=== PATIENT | female | born 1970 | race Caucasian/White ===

== ENCOUNTER 2024-08-25 04:34 | Emergency (ER) | payer MEDICAID, SELFPAY ==
[2024-08-25] VITALS (10 sets, daily range): BP systolic 105–138; BP diastolic 57–88; PULSE 69–112; RESP 18–30; TEMP 36.7–37.3; O2SAT 90–99; BMI 42.4
--- NOTE | 2024-08-25 04:54 | EDNOTE_ITS ---
ED SOB =RME/HPI General Chief Complaint: Shortness of Breath/Dyspnea Stated Complaint: SOB Time Seen by Provider: 08/25/24 04:48 Arrival date/time: 08/25/24 04:34 RME / HPI RME / HPI Narrative: Dr. Bland?s Main ED Evaluation: 53yo female with pmhx CHF, HTN, COPD, DM BIBA presents to the ED for a chief complaint of shortness of breath. Patient states she's had progressively worsening shortness of breath over the last couple days, reporting she had to use her inhaler (8 puffs) today. She reports associated worsening productive cough, sore throat, and runny nose. She denies any chest pain, fever, chills or any other associated symptoms. Denies currently being on steroids. Related Data Home Medications ?Medication ?Instructions ?Recorded ?Confirmed digoxin 125 mcg (0.125 mg) tablet 125 mcg PO DAILY 12/16/23 04/03/24 insulin glargine 100 unit/mL (3 10 unit subcut HS 02/24/24 04/03/24 mL) subcutaneous pen (Lantus Solostar U-100 Insulin) Previous Rx's ?Medication ?Instructions ?Recorded apixaban 5 mg tablet (Eliquis) 5 mg PO BID 1 month #60 tabs 02/12/24 empagliflozin 10 mg tablet 10 mg PO QAM #30 tabs 02/12/24 (Jardiance) ipratropium 0.5 mg-albuterol 3 mg 3 ml inhalation Q4H PRN shortness 02/12/24 (2.5 mg base)/3 mL nebulization of breath or wheezing #90 mL soln metoprolol succinate 25 mg 25 mg PO QDAY #30 tabs 02/12/24 tablet,extended release 24 hr albuterol sulfate 2.5 mg/0.5 mL 2.5 mg (0.5 mL) inhalation Q6H PRN 03/07/24 solution for nebulization shortness of breath or wheezing #30 ea albuterol sulfate 90 mcg/actuation 2 inh inhalation Q4H PRN shortness 03/27/24 aerosol inhaler of breath or wheezing #8.5 grams beclomethasone dipropionate 80 2 inh inhalation BID Asthma #10.6 03/27/24 mcg/actuation HFA breath activated grams aerosol (Qvar RediHaler) furosemide 40 mg tablet 40 mg PO BID 1 month #30 tabs 04/04/24 fluticasone furoate 100 1 inh inhalation Q24H #60 ea 07/02/24 mcg-vilanterol 25 mcg/dose inhalation powder (Breo Ellipta) Allergies Allergy/AdvReac Type Severity Reaction Status Date / Time codeine Allergy Severe HIVES, Verified 04/02/24 20:49 SWELLING, DIFF BREATHING meloxicam Allergy Severe Difficulty Verified 04/02/24 20:49 Breathing Review of Systems Review of Systems Systems Reviewed: All systems reviewed, normal except as documented Narrative Review of Systems: Gen: No fever, no chills, no weight loss EYES: No discharge, no visual changes, no pain HEENT: No ear pain, + congestion, + sore throat PULM: + shortness of breath, + cough, no congestion CV: No chest pain, no dyspnea on exertion, no palpitations GI: No nausea, no vomiting, no diarrhea, no pain, no constipation : No frequency, no urgency, no dysuria Musc/skel: No joint pain, no back pain Skin: No rash. Warm and dry. Psyc: No hallucinations, no depression Heme/Lymph: No easy bleeding or bruising tendencies Neuro: No weakness, no headache Past Medical History Past Medical History NEUROLOGIC: Positive Neurological Disorders and Migraine; Negative Cerebrovascular Accident, Transient Ischemic Attacks (TIA), Dementia, Alzheimer's Disease, Parkinson's Disease, Brain Tumor, Meningitis, Seizures, Epilepsy, Multiple Sclerosis, Cerebral Palsy, Amyotrophic Lateral Sclerosis (ALS/[place] Gehrig's), Guillain-[place] Syndrome, Spina Bifida, Paralysis, Peripheral Neuropathy, Aguayo's Palsy, Subdural Hematoma, Head Trauma, Spinal Cord Injury or Traumatic Brain Injury CARDIAC: Positive Cardiac Disorders, Myocardial Infarction, Cardiac Arrhythmia, Congestive Heart Failure and Hypotension; Negative Atrial Fibrillation, Angina, Heart Murmur, Coronary Artery Disease, Atherosclerotic Heart Disease, Peripheral Vascular Disease, Hypercholesterolemia, Aneurysm, Congenital Heart Disease, Valvular Heart Disease, Rheumatic Fever, Cardiomyopathy, Edema, Pericarditis, Cellulitis, Deep Vein Thrombosis, Hypertension or Varicose Veins RESPIRATORY: Positive Chronic Obstructive Pulmonary Disease (COPD), Asthma and Pneumonia; Negative Bronchitis, Emphysema, Pulmonary Fibrosis, Cystic Fibrosis, Tuberculosis, Pulmonary Embolism, Pulmonary Edema or Sleep Apnea GASTROINTESTINAL: Positive Gastrointestinal Disorders, Gall Bladder Disease and Obesity; Negative Hepatitis, Cirrhosis, Pancreatitis, Celiac Disease, Gastrointestinal Bleed, Esophageal Varices, Silverio's Esophagus, Colitis, Ulcerative Colitis, Diverticulitis, Diverticulosis, Ulcer, Colorectal Cancer, Irritable Bowel, Crohn's Disease, Obstructive Bowel, Hiatal Hernia, Hemorrhoids or Gastroesophageal Reflux Disease GENITOURINARY: Negative Genitourinary Disorders, Renal Disease, Kidney Stones, Polycystic Kidney Disease, Neurogenic Bladder, Inguinal Hernia, Dialysis, Prostate Cancer or Benign Prostatic Hyperplasia REPRODUCTIVE: Positive Previous Pregnancies; Negative Breast Cancer, Endometriosis, Genital Herpes, Gonorrhea, Pelvic Inflammatory Disease, Syphilis, Testicular Cancer or Uterine Prolapse MUSCULOSKELETAL: Positive Arthritis and Fractures; Negative Musculoskeletal Disorders, Muscular Dystrophy, Myasthenia Gravis, Marfan's Syndrome, Bone Cancer, Rheumatoid Arthritis, Osteoporosis, Degenerative Disk Disease, Gout, Scoliosis, Carpal Tunnel Syndrome, Fibromyalgia, Degenerative Joint Disease, Osteomyelitis or Poliovirus ENT: Negative Cataracts, Glaucoma, Blind, Retinal Detachment, Macular Degeneration, Ear Infection, Deafness, Head Trauma or Eye Prosthesis ENDOCRINE: Positive Endocrine Disorders and Diabetes Mellitus Type 2; Negative Diabetes Mellitus Type 1, Hypoglycemia, Yani's Syndrome, Gilles's Disease, Hyperthyroidism, Hypothyroidism, Parathyroid Disease, Pituitary Disease, Systemic Lupus Erythematosus, Syndrome of Inappropriate Antidiuretic Hormone (SIADH), Adrenal Disease or Graves' Disease HEMATOLOGIC: Negative Blood Disorders, Anemia, Leukemia, Hemophilia, Thalassemia, Sickle Cell Disease or Clotting Problems PSYCHO/SOCIAL: Positive Recreational Drug Use, Depression and Anxiety; Negative Psychiatric Problems, Schizophrenia, Bipolar Disorder, Behavior Problems, Self-Mutilation, Attention Deficit Disorder, Attention Deficit Hyperactivity Disorder, Depression, Post Traumatic Stress Disorder or Eating Disorder OTHER HISTORY: Positive Autoimmune Disease, Shingles, Falls and Chicken Pox; Negative Down Syndrome, Autism, Developmental Delay, Blood Transfusions, Blood Transfusion Reaction, Anesthesia Reactions, Organ Transplant, Chemotherapy, Radiation Therapy, Hyperbaric Therapy, MRSA, VRSA, Vancomycin-Resistant Enterococci, Human Immunodeficiency Virus (HIV), Measles, Mumps, Rubella (Swiss Measles), Pertussis, Clostridium Difficile, Cancer, Breast Cancer, Cervical Cancer, Colorectal Cancer, Lung Cancer, Ovarian Cancer, Prostate Cancer or Testicular Cancer Family History FAMILY HISTORY: Positive Family Cancer and Family Surgery; Negative Family Psychiatric Problems, Family Respiratory Disorders, Family Cardiac Disorders, Family Gastrointestinal Problems or Family Anesthesia Reaction Surgical History SURGICAL: Positive Abdominal Surgery; Negative Cardiac Surgery, Open Heart Surgery, Coronary Artery Bypass Graft, Valve Replacement, Vascular Surgery, Coronary Stent, Cardiac Catheterization, Pacemaker, Angiogram, Auto Implanted Cardiovert Defib, Carotid Endarterectomy, Endocrine Surgery, Thyroidectomy, Ear Surgery, Tympanostomy Tube, Eye Surgery, Nose Surgery, Oral Surgery, Tonsillectomy, Adenoidectomy, Cochlear Implant, Corneal Transplant, Throat Surgery, Tracheostomy, Gastrostomy, Bowel Surgery, Nephrectomy, Transurethral Resection, Joint Replacement, Amputation, Open Reduction Internal Fixation, Arthroscopy, Neurologic Surgery, Brain Shunt, Mastectomy, Lumpectomy, Hysterectomy, Tubal Ligation, Section or Organ Transplant Social History SMOKING STATUS: Former smoker SECOND HAND EXPOSURE: Yes SUBSTANCE USE: former substance user and amphetamines ED Exam Narrative Physical exam: GENERAL APPEARANCE: AxOx4, generally well-appearing, no acute distress. HEENT: NC, AT. MMM. EOMI, clear conjunctiva, oropharynx clear. NECK: Supple without lymphadenopathy. No stiffness or restricted ROM. HEART: Normal rate and regular rhythm, normal S1/S1, no m/r/g LUNGS: Diminished breath sounds in all lung vides. + expiratory wheezes. No crackles are heard. ABDOMEN: Soft, nontender, nondistended with good bowel sounds heard. BACK: No midline C/T/L spine pain or deformity, No CVAT, no obvious deformity. EXTREMITIES: Without cyanosis, clubbing or edema. MUSCULOSKELETAL: FROM of all major joints, no chest tenderness NEUROLOGICAL: Grossly nonfocal. Alert and oriented, moving all 4 extremities. CN not formally tested but appear grossly intact. Observed to ambulate with normal gait. Skin: Warm and dry without any rash. Course Quality Measures none Orders Category Date Time Status EKG (ED ONLY) *Do not use* NOW Care 08/25/24 04:35 Completed EKG (ED Only) Stat Exams 08/25/24 04:35 Ordered ALBUTEROL RT 0.5ml [Proventil Rt 0.5ml] Med 08/25/24 04:55 Discontinued 10 mg INH X1 ONE Ipratropium [place] Rt Mariel [Atrovent Rt Mariel] Med 08/25/24 04:55 Discontinued 1 mg INH X1 ONE Sodium Chloride Rt Mariel 0.9% [NS Rt Mariel 0.9%] Med 08/25/24 04:55 Active 3 ml INH PRN PRN predniSONE Med 08/25/24 04:54 Discontinued 60 mg PO X1 ONE Vital Signs Vital signs: Vital Signs Temperature 98.0 F 08/25/24 04:36 Pulse Rate 78 08/25/24 04:36 Respiratory Rate 28 H 08/25/24 04:36 Blood Pressure 120/57 L 08/25/24 04:36 Pulse Oximetry (%) 90 L 08/25/24 04:36 Oxygen Delivery Method Room Air 08/25/24 04:36 Pulse ox is 90% on room air, which is slightly hypoxic according to my interpretation. Shortness of Breath / Dyspnea MDM Narrative MDM Narrative:: Ms. Reynaga's well-known to the emergency department for frequent visits for COPD exacerbation which she presents with similar issues. She has been able to maintain her home oxygen and living status but appears to be suffering for an upper respiratory infection with a sore throat and cough. This is likely triggering a COPD exacerbation. There could be a small component of acute bronchitis as well. Patient was started on aggressive bronchodilators and oral steroids. She is currently in treatment process and is signed out to the oncoming provider for reevaluation, possible further testing, and final disposition. Scribe Attestation: 08/24/24 - Neyda, Nina Carnes, scribing for and in the presence of Dr. Bland. Patient data External records reviewed:: [facility] previous records (Per chart review, patient was seen here on 08/16/24 for an anxiety attack.) Clinical information provided by:: patient Social determinants that could affect healthcare access:: none Patient has the following chronic illnesses:: HFrEF 35-40% 03/2024, AFib, COPD, diabetes, anxiety How is presenting disease/condition affected by chronic disease/condition?: exacerbated by Evaluation data The following diagnostics were reviewed and interpreted by me:: EKG tracing(s) Lab and/or radiology exams considered but not ordered:: none Interpretation Summary: EKG done at 0444, sinus rhythm, rate of 79, normal axis, normal intervals, nonspecific ST-T wave changes, no STEMI, according to my interpretation. Medications / Prescriptions Medications or Prescriptions considered but not ordered:: none Medication administrations:: Medication Administration History Sodium Chloride (Sodium Chloride Rt Mariel 0.9% 3 Ml Nebu) 3 ml INH PRN PRN PRN Reason: SOLN Stop: 09/24/24 04:54 Last Admin: 08/25/24 05:05 Dose: 3 ml Documented By: JERRY Discontinued Medications Albuterol (Albuterol Rt 2.5 Mg/0.5 Ml Nebu) 10 mg INH X1 ONE Stop: 08/25/24 04:56 Last Admin: 08/25/24 05:04 Dose: 10 mg Documented By: JERRY Ipratropium [place] (Ipratropium Rt 0.5 Mg/ 2.5 Ml Nebu) 1 mg INH X1 ONE Stop: 08/25/24 04:56 Last Admin: 08/25/24 05:04 Dose: 1 mg Documented By: JERRY Prednisone (Prednisone 20 Mg Tablet) 60 mg PO X1 ONE Stop: 08/25/24 04:55 Last Admin: 08/25/24 05:02 Dose: 60 mg Documented By: DB see above Consultations Consultation(s) initiated? (list below): No Diagnosis Shortness of Breath Differential Diagnosis: community acquired pneumonia, asthma with exacerbation, pulmonary embolism and other (COPD exacerbation, CHF exacerbation) Most likely diagnosis given after review of the tests above:: see below Admission Indicated Admission indicated?: not indicated Admission Request Was there a request for admission?: No Disposition Plan Disposition Plan: other (specify) (Signed out to the next oncoming provider at 0600 pending re-evaluation and final disposition.) Critical Care Time Critical Care Time Critical Care Time: Yes Total Critical Care Time (min.): 35 Attestation: Excluding billable procedures for the rapid response, analysis, management, treatment, and documentation to prevent the very possible risk of cardiopulmonary decompensation and/or Discharge Plan Prescriptions/Referrals Prescriptions/Med Rec: No Action digoxin 125 mcg (0.125 mg) tablet 125 mcg PO DAILY metoprolol succinate 25 mg tablet extended release 24 hr 25 mg PO QDAY Qty: 30 3RF ipratropium-albuterol 0.5 mg-3 mg(2.5 mg base)/3 mL solution for nebulization 3 ml inhalation Q4H PRN (Reason: shortness of breath or wheezing) Qty: 90 0RF Jardiance 10 mg tablet 10 mg PO QAM Qty: 30 3RF Eliquis 5 mg tablet 5 mg PO BID 30 Days Qty: 60 3RF albuterol sulfate 90 mcg/actuation HFA aerosol inhaler 2 inh inhalation Q4H PRN (Reason: shortness of breath or wheezing) Qty: 8.5 0RF Qvar RediHaler 80 mcg/actuation HFA aerosol breath activated 2 inh inhalation BID Qty: 10.6 0RF Rx Instructions: administer with spacer fluticasone furoate-vilanterol [Breo Ellipta] 100-25 mcg/dose blister with device 1 inh inhalation Q24H Qty: 60 0RF insulin glargine [Lantus Solostar U-100 Insulin] 100 unit/mL (3 mL) insulin pe n 10 unit SUBCUT HS albuterol sulfate 2.5 mg/0.5 mL solution for nebulization 2.5 mg inhalation Q6H PRN (Reason: shortness of breath or wheezing) Qty: 30 0RF furosemide 40 mg tablet 40 mg PO BID 30 Days Qty: 30 3RF Problem List Clinical Impression: Acute exacerbation of chronic obstructive airways disease, Acute bronchitis Patient/Caregiver Discharge Instructions Print Language: Kinyarwanda
--- NOTE | 2024-08-25 04:54 | PC.NURSE ---
Pt BIB EMS with chief c/o of SOB X2 hr. Per EMT-P Umang reports that the Pt was found in her room with a Sp02 of 81% on room air, so EMT-P Susana gave her a Breathing Tx which render a positive outcome and elevated her Sp02 to 96% and kept her on a non rebreather. On assessment Pt is SOB typinci with wheezing sound throughout to all 4 quadrants, 28 RR, and Sp02 90% on room air. Pt was given updated on plan of care. Dr. Bland at bedside assessing Pt.
[2024-08-25] MEDS: predniSONE 20 MG TABLET 60 MG PO (05:02)
[2024-08-25] MEDS: ALBUTEROL RT 2.5 MG/0.5 ML NEBU 10 MG INH (05:04)
[2024-08-25] MEDS: IPRATROPIUM RT 0.5 MG/ 2.5 ML NEBU 1 MG INH (05:04)
[2024-08-25] MEDS: SODIUM CHLORIDE RT SOL 0.9% 3 ML NEBU INH (05:05)
--- NOTE | 2024-08-25 06:09 | XR_ITS ---
Examination: AP chest single view Technique: AP portable upright chest single view Exam date and time: January 24, 2024 0612 hrs. Comparison August 06, 2024 Indications: Onset shortness of breath today Findings: Normal heart size Mild vascular congestion No lobar pneumonia No hector pulmonary edema Prominent osteopenia Impression: Mild vascular congestion
--- NOTE | 2024-08-25 06:48 | EDNOTE_ITS ---
Emergency Room Addendum <Virginia Hou - Last Filed: 08/25/24 06:53> Addendum Narrative: 0600: Care assumed from Dr. Bland, the previous shift emergency physician. Past medical, surgical, social and family history reviewed. Vitals and home medications reviewed. I will assume the care of the patient at this time, pending reassessment and final disposition. Please refer to the emergency department record for history and examination from initial visit.? EMS notes reviewed by me. Nursing notes reviewed by me. Vital signs reviewed by me. [place] medical records reviewed by me. <Chai Patterson MD - Last Filed: 08/25/24 09:55> Addendum Narrative: 0600: Care assumed from Dr. Bland, the previous shift emergency physician. Past medical, surgical, social and family history reviewed. Vitals and home medications reviewed. I will assume the care of the patient at this time, pending reassessment and final disposition. Please see his note. Please refer to the emergency department record for history and examination from initial visit. Dr. Flores has given her albuterol treatment and prednisone by mouth. EMS notes reviewed by me. Nursing notes reviewed by me. Vital signs reviewed by me. [place] medical records reviewed by me. When I examined the patient she still have a little bit of wheezing so I gave her another 5 mg of albuterol continuous nebulizer treatment. And I put on oxygen at 2 L/min nasal cannula. She is on oxygen at home continuously. 1 view chest x-ray interpreted by me: Clear lungs. Heart normal. Mediastinum normal. Cannot rule out a small infiltrate in the left base. For which I gave the patient Rocephin. But the patient does not have any fever. Her WBC count is normal. So it could might well be a atelectasis 9:50 AM, the patient is alert awake oriented x 4 GCS of 15. Comfortably on 2 L nasal cannula. And his O2 saturation is 98%. She wants to go home. And she is calling for a ride home. Diagnosis: COPD exacerbation Condition: Stable and improved DC instruction: Continue oxygen at home for COPD. Continue inhaler for COPD. Continue Qvar. Follow-up with your medical doctor in 3 days. Return the nearest emergency department if condition worsens or if new symptoms develop.
[2024-08-25 07:36] LABS: Basophils % (Auto) 0 % (0-2.5); Eosinophils % (Auto) 1 % (0-10); Hematocrit 37.2 % (36.0-46.0); Hemoglobin 11.9 g/dL (12.0-16.0); Immature Granulocytes % (Auto) 1 % (0-0); Immature Granulocytes Auto 0.03 Thou/mm3 (0.00-0.00); Lymphocytes % (Auto) 17 % (10-50); Mean Corpuscular Volume 88 fL (80-100); Monocytes # (Auto) 0.3 Thou/mm3 (0.0-0.8); Monocytes % (Auto) 5 % (0-12); Neutrophils # (Auto) 4.3 Thou/mm3 (1.8-7.7); Neutrophils % (Auto) 77 % (37-80); Nucleated Red Blood Cell % 0 /100 WBC (0); Platelet Count 135 Thou/mm3 (140-440); RDW Standard Deviation 44.8 fL (36.4-46.3); Red Blood Count 4.25 Miln/mm3 (4.00-5.20); White Blood Count 5.6 Thou/mm3 (3.6-11.0)
[2024-08-25 07:46] LABS: Anion Gap 4 (7-16); BUN/Creatinine Ratio 14 Ratio (12-20); Blood Urea Nitrogen 10 mg/dL (9-23); Calcium 9.3 mg/dL (8.3-10.6); Carbon Dioxide 30.9 mMol/L (20.0-31.0); Chloride 101 mMol/L (98-107); Creatinine (Component) 0.7 mg/dL (0.6-1.3); Estimated Creatinine Clearance 93.9 mL/min (>60); Glucose 298 mg/dL (74-106); Osmolality,Calculated 281 (275-295); Potassium 3.5 mMol/L (3.4-5.1); Sodium 136 mMol/L (136-145); Troponin I < 0.020 ng/mL (0.0-0.045); eGFR > 60 See Note
[2024-08-25 07:59] LABS: B-Type Natriuretic Peptide < 20 pg/mL (0-100)
[2024-08-25] MEDS: ALBUTEROL RT 2.5 MG/0.5 ML NEBU 5 MG HHN (08:02)
[2024-08-25] MEDS: cefTRIAXone/D5w 1gm IV premix 50 ML IV (08:22)
== END 2024-08-25 11:25 | disposition home or self-care (01) ==
PROVIDERS: Emergency Provider Emergency Medicine; PCP Family Medicine
DX: J44.1 Chronic obstructive pulmonary disease with (acute) exacerbation (principal); J44.0 Chronic obstructive pulmonary disease with (acute) lower respiratory infection; J20.9 Acute bronchitis, unspecified
CPT/HCPCS: 36415; 71045; 74330; 80048; 83880; 84484; 85025; 93005; 94644; 94645; 99291; J0696; J7512

== ENCOUNTER 2024-08-29 08:41 | Emergency (ER) | payer MEDICAID, SELFPAY ==
[2024-08-29 08:42] VITALS: BP 117/73; PULSE 92; RESP 22; TEMP 37; O2SAT 92
[2024-08-29 08:48] VITALS: BMI 42.4
--- NOTE | 2024-08-29 08:53 | EKG_ITS ---
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: : 1970 Requested By: Chai Dejesus (VANE) Order Number: [id number] Reading MD: Chai Dejesus ([employer]) Measurements Intervals [place] Rate: 100 P: 75 IL: 158 QRS: 41 QRSD: 99 T: 82 QT: 317 QTc: 409 Interpretive Statements SINUS TACHYCARDIA WITH OCCASIONAL VENTRICULAR PREMATURE COMPLEXES LOW QRS VOLTAGE IN PRECORDIAL LEADS [QRS DEFLECTION < 1.0 mV IN CHEST LEADS] NONSPECIFIC ST & T-WAVE ABNORMALITY ABNORMAL RHYTHM ECG Compared to ECG 08/06/2024 05:17:33 Ventricular premature complex(es) now present T-wave abnormality now present Sinus rhythm no longer present Myocardial infarct finding no longer present /store/S0/[id number]/[id number].pdf
--- NOTE | 2024-08-29 08:54 | PD.EDRME ---
Rapid Medical Screening Exam RME Arrival date/time: 08/29/24 08:41 53-year-old female presents emergency department complaints of shortness of breath Chief Complaint: Shortness of Breath/Dyspnea Time Seen by Provider: 08/29/24 08:48 Vital signs: Vital Signs Temperature 98.6 F 08/29/24 08:42 Pulse Rate 92 08/29/24 08:42 Respiratory Rate 22 H 08/29/24 08:42 Blood Pressure 117/73 08/29/24 08:42 Pulse Oximetry (%) 92 L 08/29/24 08:42 Oxygen Delivery Method Nasal Cannula 08/29/24 08:42 Oxygen Flow Rate 2 08/29/24 08:42
--- NOTE | 2024-08-29 08:59 | XR_ITS ---
Examination: AP chest single view Technique one AP portable upright chest single view Exam date and time: August 29, 2024 0918 hours INDICATIONS: Chest pain shortness of breath beginning today. FINDINGS: Accentuation perihilar basilar bronchovascular markings Normal heart size No lobar pneumonia Prominent osteopenia IMPRESSION: Bronchitis pattern
[2024-08-29 09:02] VITALS: PULSE 89
[2024-08-29] MEDS: ALBUTEROL RT 2.5 MG/0.5 ML NEBU 10 MG INH (09:02)
[2024-08-29] MEDS: IPRATROPIUM RT 0.5 MG/ 2.5 ML NEBU 1 MG INH (09:03)
[2024-08-29 09:06] VITALS: PULSE 81; RESP 22; O2SAT 100
--- NOTE | 2024-08-29 11:34 | PD.EDSOB ---
ED SOB =RME/HPI General Chief Complaint: Shortness of Breath/Dyspnea Stated Complaint: trouble breathing, body pain Time Seen by Provider: 08/29/24 08:48 Arrival date/time: 08/29/24 08:41 RME / HPI RME / HPI Narrative: 08/29/24 08:41 RME: 53-year-old female presents emergency department complaints of shortness of breath CECIL HPI: 53 y/o female with history of COPD on 2L NC currently on prednisone with increase bilateral low back pain worsened with breathing and coughing since last night. This she feels has triggered her shortness of breath. Cough is non-productive. She denies fevers, chills, sweats. She denies chest pain. Related Data Home Medications ?Medication ?Instructions ?Recorded ?Confirmed digoxin 125 mcg (0.125 mg) tablet 125 mcg PO DAILY 12/16/23 04/03/24 insulin glargine 100 unit/mL (3 10 unit subcut HS 02/24/24 04/03/24 mL) subcutaneous pen (Lantus Solostar U-100 Insulin) Previous Rx's ?Medication ?Instructions ?Recorded apixaban 5 mg tablet (Eliquis) 5 mg PO BID 1 month #60 tabs 02/12/24 empagliflozin 10 mg tablet 10 mg PO QAM #30 tabs 02/12/24 (Jardiance) ipratropium 0.5 mg-albuterol 3 mg 3 ml inhalation Q4H PRN shortness 02/12/24 (2.5 mg base)/3 mL nebulization of breath or wheezing #90 mL soln metoprolol succinate 25 mg 25 mg PO QDAY #30 tabs 02/12/24 tablet,extended release 24 hr albuterol sulfate 2.5 mg/0.5 mL 2.5 mg (0.5 mL) inhalation Q6H PRN 03/07/24 solution for nebulization shortness of breath or wheezing #30 ea albuterol sulfate 90 mcg/actuation 2 inh inhalation Q4H PRN shortness 03/27/24 aerosol inhaler of breath or wheezing #8.5 grams beclomethasone dipropionate 80 2 inh inhalation BID Asthma #10.6 03/27/24 mcg/actuation HFA breath activated grams aerosol (Qvar RediHaler) furosemide 40 mg tablet 40 mg PO BID 1 month #30 tabs 04/04/24 fluticasone furoate 100 1 inh inhalation Q24H #60 ea 07/02/24 mcg-vilanterol 25 mcg/dose inhalation powder (Breo Ellipta) albuterol sulfate 90 mcg/actuation 2 inh inhalation Q4H PRN shortness 08/25/24 aerosol inhaler of breath or wheezing #8.5 grams beclomethasone dipropionate 40 2 inh inhalation BID COPD #10.6 08/25/24 mcg/actuation HFA breath activated grams aerosol doxycycline monohydrate 100 mg 100 mg PO BID #10 caps 08/29/24 capsule Allergies Allergy/AdvReac Type Severity Reaction Status Date / Time codeine Allergy Severe HIVES, Verified 08/29/24 08:42 SWELLING, DIFF BREATHING meloxicam Allergy Severe Difficulty Verified 08/29/24 08:42 Breathing Review of Systems Review of Systems Systems Reviewed: All systems reviewed, normal except as documented ED Exam Narrative Physical exam: GENERAL APPEARANCE: AxOx4, generally well-appearing, no acute distress. HEENT: NC, AT. MMM. EOMI, clear conjunctiva, oropharynx clear. NECK: Supple without lymphadenopathy. No stiffness or restricted ROM. HEART: Normal rate and regular rhythm, normal S1/S1, no m/r/g LUNGS: Good air exchange in all 4 lung vides, coarse rhonchorous wheezes in all lung vides, no crackles or rails are heard. ABDOMEN: Soft, nontender, nondistended with good bowel sounds heard. BACK: No midline C/T/L spine pain or deformity, No CVAT, no obvious deformity. EXTREMITIES: Without cyanosis, clubbing or edema. MUSCULOSKELETAL: FROM of all major joints, no chest tenderness NEUROLOGICAL: Grossly nonfocal. Alert and oriented, moving all 4 extremities. CN not formally tested but appear grossly intact. Observed to ambulate with normal gait. Skin: Warm and dry without any rash. Course Quality Measures none Orders Category Date Time Status EKG (ED ONLY) *Do not use* NOW Care 08/29/24 08:53 Active EKG (ED Only) Stat Exams 08/29/24 08:53 Draft XR chest 1V portable Stat Exams 08/29/24 08:59 Completed ALBUTEROL RT 0.5ml [Proventil Rt 0.5ml] Med 11/18/24 08:59 Discontinued 10 mg INH X1 ONE Acetaminophen Tab [Tylenol Tab] Med 08/29/24 09:31 Discontinued 650 mg PO X1 ONE Ipratropium [place] Rt Mariel [Atrovent Rt Mariel] Med 08/29/24 08:59 Discontinued 1 mg INH X1 ONE Sodium Chloride Rt Mariel 0.9% [NS Rt Mariel 0.9%] Med 08/29/24 08:59 Active 3 ml INH PRN PRN Reevaluation(s) Reevaluation #1: After completing hour-long nebulized treatment, she feels much improved, breathing comfortably and sleeping well here in the emergency department. Time: 11:30 Vital Signs Vital signs: Vital Signs Temperature 98.6 F 08/29/24 08:42 Pulse Rate 92 08/29/24 08:42 Respiratory Rate 22 H 08/29/24 08:42 Blood Pressure 117/73 08/29/24 08:42 Pulse Oximetry (%) 92 L 08/29/24 08:42 Oxygen Delivery Method Nasal Cannula 08/29/24 08:42 Oxygen Flow Rate 2 08/29/24 08:42 SpO2 92% on 2 L nasal cannula is not hypoxic given her chronic COPD status Procedures -ED EKG Interpretation #1: Date of EK08/29/24 Time of EK:36 Rate: 100 Interpretation: Interpreted by me EKG Impression: Normal sinus rhythm, No acute ST-T changes, Normal intervals and Normal axis Shortness of Breath / Dyspnea MDM Narrative MDM Narrative:: Ms. Reynaga presents to the emergency department with acute exacerbation of COPD in the setting of bilateral pleuritic chest pain with increasing cough. She otherwise does not have signs of systemic infection and cough is more consistent with an acute bronchitis. Chest x-ray was done given her pleuritic back pain and chronic COPD status to rule out pneumothorax/bullous disease. Chest x-ray my interpretation shows no acute cardiopulmonary findings, no cardiomegaly, no bony abnormalities. She is currently on steroids from her last visit with me several days ago. At this point I feel she would benefit with some oral antibiotics for an acute bronchitis and we will have her schedule her home inhaler treatments for the next 3 days. She received an hour-long aggressive nebulized bronchodilator treatment with significant proved here in the emergency department. Her vital signs remained stable without signs of hypoxia and is appropriate for outpatient management. Patient data External records reviewed:: [facility] previous records Clinical information provided by:: patient Social determinants that could affect healthcare access:: none Patient has the following chronic illnesses:: COPD How is presenting disease/condition affected by chronic disease/condition?: exacerbated by Evaluation data The following diagnostics were reviewed and interpreted by me:: radiology exam(s) and EKG tracing(s) Lab and/or radiology exams considered but not ordered:: Basic labs not indicated today. Interpretation Summary: As per narrative Medications / Prescriptions Medications or Prescriptions considered but not ordered:: None Medication administrations:: Medication Administration History Sodium Chloride (Sodium Chloride Rt Mariel 0.9% 3 Ml Nebu) 3 ml INH PRN PRN PRN Reason: SOLN Stop: 09/28/24 08:58 Discontinued Medications Acetaminophen (Acetaminophen 325 Mg Tablet) 650 mg PO X1 ONE Stop: 08/29/24 09:32 Last Admin: 08/29/24 11:06 Dose: Not Given Documented By: KAYLEN Non-Admin Reason: Nausea Albuterol (Albuterol Rt 2.5 Mg/0.5 Ml Nebu) 10 mg INH X1 ONE Stop: 08/29/24 09:00 Last Admin: 08/29/24 09:02 Dose: 10 mg Documented By: NASIM Ipratropium [place] (Ipratropium Rt 0.5 Mg/ 2.5 Ml Nebu) 1 mg INH X1 ONE Stop: 08/29/24 09:00 Last Admin: 08/29/24 09:03 Dose: 1 mg Documented By: NASIM Above Consultations Consultation(s) initiated? (list below): No Diagnosis Shortness of Breath Differential Diagnosis: acute exacerbation of chronic obstructive airways disease, congestive heart failure and community acquired pneumonia Most likely diagnosis given after review of the tests above:: See below Admission Indicated Admission indicated?: not indicated Admission Request Was there a request for admission?: No Disposition Plan Disposition Plan: Discharge Discharge Attestation Discharge Attestation: The patient and all family members were given an opportunity to ask questions and understood the discharge instructions. Discharge instructions specifically effects, indications for sooner follow up or return to the emergency department, and the expected course of current diagnosis. Patient condition: Stable Critical Care Time Critical Care Time Critical Care Time: Yes Total Critical Care Time (min.): 35 Attestation: Excluding billable procedures for the rapid response, analysis, management, treatment, and documentation to vent the very possible risk of cardiopulmonary decompensation and/or . Discharge Plan Plan Patient Disposition: HOME (Self Care) Prescriptions/Referrals Prescriptions/Med Rec: New doxycycline monohydrate 100 mg capsule 100 mg PO BID Qty: 10 0RF No Action digoxin 125 mcg (0.125 mg) tablet 125 mcg PO DAILY metoprolol succinate 25 mg tablet extended release 24 hr 25 mg PO QDAY Qty: 30 3RF ipratropium-albuterol 0.5 mg-3 mg(2.5 mg base)/3 mL solution for nebulization 3 ml inhalation Q4H PRN (Reason: shortness of breath or wheezing) Qty: 90 0RF Jardiance 10 mg tablet 10 mg PO QAM Qty: 30 3RF Eliquis 5 mg tablet 5 mg PO BID 30 Days Qty: 60 3RF albuterol sulfate 90 mcg/actuation HFA aerosol inhaler 2 inh inhalation Q4H PRN (Reason: shortness of breath or wheezing) Qty: 8.5 0RF Qvar RediHaler 80 mcg/actuation HFA aerosol breath activated 2 inh inhalation BID Qty: 10.6 0RF Rx Instructions: administer with spacer fluticasone furoate-vilanterol [Breo Ellipta] 100-25 mcg/dose blister with device 1 inh inhalation Q24H Qty: 60 0RF albuterol sulfate 90 mcg/actuation HFA aerosol inhaler 2 inh inhalation Q4H PRN (Reason: shortness of breath or wheezing) Qty: 8.5 2RF beclomethasone dipropionate 40 mcg/actuation HFA aerosol breath activated 2 inh inhalation BID Qty: 10.6 0RF insulin glargine [Lantus Solostar U-100 Insulin] 100 unit/mL (3 mL) insulin pen 10 unit SUBCUT HS albuterol sulfate 2.5 mg/0.5 mL solution for nebulization 2.5 mg inhalation Q6H PRN (Reason: shortness of breath or wheezing) Qty: 30 0RF furosemide 40 mg tablet 40 mg PO BID 30 Days Qty: 30 3RF Referrals: Tavares Carnes MD [Primary Care Provider] - In 1 week Problem List Clinical Impression: COPD (chronic obstructive pulmonary disease), Acute bronchitis Patient/Caregiver Discharge Instructions Education Materials: ED Bronchitis with Wheezing (Adult), ED COPD Flare Additional Instructions: Follow-up with your primary care doctor in 2 to 3 days for recheck. You can return to the emergency department sooner symptoms worsen or if he notes any new, concerning issues. Print Language: [place] Stand Alone Forms: Cecelia Award Info., Patient Portal Info Letter
== END 2024-08-29 13:07 | disposition home or self-care (01) ==
PROVIDERS: Emergency Provider Emergency Medicine; PCP Family Medicine
DX: J44.0 Chronic obstructive pulmonary disease with (acute) lower respiratory infection (principal); J20.9 Acute bronchitis, unspecified; I49.3 Ventricular premature depolarization; Z79.51 Long term (current) use of inhaled steroids
CPT/HCPCS: 71045; 80053; 80162; 83615; 83735; 83880; 84484; 85025; 85610; 85730; 93005; 94644; 99283

== ENCOUNTER 2024-08-30 05:31 | Emergency (ER) | payer MEDICAID, SELFPAY ==
[2024-08-30] VITALS (7 sets, daily range): BP systolic 116–125; BP diastolic 65–87; PULSE 94–118; RESP 15–95; TEMP 36.7–37.2; O2SAT 92–100; BMI 44.4
--- NOTE | 2024-08-30 05:48 | PC.NURSE ---
received order from Dr Yip for breathing tx x1 for patient
[2024-08-30] MEDS: ALBUTEROL RT 2.5 MG/0.5 ML NEBU 10 MG INH (06:00)
[2024-08-30] MEDS: IPRATROPIUM RT 0.5 MG/ 2.5 ML NEBU 1 MG INH (06:00)
--- NOTE | 2024-08-30 06:09 | XR_ITS ---
Examination: CTA chest with intravenous contrast 2-D reconstructions 3-D reconstructions, vascular Date and time of exam: August 30, 2024 0922 hours INDICATIONS: Onset shortness of breath chest pain today, clinical diagnosis pulmonary embolus CTDI: vol (mGy) 23.2 DLP: (mGycm) 406 Technique: Multiple axial sections of the thorax have been obtained. 3 mm slice thickness, from below the hemidiaphragms to above the apices of the lungs. Mediastinal and lung density settings have been obtained. 2-D sagittal and coronal reconstructions. 3-D angiographic renderings, 3-D volume renderings, 3D post processing, vascular maximum intensity projections obtained. Contrast administered is 100 cc Isovue-370 intravenous. Low dose protocols were performed. One or more of the following dose reduction techniques were used; automated exposure control, adjustment of the mA and/or KV according to patient size, use of iterative reconstruction technique. Findings: No thoracic aortic aneurysm dilatation or dissection Pulmonary artery opacification is not optimal, no pulmonary artery emboli are noted No paratracheal tracheobronchial or bronchopulmonary adenopathy No pneumonia or pulmonary edema or pleural disease No visualized liver or splenic lesion Mild thoracic spondylosis IMPRESSION: No pulmonary artery emboli noted
[2024-08-30] MEDS: predniSONE 20 MG TABLET 60 MG PO (06:22)
--- NOTE | 2024-08-30 06:27 | PD.EDSOB ---
ED SOB =RME/HPI General Chief Complaint: Shortness of Breath/Dyspnea Stated Complaint: SOB Time Seen by Provider: 08/30/24 06:07 Arrival date/time: 08/30/24 05:31 RME / HPI RME / HPI Narrative: 53 year old female with history of HFrEF 35-40% 03/2024, AFib, COPD on 2L NC, diabetes presents to the ED BIBA for complaint of shortness of breath and worsening pleuritic back pain today. Accompanied by a nonproductive cough. Per medics report, patient had administered a breathing treatment prior to their arrival and en route given a second Albuterol treatment. Patient reports she was evaluated here yesterday for similar pleuritic pain and shortness of breath. Diagnosed with bronchitis and prescribed Doxycycline with no change. Denies fevers, chills, chest pain, abdominal pain, n/v/d, or urinary symptoms. Related Data Home Medications ?Medication ?Instructions ?Recorded ?Confirmed digoxin 125 mcg (0.125 mg) tablet 125 mcg PO DAILY 12/16/23 04/03/24 insulin glargine 100 unit/mL (3 10 unit subcut HS 02/24/24 04/03/24 mL) subcutaneous pen (Lantus Solostar U-100 Insulin) Previous Rx's ?Medication ?Instructions ?Recorded apixaban 5 mg tablet (Eliquis) 5 mg PO BID 1 month #60 tabs 02/12/24 empagliflozin 10 mg tablet 10 mg PO QAM #30 tabs 02/12/24 (Jardiance) ipratropium 0.5 mg-albuterol 3 mg 3 ml inhalation Q4H PRN shortness 02/12/24 (2.5 mg base)/3 mL nebulization of breath or wheezing #90 mL soln metoprolol succinate 25 mg 25 mg PO QDAY #30 tabs 02/12/24 tablet,extended release 24 hr albuterol sulfate 2.5 mg/0.5 mL 2.5 mg (0.5 mL) inhalation Q6H PRN 03/07/24 solution for nebulization shortness of breath or wheezing #30 ea albuterol sulfate 90 mcg/actuation 2 inh inhalation Q4H PRN shortness 03/27/24 aerosol inhaler of breath or wheezing #8.5 grams beclomethasone dipropionate 80 2 inh inhalation BID Asthma #10.6 03/27/24 mcg/actuation HFA breath activated grams aerosol (Qvar RediHaler) furosemide 40 mg tablet 40 mg PO BID 1 month #30 tabs 04/04/24 fluticasone furoate 100 1 inh inhalation Q24H #60 ea 07/02/24 mcg-vilanterol 25 mcg/dose inhalation powder (Breo Ellipta) albuterol sulfate 90 mcg/actuation 2 inh inhalation Q4H PRN shortness 08/25/24 aerosol inhaler of breath or wheezing #8.5 grams beclomethasone dipropionate 40 2 inh inhalation BID COPD #10.6 08/25/24 mcg/actuation HFA breath activated grams aerosol doxycycline monohydrate 100 mg 100 mg PO BID #10 caps 08/29/24 capsule acetaminophen 500 mg tablet 500 mg PO Q4H PRN fever or pain 08/30/24 (Tylenol Extra Strength) #20 tabs benzonatate 100 mg capsule 100 mg PO TID PRN cough #14 caps 08/30/24 Allergies Allergy/AdvReac Type Severity Reaction Status Date / Time codeine Allergy Severe HIVES, Verified 08/29/24 08:42 SWELLING, DIFF BREATHING meloxicam Allergy Severe Difficulty Verified 08/29/24 08:42 Breathing Review of Systems Review of Systems Narrative Review of Systems: Gen: No fever, no chills, no weight loss EYES: No discharge, no visual changes, no pain HEENT: No ear pain, no congestion, no sore throat PULM: + shortness of breath, +cough, no congestion CV: No chest pain, no palpitations, no chest tightness GI: No nausea, no vomiting, no diarrhea, no pain, no constipation : No frequency, no urgency,? no dysuria Musc/skel: No joint pain, +pleuritic back pain Skin: No rash, no ecchymosis, no lesions Psyc: No hallucinations, no depression Heme/Lymph: No easy bleeding or bruising tendencies Neuro: No weakness, no headache Past Medical History Past Medical History NEUROLOGIC: Positive Neurological Disorders and Migraine CARDIAC: Positive Myocardial Infarction, Cardiac Arrhythmia, Congestive Heart Failure and Hypotension RESPIRATORY: Positive Chronic Obstructive Pulmonary Disease (COPD), Asthma and Pneumonia GASTROINTESTINAL: Positive Gastrointestinal Disorders, Gall Bladder Disease and Obesity REPRODUCTIVE: Positive Previous Pregnancies MUSCULOSKELETAL: Positive Arthritis and Fractures ENDOCRINE: Positive Endocrine Disorders and Diabetes Mellitus Type 2 PSYCHO/SOCIAL: Positive Recreational Drug Use, Depression and Anxiety OTHER HISTORY: Positive Autoimmune Disease, Shingles, Falls and Chicken Pox Family History FAMILY HISTORY: Positive Family Cancer and Family Surgery Surgical History SURGICAL: Positive Abdominal Surgery Social History SMOKING STATUS: Former smoker SECOND HAND EXPOSURE: Yes SUBSTANCE USE: former substance user and amphetamines ED Exam Narrative Physical exam: GENERAL APPEARANCE: AxOx4, generally well-appearing, no acute distress. HEENT: NC, AT. MMM. EOMI, clear conjunctiva, oropharynx clear. NECK: Supple without lymphadenopathy. No stiffness or restricted ROM. HEART: Normal rate and regular rhythm, normal S1/S1, no m/r/g LUNGS: Good air exchange in all 4 lung vides, coarse rhonchorous wheezes in all lung vides, no crackles or rails are heard. ABDOMEN: Soft, nontender, nondistended with good bowel sounds heard. BACK: No midline C/T/L spine pain or deformity, No CVAT, no obvious deformity. EXTREMITIES: Without cyanosis, clubbing or edema. MUSCULOSKELETAL: FROM of all major joints, no chest tenderness NEUROLOGICAL: Grossly nonfocal. Alert and oriented, moving all 4 extremities. CN not formally tested but appear grossly intact. Observed to ambulate with normal gait. Skin: Warm and dry without any rash. Course Course Course Narrative: chest xray ordered to help determine etiology of pleuritic chest pain and shortness of breath. Quality Measures none Orders Category Date Time Status CT Screening NOW Care 08/30/24 06:09 Active EKG (ED ONLY) *Do not use* NOW Care 08/30/24 05:[address] angio chest Stat Exams 08/30/24 06:09 Completed EKG (ED Only) Stat Exams 08/30/24 05:37 Ordered CBC Stat Lab 08/30/24 06:55 Completed CMP [Comprehensive Metabolic Panel] Stat Lab 08/30/24 06:55 Completed Troponin I Stat Lab 08/30/24 06:55 Completed ALBUTEROL RT 0.5ml [Proventil Rt 0.5ml] Med 08/30/24 05:54 Discontinued 10 mg INH X1 ONE ALBUTEROL RT 5 ml [Proventil Rt 5 ml] Med 08/30/24 05:37 Discontinued 5 mg INH X1 ONE Ipratropium [place] Rt Mariel [Atrovent Rt Mariel] Med 08/30/24 05:54 Discontinued 1 mg INH X1 ONE Sodium Chloride Rt Mariel 0.9% [NS Rt Mariel 0.9%] Med 08/30/24 05:54 Active 3 ml INH PRN PRN predniSONE Med 08/30/24 06:08 Discontinued 60 mg PO X1 ONE Reevaluation(s) Reevaluation #1: Patient resting comfortably, in no respiratory distress. We reviewed all the results, analysis, and treatment plans. Patient is amenable to discharge. Strict return precautions were outlined. Patient was discharged in stable condition. Time: 10:40 Vital Signs Vital signs: Vital Signs Temperature 99.0 F 08/30/24 05:37 Pulse Rate 96 08/30/24 05:37 Respiratory Rate 15 08/30/24 05:37 Blood Pressure 125/81 08/30/24 05:37 Pulse Oximetry (%) 96 08/30/24 05:37 Oxygen Delivery Method Nasal Cannula 08/30/24 05:37 Oxygen Flow Rate 6 08/30/24 05:37 Pulse ox is 96% on 6L which is adequate. Shortness of Breath / Dyspnea MDM Narrative MDM Narrative:: Virginia Faye am scribing for and in the presence of Dr. Bland. Patient data External records reviewed:: [facility] previous records (I reviewed ED visits from 08/29, 08/25, 08/16 of this year ) and EMS form Clinical information provided by:: patient and EMS (Provided prehospital course) Social determinants that could affect healthcare access:: housing (Currently living in a [place] [facility] ) Patient has the following chronic illnesses:: HFrEF 35-40% 03/2024, AFib, COPD on 2L NC, diabetes How is presenting disease/condition affected by chronic disease/condition?: exacerbated by Evaluation data The following diagnostics were reviewed and interpreted by me:: lab results and radiology exam(s) (I reviewed the CXR from yesterdays visit. There is bilateral bronchitis patter, no infiltrates. ) Lab and/or radiology exams considered but not ordered:: None Interpretation Summary: Ordering Physician: Kong Bland MD Date of Service: 08/30/24 Procedure(s): CT angio chest Accession Number(s): [id number] cc: Tavares Carnes MD; Kong Bland MD; Pete Araiza MD~ Examination: CTA chest with intravenous contrast 2-D reconstructions 3-D reconstructions, vascular Date and time of exam: August 30, 2024 0922 hours INDICATIONS: Onset shortness of breath chest pain today, clinical diagnosis pulmonary embolus CTDI: vol (mGy) 23.2 DLP: (mGycm) 406 Technique: Multiple axial sections of the thorax have been obtained. 3 mm slice thickness, from below the hemidiaphragms to above the apices of the lungs. Mediastinal and lung density settings have been obtained. 2-D sagittal and coronal reconstructions. 3-D angiographic renderings, 3-D volume renderings, 3D post processing, vascular maximum intensity projections obtained. Contrast administered is 100 cc Isovue-370 intravenous. Low dose protocols were performed. One or more of the following dose reduction techniques were used; automated exposure control, adjustment of the mA and/or KV according to patient size, use of iterative reconstruction technique. Findings: No thoracic aortic aneurysm dilatation or dissection Pulmonary artery opacification is not optimal, no pulmonary artery emboli are noted No paratracheal tracheobronchial or bronchopulmonary adenopathy No pneumonia or pulmonary edema or pleural disease No visualized liver or splenic lesion Mild thoracic spondylosis IMPRESSION: No pulmonary artery emboli noted Dictated By: Pete Araiza MD Signed By: <Electronically signed by Pete Araiza MD in OV> 08/30/24 0959 Medications / Prescriptions Medications or Prescriptions considered but not ordered:: None Medication administrations:: Medication Administration History Sodium Chloride (Sodium Chloride Rt Mariel 0.9% 3 Ml Nebu) 3 ml INH PRN PRN PRN Reason: SOLN Stop: 09/29/24 05:53 Discontinued Medications Albuterol (Albuterol Rt 25 Mg/5 Ml Nebu) 5 mg INH X1 ONE Stop: 08/30/24 05:38 Last Admin: 08/30/24 09:04 Dose: Not Given Documented By: DO Non-Admin Reason: Cancelled by Provider Albuterol (Albuterol Rt 2.5 Mg/0.5 Ml Nebu) 10 mg INH X1 ONE Stop: 08/30/24 05:55 Last Admin: 08/30/24 06:00 Dose: 10 mg Documented By: BJ Ipratropium [place] (Ipratropium Rt 0.5 Mg/ 2.5 Ml Nebu) 1 mg INH X1 ONE Stop: 08/30/24 05:55 Last Admin: 08/30/24 06:00 Dose: 1 mg Documented By: NASIM Prednisone (Prednisone 20 Mg Tablet) 60 mg PO X1 ONE Stop: 08/30/24 06:09 Last Admin: 08/30/24 06:22 Dose: 60 mg Documented By: ADELE See above Consultations Consultation(s) initiated? (list below): No Diagnosis Shortness of Breath Differential Diagnosis: acute exacerbation of chronic obstructive airways disease, congestive heart failure and community acquired pneumonia Most likely diagnosis given after review of the tests above:: Musculoskeletal pain COPD exacerbation Bronchitis Admission Indicated Admission indicated?: not indicated Admission Request Was there a request for admission?: No Disposition Plan Disposition Plan: Discharge Discharge Attestation Discharge Attestation: The patient and all family members were given an opportunity to ask questions and understood the discharge instructions. Discharge instructions specifically effects, indications for sooner follow up or return to the emergency department, and the expected course of current diagnosis. Patient condition: Stable Discharge Plan Plan Patient Disposition: HOME (Self Care) Prescriptions/Referrals Prescriptions/Med Rec: New benzonatate 100 mg capsule 100 mg PO TID PRN (Reason: cough) Qty: 14 0RF acetaminophen [Tylenol Extra Strength] 500 mg tablet 500 mg PO Q4H PRN (Reason: fever or pain) Qty: 20 0RF No Action digoxin 125 mcg (0.125 mg) tablet 125 mcg PO DAILY metoprolol succinate 25 mg tablet extended release 24 hr 25 mg PO QDAY Qty: 30 3RF ipratropium-albuterol 0.5 mg-3 mg(2.5 mg base)/3 mL solution for nebulization 3 ml inhalation Q4H PRN (Reason: shortness of breath or wheezing) Qty: 90 0RF Jardiance 10 mg tablet 10 mg PO QAM Qty: 30 3RF Eliquis 5 mg tablet 5 mg PO BID 30 Days Qty: 60 3RF albuterol sulfate 90 mcg/actuation HFA aerosol inhaler 2 inh inhalation Q4H PRN (Reason: shortness of breath or wheezing) Qty: 8.5 0RF Qvar RediHaler 80 mcg/actuation HFA aerosol breath activated 2 inh inhalation BID Qty: 10.6 0RF Rx Instructions: administer with spacer fluticasone furoate-vilanterol [Breo Ellipta] 100-25 mcg/dose blister with device 1 inh inhalation Q24H Qty: 60 0RF albuterol sulfate 90 mcg/actuation HFA aerosol inhaler 2 inh inhalation Q4H PRN (Reason: shortness of breath or wheezing) Qty: 8.5 2RF beclomethasone dipropionate 40 mcg/actuation HFA aerosol breath activated 2 inh inhalation BID Qty: 10.6 0RF doxycycline monohydrate 100 mg capsule 100 mg PO BID Qty: 10 0RF insulin glargine [Lantus Solostar U-100 Insulin] 100 unit/mL (3 mL) insulin pen 10 unit SUBCUT HS albuterol sulfate 2.5 mg/0.5 mL solution for nebulization 2.5 mg inhalation Q6H PRN (Reason: shortness of breath or wheezing) Qty: 30 0RF furosemide 40 mg tablet 40 mg PO BID 30 Days Qty: 30 3RF Referrals: Tavares Carnse MD [Primary Care Provider] - In 1 week Problem List Clinical Impression: Musculoskeletal pain, COPD exacerbation, Bronchitis Patient/Caregiver Discharge Instructions Education Materials: ED COPD Flare, ED Myalgias Additional Instructions: Follow-up with your primary care doctor in 2 to 3 days for recheck. You can return to the emergency department sooner if symptoms worsen or if he notes any new, concerning issues. Print Language: Malian Stand Alone Forms: Cecelia Award Info., Patient Portal Info Letter
[2024-08-30 07:21] LABS: Basophils % (Auto) 0 % (0-2.5); Eosinophils # (Auto) 0.1 Thou/mm3 (0.0-0.5); Eosinophils % (Auto) 1 % (0-10); Hematocrit 37.7 % (36.0-46.0); Hemoglobin 12.1 g/dL (12.0-16.0); Immature Granulocytes % (Auto) 1 % (0-0); Immature Granulocytes Auto 0.03 Thou/mm3 (0.00-0.00); Lymphocytes # (Auto) 1.8 Thou/mm3 (1.0-4.8); Lymphocytes % (Auto) 33 % (10-50); Mean Corpuscular HGB Conc 32.1 g/dl (31.0-37.0); Mean Corpuscular Hemoglobin 28.4 pg (25.0-35.0); Mean Corpuscular Volume 89 fL (80-100); Monocytes # (Auto) 0.5 Thou/mm3 (0.0-0.8); Monocytes % (Auto) 9 % (0-12); Neutrophils # (Auto) 3.2 Thou/mm3 (1.8-7.7); Neutrophils % (Auto) 57 % (37-80); Nucleated Red Blood Cell # 0.02 Thou/mm3 (0.00-0.00); Nucleated Red Blood Cell % 0 /100 WBC (0); Platelet Count 153 Thou/mm3 (140-440); RDW Standard Deviation 45.5 fL (36.4-46.3); Red Blood Count 4.26 Miln/mm3 (4.00-5.20); White Blood Count 5.6 Thou/mm3 (3.6-11.0)
[2024-08-30 07:40] LABS: Alanine Aminotransferase 14 U/L (10-49); Albumin, Serum 4.2 gm/dL (3.5-5.0); Alkaline Phosphatase 93 U/L (46-116); Anion Gap 3 (7-16); Aspartate Amino Transferase 14 U/L (0-34); BUN/Creatinine Ratio 10 Ratio (12-20); Bilirubin,Total 1.2 mg/dL (0.3-1.2); Blood Urea Nitrogen 7 mg/dL (9-23); Calcium 9.5 mg/dL (8.3-10.6); Calcium (Corrected) 9.5 mg/dL (8.5-10.1); Carbon Dioxide 33.1 mMol/L (20.0-31.0); Chloride 102 mMol/L (98-107); Creatinine (Component) 0.7 mg/dL (0.6-1.3); Estimated Creatinine Clearance 96.6 mL/min (>60); Globulin 2.1 gm/dL (2.3-3.5); Glucose 179 mg/dL (74-106); Osmolality,Calculated 277 (275-295); Potassium 3.2 mMol/L (3.4-5.1); Sodium 138 mMol/L (136-145); Total Protein 6.3 gm/dL (5.7-8.2); Troponin I < 0.020 ng/mL (0.0-0.045); eGFR > 60 See Note
== END 2024-08-30 11:10 | disposition home or self-care (01) ==
PROVIDERS: Emergency Provider Emergency Medicine; PCP Family Medicine
DX: J44.1 Chronic obstructive pulmonary disease with (acute) exacerbation (principal); J40 Bronchitis, not specified as acute or chronic; M79.18 Myalgia, other site; I48.91 Unspecified atrial fibrillation; I50.20 Unspecified systolic (congestive) heart failure; Z87.891 Personal history of nicotine dependence; I25.2 Old myocardial infarction; Z79.51 Long term (current) use of inhaled steroids; Z79.01 Long term (current) use of anticoagulants
CPT/HCPCS: 36415; 71275; 80053; 84484; 85025; 93005; 94644; 99285; A4649; J7512; Q9967

== ENCOUNTER 2024-09-02 07:16 | Emergency (ER) | payer MEDICAID, SELFPAY ==
[2024-09-02] VITALS (8 sets, daily range): BP systolic 100–130; BP diastolic 58–83; PULSE 68–97; RESP 18–81; TEMP 36.6–36.9; O2SAT 92–99; BMI 42.2
--- NOTE | 2024-09-02 07:50 | EKG_ITS ---
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
--- NOTE | 2024-09-02 07:50 | PC.NURSE ---
Report received from [employer] software programmer at this time; per report, pt c/o SOB since 0300 this morning; pt currently on 6L of NC and given a total of two breathing treatments with DuoNeb, so 5mg in total. Pt has hx of COPD, DM, and CHF. Pt was discharged from the hospital yesterday with the flu. Pt connected to cardiac monitoring at this time with Oxygen delivery.
--- NOTE | 2024-09-02 07:50 | XR_ITS ---
Examination: AP chest single view TECHNIQUE: AP portable semiupright chest single view Exam date and time: September 02, 2024 0759 hours Comparison August 31, 2024 INDICATIONS: Shortness of breath chest pain today. FINDINGS: Mild vascular congestion. Normal heart size No pneumonia or pulmonary edema Prominent osteopenia IMPRESSION: Mild vascular congestion
--- NOTE | 2024-09-02 07:51 | XR_ITS ---
Examination: CT chest with intravenous contrast 2-D sagittal and coronal reconstructions Exam date and time: September 02, 2024 0924 hours INDICATIONS: Dyspnea shortness of breath this morning CTDI:vol (mGy) 18.2 DLP: (mGycm) 652 Technique: Multiple axial sections of the thorax have been obtained. Sections have been obtained, 3 mm slice thickness. Mediastinal and lung density settings have been obtained. Intravenous contrast administered, 60 cc Isovue-370 intravenous. 2-D sagittal, coronal images obtained. Low dose protocols were performed. One or more of the following dose reduction techniques were used; automated exposure control, adjustment of the mA and/or KV according to patient size, use of iterative reconstruction technique. Findings: No thoracic aortic aneurysm dilatation or dissection Relatively poor opacification pulmonary arteries with no pulmonary artery emboli Moderate calcification left main coronary artery No paratracheal tracheobronchial or bronchopulmonary adenopathy Mild vascular congestion No pneumonia or pulmonary edema or pleural disease Diffuse fatty infiltration throughout the liver, liver is enlarged incompletely visualized Absent gallbladder No splenic pancreatic or adrenal mass No hydronephrosis Moderate osteopenia IMPRESSION: No mediastinal lymphadenopathy Mild vascular congestion No pneumonia, pulmonary edema or pleural disease Incompletely visualized hepatomegaly
--- NOTE | 2024-09-02 08:00 | PC.NURSE ---
Dr. Varner at bedside assessing pt at this time; per Dr. Varner, ok if pt is satting at 88% due to pt's hx with COPD. Pt's NC oxygen flow lowered from 6L to 3L at this time.
--- NOTE | 2024-09-02 08:29 | PD.EDSOB ---
ED SOB =RME/HPI General Chief Complaint: Shortness of Breath/Dyspnea Stated Complaint: SOB Time Seen by Provider: 09/02/24 07:47 Arrival date/time: 09/02/24 07:16 Limitations: no limitations RME / HPI RME / HPI Narrative: 53 year old female with history of HFrEF 35-40% 03/2024, AFib, COPD on 3L NC, diabetes presents to the ED BIBA for complaint of acute onset shortness of breath beginning at 03:00 this morning. Accompanied by a nonproductive cough. Per medics report, patient en route was given 5mg Duo Neb and placed on 6L oxygen. Patient evidently was admitted here 08/31-09/01 for shortness of breath and flub B+. Denies fevers, chills, chest pain, abdominal pain, n/v/d, or urinary symptoms. On arrival to ED patients oxygen was decreased to 3L and is saturating 95-96%, speaking 4-5 word sentences. Related Data Home Medications ?Medication ?Instructions ?Recorded ?Confirmed digoxin 125 mcg (0.125 mg) tablet 125 mcg PO DAILY 12/16/23 09/02/24 insulin glargine 100 unit/mL (3 10 unit subcut HS 02/24/24 09/02/24 mL) subcutaneous pen (Lantus Solostar U-100 Insulin) Previous Rx's ?Medication ?Instructions ?Recorded apixaban 5 mg tablet (Eliquis) 5 mg PO BID 1 month #60 tabs 02/12/24 empagliflozin 10 mg tablet 10 mg PO QAM #30 tabs 02/12/24 (Jardiance) ipratropium 0.5 mg-albuterol 3 mg 3 ml inhalation Q4H PRN shortness 02/12/24 (2.5 mg base)/3 mL nebulization of breath or wheezing #90 mL soln metoprolol succinate 25 mg 25 mg PO QDAY #30 tabs 02/12/24 tablet,extended release 24 hr albuterol sulfate 90 mcg/actuation 2 inh inhalation Q4H PRN shortness 03/27/24 aerosol inhaler of breath or wheezing #8.5 grams beclomethasone dipropionate 80 2 inh inhalation BID Asthma #10.6 03/27/24 mcg/actuation HFA breath activated grams aerosol (Qvar RediHaler) furosemide 40 mg tablet 40 mg PO BID 1 month #30 tabs 04/04/24 fluticasone furoate 100 1 inh inhalation Q24H #60 ea 07/02/24 mcg-vilanterol 25 mcg/dose inhalation powder (Breo Ellipta) acetaminophen 500 mg tablet 500 mg PO Q4H PRN fever or pain 08/30/24 (Tylenol Extra Strength) #20 tabs benzonatate 100 mg capsule 100 mg PO TID PRN cough #14 caps 08/30/24 oseltamivir 75 mg capsule (Tamiflu) 75 mg PO BID 5 days #10 caps 09/01/24 Allergies Allergy/AdvReac Type Severity Reaction Status Date / Time codeine Allergy Severe HIVES, Verified 08/29/24 08:42 SWELLING, DIFF BREATHING meloxicam Allergy Severe Difficulty Verified 08/29/24 08:42 Breathing Review of Systems Review of Systems Systems Reviewed: All systems reviewed, normal except as documented Past Medical History Past Medical History NEUROLOGIC: Positive Neurological Disorders and Migraine CARDIAC: Positive Cardiac Disorders (CHF), Myocardial Infarction, Cardiac Arrhythmia, Congestive Heart Failure and Hypotension RESPIRATORY: Positive Chronic Obstructive Pulmonary Disease (COPD), Asthma (COPD & Asthma) and Pneumonia GASTROINTESTINAL: Positive Gastrointestinal Disorders, Gall Bladder Disease and Obesity REPRODUCTIVE: Positive Previous Pregnancies MUSCULOSKELETAL: Positive Arthritis and Fractures ENDOCRINE: Positive Endocrine Disorders and Diabetes Mellitus Type 2 PSYCHO/SOCIAL: Positive Recreational Drug Use, Depression and Anxiety OTHER HISTORY: Positive Autoimmune Disease, Shingles, Falls and Chicken Pox Family History FAMILY HISTORY: Positive Family Cardiac Disorders (pt's mom had CHF), Family Endocrine Disorders (Diabetes with parents), Family Cancer and Family Surgery Surgical History SURGICAL: Positive Abdominal Surgery Social History SMOKING STATUS: Heavy (> 1 pack/day) SECOND HAND EXPOSURE: Yes SUBSTANCE USE: former substance user and amphetamines ED Exam General Limitations: Present no limitations General appearance: Present alert and other (Mild respiratory distress, patient speaking 4-5 word sentences, saturating 95-96% on 3L NC ) Head Head exam: Present atraumatic, normocephalic and normal inspection Eye Eye exam: Present normal appearance, PERRL and EOMI ENT ENT exam: Present normal exam, normal oropharynx and mucous membranes moist Neck Neck exam: Present normal inspection, full ROM and trachea midline Chest Chest inspection: Present normal inspection and symmetric chest wall rise Respiratory Respiratory exam: Present normal lung sounds bilaterally, respiratory distress (mild, speaking 4-5 word sentences, saturating 95-96% on 3L NC ) and other Cardiovascular Cardiovascular exam: Present regular rate, normal rhythm and normal heart sounds Abdominal Exam Abdominal exam: Present soft and normal bowel sounds Extremities Exam Extremities exam: Present normal inspection and full ROM Back Exam Back exam: Present normal inspection and full ROM Neurological Exam Neurological exam: Present alert, oriented X3 and CN II-XII intact Psychiatric Psychiatric exam: Present normal affect and normal mood Skin Skin exam: Present warm, dry, intact and normal color Course Quality Measures none Orders Category Date Time Status CT Screening NOW Care 09/02/24 07:51 Active Lithograph Press Feeder STAT Care 09/02/24 07:50 Active Continuous Pulse Oximetry ONCE Care 09/02/24 07:50 Completed EKG (ED ONLY) *Do not use* NOW Care 09/02/24 07:50 Completed Insert IV STAT Care 09/02/24 07:[address] chest w con Stat Exams 09/02/24 07:51 Completed EKG (ED Only) Stat Exams 09/02/24 07:50 Draft XR chest 1V portable Stat Exams 09/02/24 07:50 Completed B-Type Natriuretic Peptide Stat Lab 09/02/24 08:16 Completed CBC Stat Lab 09/02/24 08:16 Completed Comprehensive Metabolic Panel Stat Lab 09/02/24 08:16 Results Magnesium Stat Lab 09/02/24 08:16 Results Partial Thromboplastin Time Stat Lab 09/02/24 08:16 Completed Prothrombin Time with INR Stat Lab 09/02/24 08:16 Completed Troponin I Stat Lab 09/02/24 08:16 Results Acetaminophen Tab [Tylenol ES Tab] Med 09/02/24 08:34 Discontinued 1,000 mg PO X1 ONE Oxygen Delivery NOW RT 09/02/24 07:50 Active Reevaluation(s) Reevaluation #1: Patient has returned to her baseline and resting comfortably. Saturating 94% on 3L NC. We reviewed all the results, analysis, and treatment plans. There is no indication for admission. Patient is amenable to discharge. Strict return precautions were outlined. Time: 10:57 Vital Signs Vital signs: Vital Signs Temperature 98.3 F 09/02/24 07:22 Pulse Rate 91 09/02/24 07:22 Respiratory Rate 23 H 09/02/24 07:22 Blood Pressure 130/70 09/02/24 07:22 Pulse Oximetry (%) 99 09/02/24 07:22 Oxygen Delivery Method Nasal Cannula 09/02/24 07:22 Oxygen Flow Rate 6 09/02/24 07:22 Pulse ox is 99% on 6L NC which is adequate. Pulse ox is 96% on 3L NC which is adequate. Shortness of Breath / Dyspnea MDM Narrative MDM Narrative:: Virginia Faye am scribing for and in the presence of Dr. Varner. Patient data External records reviewed:: [facility] previous records (I reviewed admission from 08/31-09/01/2024 for shortness of breath and FLU B+) and EMS form Clinical information provided by:: patient and EMS Social determinants that could affect healthcare access:: housing (Homeless, currently living in a homeless care home ) Patient has the following chronic illnesses:: HFrEF 35-40% 03/2024, AFib, COPD on 3L NC, diabetes How is presenting disease/condition affected by chronic disease/condition?: exacerbated by Evaluation data The following diagnostics were reviewed and interpreted by me:: lab results, radiology exam(s) and EKG tracing(s) (sinus rhythm, rate 73, nonspecific ST and T-wave changes) Lab and/or radiology exams considered but not ordered:: None Interpretation Summary: Ordering Physician: Kleber Varner MD Date of Service: 09/02/24 Procedure(s): XR chest 1V portable Accession Number(s): [id number] cc: Tavares Carnes MD; Kleber Varner MD; Pete Aariza MD~ Examination: AP chest single view TECHNIQUE: AP portable semiupright chest single view Exam date and time: September 02, 2024 0759 hours Comparison August 31, 2024 INDICATIONS: Shortness of breath chest pain today. FINDINGS: Mild vascular congestion. Normal heart size No pneumonia or pulmonary edema Prominent osteopenia IMPRESSION: Mild vascular congestion Dictated By: Pete Araiza MD Signed By: <Electronically signed by Pete Araiza MD in [place]> 09/02/24 1023 Ordering Physician: Kleber Varner MD Date of Service: 09/02/24 Procedure(s): CT chest w con Accession Number(s): [id number] cc: Tavares Carnes MD; Kleber Varner MD; Pete Araiza MD~ Examination: CT chest with intravenous contrast 2-D sagittal and coronal reconstructions Exam date and time: September 02, 2024 0924 hours INDICATIONS: Dyspnea shortness of breath this morning CTDI:vol (mGy) 18.2 DLP: (mGycm) 652 Technique: Multiple axial sections of the thorax have been obtained. Sections have been obtained, 3 mm slice thickness. Mediastinal and lung density settings have been obtained. Intravenous contrast administered, 60 cc Isovue-370 intravenous. 2-D sagittal, coronal images obtained. Low dose protocols were performed. One or more of the following dose reduction techniques were used; automated exposure control, adjustment of the mA and/or KV according to patient size, use of iterative reconstruction technique. Findings: No thoracic aortic aneurysm dilatation or dissection Relatively poor opacification pulmonary arteries with no pulmonary artery emboli Moderate calcification left main coronary artery No paratracheal tracheobronchial or bronchopulmonary adenopathy Mild vascular congestion No pneumonia or pulmonary edema or pleural disease Diffuse fatty infiltration throughout the liver, liver is enlarged incompletely visualized Absent gallbladder No splenic pancreatic or adrenal mass No hydronephrosis Moderate osteopenia IMPRESSION: No mediastinal lymphadenopathy Mild vascular congestion No pneumonia, pulmonary edema or pleural disease Incompletely visualized hepatomegaly Dictated By: Pete Araiza MD Signed By: <Electronically signed by Pete Araiza MD in [place]> 09/02/24 1035 Medications / Prescriptions Medications or Prescriptions considered but not ordered:: None Medication administrations:: Medication Administration History Discontinued Medications Acetaminophen (Acetaminophen 500 Mg Tablet) 1,000 mg PO X1 ONE Stop: 09/02/24 08:35 Last Admin: 09/02/24 09:02 Dose: 1,000 mg Documented By: GM See above Consultations Consultation(s) initiated? (list below): No Diagnosis Shortness of Breath Differential Diagnosis: acute exacerbation of chronic obstructive airways disease, congestive heart failure, community acquired pneumonia and asthma with exacerbation Most likely diagnosis given after review of the tests above:: Chronic dyspnea Admission Indicated Admission indicated?: not indicated Admission Request Was there a request for admission?: No Disposition Plan Disposition Plan: Discharge Discharge Attestation Discharge Attestation: The patient and all family members were given an opportunity to ask questions and understood the discharge instructions. Discharge instructions specifically effects, indications for sooner follow up or return to the emergency department, and the expected course of current diagnosis. Patient condition: Stable Discharge Plan Plan Patient Disposition: HOME (Self Care) Patient condition on transfer: Stable Prescriptions/Referrals Prescriptions/Med Rec: No Action digoxin 125 mcg (0.125 mg) tablet 125 mcg PO DAILY metoprolol succinate 25 mg tablet extended release 24 hr 25 mg PO QDAY Qty: 30 3RF ipratropium-albuterol 0.5 mg-3 mg(2.5 mg base)/3 mL solution for nebulization 3 ml inhalation Q4H PRN (Reason: shortness of breath or wheezing) Qty: 90 0RF Jardiance 10 mg tablet 10 mg PO QAM Qty: 30 3RF Eliquis 5 mg tablet 5 mg PO BID 30 Days Qty: 60 3RF albuterol sulfate 90 mcg/actuation HFA aerosol inhaler 2 inh inhalation Q4H PRN (Reason: shortness of breath or wheezing) Qty: 8.5 0RF Qvar RediHaler 80 mcg/actuation HFA aerosol breath activated 2 inh inhalation BID Qty: 10.6 0RF Rx Instructions: administer with spacer fluticasone furoate-vilanterol [Breo Ellipta] 100-25 mcg/dose blister with device 1 inh inhalation Q24H Qty: 60 0RF benzonatate 100 mg capsule 100 mg PO TID PRN (Reason: cough) Qty: 14 0RF acetaminophen [Tylenol Extra Strength] 500 mg tablet 500 mg PO Q4H PRN (Reason: fever or pain) Qty: 20 0RF oseltamivir [Tamiflu] 75 mg capsule 75 mg PO BID 5 Days Qty: 10 0RF insulin glargine [Lantus Solostar U-100 Insulin] 100 unit/mL (3 mL) insulin pen 10 unit SUBCUT HS furosemide 40 mg tablet 40 mg PO BID 30 Days Qty: 30 3RF Referrals: Tavares Carnes MD [Primary Care Provider] - In 1 week Problem List Clinical Impression: Chronic dyspnea Patient/Caregiver Discharge Instructions Print Language: Swedish Stand Alone Forms: Cecelia Award Info., Patient Portal Info Letter
[2024-09-02] MEDS: ACETAMINOPHEN 500 MG TABLET 1000 MG PO (09:02)
[2024-09-02 09:06] LABS: Basophils % (Auto) 0 % (0-2.5); Eosinophils # (Auto) 0.1 Thou/mm3 (0.0-0.5); Eosinophils % (Auto) 1 % (0-10); Hematocrit 42.4 % (36.0-46.0); Hemoglobin 13.4 g/dL (12.0-16.0); Immature Granulocytes % (Auto) 1 % (0-0); Immature Granulocytes Auto 0.03 Thou/mm3 (0.00-0.00); Lymphocytes # (Auto) 2.1 Thou/mm3 (1.0-4.8); Lymphocytes % (Auto) 33 % (10-50); Mean Corpuscular HGB Conc 31.6 g/dl (31.0-37.0); Mean Corpuscular Hemoglobin 28.3 pg (25.0-35.0); Mean Corpuscular Volume 90 fL (80-100); Monocytes # (Auto) 0.5 Thou/mm3 (0.0-0.8); Monocytes % (Auto) 8 % (0-12); Neutrophils # (Auto) 3.8 Thou/mm3 (1.8-7.7); Neutrophils % (Auto) 58 % (37-80); Nucleated Red Blood Cell % 0 /100 WBC (0); Platelet Count 159 Thou/mm3 (140-440); RDW Standard Deviation 46.7 fL (36.4-46.3); Red Blood Count 4.74 Miln/mm3 (4.00-5.20); White Blood Count 6.5 Thou/mm3 (3.6-11.0)
[2024-09-02 09:22] LABS: Partial Thromboplastin Time 26.2 Seconds (22.0-36.0)
[2024-09-02 09:32] LABS: B-Type Natriuretic Peptide 31 pg/mL (0-100)
[2024-09-02 10:09] LABS: Alanine Aminotransferase 18 U/L (10-49); Albumin, Serum 4.7 gm/dL (3.5-5.0); Albumin/Globulin Ratio 2.1 (1.2-2.2); Alkaline Phosphatase 95 U/L (46-116); Anion Gap 6 (7-16); Aspartate Amino Transferase 20 U/L (0-34); BUN/Creatinine Ratio 28 Ratio (12-20); Blood Urea Nitrogen 22 mg/dL (9-23); Calcium 9.7 mg/dL (8.3-10.6); Calcium (Corrected) 9.7 mg/dL (8.5-10.1); Carbon Dioxide 35.9 mMol/L (20.0-31.0); Chloride 99 mMol/L (98-107); Creatinine (Component) 0.8 mg/dL (0.6-1.3); Globulin 2.2 gm/dL (2.3-3.5); Glucose 190 mg/dL (74-106); Magnesium 1.9 mg/dL (1.6-2.6); Osmolality,Calculated 289 (275-295); Potassium 3.9 mMol/L (3.4-5.1); Sodium 141 mMol/L (136-145); Total Protein 6.9 gm/dL (5.7-8.2); Troponin I < 0.020 ng/mL (0.0-0.045); eGFR > 60 See Note
--- NOTE | 2024-09-02 11:13 | PC.NURSE ---
Called the [facility] at this time to arrange ride for pt back to their facility; per staff, our staff, Vanessa, will be picking her up in about 20 minutes.
--- NOTE | 2024-09-02 11:26 | PC.NURSE ---
Pt ambulated to restroom at this time with strong & steady gait independently.
== END 2024-09-02 11:32 | disposition home or self-care (01) ==
PROVIDERS: Emergency Provider Emergency Medicine; PCP Family Medicine
DX: R09.89 Other specified symptoms and signs involving the circulatory and respiratory systems (principal); J44.89 Other specified chronic obstructive pulmonary disease; R16.0 Hepatomegaly, not elsewhere classified; F17.210 Nicotine dependence, cigarettes, uncomplicated; I25.2 Old myocardial infarction; I50.20 Unspecified systolic (congestive) heart failure; I48.91 Unspecified atrial fibrillation; Z99.81 Dependence on supplemental oxygen; Z79.01 Long term (current) use of anticoagulants; Z59.01 Sheltered homelessness
CPT/HCPCS: 36415; 71045; 71260; 80053; 83735; 83880; 84484; 85025; 85610; 85730; 93005; 99285; A4649; Q9967; A9270

== ENCOUNTER 2024-09-21 14:30 | Emergency (ER) | payer MEDICAID, SELFPAY ==
[2024-09-21 14:32] VITALS: BP 131/84; PULSE 122; RESP 20; TEMP 37.5; O2SAT 95; BMI 39.4
[2024-09-21 14:39] VITALS: PULSE 118; RESP 20; O2SAT 98
--- NOTE | 2024-09-21 14:50 | XR_ITS ---
Examination: AP chest single view Technique one AP portable upright chest single view Exam date and time: September 21, 2024 1456 hours Comparison September 02, 2024 INDICATIONS: Onset SOB today FINDINGS: Normal heart size. Lungs are clear. The osseous structures are intact IMPRESSION: No active disease
--- NOTE | 2024-09-21 15:11 | PD.EDSOB ---
ED SOB =RME/HPI General Chief Complaint: Shortness of Breath/Dyspnea Stated Complaint: SOB Time Seen by Provider: 09/21/24 14:39 Arrival date/time: 09/21/24 14:30 RME / HPI RME / HPI Narrative: This section includes all my notes and documentations, including HPI, PE, and ED course. Talha Bishop MD HPI: 53-year-old female here with about a week history of worsening cough, productive cough, purulent sputum, and dyspnea. Has COPD. No chest pain. No fever. No other complaints. ROS: All negative except as documented in HPI. Physical Exam: General: Alert and oriented. In moderate respiratory distress. Eyes: Conjunctivae and lids clear. ENT: No nasal congestion. Pharynx normal. Tympanic membrane normal bilaterally. Neck: Supple. No JVD. Heart: RRR. Lungs: Moderate respiratory distress. Severely decreased air movement with diffuse wheezing. Abdomen: Soft and nontender. Legs: No clubbing, cyanosis, edema. Skin: Warm and dry. Neuro: Alert and oriented X 3. I reviewed all diagnostic test results. My interpretation of the EKG is sinus rhythm with nonspecific ST-T changes. My interpretation of the chest x-ray is no acute findings. Blood tests remarkable for negative troponin/D-dimer/BNP. COVID/influenza/RSV negative. At this point, diagnoses include COPD exacerbation. Treatment here included Solu-Medrol and magnesium sulfate and neb treatments and Zithromax. Significant improvement noted subjectively and objectively. Recommended a trial of outpatient treatment. Based on my best medical judgment, made decision no further evaluation or treatment indicated at this time. Patient understands and agrees to the discharge instructions customized and printed, see below. Discharge instructions from Dr. Bishop: --No physical exertion for 3 days to help rest the lungs. ?No smoking or exposure to smoking or pets or dust or cold or humidity. --Zithromax to kill the germs causing the bronchitis. --Prednisone to help decrease the swelling in the airways. --Neb treatment every 4-6 hours for 3 days to help keep the airways open.? Then as instructed by your private doctors and in between as needed for cough or shortness of breath. --See a private doctor on 09/24/2024 if not completely better. --Seek immediate medical care with worsening or with any concerns. Talha Bishop MD Related Data Home Medications ?Medication ?Instructions ?Recorded ?Confirmed digoxin 125 mcg (0.125 mg) tablet 125 mcg PO DAILY 12/16/23 09/02/24 insulin glargine 100 unit/mL (3 10 unit subcut HS 02/24/24 09/02/24 mL) subcutaneous pen (Lantus Solostar U-100 Insulin) Previous Rx's ?Medication ?Instructions ?Recorded apixaban 5 mg tablet (Eliquis) 5 mg PO BID 1 month #60 tabs 02/12/24 empagliflozin 10 mg tablet 10 mg PO QAM #30 tabs 02/12/24 (Jardiance) ipratropium 0.5 mg-albuterol 3 mg 3 ml inhalation Q4H PRN shortness 02/12/24 (2.5 mg base)/3 mL nebulization of breath or wheezing #90 mL soln metoprolol succinate 25 mg 25 mg PO QDAY #30 tabs 02/12/24 tablet,extended release 24 hr albuterol sulfate 90 mcg/actuation 2 inh inhalation Q4H PRN shortness 03/27/24 aerosol inhaler of breath or wheezing #8.5 grams beclomethasone dipropionate 80 2 inh inhalation BID Asthma #10.6 03/27/24 mcg/actuation HFA breath activated grams aerosol (Qvar RediHaler) furosemide 40 mg tablet 40 mg PO BID 1 month #30 tabs 04/04/24 fluticasone furoate 100 1 inh inhalation Q24H #60 ea 07/02/24 mcg-vilanterol 25 mcg/dose inhalation powder (Breo Ellipta) acetaminophen 500 mg tablet 500 mg PO Q4H PRN fever or pain 08/30/24 (Tylenol Extra Strength) #20 tabs benzonatate 100 mg capsule 100 mg PO TID PRN cough #14 caps 08/30/24 azithromycin 500 mg tablet 500 mg PO QDAY 3 days #3 tabs 09/21/24 (Zithromax TRI-MIA) cefdinir 300 mg capsule 300 mg PO BID #6 caps 09/21/24 prednisone 20 mg tablet 40 mg PO BID 3 days #12 tabs 09/21/24 Allergies Allergy/AdvReac Type Severity Reaction Status Date / Time codeine Allergy Severe HIVES, Verified 08/29/24 08:42 SWELLING, DIFF BREATHING meloxicam Allergy Severe Difficulty Verified 08/29/24 08:42 Breathing Course Quality Measures none Orders Category Date Time Status Bedside COVID-19 Antigen Test NOW Care 09/21/24 14:49 Completed Bedside Influenza A&B Antigen Test NOW Care 09/21/24 14:[address] Screening NOW Care 09/21/24 14:49 Completed EKG (ED ONLY) *Do not use* NOW Care 09/21/24 14:50 Completed Saline [Insert IV] NOW Care 09/21/24 14:49 Completed EKG (ED Only) Stat Exams 09/21/24 14:50 Ordered XR chest 1V portable Stat Exams 09/21/24 14:50 Completed ABG [Arterial Blood Gas] Stat Lab 09/21/24 15:39 Completed BNP [B-Type Natriuretic Peptide] Stat Lab 09/21/24 14:45 Completed CBC Stat Lab 09/21/24 14:45 Completed CMP [Comprehensive Metabolic Panel] Stat Lab 09/21/24 14:45 Completed D-Dimer Stat Lab 09/21/24 14:45 Completed Magnesium Stat Lab 09/21/24 14:45 Completed RSV [Respiratory Syncytial Virus Ag] Stat Lab 09/21/24 15:29 Completed Troponin I Stat Lab 09/21/24 14:45 Completed Albuterol/Ipratr Rt Mariel [Duoneb Rt Mariel] Med 09/21/24 14:47 Discontinued 9 ml INH X1 ONE Azithromycin Po [Zithromax PO] Med 09/21/24 16:31 Discontinued 500 mg PO X1 ONE LORazepam [Ativan Inj] Med 09/21/24 14:47 Discontinued 0.5 mg IVP X1 ONE Magnesium Sulfate 2 GM Ivpb [Magnesium Sulfate Ivpb] Med 09/21/24 14:47 Discontinued 2 gm in 50 ml IV X1 MethylPREDNISolone.* [SoluMEDROL Inj] Med 09/21/24 14:47 Discontinued 125 mg IVP X1 ONE Vital Signs Vital signs: Vital Signs Temperature 99.5 F 09/21/24 14:32 Pulse Rate 122 H 09/21/24 14:32 Respiratory Rate 20 09/21/24 14:32 Blood Pressure 131/84 H 09/21/24 14:32 Pulse Oximetry (%) 95 09/21/24 14:32 Oxygen Delivery Method Nasal Cannula 09/21/24 14:32 Oxygen Flow Rate 6 09/21/24 14:32 Shortness of Breath / Dyspnea Patient data External records reviewed:: [facility] previous records Clinical information provided by:: patient Social determinants that could affect healthcare access:: none Patient has the following chronic illnesses:: COPD and CHF How is presenting disease/condition affected by chronic disease/condition?: exacerbated by Evaluation data The following diagnostics were reviewed and interpreted by me:: lab results, radiology exam(s) and EKG tracing(s) (My interpretation of the EKG is: Sinus rhythm (116 bpm) with nonspecific ST-T changes. Talha Bishop MD) Lab and/or radiology exams considered but not ordered:: None Interpretation Summary: COPD exacerbation Medications / Prescriptions Medications or Prescriptions considered but not ordered:: None Medication administrations:: Medication Administration History Discontinued Medications Albuterol/Ipratropium (Albuterol/Ipratropium (Duoneb) Rt Mariel 3 Ml Nebu) 9 ml INH X1 ONE Stop: 09/21/24 14:48 Last Admin: 09/21/24 15:29 Dose: 9 ml Documented By: IVAN Azithromycin (Azithromycin 250 Mg Tablet) 500 mg PO X1 ONE Stop: 09/21/24 16:32 Last Admin: 09/21/24 17:00 Dose: 500 mg Documented By: JOSUE Magnesium Sulfate (Magnesium Sulfate Ivpb) 2 gm in 50 mls @ 25 mls/hr IV X1 ONE Stop: 09/21/24 16:46 Last Infusion: 09/21/24 17:08 Dose: Infused Documented By: Admin: 09/21/24 15:17 Dose: 25 mls/hr Documented By: JOSUE Lorazepam (Lorazepam 2 Mg/Ml Vial) 0.5 mg IVP X1 ONE Stop: 09/21/24 14:48 Last Admin: 09/21/24 15:16 Dose: 0.5 mg Documented By: JOSUE Methylprednisolone Sodium Succinate (Methylprednisolone Sod Succ 62.5 Mg/Ml 2ml Vial) 125 mg IVP X1 ONE Stop: 09/21/24 14:48 Last Admin: 09/21/24 15:17 Dose: 125 mg Documented By: JOSUE See chart Consultations Consultation(s) initiated? (list below): No Diagnosis Shortness of Breath Differential Diagnosis: acute exacerbation of chronic obstructive airways disease, congestive heart failure, community acquired pneumonia, asthma with exacerbation and pulmonary embolism Most likely diagnosis given after review of the tests above:: COPD exacerbation Admission Indicated Admission indicated?: not indicated Explain why admission is indicated or not indicated:: Significant improvement Admission Request Was there a request for admission?: No Disposition Plan Disposition Plan: Discharge Discharge Attestation Discharge Attestation: The patient and all family members were given an opportunity to ask questions and understood the discharge instructions. Discharge instructions specifically effects, indications for sooner follow up or return to the emergency department, and the expected course of current diagnosis. Patient condition: Stable Discharge Plan Plan Patient Disposition: HOME (Self Care) Prescriptions/Referrals Prescriptions/Med Rec: New prednisone 20 mg tablet 40 mg PO BID 3 Days Qty: 12 0RF Taper: Prednisone Taper 20 mg DAILY for 2 Days and 0 Hour 10 mg DAILY for 2 Days and 0 Hour 5 mg DAILY for 7 Days and 0 Hour cefdinir 300 mg capsule 300 mg PO BID Qty: 6 0RF azithromycin [Zithromax TRI-MIA] 500 mg tablet 500 mg PO QDAY 3 Days Qty: 3 0RF No Action digoxin 125 mcg (0.125 mg) tablet 125 mcg PO DAILY metoprolol succinate 25 mg tablet extended release 24 hr 25 mg PO QDAY Qty: 30 3RF ipratropium-albuterol 0.5 mg-3 mg(2.5 mg base)/3 mL solution for nebulization 3 ml inhalation Q4H PRN (Reason: shortness of breath or wheezing) Qty: 90 0RF Jardiance 10 mg tablet 10 mg PO QAM Qty: 30 3RF Eliquis 5 mg tablet 5 mg PO BID 30 Days Qty: 60 3RF albuterol sulfate 90 mcg/actuation HFA aerosol inhaler 2 inh inhalation Q4H PRN (Reason: shortness of breath or wheezing) Qty: 8.5 0RF Qvar RediHaler 80 mcg/actuation HFA aerosol breath activated 2 inh inhalation BID Qty: 10.6 0RF Rx Instructions: administer with spacer fluticasone furoate-vilanterol [Breo Ellipta] 100-25 mcg/dose blister with device 1 inh inhalation Q24H Qty: 60 0RF benzonatate 100 mg capsule 100 mg PO TID PRN (Reason: cough) Qty: 14 0RF acetaminophen [Tylenol Extra Strength] 500 mg tablet 500 mg PO Q4H PRN (Reason: fever or pain) Qty: 20 0RF insulin glargine [Lantus Solostar U-100 Insulin] 100 unit/mL (3 mL) insulin pen 10 unit SUBCUT HS furosemide 40 mg tablet 40 mg PO BID 30 Days Qty: 30 3RF Referrals: Vero Fernández MD [Primary Care Provider] - In 1 week Problem List Clinical Impression: COPD exacerbation, Bronchitis Patient/Caregiver Discharge Instructions Discharge Activity: activity as tolerated Education Materials: ED Bronchitis with Wheezing (Adult), ED COPD Flare Additional Instructions: Discharge instructions from Dr. Bishop: --No physical exertion for 3 days to help rest the lungs. ?No smoking or exposure to smoking or pets or dust or cold or humidity. --Zithromax to kill the germs causing the bronchitis. --Prednisone to help decrease the swelling in the airways. --Neb treatment every 4-6 hours for 3 days to help keep the airways open.? Then as instructed by your private doctors and in between as needed for cough or shortness of breath. --See a private doctor on 09/24/2024 if not completely better. --Seek immediate medical care with worsening or with any concerns. Print Language: Argentine Stand Alone Forms: Cecelia Award Info., Patient Portal Info Letter
[2024-09-21] MEDS: LORazepam 2 MG/ML VIAL 0.5 MG IVP (15:16)
[2024-09-21] MEDS: MethylPREDNISolone SOD SUCC 62.5 MG/ML 2ML VIAL 125 MG IVP (15:17)
[2024-09-21] MEDS: Magnesium Sulfate 2 GM Ivpb 2 GM/50 ML BAG IV (15:17)
[2024-09-21 15:24] LABS: Basophils % (Auto) 0 % (0-2.5); Eosinophils # (Auto) 0.1 Thou/mm3 (0.0-0.5); Eosinophils % (Auto) 1 % (0-10); Hematocrit 44.8 % (36.0-46.0); Hemoglobin 14.4 g/dL (12.0-16.0); Immature Granulocytes % (Auto) 0 % (0-0); Immature Granulocytes Auto 0.04 Thou/mm3 (0.00-0.00); Lymphocytes # (Auto) 1.7 Thou/mm3 (1.0-4.8); Lymphocytes % (Auto) 17 % (10-50); Mean Corpuscular HGB Conc 32.1 g/dl (31.0-37.0); Mean Corpuscular Hemoglobin 28.1 pg (25.0-35.0); Mean Corpuscular Volume 87 fL (80-100); Monocytes # (Auto) 0.6 Thou/mm3 (0.0-0.8); Monocytes % (Auto) 6 % (0-12); Neutrophils # (Auto) 7.2 Thou/mm3 (1.8-7.7); Neutrophils % (Auto) 75 % (37-80); Nucleated Red Blood Cell % 0 /100 WBC (0); Platelet Count 180 Thou/mm3 (140-440); RDW Standard Deviation 45.1 fL (36.4-46.3); Red Blood Count 5.13 Miln/mm3 (4.00-5.20); White Blood Count 9.6 Thou/mm3 (3.6-11.0)
[2024-09-21] MEDS: ALBUTEROL/IPRATROPIUM (Duoneb) RT SOL 3 ML NEBU 9 ML INH (15:29)
[2024-09-21 15:31] VITALS: PULSE 96; RESP 22; O2SAT 100
[2024-09-21 15:43] LABS: Base Excess 5 (-3-3); HCO3 32 mEq/L (20-26); Inspired O2, VO2 Liters 2 L/min; O2 Saturation 97 % (91-98); PCO2 55 mmHg (32.0-48.0); PO2 84 mmHg (83-108); pH, Arterial 7.38 (7.35-7.45)
[2024-09-21 15:44] LABS: Allen Test Not Performed; Puncture Site Right Radial
[2024-09-21 15:47] LABS: B-Type Natriuretic Peptide < 20 pg/mL (0-100); D-Dimer < 250 ng/mL (<600)
[2024-09-21 15:55] LABS: Alanine Aminotransferase 18 U/L (10-49); Albumin, Serum 5.1 gm/dL (3.5-5.0); Albumin/Globulin Ratio 2.4 (1.2-2.2); Alkaline Phosphatase 112 U/L (46-116); Anion Gap 10 (7-16); Aspartate Amino Transferase 14 U/L (0-34); BUN/Creatinine Ratio 15 Ratio (12-20); Bilirubin,Total 1.5 mg/dL (0.3-1.2); Blood Urea Nitrogen 15 mg/dL (9-23); Calcium 9.9 mg/dL (8.3-10.6); Calcium (Corrected) 9.9 mg/dL (8.5-10.1); Chloride 97 mMol/L (98-107); Globulin 2.1 gm/dL (2.3-3.5); Glucose 288 mg/dL (74-106); Magnesium 1.6 mg/dL (1.6-2.6); Osmolality,Calculated 283 (275-295); Potassium 3.4 mMol/L (3.4-5.1); Sodium 136 mMol/L (136-145); Total Protein 7.2 gm/dL (5.7-8.2); Troponin I < 0.020 ng/mL (0.0-0.045); eGFR > 60 See Note
[2024-09-21 16:00] VITALS: BP 110/93; PULSE 104; RESP 31; O2SAT 95
[2024-09-21 16:29] LABS: Respiratory Syncytial Virus Ag Negative (Negative)
--- NOTE | 2024-09-21 16:49 | PC.CC ---
ASWNamita was consulted regarding a [facility]. ASW made face to face contact with the patient who reports she is still living [facility] and they are able to pick her up if ASW makes contact with them. ASW made contact with the [facility] staff who report they will greens picker the patient and transport her back to the [facility].
[2024-09-21] MEDS: AZITHROMYCIN 250 MG TABLET 500 MG PO (17:00)
[2024-09-21 17:15] VITALS: BP 143/78; PULSE 106; RESP 16; O2SAT 95
== END 2024-09-21 17:15 | disposition home or self-care (01) ==
PROVIDERS: Emergency Provider Emergency Medicine; PCP Family Medicine
DX: J44.1 Chronic obstructive pulmonary disease with (acute) exacerbation (principal)
CPT/HCPCS: 36415; 36600; 71045; 80053; 82803; 83735; 83880; 84484; 85025; 85379; 87400; 87634; 87811; 93005; 94640; 96365; 96366; 99284; A9270; J2060; J2919; J3475

== ENCOUNTER 2024-09-25 15:15 | Inpatient (IN) | payer MEDICAID, SELFPAY ==
[2024-09-25] VITALS (22 sets, daily range): BP systolic 100–149; BP diastolic 60–82; PULSE 93–120; RESP 10–33; TEMP 36.2–37.2; O2SAT 91–100; BMI 38.3; BMI 41.2; BMI 41.3
--- NOTE | 2024-09-25 15:22 | XR_ITS ---
Examination: AP chest single view Technique: AP portable semiupright chest single view Exam date and time: September 25, 2024 1640 hrs. Comparison September 21, 2024 Indications: Shortness of breath chest pain beginning 2 days ago. Findings: Suspicious for early right base pneumonia Normal heart size Mildly prominent central pulmonary arteries Prominent osteopenia Impression: Suspicious for early right base pneumonia
--- NOTE | 2024-09-25 15:23 | EDNOTE_ITS ---
<Statement entered by Britany Casey MD - 09/25/24 23:19> As co-signing physician, I was present and available for consult prn. I concur with the plan and care as documented by the midlevel provider. ED General RME/HPI General Chief complaint: Shortness of Breath/Dyspnea Stated complaint: SOB Time Seen by Provider: 09/25/24 15:21 Arrival date/time: 09/25/24 15:15 CC: Shortness of breath HPI patient presents the ER via EMS who report low oxygen saturations but otherwise stable vital signs. Patient states this episode started this morning. The patient has had chronic COPD stopped smoking 2-1/2 packs a day 2 months ago, patient denies chest pain fever chills. Related Data Home Medications ?Medication ?Instructions ?Recorded ?Confirmed digoxin 125 mcg (0.125 mg) tablet 125 mcg PO DAILY 12/16/23 09/25/24 insulin glargine 100 unit/mL (3 15 unit subcut HS 02/24/24 09/25/24 mL) subcutaneous pen (Lantus Solostar U-100 Insulin) Previous Rx's ?Medication ?Instructions ?Recorded apixaban 5 mg tablet (Eliquis) 5 mg PO BID 1 month #60 tabs 02/12/24 empagliflozin 10 mg tablet 10 mg PO QAM #30 tabs 02/12/24 (Jardiance) ipratropium 0.5 mg-albuterol 3 mg 3 ml inhalation Q4H PRN shortness 02/12/24 (2.5 mg base)/3 mL nebulization of breath or wheezing #90 mL soln metoprolol succinate 25 mg 25 mg PO QDAY #30 tabs 02/12/24 tablet,extended release 24 hr albuterol sulfate 90 mcg/actuation 2 inh inhalation Q4H PRN shortness 03/27/24 aerosol inhaler of breath or wheezing #8.5 grams beclomethasone dipropionate 80 2 inh inhalation BID Asthma #10.6 03/27/24 mcg/actuation HFA breath activated grams aerosol (Qvar RediHaler) furosemide 40 mg tablet 40 mg PO BID 1 month #30 tabs 04/04/ fluticasone furoate 100 1 inh inhalation Q24H #60 ea 07/02/24 mcg-vilanterol 25 mcg/dose inhalation powder (Breo Ellipta) acetaminophen 500 mg tablet 500 mg PO Q4H PRN fever or pain 08/30/24 (Tylenol Extra Strength) #20 tabs benzonatate 100 mg capsule 100 mg PO TID PRN cough #14 caps 08/30/24 Allergies Allergy/AdvReac Type Severity Reaction Status Date / Time codeine Allergy Severe HIVES, Verified 08/29/24 08:42 SWELLING, DIFF BREATHING meloxicam Allergy Severe Difficulty Verified 08/29/24 08:42 Breathing Review of Systems Review of Systems Narrative Review of Systems: GEN: No fever, no chills, no weight loss EYES: No discharge, no visual changes, no pain HEENT: No ear pain, no congestion, no sore throat PULM: + shortness of breath, no cough, no congestion CV: No chest pain, no dyspnea on exertion, no palpitations GI: No nausea, no vomiting, no diarrhea, no pain, no constipation : No frequency, no urgency, no dysuria MUSC/SKEL: No joint pain, no back pain SKIN: No rash PSYCH: No hallucinations, no depression HEME/LYMPH: No easy bleeding or bruising tendencies NEURO: No weakness, no headache Past Medical History Past Medical History NEUROLOGIC: Positive Neurological Disorders and Migraine; Negative Cerebrovascular Accident, Transient Ischemic Attacks (TIA), Dementia, Alzheimer's Disease, Parkinson's Disease, Brain Tumor, Meningitis, Seizures, Epilepsy, Multiple Sclerosis, Cerebral Palsy, Amyotrophic Lateral Sclerosis (ALS/Savannah Gehrig's), Guillain-Brunson Syndrome, Spina Bifida, Paralysis, Peripheral Neuropathy, Aguayo's Palsy, Subdural Hematoma, Head Trauma, Spinal Cord Injury or Traumatic Brain Injury CARDIAC: Positive Cardiac Disorders, Myocardial Infarction, Cardiac Arrhythmia, Congestive Heart Failure and Hypotension; Negative Atrial Fibrillation, Angina, Heart Murmur, Coronary Artery Disease, Atherosclerotic Heart Disease, Peripheral Vascular Disease, Hypercholesterolemia, Aneurysm, Congenital Heart Disease, Valvular Heart Disease, Rheumatic Fever, Cardiomyopathy, Edema, Pericarditis, Cellulitis, Deep Vein Thrombosis, Hypertension or Varicose Veins RESPIRATORY: Positive Chronic Obstructive Pulmonary Disease (COPD), Asthma and Pneumonia; Negative Bronchitis, Emphysema, Pulmonary Fibrosis, Cystic Fibrosis, Tuberculosis, Pulmonary Embolism, Pulmonary Edema or Sleep Apnea GASTROINTESTINAL: Positive Gastrointestinal Disorders, Gall Bladder Disease and Obesity; Negative Hepatitis, Cirrhosis, Pancreatitis, Celiac Disease, Gastrointestinal Bleed, Esophageal Varices, Silverio's Esophagus, Colitis, Ulcerative Colitis, Diverticulitis, Diverticulosis, Ulcer, Colorectal Cancer, Irritable Bowel, Crohn's Disease, Obstructive Bowel, Hiatal Hernia, Hemorrhoids or Gastroesophageal Reflux Disease GENITOURINARY: Negative Genitourinary Disorders, Renal Disease, Kidney Stones, Polycystic Kidney Disease, Neurogenic Bladder, Inguinal Hernia, Dialysis, Prostate Cancer or Benign Prostatic Hyperplasia REPRODUCTIVE: Positive Previous Pregnancies; Negative Breast Cancer, Endometriosis, Genital Herpes, Gonorrhea, Pelvic Inflammatory Disease, Syphilis, Testicular Cancer or Uterine Prolapse MUSCULOSKELETAL: Positive Arthritis and Fractures; Negative Musculoskeletal Disorders, Muscular Dystrophy, Myasthenia Gravis, Marfan's Syndrome, Bone Cancer, Rheumatoid Arthritis, Osteoporosis, Degenerative Disk Disease, Gout, Scoliosis, Carpal Tunnel Syndrome, Fibromyalgia, Degenerative Joint Disease, Osteomyelitis or Poliovirus ENT: Negative Cataracts, Glaucoma, Blind, Retinal Detachment, Macular Degeneration, Ear Infection, Deafness, Head Trauma or Eye Prosthesis ENDOCRINE: Positive Endocrine Disorders and Diabetes Mellitus Type 2; Negative Diabetes Mellitus Type 1, Hypoglycemia, Yani's Syndrome, Troy's Disease, Hyperthyroidism, Hypothyroidism, Parathyroid Disease, Pituitary Disease, Systemic Lupus Erythematosus, Syndrome of Inappropriate Antidiuretic Hormone (SIADH), Adrenal Disease or Graves' Disease HEMATOLOGIC: Negative Blood Disorders, Anemia, Leukemia, Hemophilia, Thalassemia, Sickle Cell Disease or Clotting Problems PSYCHO/SOCIAL: Positive Recreational Drug Use, Depression and Anxiety; Negative Psychiatric Problems, Schizophrenia, Bipolar Disorder, Behavior Problems, Self-Mutilation, Attention Deficit Disorder, Attention Deficit Hyperactivity Disorder, Depression, Post Traumatic Stress Disorder or Eating Disorder OTHER HISTORY: Positive Autoimmune Disease, Shingles, Falls and Chicken Pox; Negative Down Syndrome, Autism, Developmental Delay, Blood Transfusions, Blood Transfusion Reaction, Anesthesia Reactions, Organ Transplant, Chemotherapy, Radiation Therapy, Hyperbaric Therapy, MRSA, VRSA, Vancomycin-Resistant Enterococci, Human Immunodeficiency Virus (HIV), Measles, Mumps, Rubella (Sinhala Measles), Pertussis, Clostridium Difficile, Cancer, Breast Cancer, Cervical Cancer, Colorectal Cancer, Lung Cancer, Ovarian Cancer, Prostate Cancer or Testicular Cancer Family History FAMILY HISTORY: Positive Family Cardiac Disorders, Family Cancer and Family Surgery; Negative Family Psychiatric Problems, Family Respiratory Disorders, Family Gastrointestinal Problems or Family Anesthesia Reaction Surgical History SURGICAL: Positive Abdominal Surgery; Negative Cardiac Surgery, Open Heart Surgery, Coronary Artery Bypass Graft, Valve Replacement, Vascular Surgery, Coronary Stent, Cardiac Catheterization, Pacemaker, Angiogram, Auto Implanted Cardiovert Defib, Carotid Endarterectomy, Endocrine Surgery, Thyroidectomy, Ear Surgery, Tympanostomy Tube, Eye Surgery, Nose Surgery, Oral Surgery, Tonsillectomy, Adenoidectomy, Cochlear Implant, Corneal Transplant, Throat Surgery, Tracheostomy, Gastrostomy, Bowel Surgery, Nephrectomy, Transurethral Resection, Joint Replacement, Amputation, Open Reduction Internal Fixation, Arthroscopy, Neurologic Surgery, Brain Shunt, Mastectomy, Lumpectomy, Hysterectomy, Tubal Ligation, Section or Organ Transplant Social History SMOKING STATUS: Former smoker SECOND HAND EXPOSURE: Yes SUBSTANCE USE: former substance user and amphetamines ED Exam Narrative Physical exam: [General: Obese, anxious, in moderate discomfort but not in any acute distress. Head normocephalic HEENT: Eyes pupils are PERRLA EOMs are intact mouth pursed lip breathing, pink dry membranes uvula midline swallow symmetrical. All other subsystems of HEENT are within acceptable limits Neck is supple nontender Chest equal chest rise nontender to palpation Respiratory: Clear throughout, tachypneic pursed lip breathing. CV: Rate rhythm is regular no murmurs rubs or clicks Abdomen is distended secondary to body habitus soft nontender no masses positive bowel sounds all 4 quadrants Back: No CVA tenderness no spinous process tenderness from cervical spine thoracic and lumbar spine Skin: Intact no petechiae rash induration ulceration or crepitus Extremities: Moving all extremity against resistance cap refill less than 2 seconds neurosensory intact. No lower extremity edema. Neuro: Awake alert oriented x3 Glascow coma 15 no focal deficits] Course Course Course Narrative: Reassessment of the patient at 1740, the patient continues to be tachypneic tachycardic with pursed lip breathing satting 95% on 3 L nasal cannula. The patient states she has had no change in her respiratory status since an hour- long SVN and steroids. This time we will draw an ABG to see if there is significant CO2 retention taking place. Patient's case discussed with resident for Dr. Jairo farr who agrees to except the patient for admission Quality Measures none Orders Category Date Time Status Bedside COVID-19 Antigen Test NOW Care 09/25/24 17:56 Active Bedside Influenza A&B Antigen Test NOW Care 09/25/24 17:56 Completed EKG (ED ONLY) *Do not use* NOW Care 09/25/24 15:23 Completed Glucose [Bedside Blood Glucose] Q1HR Care 09/25/24 16:31 Active EKG (ED Only) Stat Exams 09/25/24 15:23 Draft XR chest 1V Stat Exams 09/25/24 15:22 Completed ABG [Arterial Blood Gas] Stat Lab 09/25/24 17:56 Completed B-Type Natriuretic Peptide Stat Lab 09/25/24 15:34 Completed CBC Stat Lab 09/25/24 15:34 Completed Comprehensive Metabolic Panel Stat Lab 09/25/24 15:34 Completed Drug Screen,Urine Stat Lab 09/25/24 19:18 Completed LDH (Lactate Dehydrogenase) Stat Lab 09/25/24 15:34 Completed Magnesium Stat Lab 09/25/24 15:34 Completed Partial Thromboplastin Time Stat Lab 09/25/24 15:34 Completed Prothrombin Time with INR Stat Lab 09/25/24 15:34 Completed Troponin I Stat Lab 09/25/24 15:34 Completed Urinalysis Stat Lab 09/25/24 19:18 Completed ALBUTEROL RT 0.5ml [Proventil Rt 0.5ml] Med 09/25/24 15:22 Discontinued 10 mg INH X1 ONE Insulin Regular Med 09/25/24 16:31 Discontinued 10 unit SC X1 ONE MethylPREDNISolone.* [SoluMEDROL Inj] Med 09/25/24 15:22 Discontinued 125 mg IVP X1 ONE Sodium Chloride Rt Mariel 0.9% [NS Rt Mariel 0.9%] Med 09/25/24 15:22 Active 3 ml INH PRN PRN cefTRIAXone/D5w 1gm IV premix [Rocephin/D5w 1gm IV Med 09/25/24 17:38 Discontinued premix] 50 ml IV X1 Vital Signs Vital signs: Vital Signs Temperature 98.4 F 09/25/24 15:19 Pulse Rate 98 09/25/24 15:19 Respiratory Rate 18 09/25/24 15:19 Blood Pressure 149/82 H 09/25/24 15:19 Pulse Oximetry (%) 99 09/25/24 15:19 Oxygen Delivery Method Nasal Cannula 09/25/24 15:19 Oxygen Flow Rate 3 09/25/24 15:[address] [facility] Patient data External records reviewed:: [facility] previous records and EMS form Clinical information provided by:: patient and EMS Social determinants that could affect healthcare access:: none Patient has the following chronic illnesses:: COPD on blood thinners diabetic hypertension How is presenting disease/condition affected by chronic disease/condition?: e xacerbated by Evaluation data The following diagnostics were reviewed and interpreted by me:: lab results, radiology exam(s) and EKG tracing(s) Lab and/or radiology exams considered but not ordered:: EKG performed at 1716 shows a ventricular rate of 109 ME interval 153 QRS of 8 4 QTc of 376 is sinus tachycardia baseline wander nonspecific ST segment changes. CBC shows a mild elevated WBCs 11.4 no anemia thrombocytopenia Coags within acceptable limits CMP shows sodium 134 potassium 3.4 chloride of 95 CO2 of 32.3 BUN of 18 creatinine 1.0 glucose of 445 Troponin is less than 0.020 Chest x-ray as interpreted by radiology shows a right sided pneumonia Interpretation Summary: COPD exacerbation hyperglycemia secondary to diabetes, shortness of breath Medications Medications considered but not ordered:: None Medication administrations:: Medication Administration History Acetaminophen (Acetaminophen 325 Mg Tablet) 650 mg PO Q6H PRN PRN Reason: Pain 1-3 and/or Fever >100.1 Stop: 10/25/24 20:09 Apixaban (Apixaban 2.5 Mg Tablet) 5 mg PO BID [facility] Stop: 10/25/24 20:59 Last Admin: 09/25/24 20:59 Dose: 5 mg Documented By: TC Dextrose (Dextrose 50%-Water Inj 50 Ml Syringe) 25 ml IV Q15MIN PRN PRN Reason: BG 50-70 responsive npo pt Stop: 10/25/24 20:14 Dextrose (Dextrose 50%-Water Inj 50 Ml Syringe) 50 ml IV Q15MIN PRN PRN Reason: BG <50 OR BG <70 & pt unresponsive Stop: 10/25/24 20:14 Digoxin (Digoxin 0.125 Mg Tablet) 0.125 mg PO QDAY [facility] Stop: 10/26/24 08:59 Glucagon (Glucagon Inj 1 Mg Vial) 1 mg IM Q15MIN PRN PRN Reason: BG <70, and no IV access Insulin Human Lispro (Insulin Lispro (Admelog) 1 Unit/0.01 Ml Unit) 0 unit SC AC [facility]; Protocol Stop: 10/26/24 07:29 Levalbuterol HCl (Levalbuterol Rt 0.63 Mg/3 Ml Nebu) 0.63 mg INH Q6HR [facility] Stop: 10/26/24 00:00 Levalbuterol HCl (Levalbuterol Rt 0.63 Mg/3 Ml Nebu) 0.63 mg INH Q4H PRN PRN Reason: WHEEZING Stop: 10/25/24 20:42 Methylprednisolone Sodium Succinate (Methylprednisolone Sod Succ 40 Mg Vial) 40 mg IVP X1 ONE Stop: 09/26/24 09:01 Metoprolol Succinate (Metoprolol Succinate Xl 25 Mg Tabcr) 25 mg PO QDAY [facility] Stop: 10/26/24 08:59 Ondansetron HCl (Ondansetron Inj 2 Mg/Ml Inj 2 Ml) 4 mg IV Q6H PRN; Protocol PRN Reason: NAUSEA OR VOMITING Stop: 10/25/24 20:09 Fluticasone/Salmeterol (Fluticasone/Salmeterol 100/50 14 Dose Inh) 1 puff INH BIDRT [facility] Stop: 10/26/24 08:59 Sennosides (Senna Tablet) 1 tab PO QDAY [facility]; Protocol Stop: 10/26/24 08:59 Sodium Chloride (Sodium Chloride Rt Mariel 0.9% 3 Ml Nebu) 3 ml INH PRN PRN PRN Reason: SOLN Stop: 10/25/24 15:21 Last Admin: 09/25/24 16:03 Dose: 3 ml Documented By: RG Discontinued Medications Albuterol (Albuterol Rt 2.5 Mg/0.5 Ml Nebu) 10 mg INH X1 ONE Stop: 09/25/24 15:23 Last Admin: 09/25/24 16:03 Dose: 10 mg Documented By: RG Furosemide (Furosemide Inj 10 Mg/Ml 4ml Vial) 40 mg IVP X1 ONE Stop: 09/25/24 20:25 Last Admin: 09/25/24 20:59 Dose: 40 mg Documented By: TC Ceftriaxone Sodium/Dextrose (Rocephin/D5w 1gm Iv Premix) 50 mls @ 100 mls/hr IV X1 ONE Stop: 09/25/24 18:07 Last Infusion: 09/25/24 19:32 Dose: Infused Documented By: Admin: 09/25/24 19:01 Dose: 100 mls/hr Documented By: RD Insulin Human Regular (Insulin Hum Regular 1 Unit/0.01 Ml (Per Unit)) 10 unit SC X1 ONE Stop: 09/25/24 16:32 Last Admin: 09/25/24 18:23 Dose: 10 unit Documented By: EMERITA Co-signed By: AMI Levalbuterol HCl (Levalbuterol Rt 0.63 Mg/3 Ml Nebu) 0.63 mg INH Q6HR [facility] Stop: 10/25/24 20:29 Last Admin: 09/25/24 21:00 Dose: Not Given Documented By: TC Non-Admin Reason: Discontinued Levalbuterol HCl (Levalbuterol Rt 0.63 Mg/3 Ml Nebu) 0.63 mg INH Q4HR PRN PRN Reason: wheezing Stop: 10/25/24 20:18 Methylprednisolone Sodium Succinate (Methylprednisolone Sod Succ 62.5 Mg/Ml 2ml Vial) 125 mg IVP X1 ONE Stop: 09/25/24 15:23 Last Admin: 09/25/24 18:13 Dose: 125 mg Documented By: EMERITA Fluticasone/Salmeterol (Fluticasone/Salmeterol 100/50 14 Dose Inh) 1 puff INH BIDRT [facility] Stop: 10/25/24 20:14 Last Admin: 09/25/24 20:23 Dose: Not Given Documented By: ROYA Non-Admin Reason: Medication Not Available None Consultations Consultation(s) initiated? (list below): No Diagnosis Differential Diagnosis ED Complaint MDM: Pneumonia COPD exacerbation acute asthma Most likely diagnosis given after review of the tests above:: COPD exacerbation hyperglycemia Admission Indicated Admission indicated?: indicated Explain why admission is indicated or not indicated:: Further medical management Admission Request Was there a request for admission?: No Disposition Plan Disposition Plan: Admit Medical Decision Making Differential Diagnosis Differential Diagnosis: Pneumonia COPD exacerbation acute asthma Lab Data 09/25/24 15:34 09/25/24 15:34 Labs: Lab Results 09/25/24 09/25/24 09/25/24 Range/Units 15:34 17:56 19:18 WBC 11.4 H (3.6-11.0) Thou/mm3 RBC 4.74 (4.00-5.20) Miln/mm3 Hgb 13.4 (12.0-16.0) g/dL Hct 41.0 (36.0-46.0) % MCV 87 (80-100) fL MCH 28.3 (25.0-35.0) pg MCHC 32.7 (31.0-37.0) g/dl RDW Std Deviation 42.2 (36.4-46.3) fL Plt Count 202 (140-440) Thou/mm3 Neut % (Auto) 62 (37-80) % Lymph % (Auto) 30 (10-50) % [place] % (Auto) 7 (0-12) % Eos % (Auto) 0 (0-10) % Baso % (Auto) 0 (0-2.5) % Neut # (Auto) 7.1 (1.8-7.7) Thou/mm3 Lymph # (Auto) 3.4 (1.0-4.8) Thou/mm3 [place] # (Auto) 0.8 (0.0-0.8) Thou/mm3 Eos # (Auto) 0.0 (0.0-0.5) Thou/mm3 Baso # (Auto) 0.0 (0.0-0.2) Thou/mm3 Immature Gran # (Auto) 0.05 H (0.00-0.00) Thou/mm3 Absolute Nucleated RBC 0.00 (0.00-0.00) Thou/mm3 Immature Gran % 0 (0-0) % Nucleated RBC % 0 (0) /100 WBC PT 10.5 (9.0-12.2) Seconds INR 1.0 (0.9-1.3) APTT 23.1 (22.0-36.0) Seconds Puncture Site Right Radial ABG pH 7.39 (7.35-7.45) ABG pCO2 54 H (32.0-48.0) mmHg ABG pO2 62 L (83-108) mmHg ABG HCO3 32 H (20-26) mEq/L ABG O2 Saturation 92 (91-98) % ABG Base Excess 6 H (-3-3) Oxygen Liter Flow 3 L/min Sodium 134 L (136-145) mMol/L Potassium 3.4 (3.4-5.1) mMol/L Chloride 95 L (98-107) mMol/L Carbon Dioxide 32.3 H (20.0-31.0) mMol/L Anion Gap 7 (7-16) BUN 18 (9-23) mg/dL Creatinine 1.0 (0.6-1.3) mg/dL Estim Creat Clear Calc Not Performed. eGFR > 60 (60 - ) See Note BUN/Creatinine Ratio 18 (12-20) Ratio Glucose 445 H* (74-106) mg/dL Calculated Osmolality 289 (275-295) Calcium 10.0 (8.3-10.6) mg/dL Corrected Calcium 10.0 (8.5-10.1) mg/dL Magnesium 2.0 (1.6-2.6) mg/dL Total Bilirubin 0.9 (0.3-1.2) mg/dL AST < 8 (0-34) U/L ALT 16 (10-49) U/L Alkaline Phosphatase 100 (46-116) U/L Lactate Dehydrogenase 160 (120-246) U/L Troponin I < 0.020 (0.0-0.045) ng/mL B-Natriuretic Peptide 44 (0-100) pg/mL Total Protein 6.8 (5.7-8.2) gm/dL Albumin 4.7 (3.5-5.0) gm/dL Globulin 2.1 L (2.3-3.5) gm/dL Albumin/Globulin Ratio 2.2 (1.2-2.2) Ur Collection Type Clean Catch Urine Color Lt-Yellow (Lt Yel-Yel) Urine Clarity Clear (Clear/Hazy) Urine pH 5.5 (5.0-7.0) Ur Specific [place] 1.043 H (1.001-1.035) Urine Protein Negative (Neg - Trace) Urine Glucose (UA) 4+ A (Negative) Urine Ketones Negative (Negative) Urine Blood Negative (Negative) Urine Nitrite Negative (Negative) Urine Bilirubin Negative (Negative) Urine Urobilinogen (Auto) Negative (0.0-1.0) mg/dL Ur Leukocyte Esterase Negative (Negative) Urine RBC 0 (0-3) /hpf Urine WBC 0 (0-5) /hpf Ur Squamous Epith Cells 2 (0-5) /hpf Urine Bacteria None (None) Urine Opiates Screen Negative (Negative) Urine Fentanyl Screen Negative (Negative) Ur Barbiturates Screen Negative (Negative) U Amphetamin/Meth Scrn Negative (Negative) U Benzodiazepines Scrn Negative (Negative) U Cocaine Metab Screen Negative (Negative) U Marijuana (THC) Screen Negative (Negative) Discharge Plan Plan Patient Disposition: Other Care w/in Hosp ([facility]) Patient condition on transfer: Stable Problem List Clinical Impression: COPD exacerbation, Shortness of breath, Hyperglycemia due to diabetes mellitus PA/DIGITAL FIELD SERVICE TECHNICIAN Supervising Physician PA/DIGITAL FIELD SERVICE TECHNICIAN Supervising Physician: Tristian Eckert ENP
--- NOTE | 2024-09-25 15:23 | EKG_ITS ---
[facility] Test Date: 2024-09-25 Pat Name: LYDIA WOOD Department: Room: - Gender: Female Radio Broadcaster: : 1970 Requested By: Tristian Balderas Order Number: [id number] Reading MD: Tristian Balderas Measurements Intervals [place] Rate: 109 P: 75 MI: 153 QRS: 22 QRSD: 84 T: 0 QT: 312 QTc: 421 Interpretive Statements SINUS TACHYCARDIA NONSPECIFIC ST & T-WAVE ABNORMALITY ABNORMAL RHYTHM ECG Compared to ECG 09/02/2024 08:47:51 Sinus rhythm no longer present Sinus arrhythmia no longer present T-wave abnormality still present /store/S0/[id number]
[2024-09-25 15:55] LABS: Basophils % (Auto) 0 % (0-2.5); Eosinophils % (Auto) 0 % (0-10); Hemoglobin 13.4 g/dL (12.0-16.0); Immature Granulocytes % (Auto) 0 % (0-0); Immature Granulocytes Auto 0.05 Thou/mm3 (0.00-0.00); Lymphocytes # (Auto) 3.4 Thou/mm3 (1.0-4.8); Lymphocytes % (Auto) 30 % (10-50); Mean Corpuscular HGB Conc 32.7 g/dl (31.0-37.0); Mean Corpuscular Hemoglobin 28.3 pg (25.0-35.0); Mean Corpuscular Volume 87 fL (80-100); Monocytes # (Auto) 0.8 Thou/mm3 (0.0-0.8); Monocytes % (Auto) 7 % (0-12); Neutrophils # (Auto) 7.1 Thou/mm3 (1.8-7.7); Neutrophils % (Auto) 62 % (37-80); Nucleated Red Blood Cell % 0 /100 WBC (0); Platelet Count 202 Thou/mm3 (140-440); RDW Standard Deviation 42.2 fL (36.4-46.3); Red Blood Count 4.74 Miln/mm3 (4.00-5.20); White Blood Count 11.4 Thou/mm3 (3.6-11.0)
[2024-09-25] MEDS: ALBUTEROL RT 2.5 MG/0.5 ML NEBU 10 MG INH (16:03)
[2024-09-25] MEDS: SODIUM CHLORIDE RT SOL 0.9% 3 ML NEBU INH (16:03)
[2024-09-25 16:09] LABS: B-Type Natriuretic Peptide 44 pg/mL (0-100)
[2024-09-25 16:10] LABS: Alanine Aminotransferase 16 U/L (10-49); Albumin, Serum 4.7 gm/dL (3.5-5.0); Albumin/Globulin Ratio 2.2 (1.2-2.2); Alkaline Phosphatase 100 U/L (46-116); Anion Gap 7 (7-16); Aspartate Amino Transferase < 8 U/L (0-34); BUN/Creatinine Ratio 18 Ratio (12-20); Bilirubin,Total 0.9 mg/dL (0.3-1.2); Blood Urea Nitrogen 18 mg/dL (9-23); Carbon Dioxide 32.3 mMol/L (20.0-31.0); Chloride 95 mMol/L (98-107); Globulin 2.1 gm/dL (2.3-3.5); LDH (Lactate Dehydrogenase) 160 U/L (120-246); Osmolality,Calculated 289 (275-295); Potassium 3.4 mMol/L (3.4-5.1); Sodium 134 mMol/L (136-145); Total Protein 6.8 gm/dL (5.7-8.2); Troponin I < 0.020 ng/mL (0.0-0.045); eGFR > 60 See Note
[2024-09-25 16:11] LABS: Glucose 445 mg/dL (74-106)
[2024-09-25 16:16] LABS: Partial Thromboplastin Time 23.1 Seconds (22.0-36.0); Prothrombin Time 10.5 Seconds (9.0-12.2)
[2024-09-25 18:03] LABS: Allen Test Performed/OK; Base Excess 6 (-3-3); HCO3 32 mEq/L (20-26); Inspired O2, VO2 Liters 3 L/min; O2 Saturation 92 % (91-98); PCO2 54 mmHg (32.0-48.0); PO2 62 mmHg (83-108); Puncture Site Right Radial; pH, Arterial 7.39 (7.35-7.45)
[2024-09-25] MEDS: MethylPREDNISolone SOD SUCC 62.5 MG/ML 2ML VIAL 125 MG IVP (18:13)
[2024-09-25] MEDS: INSULIN HUM REGULAR 1 UNIT/0.01 ML (PER UNIT) 10 UNIT SC (18:23)
[2024-09-25] MEDS: cefTRIAXone/D5w 1gm IV premix 50 ML IV (19:01)
[2024-09-25 19:27] LABS: Collection Type, Urine Clean Catch; RBC,Urine 0 /hpf (0-3); WBC,Urine 0 /hpf (0-5)
[2024-09-25 19:44] LABS: Bilirubin,Urine Negative (Negative); Blood,Urine Negative (Negative); Clarity,Urine Clear (Clear/Hazy); Color,Urine Lt-Yellow (Lt Yel-Yel); Glucose, Urine 4+ (Negative); Ketones,Urine Negative (Negative); Leukocyte Esterase,Urine Negative (Negative); Nitrite,Urine Negative (Negative); PH,Urine 5.5 (5.0-7.0); Protein,Urine Negative (Neg - Trace); Specific Gravity,Urine 1.043 (1.001-1.035); Squamous Epithelial Cell,Urine 2 /hpf (0-5); Urobilinogen,Urine Negative mg/dL (0.0-1.0)
[2024-09-25 20:00] LABS: Amphetamine/Methamp Scrn,U Negative (Negative); Barbiturate Screen,Urine Negative (Negative); Benzodiazepines Screen,Urine Negative (Negative); Benzoylecgonine Screen, Ur Negative (Negative); Fentanyl Screen,Urine Negative (Negative); Opiate Screen,Urine Negative (Negative); THC Screen,Urine Negative (Negative)
--- NOTE | 2024-09-25 20:23 | PD.RESHP ---
Documentation for date of: 09/25/24 HPI History of Present Illness Chief complaint: Shortness of breath History of present illness: 53-year-old female with past medical history of COPD on 3 L nasal cannula, HFrEF (EF 30-35%), insulin-dependent type 2 diabetes, history of extensive tobacco smoking and polysubstance use disorder presenting to the ED on 09/25 with increased shortness of breath and failing outpatient therapy for COPD exacerbation recently. Patient states that symptoms worsened this morning (09/25) and states that she could not breathe. Patient also has some associated chest discomfort which she states is exacerbated when she takes deep breaths and or when she coughs. Patient is currently staying at [facility] (homeless senior living) and denies having any sick contacts recently; moreover, she apparently uses 3 L outpatient. Of note, patient presented to the ED on 09/21 for similar presenting symptoms and was discharged with oral steroids, Zithromax and cefdinir and was told to follow-up with PCP which she says she did. PCP apparently gave her additional oral steroid medications and she states that she took them as prescribed; however, her symptoms persisted and even worsened. Patient denies smoking or being near people will have been smoking; moreover, she has quit for the past 2-1/2 months but she does have extensive history of smoking 2-1/2 packs for about 50 years (110 pack-year history). Medical history: As stated above Surgical history: none Allergies: Codeine and meloxicam, shortness of breath Medications: Albuterol inhaler digoxin 125 mcg, Eliquis 5 mg p.o. twice daily, Breo Ellipta inhaler, Lasix 40 mg p.o. twice daily 10 units Lantus at bedtime, Jardiance 10 mg, metoprolol succinate 25 mg Family history: Noncontributory Social history: Patient currently staying at [facility], homeless senior living in [place]; denies smoking tobacco at the present time, no alcohol or illicit drug use recently ROS: All 12 systems assessed and the patient denies unless otherwise stated in HPI In the ED, patient presented hypertensive (149/82, heart rate 98, respiratory rate 18, afebrile satting 99 on 3 L nasal cannula. Pertinent lab findings included fingerstick blood glucose of 145, WBC 11.4, ABG showing pH 7.39, pCO2 54, pO2 62, bicarb 32, potassium 3.4, BUN 18, creatinine 1.0. UA shows glucosuria but otherwise negative, U-Tox negative. Chest x-ray shows suspicious for right early base pneumonia and EKG shows sinus tachycardia with some ST changes in lateral leads. Patient will be admitted for likely COPD exacerbation with possible underlying right base pneumonia; be treated with IV antibiotics, breathing treatments and IV steroids. Exam Vital Signs Temp Pulse Resp BP Pulse Ox O2 Del Method O2 Flow Rate 98.9 F 93 20 110/72 94 L Room Air 3 09/25/24 19:40 09/25/24 20:15 09/25/24 20:15 09/25/24 20:15 09/25/24 20:15 09/25/24 18:17 09/25/24 17:45 Narrative Exam Physical Exam: GENERAL: Awake, in mild respiratory distress with 3L NC, answering questions appropriately, appears stated age HEENT: NC/AT. Moist mucosa. PERRLA/EOMI. Pursed lip breathing CARDIO: Heart RRR, no obvious murmurs, no JVD. PULM: Dry coughing sporadically. Wheezing noted bilaterally throughout lung vides, no crackles/rales/rhonci GI: Abdomen soft, NT/ND, +BS. SKIN/MSK/EXT: No wounds/discoloration/rashes/edema/amputations. +Pedal pulses present B/L. NEURO: Oriented x3, Moves extremities x4, no focal neurological deficits Results: Labs 09/25/24 15:34 09/25/24 22:38 Labs: Short CBC 09/25/24 Range/Units 15:34 WBC 11.4 H (3.6-11.0) Thou/mm3 Hgb 13.4 (12.0-16.0) g/dL Hct 41.0 (36.0-46.0) % Plt Count 202 (140-440) Thou/mm3 BMP 09/25/24 15:34 Sodium 134 L Potassium 3.4 Chloride 95 L Carbon Dioxide 32.3 H BUN 18 Creatinine 1.0 Glucose 445 H* Calcium 10.0 Cardiac Enzymes 09/25/24 Range/Units 15:34 Troponin I < 0.020 (0.0-0.045) ng/mL Liver Function 09/25/24 Range/Units 15:34 Total Bilirubin 0.9 (0.3-1.2) mg/dL AST < 8 (0-34) U/L ALT 16 (10-49) U/L Alkaline Phosphatase 100 (46-116) U/L Albumin 4.7 (3.5-5.0) gm/dL Urine 09/25/24 Range/Units 19:18 Urine Color Lt-Yellow (Lt Yel-Yel) Urine Clarity Clear (Clear/Hazy) Urine pH 5.5 (5.0-7.0) Ur Specific [place] 1.043 H (1.001-1.035) Urine Protein Negative (Neg - Trace) Urine Glucose (UA) 4+ A (Negative) ABG Interpretation ABG results: 09/25/24 17:56 ABG pH 7.39 ABG pCO2 54 H ABG pO2 62 L ABG HCO3 32 H ABG O2 Saturation 92 ABG Base Excess 6 H Quality Measures Quality Measures VTE prophylaxis Medications Home Medications and Allergies Home Medications ?Medication ?Instructions ?Recorded ?Confirmed ?Type digoxin 125 mcg (0.125 mg) tablet 125 mcg PO DAILY 12/16/23 09/25/24 History insulin glargine 100 unit/mL (3 15 unit subcut HS 02/24/24 09/25/24 History mL) subcutaneous pen (Lantus Solostar U-100 Insulin) Allergies Allergy/AdvReac Type Severity Reaction Status Date / Time codeine Allergy Severe HIVES, Verified 08/29/24 08:42 SWELLING, DIFF BREATHING meloxicam Allergy Severe Difficulty Verified 08/29/24 08:42 Breathing Visit Medications Acetaminophen (Acetaminophen 325 Mg Tablet) 650 mg PO Q6H PRN PRN Reason: Pain 1-3 and/or Fever >100.1 Stop: 10/25/24 20:09 Apixaban (Apixaban 2.5 Mg Tablet) 5 mg PO BID CONSTANZA Stop: 10/25/24 20:59 Dextrose (Dextrose 50%-Water Inj 50 Ml Syringe) 25 ml IV Q15MIN PRN PRN Reason: BG 50-70 responsive npo pt Stop: 10/25/24 20:14 Dextrose (Dextrose 50%-Water Inj 50 Ml Syringe) 50 ml IV Q15MIN PRN PRN Reason: BG <50 OR BG <70 & pt unresponsive Stop: 10/25/24 20:14 Glucagon (Glucagon Inj 1 Mg Vial) 1 mg IM Q15MIN PRN PRN Reason: BG <70, and no IV access Insulin Human Lispro (Insulin Lispro (Admelog) 1 Unit/0.01 Ml Unit) 0 unit SC AC [facility]; Protocol Stop: 10/26/24 07:29 Levalbuterol HCl (Levalbuterol Rt 0.63 Mg/3 Ml Nebu) 0.63 mg INH Q6HR CONSTANZA Stop: 10/25/24 20:29 Levalbuterol HCl (Levalbuterol Rt 0.63 Mg/3 Ml Nebu) 0.63 mg INH Q4HR PRN PRN Reason: wheezing Stop: 10/25/24 20:18 Metoprolol Succinate (Metoprolol Succinate Xl 25 Mg Tabcr) 25 mg PO QDAY [facility] Stop: 10/26/24 08:59 Ondansetron HCl (Ondansetron Inj 2 Mg/Ml Inj 2 Ml) 4 mg IV Q6H PRN; Protocol PRN Reason: NAUSEA OR VOMITING Stop: 10/25/24 20:09 Fluticasone/Salmeterol (Fluticasone/Salmeterol 100/50 14 Dose Inh) 1 puff INH BIDRT [facility] Stop: 10/25/24 20:14 Last Admin: 09/25/24 20:23 Dose: Not Given Sennosides (Senna Tablet) 1 tab PO QDAY [facility]; Protocol Stop: 10/26/24 08:59 Sodium Chloride (Sodium Chloride Rt Mariel 0.9% 3 Ml Nebu) 3 ml INH PRN PRN PRN Reason: SOLN Stop: 10/25/24 15:21 Last Admin: 09/25/24 16:03 Dose: 3 ml Discontinued Medications Albuterol (Albuterol Rt 2.5 Mg/0.5 Ml Nebu) 10 mg INH X1 ONE Stop: 09/25/24 15:23 Last Admin: 09/25/24 16:03 Dose: 10 mg Ceftriaxone Sodium/Dextrose (Rocephin/D5w 1gm Iv Premix) 50 mls @ 100 mls/hr IV X1 ONE Stop: 09/25/24 18:07 Last Infusion: 09/25/24 19:32 Dose: Infused Insulin Human Regular (Insulin Hum Regular 1 Unit/0.01 Ml (Per Unit)) 10 unit SC X1 ONE Stop: 09/25/24 16:32 Last Admin: 09/25/24 18:23 Dose: 10 unit Methylprednisolone Sodium Succinate (Methylprednisolone Sod Succ 62.5 Mg/Ml 2ml Vial) 125 mg IVP X1 ONE Stop: 09/25/24 15:23 Last Admin: 09/25/24 18:13 Dose: 125 mg Assessment & Plan Plan 53-year-old female with past medical history of COPD on 3 L nasal cannula, HFrEF (EF 30-35%), insulin-dependent type 2 diabetes, history of extensive tobacco smoking and polysubstance use disorder presenting with increased shortness of breath and failing outpatient therapy for COPD exacerbation recently will be admitted for likely COPD exacerbation with possible underlying right base pneumonia; be treated with IV antibiotics, breathing treatments and IV steroids. #Acute on Chronic Hypercapnic Respiratory Failure 11/13 #COPD exacerbation #R-base PNA #Mild Leukocytosis Patient has extensive past medical history of COPD along with exacerbations in the past requiring hospitalization She has nearly [id number] smoking history; has quit for the past 1/2 months Presenting to the ED with increased shortness of breath after failing outpatient management for COPD exacerbation Patient was discharged on 09/21 from the ED with oral steroids, cefdinir and Z-Joe regimen Patient is on 3 L nasal cannula at home In the ED patient has been coughing and still feels short of breath after receiving IV methylprednisolone (125 mg) and breathing treatments Patient also has mild leukocytosis of 11.4, but afebrile Plan: Will not start antibiotics as the patient has already received antibiotics and WBC likely elevated secondary to steroid use Ordered both scheduled and as needed breathing treatments Ordered Advair for COPD CPAP at bedtime Monitor oxygen requirements, keep SpO2 above 88 IV Solu-Medrol 40 mg Chest physiotherapy Incentive spirometry #HFrEF (EF of 30-35%) #History of A-fib/flutter?rate controlled #Sinus Tachycardia Patient has history of the following chronic medical conditions; takes medications as listed above Echo from 04/03/2024: shows LV appears to be mildly dilated. Global LV systolic function is moderately decreased. Estimated EF 35-40% Diastolic dysfunction present but cannot grade it. RV is normal in size and systolic function. Moderate MR and Mild TR. Patient currently not on any acute exacerbation of heart failure Sinus tachycardia as noted in EKG with some ST depressions in the lateral leads; patient does have chest pain but attributes it to coughing and when taking deep breaths low likelihood for ACS at this time Troponin within normal limits BNP of 44 Plan: Med telemetry admit Restarted home medications, pending final med rec #Insulin-dependent Type 2 Diabetes Mellitus A1c of 8.7 on 08/31 Patient on 10 units of Lantus at night, along with Jardiance In the ED fingerstick blood glucose was 445 Plan: Sliding scale insulin #Electrolyte Abnormalities Plan: Replete as needed Morning labs #Tobacco use disorder #Polysubstance use disorder #Homeless Patient has [id number] history; quit about 1/2 months ago Patient also has past admissions with U-Tox positive for amphetamines Patient currently staying at [facility] in [facility] Plan: Social service consult Hospital Management: Lines - PIV Diet - Cardiac w/ Carb consistent low Bowel - Senna GI prophylaxis - none DVT prophylaxis- coverage with Eliquis 5mg po bid Dispo - Treating with COPD exacerbation and possible underlying PNA Code - Full Patient seen and examined with attending Dr. Herring and senior resident Dr. Marizol Ward, PGY-1 Attending Provider Attestation/Addendum 53-year-old female chronic smoker, substance use and COPD, insulin-dependent diabetes mellitus was admitted for increasing shortness of breath cough. The patient failed antibiotic treatment at home. She was also on oral steroid disease azithromycin and cefdinir. Chest x-ray showed hyperexpanded lungs. No gross infiltrates. There is increased bronchovascular markings. Patient is being admitted for COPD exacerbation. She is currently on BiPAP. Her blood glucose is over 400. She will be admitted for treatment and monitoring.
[2024-09-25] MEDS: FUROSEMIDE INJ 10 MG/ML 4ML VIAL 40 MG IVP (20:59)
[2024-09-25] MEDS: APIXABAN 2.5 MG TABLET 5 MG PO (20:59)
[2024-09-25] MEDS: INSULIN LISPRO (AdmeLOG) 1 UNIT/0.01 ML UNIT SC (22:01)
[2024-09-25] MEDS: ACETAMINOPHEN 325 MG TABLET 650 MG PO (22:45)
[2024-09-25] MEDS: INSULIN HUM REGULAR 1 UNIT/0.01 ML (PER UNIT) 10 UNIT IV (23:01)
--- NOTE | 2024-09-25 23:02 | PC.NURSE ---
Insulin given before pharmacy verification due to pharmacy systems down
[2024-09-25] MEDS: POTASSIUM CHLORIDE 20 mEq TABCR 40 MEQ PO (23:14)
[2024-09-25] MEDS: INSULIN GLARGINE (Lantus) 5 UNIT/0.05 ML (PER 5 UNITS) 10 UNIT SC (23:22)
--- NOTE | 2024-09-25 23:27 | EKG_ITS ---
[facility] Test Date: 2024-09-25 Pat Name: LYDIA WOOD Department: Room: S379A Gender: Female Bar Captain: NICOLE : 1970 Requested By: Raj Malave Order Number: [id number] Reading MD: Raj Malave Measurements Intervals [place] Rate: 106 P: 72 AK: 147 QRS: -7 QRSD: 84 T: 117 QT: 321 QTc: 427 Interpretive Statements SINUS TACHYCARDIA LOW QRS VOLTAGE IN PRECORDIAL LEADS [QRS DEFLECTION < 1.0 mV IN CHEST LEADS] SEPTAL MYOCARDIAL INFARCTION , OF INDETERMINATE AGE [40+ ms Q WAVE IN V1/V2] Compared to ECG 09/25/2024 17:16:40 Low QRS voltage now present Myocardial infarct finding now present T-wave abnormality no longer present /store/S0/[id number]/[id number].pdf
--- NOTE | 2024-09-25 23:31 | PD.RESEVENT ---
Documentation for date of: 09/25/24 Event Note Event Note: Rapid response was called at 11:20 PM for chest pain. Patient was examined and she complains of pain in the left side of her chest just under the left breast, nonradiating but sharp about a 6/10 in severity. Patient reports that she typically has this kind of pain and attributes it to a muscle strain, possibly worsened by persistent coughing and tachypnea. She also endorses nausea but no vomiting. Vitals at the time :HR- 100,RR- 16,BP-159/93, she was saturating 97% on 3 L via nasal cannula. EKG was ordered which showed sinus tachycardia with a heart rate of 106 bpm, no ST or T wave abnormalities. Troponin was also ordered and came back normal. Patient was given IV Toradol 30 mg x 1 and IV Zofran. Case was discussed with attending physician, Dr Nevaeh Malave MD PGY-1
[2024-09-25] MEDS: KETOROLAC INJ 30 MG/ML VIAL IVP (23:33)
[2024-09-25] MEDS: ONDANSETRON INJ 2 MG/ML INJ 2 ML 4 MG IV (23:36)
--- NOTE | 2024-09-25 23:39 | PC.RT ---
bipap taken off pt in rapid,due to pt feeling like she needed to throw up. pt only wore for approx 20 min.
[2024-09-25 23:55] LABS: Glucose 626 mg/dL (74-106)
[2024-09-26] VITALS (12 sets, daily range): BP systolic 99–116; BP diastolic 55–77; PULSE 22–88; RESP 16–57; TEMP 36–37; O2SAT 92–100
[2024-09-26 00:03] LABS: Troponin I < 0.020 ng/mL (0.0-0.045)
[2024-09-26] MEDS: BENZONATATE 100 MG CAPSULE PO ×4 (00:05→21:00)
[2024-09-26] MEDS: LEVALBUTEROL RT 0.63 MG/3 ML NEBU INH ×4 (01:01→20:18)
[2024-09-26] MEDS: ACETAMINOPHEN 325 MG TABLET 650 MG PO ×2 (05:19→11:44)
[2024-09-26 06:24] LABS: Basophils % (Auto) 0 % (0-2.5); Eosinophils % (Auto) 0 % (0-10); Hematocrit 40.3 % (36.0-46.0); Hemoglobin 13.1 g/dL (12.0-16.0); Immature Granulocytes % (Auto) 1 % (0-0); Immature Granulocytes Auto 0.06 Thou/mm3 (0.00-0.00); Lymphocytes # (Auto) 0.9 Thou/mm3 (1.0-4.8); Lymphocytes % (Auto) 9 % (10-50); Mean Corpuscular HGB Conc 32.5 g/dl (31.0-37.0); Mean Corpuscular Hemoglobin 28.5 pg (25.0-35.0); Mean Corpuscular Volume 88 fL (80-100); Monocytes # (Auto) 0.3 Thou/mm3 (0.0-0.8); Monocytes % (Auto) 3 % (0-12); Neutrophils # (Auto) 8.8 Thou/mm3 (1.8-7.7); Neutrophils % (Auto) 88 % (37-80); Nucleated Red Blood Cell % 0 /100 WBC (0); Platelet Count 157 Thou/mm3 (140-440); RDW Standard Deviation 44.2 fL (36.4-46.3); Red Blood Count 4.59 Miln/mm3 (4.00-5.20)
[2024-09-26] MEDS: INSULIN LISPRO (AdmeLOG) 1 UNIT/0.01 ML UNIT 20 UNIT SC (06:37)
[2024-09-26] MEDS: INSULIN GLARGINE (Lantus) 5 UNIT/0.05 ML (PER 5 UNITS) 10 UNIT SC (06:38)
[2024-09-26 07:02] LABS: Alanine Aminotransferase < 7 U/L (10-49); Albumin, Serum 4.5 gm/dL (3.5-5.0); Albumin/Globulin Ratio 2.1 (1.2-2.2); Alkaline Phosphatase 94 U/L (46-116); Anion Gap 4 (7-16); Aspartate Amino Transferase < 10 U/L (0-34); BUN/Creatinine Ratio 18 Ratio (12-20); Bilirubin,Total 0.7 mg/dL (0.3-1.2); Blood Urea Nitrogen 18 mg/dL (9-23); Calcium 9.8 mg/dL (8.3-10.6); Calcium (Corrected) 9.8 mg/dL (8.5-10.1); Carbon Dioxide 35.4 mMol/L (20.0-31.0); Chloride 93 mMol/L (98-107); Digoxin 0.6 ng/mL (0.8-2.0); Estimated Creatinine Clearance 64.8 mL/min (>60); Globulin 2.1 gm/dL (2.3-3.5); Magnesium 2.1 mg/dL (1.6-2.6); Osmolality,Calculated 283 (275-295); Phosphorous 4.7 mg/dL (2.4-5.1); Potassium 5.1 mMol/L (3.4-5.1); Sodium 132 mMol/L (136-145); Total Protein 6.6 gm/dL (5.7-8.2); eGFR > 60 See Note
[2024-09-26 07:05] LABS: Glucose 405 mg/dL (74-106)
[2024-09-26] MEDS: INSULIN LISPRO (AdmeLOG) 1 UNIT/0.01 ML UNIT SC ×3 (07:51→17:16)
[2024-09-26] MEDS: APIXABAN 2.5 MG TABLET 5 MG PO ×2 (08:22→20:53)
[2024-09-26] MEDS: METOPROLOL SUCCINATE XL 25 MG TABCR PO (08:22)
[2024-09-26] MEDS: DIGOXIN 0.125 MG TABLET PO (08:23)
[2024-09-26] MEDS: SENNA TABLET 1 TAB PO (08:23)
[2024-09-26] MEDS: DOXYCYCLINE 100 MG TABLET PO ×2 (08:24→20:53)
[2024-09-26] MEDS: LEVOFLOXACIN 250 MG TABLET 500 MG PO (08:24)
--- NOTE | 2024-09-26 10:06 | CHAP ---
Patient expressed gratitude for visit and prayer.
[2024-09-26] MEDS: INSULIN LISPRO (AdmeLOG) 1 UNIT/0.01 ML UNIT 4 UNIT SC ×2 (11:41→17:16)
--- NOTE | 2024-09-26 12:09 | ESPR_ITS ---
<Statement entered by Montse Bojorquez MD - 10/11/24 09:36> I reviewed above note and agree with findings and plans. I have also personally examined the patient with medicine team and went over assessment and plan with medical team including marketing intern and resident physician. Documentation for date of: 09/26/24 Subjective Subjective Interval history: Patient seen today at the bedside found awake, alert, orientedx3. Overnight patient had rapid response due to some chest pain, troponins, ekg were ordered and were found to be negative, likely due to muscle strain from coughing spells. Vitals signs at this time are stable. B/L wheezing was noted on physical exam but no shortness of breath at the time of my examination. Will continue with current management for pneumonia, namely ceftriaxone and doxycycline as well as steroid medication and nebulization. Exam Vital Signs Temp Pulse Resp BP Pulse Ox O2 Del Method O2 Flow Rate 97.8 F 67 18 112/77 95 Nasal Cannula 2 09/26/24 08:00 09/26/24 08:23 09/26/24 08:00 09/26/24 08:23 09/26/24 08:00 09/26/24 08:00 09/26/24 08:00 FiO2 35 09/25/24 23:15 Narrative Exam Physical Exam GENERAL: NAD, AAOx3, obese HEENT: Moist mucosa. Eyes open, symmetrical, & clear CARDIO: No chest pain on palpation. Heart RRR, no obvious murmurs PULM: No noted coughing/dyspnea. Lungs B/L wheezing GI: Abdomen soft, nondistended, no pain on palpation. BSx4 URO/CV/CVN CV TSC SYSTEM OPERATOR:: No further abnormalities noted. Champagne catheter SKIN/MSK/EXT: No wounds/rashes/edema/amputations, no pain on palpation. Pedal pulses present B/L Objective Labs 09/26/24 06:02 09/26/24 17:31 Labs: Laboratory Results - last 24 hr 09/25/24 09/25/24 09/25/24 15:34 17:56 19:18 WBC 11.4 H RBC 4.74 Hgb 13.4 Hct 41.0 MCV 87 MCH 28.3 MCHC 32.7 RDW Std Deviation 42.2 Plt Count 202 Neut % (Auto) 62 Lymph % (Auto) 30 [place] % (Auto) 7 Eos % (Auto) 0 Baso % (Auto) 0 Neut # (Auto) 7.1 Lymph # (Auto) 3.4 [place] # (Auto) 0.8 Eos # (Auto) 0.0 Baso # (Auto) 0.0 Immature Gran # (Auto) 0.05 H Absolute Nucleated RBC 0.00 Immature Gran % 0 Nucleated RBC % 0 PT 10.5 INR 1.0 APTT 23.1 Puncture Site Right Radial ABG pH 7.39 ABG pCO2 54 H ABG pO2 62 L ABG HCO3 32 H ABG O2 Saturation 92 ABG Base Excess 6 H Oxygen Liter Flow 3 Sodium 134 L Potassium 3.4 Chloride 95 L Carbon Dioxide 32.3 H Anion Gap 7 BUN 18 Creatinine 1.0 Estim Creat Clear Calc Not Performed. eGFR > 60 BUN/Creatinine Ratio 18 Glucose 445 H* Calculated Osmolality 289 Calcium 10.0 Corrected Calcium 10.0 Phosphorus Magnesium 2.0 Total Bilirubin 0.9 AST < 8 ALT 16 Alkaline Phosphatase 100 Lactate Dehydrogenase 160 Troponin I < 0.020 B-Natriuretic Peptide 44 Total Protein 6.8 Albumin 4.7 Globulin 2.1 L Albumin/Globulin Ratio 2.2 Ur Collection Type Clean Catch Urine Color Lt-Yellow Urine Clarity Clear Urine pH 5.5 Ur Specific [place] 1.043 H Urine Protein Negative Urine Glucose (UA) 4+ A Urine Ketones Negative Urine Blood Negative Urine Nitrite Negative Urine Bilirubin Negative Urine Urobilinogen (Auto) Negative Ur Leukocyte Esterase Negative Urine RBC 0 Urine WBC 0 Ur Squamous Epith Cells 2 Urine Bacteria None Digoxin Urine Opiates Screen Negative Urine Fentanyl Screen Negative Ur Barbiturates Screen Negative U Amphetamin/Meth Scrn Negative U Benzodiazepines Scrn Negative U Cocaine Metab Screen Negative U Marijuana (THC) Screen Negative 09/25/24 09/25/24 09/26/24 22:38 23:38 06:02 WBC 10.0 RBC 4.59 Hgb 13.1 Hct 40.3 MCV 88 MCH 28.5 MCHC 32.5 RDW Std Deviation 44.2 Plt Count 157 D Neut % (Auto) 88 H Lymph % (Auto) 9 L [place] % (Auto) 3 Eos % (Auto) 0 Baso % (Auto) 0 Neut # (Auto) 8.8 H Lymph # (Auto) 0.9 L [place] # (Auto) 0.3 Eos # (Auto) 0.0 Baso # (Auto) 0.0 Immature Gran # (Auto) 0.06 H Absolute Nucleated RBC 0.00 Immature Gran % 1 H Nucleated RBC % 0 PT INR APTT Puncture Site ABG pH ABG pCO2 ABG pO2 ABG HCO3 ABG O2 Saturation ABG Base Excess Oxygen Liter Flow Sodium 132 L Potassium 5.1 D Chloride 93 L Carbon Dioxide 35.4 H Anion Gap 4 L BUN 18 Creatinine 1.0 Estim Creat Clear Calc 64.8 eGFR > 60 BUN/Creatinine Ratio 18 Glucose 626 H* D 405 H* D Calculated Osmolality 283 Calcium 9.8 Corrected Calcium 9.8 Phosphorus 4.7 Magnesium 2.1 Total Bilirubin 0.7 AST < 10 ALT < 7 L Alkaline Phosphatase 94 Lactate Dehydrogenase Troponin I < 0.020 B-Natriuretic Peptide Total Protein 6.6 Albumin 4.5 Globulin 2.1 L Albumin/Globulin Ratio 2.1 Ur Collection Type Urine Color Urine Clarity Urine pH Ur Specific [place] Urine Protein Urine Glucose (UA) Urine Ketones Urine Blood Urine Nitrite Urine Bilirubin Urine Urobilinogen (Auto) Ur Leukocyte Esterase Urine RBC Urine WBC Ur Squamous Epith Cells Urine Bacteria Digoxin 0.6 L Urine Opiates Screen Urine Fentanyl Screen Ur Barbiturates Screen U Amphetamin/Meth Scrn U Benzodiazepines Scrn U Cocaine Metab Screen U Marijuana (THC) Screen ABG Interpretation ABG results: 09/25/24 17:56 ABG pH 7.39 ABG pCO2 54 H ABG pO2 62 L ABG HCO3 32 H ABG O2 Saturation 92 ABG Base Excess 6 H Quality Measures Quality Measures none Assessment & Plan Assessment Current Active Medications: Generic Name Dose Route Start Last Admin Trade Name Freq PRN Reason Stop Dose Admin Acetaminophen 650 mg 09/25/24 20:10 09/26/24 11:44 Acetaminophen 325 Mg Tablet PO 10/25/24 20:09 650 mg Q6H PRN Administration Pain 1-3 and/or Fever >100.1 Apixaban 5 mg 09/25/24 21:00 09/26/24 08:22 Apixaban 2.5 Mg Tablet PO 10/25/24 20:59 5 mg BID CONSTANZA Administration Benzonatate 100 mg 09/25/24 23:15 09/26/24 05:18 Benzonatate 100 Mg Capsule PO 10/25/24 23:14 100 mg Q8HR CONSTANZA Administration Protocol Dextrose 25 ml 09/25/24 20:15 Dextrose 50%-Water Inj 50 Ml Syringe IV 01/14/25 20:14 Q15MIN PRN BG 50-70 responsive npo pt Dextrose 50 ml 09/25/24 20:15 Dextrose 50%-Water Inj 50 Ml Syringe IV 10/25/24 20:14 Q15MIN PRN BG <50 OR BG <70 & pt unresponsive Digoxin 0.125 mg 09/26/24 09:00 09/26/24 08:23 Digoxin 0.125 Mg Tablet PO 10/26/24 08:59 0.125 mg QDAY CONSTANZA Administration Doxycycline Hyclate 100 mg 09/26/24 09:00 09/26/24 08:24 Doxycycline 100 Mg Tablet PO 10/03/24 08:59 100 mg BID CONSTANZA Administration Glucagon 1 mg 09/25/24 20:15 Glucagon Inj 1 Mg Vial IM Q15MIN PRN BG <70, and no IV access Ceftriaxone Sodium/Dextrose 50 mls @ 100 mls/hr 09/26/24 07:57 09/26/24 08:24 Rocephin/D5w 1gm Iv Premix IV 10/03/24 07:56 100 mls/hr QDAY CONSTANZA Administration Insulin Glargine 10 unit 09/25/24 22:45 09/25/24 23:22 Insulin Glargine (Lantus) 5 Unit/0.05 Ml (Per 5 Units) SC 10/25/24 22:44 10 unit HS CONSTANZA Administration Insulin Human Lispro 0 unit 09/25/24 22:45 09/26/24 11:41 Insulin Lispro (Admelog) 1 Unit/0.01 Ml Unit SC 10/25/24 21:44 10 unit AC CONSTANZA Administration Protocol Insulin Human Lispro 4 unit 09/26/24 11:30 09/26/24 11:41 Insulin Lispro (Admelog) 1 Unit/0.01 Ml Unit SC 10/26/24 11:29 4 unit AC CONSTANZA Administration Levalbuterol HCl 0.63 mg 09/26/24 00:00 09/26/24 06:31 Levalbuterol Rt 0.63 Mg/3 Ml Nebu INH 10/26/24 00:00 0.63 mg Q6HR CONSTANZA Administration Levalbuterol HCl 0.63 mg 09/25/24 20:43 Levalbuterol Rt 0.63 Mg/3 Ml Nebu INH 10/25/24 20:42 Q4H PRN WHEEZING Metoprolol Succinate 25 mg 09/26/24 09:00 09/26/24 08:22 Metoprolol Succinate Xl 25 Mg Tabcr PO 10/26/24 08:59 25 mg QDAY CONSTANZA Administration Ondansetron HCl 4 mg 09/25/24 20:10 09/25/24 23:36 Ondansetron Inj 2 Mg/Ml Inj 2 Ml IV 10/25/24 20:09 4 mg Q6H PRN Administration NAUSEA OR VOMITING Protocol Fluticasone/Salmeterol 1 puff 09/26/24 09:00 Fluticasone/Salmeterol 100/50 14 Dose Inh INH 10/26/24 08:59 BIDRT CONSTANZA Sennosides 1 tab 09/26/24 09:00 09/26/24 08:23 Senna Tablet PO 10/26/24 08:59 1 tab QDAY CONSTANZA Administration Protocol Sodium Chloride 3 ml 09/25/24 15:22 09/25/24 16:03 Sodium Chloride Rt Mariel 0.9% 3 Ml Nebu INH 10/25/24 15:21 3 ml PRN PRN Administration SOLN Plan 53 y/o F with PMHx of COPD on 3L of home O2, HFrEF 30-35%, Diabetes, polysubstance use disorder, extensive tobacco use presented to the ED due to worsening shortness of breath after failing outpatient therapy for COPD exacerbation. Admitted for COPD exacerbation with possible underlying right base pneumonia. #Acute on Chronic Hypercapnic Respiratory Failure secondary to #COPD exacerbation #Right base PNA #Leukocytosis-resolved Patient with hx of frequent hospitalizations for COPD exacerbations. Has extensive 110pk/year tobbaco use history, recently quit 1/2 months, and uses 3L home O2 patient presented with worsening shortness of breath after receiving outpatient treatment for COPD exacerbation was given steroids, cefdinir, and z-pack On admission patient was having cough and shortness of breath and was given breathing treatments - on Ceftriaxone - on Doxycycline - CPAP at bedtime - breathing treatments scheduled and prn - chest physiotherapy #HFrEF (EF of 30-35%) #History of A-fib/flutter?rate controlled #Sinus Tachycardia-resolved Patient has history of the following chronic medical conditions; takes medications as listed above Echo from 04/03/2024: shows LV appears to be mildly dilated. Global LV systolic function is moderately decreased. Estimated EF 35-40% Diastolic dysfunction present but cannot grade it. RV is normal in size and systolic function. Moderate MR and Mild TR. Patient currently not on any acute exacerbation of heart failure Sinus tachycardia as noted in EKG with some ST depressions in the lateral leads, not signs of typical cardiac chest pain, likely secondary to cough spells Troponin within normal limits BNP of 44 - on metoprolol 25mg qday - on digoxin 0.125mg qday - Eliquis 5mg bid - monitor telemetry #Insulin-dependent Type 2 Diabetes Mellitus A1c of 8.7 on 08/31 Patient on 15 units of Lantus at night, along with Jardiance In the ED fingerstick blood glucose was 445 - Sliding scale insulin - hypoglycemia protocol in place #Tobacco use disorder #Polysubstance use disorder #Homeless Patient has [id number] history; quit about 1/2 months ago Patient also has past admissions with U-Tox positive for amphetamines Patient currently staying at [facility] in [facility] - Social service consult Case discussed with my senior Dr. Fine PGY-[address] Maryellen Carnes MD PGY-1 Disposition:Medtele Fluids: None Feeding: Cab consistent Thrombo prophylaxis: Eliquis Gastric Ulcer prophylaxis: none CODE STATUS: Full code Senior resident attestation: Patient evaluated and examined at the bedside, plan of care discussed with rest of the team including my attending physician, except as noted. Patient is a 53-year-old female, known to this hospital due to frequent admitted for COPD exacerbation, prior homeless status but now has a place to stay, on 3 L home O2, HFrEF, diabetes, chronic steroid use, polysubstance use disorder, extensive tobacco use, who came to the ER due to acute exacerbation of COPD, failing outpatient antibiotics for pneumonia. #Acute on chronic hypercapnic respiratory failure #COPD exacerbation #Pneumonia ?On ceftriaxone and doxycycline, CPAP at night, breathing treatments ordered. #History of A-fib #History of CHF ? A-fib rate controlled, on metoprolol 25 daily and digoxin 0.125 daily also Eliquis 5 mg twice daily for anticoagulation. #Diabetes mellitus ? Poor glycemic control likely secondary to concomitant steroid use, previous A1c was 8.71-month ago. Home insulin dose is 15 units of Lantus along with Jardiance. ? Since admission patient has high blood sugars, frequently running in the 400s requiring excessive amounts of insulin. ? Insulin Lantus 20 units nightly ? Insulin lispro 10 units AC at bedtime ? Insulin sliding scale?resistant scale on top #Smoker ? Nicotine patch The case was discussed with my attending Dr. Maryellen Fine pgy2
[2024-09-26] MEDS: cefTRIAXone/D5w 1gm IV premix 50 ML IV (14:39)
[2024-09-26 18:11] LABS: Glucose 471 mg/dL (74-106)
[2024-09-26] MEDS: INSULIN HUM REGULAR 1 UNIT/0.01 ML (PER UNIT) 10 UNIT SC (18:40)
[2024-09-26] MEDS: predniSONE 20 MG TABLET 40 MG PO (18:40)
[2024-09-26] MEDS: INSULIN GLARGINE (Lantus) 5 UNIT/0.05 ML (PER 5 UNITS) 20 UNIT SC (20:56)
[2024-09-27] VITALS (15 sets, daily range): BP systolic 103–130; BP diastolic 56–81; PULSE 55–79; RESP 16–25; TEMP 36–36.6; O2SAT 91–100
[2024-09-27] MEDS: LEVALBUTEROL RT 0.63 MG/3 ML NEBU INH ×2 (01:05→07:36)
[2024-09-27] MEDS: BENZONATATE 100 MG CAPSULE PO (05:23)
[2024-09-27 05:26] LABS: Basophils % (Auto) 0 % (0-2.5); Eosinophils % (Auto) 0 % (0-10); Hematocrit 39.3 % (36.0-46.0); Hemoglobin 12.7 g/dL (12.0-16.0); Immature Granulocytes % (Auto) 1 % (0-0); Immature Granulocytes Auto 0.09 Thou/mm3 (0.00-0.00); Lymphocytes # (Auto) 2.1 Thou/mm3 (1.0-4.8); Lymphocytes % (Auto) 13 % (10-50); Mean Corpuscular HGB Conc 32.3 g/dl (31.0-37.0); Mean Corpuscular Hemoglobin 28.3 pg (25.0-35.0); Mean Corpuscular Volume 88 fL (80-100); Monocytes # (Auto) 0.7 Thou/mm3 (0.0-0.8); Monocytes % (Auto) 4 % (0-12); Neutrophils # (Auto) 13.2 Thou/mm3 (1.8-7.7); Neutrophils % (Auto) 82 % (37-80); Nucleated Red Blood Cell % 0 /100 WBC (0); Platelet Count 180 Thou/mm3 (140-440); RDW Standard Deviation 43.7 fL (36.4-46.3); Red Blood Count 4.49 Miln/mm3 (4.00-5.20)
[2024-09-27 06:23] LABS: Alanine Aminotransferase 14 U/L (10-49); Albumin, Serum 4.1 gm/dL (3.5-5.0); Alkaline Phosphatase 81 U/L (46-116); Anion Gap 7 (7-16); BUN/Creatinine Ratio 16 Ratio (12-20); Bilirubin,Total 0.6 mg/dL (0.3-1.2); Blood Urea Nitrogen 14 mg/dL (9-23); Calcium 9.4 mg/dL (8.3-10.6); Calcium (Corrected) 9.4 mg/dL (8.5-10.1); Carbon Dioxide 29.7 mMol/L (20.0-31.0); Chloride 97 mMol/L (98-107); Creatinine (Component) 0.9 mg/dL (0.6-1.3); Estimated Creatinine Clearance 71.9 mL/min (>60); Globulin 2.1 gm/dL (2.3-3.5); Glucose 273 mg/dL (74-106); Osmolality,Calculated 278 (275-295); Potassium 4.8 mMol/L (3.4-5.1); Sodium 134 mMol/L (136-145); Total Protein 6.2 gm/dL (5.7-8.2); eGFR > 60 See Note
[2024-09-27 06:29] LABS: Aspartate Amino Transferase 14 U/L (0-34)
[2024-09-27] MEDS: FLUTICASONE/SALMETEROL 100/50 14 DOSE INH 1 PUFF INH ×2 (07:31→19:16)
[2024-09-27] MEDS: INSULIN LISPRO (AdmeLOG) 1 UNIT/0.01 ML UNIT 10 UNIT SC (07:41)
[2024-09-27] MEDS: INSULIN LISPRO (AdmeLOG) 1 UNIT/0.01 ML UNIT SC ×4 (07:42→20:36)
[2024-09-27] MEDS: predniSONE 20 MG TABLET 40 MG PO (08:34)
[2024-09-27] MEDS: APIXABAN 2.5 MG TABLET 5 MG PO ×2 (08:34→20:35)
[2024-09-27] MEDS: METOPROLOL SUCCINATE XL 25 MG TABCR PO (08:35)
[2024-09-27] MEDS: cefTRIAXone/D5w 1gm IV premix 50 ML IV (08:35)
[2024-09-27] MEDS: SENNA TABLET 1 TAB PO (08:35)
[2024-09-27] MEDS: DIGOXIN 0.125 MG TABLET PO (08:35)
[2024-09-27] MEDS: DOXYCYCLINE 100 MG TABLET PO ×2 (08:35→20:35)
--- NOTE | 2024-09-27 09:08 | ESPR_ITS ---
<Statement entered by oMntse Bojorquez MD - 10/11/24 09:35> I reviewed above note and agree with findings and plans. I have also personally examined the patient with medicine team and went over assessment and plan with medical team including internet specialist and resident physician. <Statement entered by Josué Lee MD - 09/27/24 16:16> Today patient was seen and examined at bedside. She was noticed to have diffuse wheezing and excessive cough. We also noticed that the patient WBC increased to 16,000 for that reason for that reason we will increase her albuterol dose to 1.25 admitted every 4 hours we also increased her steroid and also added for benzonatate 200 mg 3 times daily. After that patient condition has improved significantly we anticipate the patient to be discharged tomorrow. He noted that her blood sugar is 273 for that reason we increase her insulin Lantus to 35 and we increased the Premeal insulin to 13 international units AC. Will continue to monitor and adjust accordingly. Talked with the social work therapist Lori and she reported that the patient lives in a [facility] and she has oxygen at home and she used 3 L at the f[facility]. - Patient's plan and care discussed with my attending, Dr. Maryellen Lee MD Internal Medicine PGY-2 Documentation for date of: 09/27/24 Subjective Subjective Interval history: Patient seen today at the bedside found awake, alert, orientedx3. No overnight events reported. States continuing shortness of breath and coughing spells, levalbuterol dose adjusted and benzonatate dose adjusted as well. On physical exam bilateral wheezing noted. Insulin regimen for patients diabetes was optimized. Will continue to monitor at this time. Exam Vital Signs Temp Pulse Resp BP Pulse Ox O2 Del Method O2 Flow Rate 96.8 F 78 16 112/75 96 Nasal Cannula 3 09/27/24 08:00 09/27/24 08:35 09/27/24 08:00 09/27/24 08:35 09/27/24 08:00 09/27/24 08:00 09/27/24 08:00 FiO2 35 09/27/24 04:00 Narrative Exam Physical Exam GENERAL: NAD, AAOx3, obese HEENT: Moist mucosa. Eyes open, symmetrical, & clear CARDIO: No chest pain on palpation. Heart RRR, no obvious murmurs PULM: No noted coughing/dyspnea. Lungs B/L wheezing GI: Abdomen soft, nondistended, no pain on palpation. BSx4 URO/REALTIME COURT REPORTER:: No further abnormalities noted. SKIN/MSK/EXT: No wounds/rashes/edema/amputations, no pain on palpation. Pedal pulses present B/L Objective Labs 09/27/24 04:40 09/27/24 04:40 Labs: Laboratory Results - last 24 hr 09/26/24 09/27/24 17:31 04:40 WBC 16.0 H D RBC 4.49 Hgb 12.7 Hct 39.3 MCV 88 MCH 28.3 MCHC 32.3 RDW Std Deviation 43.7 Plt Count 180 Neut % (Auto) 82 H Lymph % (Auto) 13 [place] % (Auto) 4 Eos % (Auto) 0 Baso % (Auto) 0 Neut # (Auto) 13.2 H Lymph # (Auto) 2.1 [place] # (Auto) 0.7 Eos # (Auto) 0.0 Baso # (Auto) 0.0 Immature Gran # (Auto) 0.09 H Absolute Nucleated RBC 0.00 Immature Gran % 1 H Nucleated RBC % 0 Sodium 134 L Potassium 4.8 Chloride 97 L Carbon Dioxide 29.7 Anion Gap 7 BUN 14 Creatinine 0.9 Estim Creat Clear Calc 71.9 eGFR > 60 BUN/Creatinine Ratio 16 Glucose 471 H* D 273 H D Calculated Osmolality 278 Calcium 9.4 Corrected Calcium 9.4 Total Bilirubin 0.6 AST 14 ALT 14 Alkaline Phosphatase 81 Total Protein 6.2 Albumin 4.1 Globulin 2.1 L Albumin/Globulin Ratio 2.0 ABG Interpretation ABG results: 09/25/24 17:56 ABG pH 7.39 ABG pCO2 54 H ABG pO2 62 L ABG HCO3 32 H ABG O2 Saturation 92 ABG Base Excess 6 H Quality Measures Quality Measures none Assessment & Plan Assessment Current Active Medications: Generic Name Dose Route Start Last Admin Trade Name Freq PRN Reason Stop Dose Admin Acetaminophen 650 mg 09/25/24 20:10 09/26/24 11:44 Acetaminophen 325 Mg Tablet PO 10/25/24 20:09 650 mg Q6H PRN Administration Pain 1-3 and/or Fever >100.1 Apixaban 5 mg 09/25/24 21:00 09/27/24 08:34 Apixaban 2.5 Mg Tablet PO 10/25/24 20:59 5 mg BID CONSTANZA Administration Benzonatate 200 mg 09/27/24 14:00 Benzonatate 100 Mg Capsule PO 10/27/24 13:59 Q8HR [facility] Protocol Dextrose 25 ml 09/25/24 20:15 Dextrose 50%-Water Inj 50 Ml Syringe IV 10/25/24 20:14 Q15MIN PRN BG 50-70 responsive npo pt Dextrose 50 ml 09/25/24 20:15 Dextrose 50%-Water Inj 50 Ml Syringe IV 10/25/24 20:14 Q15MIN PRN BG <50 OR BG <70 & pt unresponsive Digoxin 0.125 mg 09/26/24 09:00 09/27/24 08:35 Digoxin 0.125 Mg Tablet PO 10/26/24 08:59 0.125 mg QDAY CONSTANZA Administration Doxycycline Hyclate 100 mg 09/26/24 09:00 09/27/24 08:35 Doxycycline 100 Mg Tablet PO 10/03/24 08:59 100 mg BID CONSTANZA Administration Glucagon 1 mg 09/25/24 20:15 Glucagon Inj 1 Mg Vial IM Q15MIN PRN BG <70, and no IV access Ceftriaxone Sodium/Dextrose 50 mls @ 100 mls/hr 09/26/24 07:57 09/27/24 08:35 Rocephin/D5w 1gm Iv Premix IV 10/03/24 07:56 100 mls/hr QDAY CONSTANZA Administration Insulin Glargine 35 unit 09/27/24 21:00 Insulin Glargine (Lantus) 5 Unit/0.05 Ml (Per 5 Units) [place] 10/27/24 20:59 [facility] Insulin Human Lispro 0 unit 09/25/24 22:45 09/27/24 07:42 Insulin Lispro (Admelog) 1 Unit/0.01 Ml Unit SC 10/25/24 21:44 10 unit AC [facility] Administration Protocol Insulin Human Lispro 13 unit 09/27/24 11:30 Insulin Lispro (Admelog) 1 Unit/0.01 Ml Unit SC 10/27/24 11:29 AC [facility] Levalbuterol HCl 1.25 mg 09/27/24 09:00 Levalbuterol Rt 0.63 Mg/3 Ml Nebu INH 10/27/24 08:59 Q4H [facility] Levalbuterol HCl 0.63 mg 09/27/24 08:50 Levalbuterol Rt 0.63 Mg/3 Ml Nebu INH 10/27/24 07:32 Q6HRRT PRN wheezing Metoprolol Succinate 25 mg 09/26/24 09:00 09/27/24 08:35 Metoprolol Succinate Xl 25 Mg Tabcr PO 10/26/24 08:59 25 mg QDAY CONSTANZA Administration Ondansetron HCl 4 mg 09/25/24 20:10 09/25/24 23:36 Ondansetron Inj 2 Mg/Ml Inj 2 Ml IV 10/25/24 20:09 4 mg Q6H PRN Administration NAUSEA OR VOMITING Protocol Prednisone 40 mg 09/26/24 17:45 09/27/24 08:34 Prednisone 20 Mg Tablet PO 10/26/24 17:44 40 mg QDAY CONSTANZA Administration Fluticasone/Salmeterol 1 puff 09/26/24 09:00 09/27/24 07:35 Fluticasone/Salmeterol 100/50 14 Dose Inh INH 10/26/24 08:59 Not Given BIDRT CONSTANZA Sennosides 1 tab 09/26/24 09:00 09/27/24 08:35 Senna Tablet PO 10/26/24 08:59 1 tab QDAY CONSTANZA Administration Protocol Sodium Chloride 3 ml 09/25/24 15:22 09/25/24 16:03 Sodium Chloride Rt Mariel 0.9% 3 Ml Nebu INH 10/25/24 15:21 3 ml PRN PRN Administration SOLN Plan 53 y/o F with PMHx of COPD on 3L of home O2, HFrEF 30-35%, Diabetes, polysubstance use disorder, extensive tobacco use presented to the ED due to worsening shortness of breath after failing outpatient therapy for COPD exacerbation. Admitted for COPD exacerbation with possible underlying right base pneumonia. #Acute on Chronic Hypercapnic Respiratory Failure secondary to #COPD exacerbation #Right base PNA #Leukocytosis-resolved Patient with hx of frequent hospitalizations for COPD exacerbations. Has extensive 110pk/year tobbaco use history, recently quit 1/2 months, and uses 3L home O2 patient presented with worsening shortness of breath after receiving outpatient treatment for COPD exacerbation was given steroids, cefdinir, and z-pack On admission patient was having cough and shortness of breath and was given breathing treatments - on Ceftriaxone - on Doxycycline - CPAP at bedtime - Levalbuterol dose adjusted to 1.25mg q4 - benzonatate dose adjusted to 200mg TID - chest physiotherapy #HFrEF (EF of 30-35%) #History of A-fib/flutter?rate controlled #Sinus Tachycardia-resolved Patient has history of the following chronic medical conditions; takes medications as listed above Echo from 04/03/2024: shows LV appears to be mildly dilated. Global LV systolic function is moderately decreased. Estimated EF 35-40% Diastolic dysfunction present but cannot grade it. RV is normal in size and systolic function. Moderate MR and Mild TR. Patient currently not on any acute exacerbation of heart failure Sinus tachycardia as noted in EKG with some ST depressions in the lateral leads, not signs of typical cardiac chest pain, likely secondary to cough spells Troponin within normal limits BNP of 44 Digoxin lvls 0.6 adequate for HFrEF 0.5 to <0.9 - on metoprolol 25mg qday - on digoxin 0.125mg qday - Eliquis 5mg bid - monitor telemetry #Insulin-dependent Type 2 Diabetes Mellitus A1c of 8.7 on 08/31 Patient on 15 units of Lantus at night, along with Jardiance In the ED fingerstick blood glucose was 445 - Sliding scale insulin - glargine adjusted to 35units - lispro adjusted to 13 units - hypoglycemia protocol in place #Tobacco use disorder #Polysubstance use disorder #Homeless Patient has [id number] history; quit about 1/2 months ago Patient also has past admissions with U-Tox positive for amphetamines Patient currently staying at [facility] - Social service consult Case discussed with my senior Dr. Moses PGY-[address] Maryellen Carnes MD PGY-1 Disposition:Medtele Fluids: None Feeding: Cab consistent Thrombo prophylaxis: Eliquis Gastric Ulcer prophylaxis: none CODE STATUS: Full code
[2024-09-27] MEDS: LEVALBUTEROL RT 0.63 MG/3 ML NEBU 1.25 MG INH ×4 (10:30→22:47)
[2024-09-27] MEDS: INSULIN LISPRO (AdmeLOG) 1 UNIT/0.01 ML UNIT 13 UNIT SC ×3 (11:49→20:36)
--- NOTE | 2024-09-27 13:09 | CHAP ---
09:30 AM Visited by spiritual care volunteer Provided prayer for Patient.
[2024-09-27] MEDS: BENZONATATE 100 MG CAPSULE 200 MG PO ×2 (13:13→21:58)
--- NOTE | 2024-09-27 16:01 | PC.SS ---
SS met with patient regarding his d/c plan. Pt is alert/oriented. Pt was admitted for COPD Exacerbation. Pt confirmed demographic and contact information is correct on facesheet. Pt resides at [facility] on [address] Pt ambulates independently without assistance or DME. Pt is ok with all ADLs. Pt state she is allowed to have O2 there. Pt has O2 concentrator and 2 small O2 tanks from [facility] in [place]. Patient?s pharmacy of choice is [facility]. Pt named her son, Juma Reynaga medical decision maker if she is unable. Patient?s choice is to return home to [facility] upon d/c. Pt states she will have friend provide transport and bring small O2 tank. Pt states she followed up with PCP 1 week ago. Pt states she has clothes (pants, shirt, socks, and shoes). D/C plan: [facility] Next of Kin: Juma Reynaga, son, phone# [phone] PCP: [facility] Address: Correct on facesheet
[2024-09-27] MEDS: INSULIN GLARGINE (Lantus) 5 UNIT/0.05 ML (PER 5 UNITS) 35 UNIT SC (20:35)
[2024-09-28] VITALS (11 sets, daily range): BP systolic 102–118; BP diastolic 50–68; PULSE 5–87; RESP 18–24; TEMP 36.1–36.4; O2SAT 95–100
[2024-09-28] MEDS: LEVALBUTEROL RT 0.63 MG/3 ML NEBU 1.25 MG INH ×3 (02:30→10:46)
[2024-09-28] MEDS: ACETAMINOPHEN 325 MG TABLET 650 MG PO (03:56)
[2024-09-28 05:58] LABS: Basophils % (Auto) 0 % (0-2.5); Eosinophils # (Auto) 0.1 Thou/mm3 (0.0-0.5); Eosinophils % (Auto) 0 % (0-10); Hematocrit 39.2 % (36.0-46.0); Hemoglobin 12.7 g/dL (12.0-16.0); Immature Granulocytes % (Auto) 1 % (0-0); Immature Granulocytes Auto 0.11 Thou/mm3 (0.00-0.00); Lymphocytes % (Auto) 31 % (10-50); Mean Corpuscular HGB Conc 32.4 g/dl (31.0-37.0); Mean Corpuscular Hemoglobin 28.5 pg (25.0-35.0); Mean Corpuscular Volume 88 fL (80-100); Monocytes # (Auto) 0.8 Thou/mm3 (0.0-0.8); Monocytes % (Auto) 6 % (0-12); Neutrophils # (Auto) 7.8 Thou/mm3 (1.8-7.7); Neutrophils % (Auto) 61 % (37-80); Nucleated Red Blood Cell % 0 /100 WBC (0); Platelet Count 194 Thou/mm3 (140-440); RDW Standard Deviation 45.1 fL (36.4-46.3); Red Blood Count 4.46 Miln/mm3 (4.00-5.20); White Blood Count 12.7 Thou/mm3 (3.6-11.0)
[2024-09-28] MEDS: BENZONATATE 100 MG CAPSULE 200 MG PO (06:06)
[2024-09-28 06:28] LABS: Alanine Aminotransferase 17 U/L (10-49); Albumin/Globulin Ratio 2.2 (1.2-2.2); Alkaline Phosphatase 74 U/L (46-116); Anion Gap 7 (7-16); Aspartate Amino Transferase 11 U/L (0-34); BUN/Creatinine Ratio 27 Ratio (12-20); Bilirubin,Total 0.6 mg/dL (0.3-1.2); Blood Urea Nitrogen 19 mg/dL (9-23); Calcium 9.2 mg/dL (8.3-10.6); Calcium (Corrected) 9.2 mg/dL (8.5-10.1); Carbon Dioxide 33.3 mMol/L (20.0-31.0); Chloride 99 mMol/L (98-107); Creatinine (Component) 0.7 mg/dL (0.6-1.3); Estimated Creatinine Clearance 92.6 mL/min (>60); Globulin 1.8 gm/dL (2.3-3.5); Glucose 76 mg/dL (74-106); Magnesium 2.1 mg/dL (1.6-2.6); Osmolality,Calculated 278 (275-295); Potassium 3.5 mMol/L (3.4-5.1); Sodium 139 mMol/L (136-145); Total Protein 5.8 gm/dL (5.7-8.2); eGFR > 60 See Note
[2024-09-28] MEDS: FLUTICASONE/SALMETEROL 100/50 14 DOSE INH 1 PUFF INH (07:21)
--- NOTE | 2024-09-28 08:16 | PC.NURSE ---
called 09/28/[address] fox regarding blood sugar of 110 stated to hold insulin of 13 units premeal Alexsander durand
[2024-09-28] MEDS: APIXABAN 2.5 MG TABLET 5 MG PO (08:52)
[2024-09-28] MEDS: POTASSIUM CHLORIDE 20 mEq TABCR 40 MEQ PO (08:52)
[2024-09-28] MEDS: cefTRIAXone/D5w 1gm IV premix 50 ML IV (08:53)
[2024-09-28] MEDS: DOXYCYCLINE 100 MG TABLET PO (08:54)
[2024-09-28] MEDS: predniSONE 20 MG TABLET 40 MG PO (08:54)
[2024-09-28] MEDS: SENNA TABLET 1 TAB PO (08:54)
[2024-09-28] MEDS: METOPROLOL SUCCINATE XL 25 MG TABCR PO (08:56)
[2024-09-28] MEDS: DIGOXIN 0.125 MG TABLET PO (08:59)
--- NOTE | 2024-09-28 10:58 | PC.SS ---
Follow up note: Pt is possible if she clinically improves. Pt is aware to contact friend to bring her small O2 tank to hospital. Pt will return to [facility].
[2024-09-28] MEDS: INSULIN LISPRO (AdmeLOG) 1 UNIT/0.01 ML UNIT 13 UNIT SC (12:10)
[2024-09-28] MEDS: INSULIN LISPRO (AdmeLOG) 1 UNIT/0.01 ML UNIT SC (12:10)
--- NOTE | 2024-09-28 17:07 | ESDS_ITS ---
Planned Discharge Date 09/28/24 DS: Providers Provider Date of admission: 09/27/24 14:21 Primary care physician: Tavares Carnes MD Admitting Provider: Naseem Herring MD Attending Provider on Admission: Montse Bojorquez MD Attending Provider on DC: Montana Carnes MD Discharging Provider: Montana Carnes MD DS: Diagnosis Problem List Completed Was Problem List Reviewed/Reconciled?: Yes Hospital Course Hospital Course Hospital course: 53-year-old female with past medical history of COPD on 3 L nasal cannula, HFrEF (EF 30-35%), insulin-dependent type 2 diabetes, history of extensive tobacco smoking and polysubstance use disorder presenting to the ED on 09/25 with increased shortness of breath and failing outpatient therapy for COPD exacerbation recently. Admitted for Acute on chronic hypercapneic respiratory failure secondary to COPD exacerbation and right sided pneumonia. During hospital stay patients COPD was managed with breathing treatments, steroid medications, antibiotics such as ceftriaxone and doxycycline, CPAP, tesalon pearls and chest physiotherapy. Patient has history of heart failure with reduced ejection fraction, atrial flutter/fibrillation and home medications were resumed including metoprolol, digoxin and eliquis as well as continous telemetry monitoring. Patient diabetes was managed with insulin sliding scale. Patient has some history of polysubstance use, extensive tobacco use, and homelessnesss and socially responsible investment adviser was consulted. Patient at this time is medically stable for discharge. Patient is recommended complete abstinence from smoking. Patient instructed to follow up with transfer pumper within 1 week of discharge. Patient instructed to continue antibiotic therapy, steroid medication, as prescribed. Patient instructed to continue inhaler as instructed. Follow up with primary care physician with labs within 5 days of discharge. If symptoms recur or worsen, please return to the ED. Problem List: #Acute on Chronic Hypercapnic Respiratory Failure secondary to #COPD exacerbation #Right base PNA #Leukocytosis-resolved #HFrEF (EF of 30-35%) #History of A-fib/flutter?rate controlled #Sinus Tachycardia-resolved #Insulin-dependent Type 2 Diabetes Mellitus #Tobacco use disorder #Polysubstance use disorder #Homeless Case discussed with my senior Dr. Fine PGY-[address] Mariajose Carnes MD PGY-1 Senior resident attestation: Patient evaluated and examined at the bedside, plan of care discussed with rest of the team including my attending physician, except as noted. 52-year-old known to the hospital. Due to frequent admissions for COPD exacerbation, past medical history of A-fib on Eliquis, HFrEF, DM and extensive tobacco smoking presented after failing outpatient antibiotic therapy for pneumonia, with COPD exacerbation. Patient was managed with breathing treatments and steroids, started on IV antibiotics ceftriaxone and p.o. doxycycline. Patient is back to her home O2 levels 3 L, saturating well, patient is insisting on being discharged early as she had to travel to [place], we offered the patient to keep her 1 more day to continue with IV steroids and antibiotics, but she insisted that she has to leave at all cost today for [place]. Of note patient had a prior homeless status, but currently has a place to stay. As patient is saturating well at home oxygen, has access to [facility] with inhaled corticosteroids and Fabi at home, patient was discharged on medications for pneumonia, recommended continuing complete abstinence from cigarette smoking and substance abuse, advised going to the emergency room if he feels worsening shortness of breath. Quresh PGY2 b Status at Discharge Functional status at discharge: independent ambulation Overall status at discharge: patient is back to baseline Time Spent with Patient Time attestation: Total time spent providing and/or coordinating discharge services: Time spent: Greater than 30 minutes Exam Vital Signs Temp Pulse Resp BP Pulse Ox O2 Del Method O2 Flow Rate 97.2 F 65 20 108/50 L 99 Nasal Cannula 3 09/28/24 12:09/28/24 12:00 09/28/24 12:09/28/24 12:09/28/24 12:00 09/28/24 12:09/28/24 12:00 FiO2 35 09/28/24 04:00 Narrative Exam Physical Exam GENERAL: NAD, NC/AT, responsive/cooperative. A&Ox3, obese HEENT: Moist mucosa. Eyes open, symmetrical, & clear CARDIO: No chest pain on palpation. Heart RRR, no obvious murmurs PULM: No noted coughing/dyspnea. Lungs CTA B/L, no R/W/R GI: Abdomen soft, nondistended, no pain on palpation. BSx4 URO/DESIGN MAKER:: No further abnormalities noted. SKIN/MSK/EXT: No wounds/rashes/edema/amputations, no pain on palpation. Pedal pulses present B/L NEURO: AAOx3, no focal neuro deficits Discharge Plan Plan Patient Disposition: HOME (Self Care) Patient condition on transfer: Stable Care Plan Goals: Recommend complete abstinence from smoking, recommend followup with transfer pumper within in 1 week of discharge. Continue antibiotics as prescribed. Continue steroid per dose pack instructions. Continue with inhaler Follow up with Primary care physician with labs within 3-5 days of discharge. If symptoms persist or worsen, return to the Emergency Department. Prescriptions/Referrals Prescriptions/Med Rec: New doxycycline hyclate 100 mg Tablet 100 mg PO BID 7 Days Qty: 14 0RF methylprednisolone [Medrol (Joe)] 4 mg tablets,dose pack 4 mg PO QDAY Qty: 21 0RF amoxicillin 500 mg tablet 500 mg PO BID 7 Days Qty: 14 0RF Continued digoxin 125 mcg (0.125 mg) tablet 125 mcg PO DAILY metoprolol succinate 25 mg tablet extended release 24 hr 25 mg PO QDAY Qty: 30 3RF ipratropium-albuterol 0.5 mg-3 mg(2.5 mg base)/3 mL solution for nebulization 3 ml inhalation Q4H PRN (Reason: shortness of breath or wheezing) Qty: 90 0RF Jardiance 10 mg tablet 10 mg PO QAM Qty: 30 3RF Eliquis 5 mg tablet 5 mg PO BID 30 Days Qty: 60 3RF albuterol sulfate 90 mcg/actuation HFA aerosol inhaler 2 inh inhalation Q4H PRN (Reason: shortness of breath or wheezing) Qty: 8.5 0RF Qvar RediHaler 80 mcg/actuation HFA aerosol breath activated 2 inh inhalation BID Qty: 10.6 0RF Rx Instructions: administer with spacer fluticasone furoate-vilanterol [Breo Ellipta] 100-25 mcg/dose blister with device 1 inh inhalation Q24H Qty: 60 0RF benzonatate 100 mg capsule 100 mg PO TID PRN (Reason: cough) Qty: 14 0RF acetaminophen [Tylenol Extra Strength] 500 mg tablet 500 mg PO Q4H PRN (Reason: fever or pain) Qty: 20 0RF insulin glargine [Lantus Solostar U-100 Insulin] 100 unit/mL (3 mL) insulin pen 15 unit SUBCUT HS furosemide 40 mg tablet 40 mg PO BID 30 Days Qty: 30 3RF Referrals: Tavares Carnes MD [Primary Care Provider] - Patient/Caregiver Discharge Instructions Education Materials: What Is COPD? Print Language: Chadian Stand Alone Forms: Cecelia Award Info., Patient Portal Info Letter Discharge Order Discharge Orders: Discharge (Routine); Ordered 09/28/24 Ordered By: Montana Carnes Quality Discharge Quality Measures VTE prophylaxis MD Attestestation MD Attestation I have examined the patient, reviewed labs and imaging findings, discussed the case with the resident(s), and reviewed entered orders. I agree with the plan of care as outlined in this note. Dr. Billy
== END 2024-09-28 13:15 | disposition home or self-care (01) | DRG 140 ==
LOC: SERX 18:14 → SERHOLD 21:06 → S3SX 21:26
PROVIDERS: Registered Nurse General Practice; Admitting Provider Internal Medicine; Emergency Provider Emergency Medicine; PCP Family Medicine; Visit Provider Internal Medicine
DX: J44.1 Chronic obstructive pulmonary disease with (acute) exacerbation (principal); J44.0 Chronic obstructive pulmonary disease with (acute) lower respiratory infection; I11.0 Hypertensive heart disease with heart failure; I50.22 Chronic systolic (congestive) heart failure; Z79.4 Long term (current) use of insulin; E11.65 Type 2 diabetes mellitus with hyperglycemia; F19.10 Other psychoactive substance abuse, uncomplicated; Z59.01 Sheltered homelessness; Z87.891 Personal history of nicotine dependence; J96.22 Acute and chronic respiratory failure with hypercapnia; J18.9 Pneumonia, unspecified organism; T38.0X5A Adverse effect of glucocorticoids and synthetic analogues, initial encounter; I48.91 Unspecified atrial fibrillation; I48.92 Unspecified atrial flutter; R00.0 Tachycardia, unspecified
CPT/HCPCS: 36415; 36600; 71045; 80053; 80162; 80307; 81001; 82803; 82947; 83615; 83735; 83880; 84100; 84484; 85025; 85610; 85730; 87081; 87400; 87811; 93005; 93225; 94640; 94644; 94660; 94664; 94667; 96365; 96372; 96375; 99285; G0378; J0696; J1815; J1885; J1940; J2405; J2919; J7512; A9270

== ENCOUNTER 2024-10-16 14:44 | Emergency (ER) | payer MEDICAID, SELFPAY ==
[2024-10-16 14:52] VITALS: BP 116/76; PULSE 99; RESP 22; TEMP 36.9; O2SAT 95; BMI 42.4
--- NOTE | 2024-10-16 15:08 | XR_ITS ---
Examination: PA lateral chest 2 views Technique: Upright PA lateral chest 2 views Exam date and time: October 16, 2024 1542 hrs. Comparison June 26, 2024 Indications: Shortness of breath today Findings: No significant cardiac enlargement Mild increased AP dimension chest No lobar pneumonia or pulmonary edema Moderate osteopenia Impression: No pneumonia or pulmonary edema
--- NOTE | 2024-10-16 15:08 | EKG_ITS ---
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
--- NOTE | 2024-10-16 15:10 | PD.EDRME ---
Rapid Medical Screening Exam RME Arrival date/time: 10/16/24 14:44 This is a 54-year-old female with a history of COPD on 3 L nasal cannula, HFrEF (EF 30-35%), insulin-dependent type 2 diabetes, history of extensive tobacco smoking (pack a day) and polysubstance abuse in the past, CHF and atrial fibrillation. Patient states that she was visiting [place] for [place] and had an episode of chest pain and shortness of breath. Patient was admitted to a hospital in [place] and per patient had an angiogram that did not find anything. Patient was prescribed a new medication amiodarone and per patient they did not fill the medication. Patient reports that she feels like her heart is doing funny rhythms. Patient currently complaining of chest pain and shortness of breath. Patient denies fever nausea vomiting diarrhea. I have greeted and performed a focused initial assessment of this patient. Initial appropriate labs ordered at this time. A comprehensive ED assessment and evaluation of the patient and analysis of all test and completion of medical decision making process will be conducted by additional ED provider. Chief Complaint: Shortness of Breath/Dyspnea Time Seen by Provider: 10/16/24 15:07 Vital signs: Vital Signs Temperature 98.5 F 10/16/24 14:52 Pulse Rate 99 10/16/24 14:52 Respiratory Rate 22 H 10/16/24 14:52 Blood Pressure 116/76 10/16/24 14:52 Pulse Oximetry (%) 95 10/16/24 14:52 Oxygen Delivery Method Nasal Cannula 10/16/24 14:52 Oxygen Flow Rate 6 10/16/24 14:52
[2024-10-16 15:57] LABS: Basophils % (Auto) 0 % (0-2.5); Eosinophils % (Auto) 0 % (0-10); Hematocrit 43.4 % (36.0-46.0); Hemoglobin 14.5 g/dL (12.0-16.0); Immature Granulocytes % (Auto) 0 % (0-0); Immature Granulocytes Auto 0.05 Thou/mm3 (0.00-0.00); Lymphocytes % (Auto) 26 % (10-50); Mean Corpuscular HGB Conc 33.4 g/dl (31.0-37.0); Mean Corpuscular Hemoglobin 28.6 pg (25.0-35.0); Mean Corpuscular Volume 86 fL (80-100); Monocytes # (Auto) 0.8 Thou/mm3 (0.0-0.8); Monocytes % (Auto) 7 % (0-12); Neutrophils # (Auto) 7.7 Thou/mm3 (1.8-7.7); Neutrophils % (Auto) 67 % (37-80); Nucleated Red Blood Cell % 0 /100 WBC (0); Platelet Count 208 Thou/mm3 (140-440); RDW Standard Deviation 41.7 fL (36.4-46.3); Red Blood Count 5.07 Miln/mm3 (4.00-5.20); White Blood Count 11.5 Thou/mm3 (3.6-11.0)
[2024-10-16 16:06] LABS: Alanine Aminotransferase 13 U/L (10-49); Albumin, Serum 4.7 gm/dL (3.5-5.0); Albumin/Globulin Ratio 2.1 (1.2-2.2); Alkaline Phosphatase 104 U/L (46-116); Anion Gap 6 (7-16); Aspartate Amino Transferase < 10 U/L (0-34); BUN/Creatinine Ratio 16 Ratio (12-20); Blood Urea Nitrogen 19 mg/dL (9-23); Calcium 10.1 mg/dL (8.3-10.6); Calcium (Corrected) 10.1 mg/dL (8.5-10.1); Carbon Dioxide 34.7 mMol/L (20.0-31.0); Chloride 96 mMol/L (98-107); Creatinine (Component) 1.2 mg/dL (0.6-1.3); Estimated Creatinine Clearance 54.2 mL/min (>60); Globulin 2.2 gm/dL (2.3-3.5); Glucose 263 mg/dL (74-106); Osmolality,Calculated 285 (275-295); Potassium 3.6 mMol/L (3.4-5.1); Sodium 137 mMol/L (136-145); Total Protein 6.9 gm/dL (5.7-8.2); Troponin I < 0.020 ng/mL (0.0-0.045); eGFR 54 See Note
[2024-10-16 16:20] LABS: B-Type Natriuretic Peptide 26 pg/mL (0-100)
[2024-10-16 17:47] VITALS: BP 99/65; PULSE 88; RESP 20; TEMP 37.2; O2SAT 94
--- NOTE | 2024-10-16 20:42 | PD.EDADULT ---
ED General RME/HPI General Chief complaint: Shortness of Breath/Dyspnea Stated complaint: SOB, CP Time Seen by Provider: 10/16/24 15:07 Arrival date/time: 10/16/24 14:44 CC: Heart palpitations HPI patient presents to the ER after not taking amiodarone that was prescribed to her from an earlier admission for the past 5 days and now has had 2 episodes of palpitations . Patient currently denies any chest pain or shortness of breath. Patient states after being discharged here on September 28 for COPD exacerbation the patient went to [place] to visit family at which time she had palpitations was admitted to [facility] in [facility] and was diagnosed with A-fib RVR. The patient was discharged October 12, 2024 at which time the patient did not tack picker prescription of her amiodarone. Patient was unremarkable and symptoms until today when she had 2 episodes of palpitations . Patient currently has no pain or palpitations RME / HPI RME / HPI narrative: 10/16/24 14:44 This is a 54-year-old female with a history of COPD on 3 L nasal cannula, HFrEF (EF 30-35%), insulin-dependent type 2 diabetes, history of extensive tobacco smoking (pack a day) and polysubstance abuse in the past, CHF and atrial fibrillation. Patient states that she was visiting [place] for [place] and had an episode of chest pain and shortness of breath. Patient was admitted to a hospital in [place] and per patient had an angiogram that did not find anything. Patient was prescribed a new medication amiodarone and per patient they did not fill the medication. Patient reports that she feels like her heart is doing funny rhythms. Patient currently complaining of chest pain and shortness of breath. Patient denies fever nausea vomiting diarrhea. I have greeted and performed a focused initial assessment of this patient. Initial appropriate labs ordered at this time. A comprehensive ED assessment and evaluation of the patient and analysis of all test and completion of medical decision making process will be conducted by additional ED provider. Related Data Home Medications ?Medication ?Instructions ?Recorded ?Confirmed digoxin 125 mcg (0.125 mg) tablet 125 mcg PO DAILY 12/16/23 09/25/24 insulin glargine 100 unit/mL (3 15 unit subcut HS 02/24/24 09/25/24 mL) subcutaneous pen (Lantus Solostar U-100 Insulin) Previous Rx's ?Medication ?Instructions ?Recorded apixaban 5 mg tablet (Eliquis) 5 mg PO BID 1 month #60 tabs 02/12/24 empagliflozin 10 mg tablet 10 mg PO QAM #30 tabs 02/12/24 (Jardiance) ipratropium 0.5 mg-albuterol 3 mg 3 ml inhalation Q4H PRN shortness 02/12/24 (2.5 mg base)/3 mL nebulization of breath or wheezing #90 mL soln metoprolol succinate 25 mg 25 mg PO QDAY #30 tabs 02/12/24 tablet,extended release 24 hr albuterol sulfate 90 mcg/actuation 2 inh inhalation Q4H PRN shortness 03/27/24 aerosol inhaler of breath or wheezing #8.5 grams beclomethasone dipropionate 80 2 inh inhalation BID Asthma #10.6 03/27/24 mcg/actuation HFA breath activated grams aerosol (Qvar RediHaler) furosemide 40 mg tablet 40 mg PO BID 1 month #30 tabs 04/04/24 fluticasone furoate 100 1 inh inhalation Q24H #60 ea 07/02/24 mcg-vilanterol 25 mcg/dose inhalation powder (Breo Ellipta) acetaminophen 500 mg tablet 500 mg PO Q4H PRN fever or pain 08/30/24 (Tylenol Extra Strength) #20 tabs benzonatate 100 mg capsule 100 mg PO TID PRN cough #14 caps 08/30/24 methylprednisolone 4 mg tablets in 4 mg PO QDAY #21 tabs 09/28/24 a dose pack (Medrol (Joe)) amiodarone 200 mg tablet 200 mg PO QDAY #30 tabs 10/16/24 Allergies Allergy/AdvReac Type Severity Reaction Status Date / Time codeine Allergy Severe HIVES, Verified 08/29/24 08:42 SWELLING, DIFF BREATHING meloxicam Allergy Severe Difficulty Verified 08/29/24 08:42 Breathing Review of Systems Review of Systems Narrative Review of Systems: GEN: No fever, no chills, no weight loss EYES: No discharge, no visual changes, no pain HEENT: No ear pain, no congestion, no sore throat PULM: No shortness of breath, no cough, no congestion CV: No chest pain, no dyspnea on exertion, no palpitations GI: No nausea, no vomiting, no diarrhea, no pain, no constipation : No frequency, no urgency, no dysuria MUSC/SKEL: No joint pain, no back pain SKIN: No rash PSYCH: No hallucinations, no depression HEME/LYMPH: No easy bleeding or bruising tendencies NEURO: No weakness, no headache Past Medical History Past Medical History NEUROLOGIC: Positive Neurological Disorders and Migraine; Negative Cerebrovascular Accident, Transient Ischemic Attacks (TIA), Dementia, Alzheimer's Disease, Parkinson's Disease, Brain Tumor, Meningitis, Seizures, Epilepsy, Multiple Sclerosis, Cerebral Palsy, Amyotrophic Lateral Sclerosis (ALS/Savannah Gehrig's), Guillain-Gray Syndrome, Spina Bifida, Paralysis, Peripheral Neuropathy, Aguayo's Palsy, Subdural Hematoma, Head Trauma, Spinal Cord Injury or Traumatic Brain Injury CARDIAC: Positive Cardiac Disorders, Myocardial Infarction, Cardiac Arrhythmia, Congestive Heart Failure and Hypotension; Negative Atrial Fibrillation, Angina, Heart Murmur, Coronary Artery Disease, Atherosclerotic Heart Disease, Peripheral Vascular Disease, Hypercholesterolemia, Aneurysm, Congenital Heart Disease, Valvular Heart Disease, Rheumatic Fever, Cardiomyopathy, Edema, Pericarditis, Cellulitis, Deep Vein Thrombosis, Hypertension or Varicose Veins RESPIRATORY: Positive Chronic Obstructive Pulmonary Disease (COPD), Asthma and Pneumonia; Negative Bronchitis, Emphysema, Pulmonary Fibrosis, Cystic Fibrosis, Tuberculosis, Pulmonary Embolism, Pulmonary Edema or Sleep Apnea GASTROINTESTINAL: Positive Gastrointestinal Disorders, Gall Bladder Disease and Obesity; Negative Hepatitis, Cirrhosis, Pancreatitis, Celiac Disease, Gastrointestinal Bleed, Esophageal Varices, Silverio's Esophagus, Colitis, Ulcerative Colitis, Diverticulitis, Diverticulosis, Ulcer, Colorectal Cancer, Irritable Bowel, Crohn's Disease, Obstructive Bowel, Hiatal Hernia, Hemorrhoids or Gastroesophageal Reflux Disease GENITOURINARY: Negative Genitourinary Disorders, Renal Disease, Kidney Stones, Polycystic Kidney Disease, Neurogenic Bladder, Inguinal Hernia, Dialysis, Prostate Cancer or Benign Prostatic Hyperplasia REPRODUCTIVE: Positive Previous Pregnancies; Negative Breast Cancer, Endometriosis, Genital Herpes, Gonorrhea, Pelvic Inflammatory Disease, Syphilis, Testicular Cancer or Uterine Prolapse MUSCULOSKELETAL: Positive Arthritis and Fractures; Negative Musculoskeletal Disorders, Muscular Dystrophy, Myasthenia Gravis, Marfan's Syndrome, Bone Cancer, Rheumatoid Arthritis, Osteoporosis, Degenerative Disk Disease, Gout, Scoliosis, Carpal Tunnel Syndrome, Fibromyalgia, Degenerative Joint Disease, Osteomyelitis or Poliovirus ENT: Negative Cataracts, Glaucoma, Blind, Retinal Detachment, Macular Degeneration, Ear Infection, Deafness, Head Trauma or Eye Prosthesis ENDOCRINE: Positive Endocrine Disorders and Diabetes Mellitus Type 2; Negative Diabetes Mellitus Type 1, Hypoglycemia, Hibbs's Syndrome, Gilles's Disease, Hyperthyroidism, Hypothyroidism, Parathyroid Disease, Pituitary Disease, Systemic Lupus Erythematosus, Syndrome of Inappropriate Antidiuretic Hormone (SIADH), Adrenal Disease or Graves' Disease HEMATOLOGIC: Negative Blood Disorders, Anemia, Leukemia, Hemophilia, Thalassemia, Sickle Cell Disease or Clotting Problems PSYCHO/SOCIAL: Positive Recreational Drug Use, Depression and Anxiety; Negative Psychiatric Problems, Schizophrenia, Bipolar Disorder, Behavior Problems, Self-Mutilation, Attention Deficit Disorder, Attention Deficit Hyperactivity Disorder, Depression, Post Traumatic Stress Disorder or Eating Disorder OTHER HISTORY: Positive Autoimmune Disease, Shingles, Falls and Chicken Pox; Negative Down Syndrome, Autism, Developmental Delay, Blood Transfusions, Blood Transfusion Reaction, Anesthesia Reactions, Organ Transplant, Chemotherapy, Radiation Therapy, Hyperbaric Therapy, MRSA, VRSA, Vancomycin-Resistant Enterococci, Human Immunodeficiency Virus (HIV), Measles, Mumps, Rubella ([place] Measles), Pertussis, Clostridium Difficile, Cancer, Breast Cancer, Cervical Cancer, Colorectal Cancer, Lung Cancer, Ovarian Cancer, Prostate Cancer or Testicular Cancer Family History FAMILY HISTORY: Positive Family Cardiac Disorders, Family Cancer and Family Surgery; Negative Family Psychiatric Problems, Family Respiratory Disorders, Family Gastrointestinal Problems or Family Anesthesia Reaction Surgical History SURGICAL: Positive Abdominal Surgery; Negative Cardiac Surgery, Open Heart Surgery, Coronary Artery Bypass Graft, Valve Replacement, Vascular Surgery, Coronary Stent, Cardiac Catheterization, Pacemaker, Angiogram, Auto Implanted Cardiovert Defib, Carotid Endarterectomy, Endocrine Surgery, Thyroidectomy, Ear Surgery, Tympanostomy Tube, Eye Surgery, Nose Surgery, Oral Surgery, Tonsillectomy, Adenoidectomy, Cochlear Implant, Corneal Transplant, Throat Surgery, Tracheostomy, Gastrostomy, Bowel Surgery, Nephrectomy, Transurethral Resection, Joint Replacement, Amputation, Open Reduction Internal Fixation, Arthroscopy, Neurologic Surgery, Brain Shunt, Mastectomy, Lumpectomy, Hysterectomy, Tubal Ligation, Section or Organ Transplant Social History SMOKING STATUS: Never smoker SECOND HAND EXPOSURE: Yes SUBSTANCE USE: former substance user and amphetamines ED Exam Narrative Physical exam: [General: Obese not in any acute distress Head normocephalic HEENT: Within acceptable limits Neck is supple nontender Chest equal chest rise nontender to palpation Respiratory: Clear to auscultation no wheezes crackles or rubs CV: Rate rhythm is regular no murmurs rubs or clicks Abdomen is distended secondary to body habitus soft nontender no masses positive bowel sounds all 4 quadrants Back: No CVA tenderness no spinous process tenderness from cervical spine thoracic and lumbar spine Skin: Intact no petechiae rash induration ulceration or crepitus Extremities: Moving all extremity against resistance cap refill less than 2 seconds neurosensory intact Neuro: Awake alert oriented x3 Glascow coma 15 no focal deficits] Course Quality Measures none Orders Category Date Time Status Bedside COVID-19 Antigen Test NOW Care 10/16/24 15:13 Completed Bedside Influenza A&B Antigen Test NOW Care 10/16/24 15:13 Completed EKG (ED ONLY) *Do not use* NOW Care 10/16/24 15:08 Completed EKG (ED Only) Stat Exams 10/16/24 15:08 Draft XR chest 2V Stat Exams 10/16/24 15:08 Completed BNP [B-Type Natriuretic Peptide] Stat Lab 10/16/24 15:32 Completed CBC Stat Lab 10/16/24 15:32 Completed Comprehensive Metabolic Panel Stat Lab 10/16/24 15:32 Completed Troponin I Stat Lab 10/16/24 15:32 Completed Amiodarone [Cordarone] Med 10/16/24 20:42 Discontinued 200 mg PO X1 ONE Vital Signs Vital signs: Vital Signs Temperature 98.5 F 10/16/24 14:52 Pulse Rate 99 10/16/24 14:52 Respiratory Rate 22 H 10/16/24 14:52 Blood Pressure 116/76 10/16/24 14:52 Pulse Oximetry (%) 95 10/16/24 14:52 Oxygen Delivery Method Nasal Cannula 10/16/24 14:52 Oxygen Flow Rate 6 10/16/24 14:52 [facility] Patient data External records reviewed:: [facility] previous records Clinical information provided by:: patient Social determinants that could affect healthcare access:: none Patient has the following chronic illnesses:: COPD polysubstance abuse A-fib RVR A-fib How is presenting disease/condition affected by chronic disease/condition?: exacerbated by Evaluation data The following diagnostics were reviewed and interpreted by me:: lab results, radiology exam(s) and EKG tracing(s) Lab and/or radiology exams considered but not ordered:: EKG performed at 1518 shows a ventricular rate of 94 RI interval 156 QRS of 92 QTc of 402 this is sinus rhythm. CBC shows no significant leukocytosis anemia thrombocytopenia CMP shows elevated glucose level of 263 no other electrolyte imbalances renal impairment transaminitis or T. bili elevation. Troponin is negative BNP is negative Chest x-ray shows no acute finding quires emergent or immediate intervention Interpretation Summary: I suspect the patient had intermittent A-fib RVR agrees to order her amiodarone and discharge her home. Medications Medications considered but not ordered:: None Medication administrations:: Medication Administration History Discontinued Medications Amiodarone HCl (Amiodarone Hcl 200 Mg Tablet) 200 mg PO X1 ONE Stop: 10/16/24 20:43 Last Admin: 10/16/24 21:16 Dose: 200 mg Documented By: CB None Consultations Consultation(s) initiated? (list below): No Diagnosis Differential Diagnosis ED Complaint MDM: A-fib a [facility]utter [facility] [place] Most likely diagnosis given after review of the tests above:: A-fib Admission Indicated Admission indicated?: not indicated Explain why admission is indicated or not indicated:: Stable for discharge Admission Request Was there a request for admission?: No Disposition Plan Disposition Plan: Discharge Discharge Attestation Discharge Attestation: The patient and all family members were given an opportunity to ask questions and understood the discharge instructions. Discharge instructions specifically effects, indications for sooner follow up or return to the emergency department, and the expected course of current diagnosis. Patient condition: Stable Medical Decision Making Differential Diagnosis Differential Diagnosis: A-fib a flutter [facility] [place] Lab Data 10/16/24 15:32 10/16/24 15:32 Labs: Lab Results 10/16/24 Range/Units 15:32 WBC 11.5 H (3.6-11.0) Thou/mm3 RBC 5.07 (4.00-5.20) Miln/mm3 Hgb 14.5 (12.0-16.0) g/dL Hct 43.4 (36.0-46.0) % MCV 86 (80-100) fL MCH 28.6 (25.0-35.0) pg MCHC 33.4 (31.0-37.0) g/dl RDW Std Deviation 41.7 (36.4-46.3) fL Plt Count 208 (140-440) Thou/mm3 Neut % (Auto) 67 (37-80) % Lymph % (Auto) 26 (10-50) % [place] % (Auto) 7 (0-12) % Eos % (Auto) 0 (0-10) % Baso % (Auto) 0 (0-2.5) % Neut # (Auto) 7.7 (1.8-7.7) Thou/mm3 Lymph # (Auto) 3.0 (1.0-4.8) Thou/mm3 [place] # (Auto) 0.8 (0.0-0.8) Thou/mm3 Eos # (Auto) 0.0 (0.0-0.5) Thou/mm3 Baso # (Auto) 0.0 (0.0-0.2) Thou/mm3 Immature Gran # (Auto) 0.05 H (0.00-0.00) Thou/mm3 Absolute Nucleated RBC 0.00 (0.00-0.00) Thou/mm3 Immature Gran % 0 (0-0) % Nucleated RBC % 0 (0) /100 WBC Sodium 137 (136-145) mMol/L Potassium 3.6 (3.4-5.1) mMol/L Chloride 96 L (98-107) mMol/L Carbon Dioxide 34.7 H (20.0-31.0) mMol/L Anion Gap 6 L (7-16) BUN 19 (9-23) mg/dL Creatinine 1.2 (0.6-1.3) mg/dL Estim Creat Clear Calc 54.2 L (>60) mL/min eGFR 54 L (60 - ) See Note BUN/Creatinine Ratio 16 (12-20) Ratio Glucose 263 H (74-106) mg/dL Calculated Osmolality 285 (275-295) Calcium 10.1 (8.3-10.6) mg/dL Corrected Calcium 10.1 (8.5-10.1) mg/dL Total Bilirubin 1.0 (0.3-1.2) mg/dL AST < 10 (0-34) U/L ALT 13 (10-49) U/L Alkaline Phosphatase 104 (46-116) U/L Troponin I < 0.020 (0.0-0.045) ng/mL B-Natriuretic Peptide 26 (0-100) pg/mL Total Protein 6.9 (5.7-8.2) gm/dL Albumin 4.7 (3.5-5.0) gm/dL Globulin 2.2 L (2.3-3.5) gm/dL Albumin/Globulin Ratio 2.1 (1.2-2.2) Discharge Plan Plan Patient Disposition: HOME (Self Care) Patient condition on transfer: Stable Prescriptions/Referrals Prescriptions/Med Rec: New amiodarone 200 mg tablet 200 mg PO QDAY Qty: 30 1RF No Action digoxin 125 mcg (0.125 mg) tablet 125 mcg PO DAILY metoprolol succinate 25 mg tablet extended release 24 hr 25 mg PO QDAY Qty: 30 3RF ipratropium-albuterol 0.5 mg-3 mg(2.5 mg base)/3 mL solution for nebulization 3 ml inhalation Q4H PRN (Reason: shortness of breath or wheezing) Qty: 90 0RF Jardiance 10 mg tablet 10 mg PO QAM Qty: 30 3RF Eliquis 5 mg tablet 5 mg PO BID 30 Days Qty: 60 3RF albuterol sulfate 90 mcg/actuation HFA aerosol inhaler 2 inh inhalation Q4H PRN (Reason: shortness of breath or wheezing) Qty: 8.5 0RF Qvar RediHaler 80 mcg/actuation HFA aerosol breath activated 2 inh inhalation BID Qty: 10.6 0RF Rx Instructions: administer with spacer fluticasone furoate-vilanterol [Breo Ellipta] 100-25 mcg/dose blister with device 1 inh inhalation Q24H Qty: 60 0RF benzonatate 100 mg capsule 100 mg PO TID PRN (Reason: cough) Qty: 14 0RF acetaminophen [Tylenol Extra Strength] 500 mg tablet 500 mg PO Q4H PRN (Reason: fever or pain) Qty: 20 0RF insulin glargine [Lantus Solostar U-100 Insulin] 100 unit/mL (3 mL) insulin pen 15 unit SUBCUT HS furosemide 40 mg tablet 40 mg PO BID 30 Days Qty: 30 3RF methylprednisolone [Medrol (Joe)] 4 mg tablets,dose pack 4 mg PO QDAY Qty: 21 0RF Referrals: Tavares Carnes MD [Primary Care Provider] - In 1 week Paxton Lin MD [Physician] - In 1 week Problem List Clinical Impression: Atrial fibrillation Patient/Caregiver Discharge Instructions Education Materials: ED Atrial Fibrillation Additional Instructions: Take the medication as prescribed, I sent a prescription of the amiodarone to your local pharmacy if there is worsening of symptoms follow-up with her primary care doctor with a refractive surgeon listed above. Print Language: Martiniquais Stand Alone Forms: Cecelia Award Info., Work/School Release, Patient Portal Info Letter PA/WILLAM Supervising Physician PA/WILLAM Supervising Physician: Tristian Eckert ENP
[2024-10-16 21:16] VITALS: BP 121/78; PULSE 92
[2024-10-16] MEDS: AMIODARONE HCL 200 MG TABLET PO (21:16)
[2024-10-16 21:17] VITALS: BP 121/78; PULSE 87; RESP 18; TEMP 36.7; O2SAT 100
== END 2024-10-16 21:23 | disposition home or self-care (01) ==
PROVIDERS: Nurse Practitioner Family; Emergency Provider Emergency Medicine; PCP Family Medicine
DX: I48.91 Unspecified atrial fibrillation (principal); I50.22 Chronic systolic (congestive) heart failure; F17.210 Nicotine dependence, cigarettes, uncomplicated; Z79.01 Long term (current) use of anticoagulants
CPT/HCPCS: 36415; 71046; 80053; 80307; 81001; 83880; 84484; 85025; 87400; 87811; 93005; 99283; A9270

== ENCOUNTER 2024-11-25 12:10 | Emergency (ER) | payer MEDICAID, SELFPAY ==
--- NOTE | 2024-11-25 12:31 | XR_ITS ---
Examination: PA lateral chest 2 views TECHNIQUE: Upright PA lateral chest 2 views Exam date and time: November 25, 2024 1316 hours Comparison October 16, 2024 INDICATIONS: Onset chest pain today. FINDINGS: Minor prominence left ventricle Mild vascular congestion. No lobar pneumonia or pulmonary edema IMPRESSION: Mild vascular congestion
--- NOTE | 2024-11-25 12:31 | EKG_ITS ---
[facility] Test Date: 2024-11-25 Pat Name: LYDIA WOOD Department: Room: - Gender: Female Client Services Coordinator: : 1970 Requested By: Ángel Sandhu Order Number: [id number] Reading MD: Ángel Sandhu Measurements Intervals [place] Rate: 107 P: 68 HI: 161 QRS: 1 QRSD: 86 T: 91 QT: 350 QTc: 468 Interpretive Statements SINUS TACHYCARDIA LOW QRS VOLTAGE IN PRECORDIAL LEADS [QRS DEFLECTION < 1.0 mV IN CHEST LEADS] NONSPECIFIC ST & T-WAVE ABNORMALITY Compared to ECG 10/16/2024 15:18:27 T-wave abnormality now present Sinus rhythm no longer present ST (T wave) deviation no longer present /store/S0/[id number]/ecg/[id number].pdf
--- NOTE | 2024-11-25 12:32 | PD.EDRME ---
Rapid Medical Screening Exam RME Arrival date/time: 11/25/24 12:10 54-year-old female with a history of COPD, CHF, type 2 diabetes presents to the emergency room with a chief complaint of shortness of breath, cough, fevers x 2 days I have greeted and performed a focused initial assessment of this patient. A comprehensive ED assessment and evaluation of the patient, analysis of all test results, and completion of the medical decision making process will be conducted by additional ED providers. Chief Complaint: Shortness of Breath/Dyspnea Vital signs reviewed by provider: Yes
[2024-11-25 12:38] VITALS: BP 119/77; PULSE 103; RESP 20; TEMP 37.6; O2SAT 92; BMI 41.0
[2024-11-25 13:20] LABS: Basophils % (Auto) 0 % (0-2.5); Eosinophils % (Auto) 0 % (0-10); Hematocrit 40.6 % (36.0-46.0); Hemoglobin 13.2 g/dL (12.0-16.0); Immature Granulocytes % (Auto) 0 % (0-0); Immature Granulocytes Auto 0.02 Thou/mm3 (0.00-0.00); Lymphocytes # (Auto) 0.8 Thou/mm3 (1.0-4.8); Lymphocytes % (Auto) 13 % (10-50); Mean Corpuscular HGB Conc 32.5 g/dl (31.0-37.0); Mean Corpuscular Hemoglobin 28.8 pg (25.0-35.0); Mean Corpuscular Volume 89 fL (80-100); Monocytes # (Auto) 0.6 Thou/mm3 (0.0-0.8); Monocytes % (Auto) 10 % (0-12); Neutrophils # (Auto) 4.6 Thou/mm3 (1.8-7.7); Neutrophils % (Auto) 76 % (37-80); Nucleated Red Blood Cell % 0 /100 WBC (0); Platelet Count 130 Thou/mm3 (140-440); RDW Standard Deviation 43.4 fL (36.4-46.3); Red Blood Count 4.59 Miln/mm3 (4.00-5.20)
[2024-11-25 13:36] LABS: B-Type Natriuretic Peptide 30 pg/mL (0-100)
[2024-11-25 13:38] LABS: Alanine Aminotransferase 20 U/L (10-49); Albumin, Serum 4.7 gm/dL (3.5-5.0); Alkaline Phosphatase 90 U/L (46-116); Anion Gap 7 (7-16); Aspartate Amino Transferase 23 U/L (0-34); BUN/Creatinine Ratio 21 Ratio (12-20); Bilirubin,Total 1.8 mg/dL (0.3-1.2); Blood Urea Nitrogen 15 mg/dL (9-23); Carbon Dioxide 30.4 mMol/L (20.0-31.0); Chloride 101 mMol/L (98-107); Creatinine (Component) 0.7 mg/dL (0.6-1.3); Globulin 2.4 gm/dL (2.3-3.5); Glucose 179 mg/dL (74-106); Magnesium 1.4 mg/dL (1.6-2.6); Osmolality,Calculated 280 (275-295); Potassium 3.8 mMol/L (3.4-5.1); Sodium 138 mMol/L (136-145); Total Protein 7.1 gm/dL (5.7-8.2); Troponin I < 0.020 ng/mL (0.0-0.045); eGFR > 60 See Note
[2024-11-25 13:40] LABS: INR 1.1 (0.9-1.3); Partial Thromboplastin Time 29.6 Seconds (22.0-36.0); Prothrombin Time 11.5 Seconds (9.0-12.2)
--- NOTE | 2024-11-25 15:50 | PD.EDSOB ---
ED SOB =RME/HPI General Chief Complaint: Shortness of Breath/Dyspnea Stated Complaint: SOB X 2 days, fever, vomiting Arrival date/time: 11/25/24 12:10 RME / HPI RME / HPI Narrative: 11/25/24 12:10 54-year-old female with a history of COPD, CHF, type 2 diabetes presents to the emergency room with a chief complaint of shortness of breath, cough, fevers x 2 days I have greeted and performed a focused initial assessment of this patient. A comprehensive ED assessment and evaluation of the patient, analysis of all test results, and completion of the medical decision making process will be conducted by additional ED providers. -------- Main ED Evaluation: Patient is a 54-year-old female with past medical history of COPD on 3L home O2, CHF, type 2 diabetes who presents to the ED on 11/25/2024 due to 1 day of fevers, chills, cough, and shortness of breath. Patient notes that she is living with her sister currently and multiple family members have been sick in the house. She notes associated nausea, vomiting, and abdominal pain today. Patient states that she has quit smoking for about 4 months now and denies any alcohol or drug use. Related Data Home Medications ?Medication ?Instructions ?Recorded ?Confirmed digoxin 125 mcg (0.125 mg) tablet 125 mcg PO DAILY 12/16/23 09/25/24 insulin glargine 100 unit/mL (3 15 unit subcut HS 02/24/24 09/25/24 mL) subcutaneous pen (Lantus Solostar U-100 Insulin) Previous Rx's ?Medication ?Instructions ?Recorded apixaban 5 mg tablet (Eliquis) 5 mg PO BID 1 month #60 tabs 02/12/24 empagliflozin 10 mg tablet 10 mg PO QAM #30 tabs 02/12/24 (Jardiance) ipratropium 0.5 mg-albuterol 3 mg 3 ml inhalation Q4H PRN shortness 02/12/24 (2.5 mg base)/3 mL nebulization of breath or wheezing #90 mL soln metoprolol succinate 25 mg 25 mg PO QDAY #30 tabs 02/12/24 tablet,extended release 24 hr albuterol sulfate 90 mcg/actuation 2 inh inhalation Q4H PRN shortness 03/27/24 aerosol inhaler of breath or wheezing #8.5 grams beclomethasone dipropionate 80 2 inh inhalation BID Asthma #10.6 03/27/24 mcg/actuation HFA breath activated grams aerosol (Qvar RediHaler) furosemide 40 mg tablet 40 mg PO BID 1 month #30 tabs 04/04/24 fluticasone furoate 100 1 inh inhalation Q24H #60 ea 07/02/24 mcg-vilanterol 25 mcg/dose inhalation powder (Breo Ellipta) acetaminophen 500 mg tablet 500 mg PO Q4H PRN fever or pain 08/30/24 (Tylenol Extra Strength) #20 tabs benzonatate 100 mg capsule 100 mg PO TID PRN cough #14 caps 08/30/24 methylprednisolone 4 mg tablets in 4 mg PO QDAY #21 tabs 09/28/24 a dose pack (Medrol (Joe)) amiodarone 200 mg tablet 200 mg PO QDAY #30 tabs 10/16/24 albuterol sulfate 90 mcg/actuation 1 puff inhalation QID PRN 11/25/24 aerosol inhaler shortness of breath or wheezing #8.5 grams furosemide 40 mg tablet 40 mg PO QDAY congestive heart 11/25/24 failure 2 weeks #14 tabs Allergies Allergy/AdvReac Type Severity Reaction Status Date / Time codeine Allergy Severe HIVES, Verified 11/25/24 12:13 SWELLING, DIFF BREATHING meloxicam Allergy Severe Difficulty Verified 11/25/24 12:13 Breathing Past Medical History Past Medical History NEUROLOGIC: Positive Neurological Disorders and Migraine; Negative Cerebrovascular Accident, Transient Ischemic Attacks (TIA), Dementia, Alzheimer's Disease, Parkinson's Disease, Brain Tumor, Meningitis, Seizures, Epilepsy, Multiple Sclerosis, Cerebral Palsy, Amyotrophic Lateral Sclerosis (ALS/Sav[place] Gehrig's), Guillain-Wilson Syndrome, Spina Bifida, Paralysis, Peripheral Neuropathy, Aguayo's Palsy, Subdural Hematoma, Head Trauma, Spinal Cord Injury or Traumatic Brain Injury CARDIAC: Positive Cardiac Disorders, Myocardial Infarction, Cardiac Arrhythmia, Congestive Heart Failure and Hypotension; Negative Atrial Fibrillation, Angina, Heart Murmur, Coronary Artery Disease, Atherosclerotic Heart Disease, Peripheral Vascular Disease, Hypercholesterolemia, Aneurysm, Congenital Heart Disease, Valvular Heart Disease, Rheumatic Fever, Cardiomyopathy, Edema, Pericarditis, Cellulitis, Deep Vein Thrombosis, Hypertension or Varicose Veins RESPIRATORY: Positive Chronic Obstructive Pulmonary Disease (COPD), Asthma and Pneumonia; Negative Bronchitis, Emphysema, Pulmonary Fibrosis, Cystic Fibrosis, Tuberculosis, Pulmonary Embolism, Pulmonary Edema or Sleep Apnea GASTROINTESTINAL: Positive Gastrointestinal Disorders, Gall Bladder Disease and Obesity; Negative Hepatitis, Cirrhosis, Pancreatitis, Celiac Disease, Gastrointestinal Bleed, Esophageal Varices, Silverio's Esophagus, Colitis, Ulcerative Colitis, Diverticulitis, Diverticulosis, Ulcer, Colorectal Cancer, Irritable Bowel, Crohn's Disease, Obstructive Bowel, Hiatal Hernia, Hemorrhoids or Gastroesophageal Reflux Disease GENITOURINARY: Negative Genitourinary Disorders, Renal Disease, Kidney Stones, Polycystic Kidney Disease, Neurogenic Bladder, Inguinal Hernia, Dialysis, Prostate Cancer or Benign Prostatic Hyperplasia REPRODUCTIVE: Positive Previous Pregnancies; Negative Breast Cancer, Endometriosis, Genital Herpes, Gonorrhea, Pelvic Inflammatory Disease, Syphilis, Testicular Cancer or Uterine Prolapse MUSCULOSKELETAL: Positive Arthritis and Fractures; Negative Musculoskeletal Disorders, Muscular Dystrophy, Myasthenia Gravis, Marfan's Syndrome, Bone Cancer, Rheumatoid Arthritis, Osteoporosis, Degenerative Disk Disease, Gout, Scoliosis, Carpal Tunnel Syndrome, Fibromyalgia, Degenerative Joint Disease, Osteomyelitis or Poliovirus ENT: Negative Cataracts, Glaucoma, Blind, Retinal Detachment, Macular Degeneration, Ear Infection, Deafness, Head Trauma or Eye Prosthesis ENDOCRINE: Positive Endocrine Disorders and Diabetes Mellitus Type 2; Negative Diabetes Mellitus Type 1, Hypoglycemia, Yani's Syndrome, Gilles's Disease, Hyperthyroidism, Hypothyroidism, Parathyroid Disease, Pituitary Disease, Systemic Lupus Erythematosus, Syndrome of Inappropriate Antidiuretic Hormone (SIADH), Adrenal Disease or Graves' Disease HEMATOLOGIC: Negative Blood Disorders, Anemia, Leukemia, Hemophilia, Thalassemia, Sickle Cell Disease or Clotting Problems PSYCHO/SOCIAL: Positive Recreational Drug Use, Depression and Anxiety; Negative Psychiatric Problems, Schizophrenia, Bipolar Disorder, Behavior Problems, Self-Mutilation, Attention Deficit Disorder, Attention Deficit Hyperactivity Disorder, Depression, Post Traumatic Stress Disorder or Eating Disorder OTHER HISTORY: Positive Autoimmune Disease, Shingles, Falls and Chicken Pox; Negative Down Syndrome, Autism, Developmental Delay, Blood Transfusions, Blood Transfusion Reaction, Anesthesia Reactions, Organ Transplant, Chemotherapy, Radiation Therapy, Hyperbaric Therapy, MRSA, VRSA, Vancomycin-Resistant Enterococci, Human Immunodeficiency Virus (HIV), Measles, Mumps, Rubella (British Measles), Pertussis, Clostridium Difficile, Cancer, Breast Cancer, Cervical Cancer, Colorectal Cancer, Lung Cancer, Ovarian Cancer, Prostate Cancer or Testicular Cancer Family History FAMILY HISTORY: Positive Family Cardiac Disorders, Family Cancer and Family Surgery; Negative Family Psychiatric Problems, Family Respiratory Disorders, Family Gastrointestinal Problems or Family Anesthesia Reaction Surgical History SURGICAL: Positive Abdominal Surgery; Negative Cardiac Surgery, Open Heart Surgery, Coronary Artery Bypass Graft, Valve Replacement, Vascular Surgery, Coronary Stent, Cardiac Catheterization, Pacemaker, Angiogram, Auto Implanted Cardiovert Defib, Carotid Endarterectomy, Endocrine Surgery, Thyroidectomy, Ear Surgery, Tympanostomy Tube, Eye Surgery, Nose Surgery, Oral Surgery, Tonsillectomy, Adenoidectomy, Cochlear Implant, Corneal Transplant, Throat Surgery, Tracheostomy, Gastrostomy, Bowel Surgery, Nephrectomy, Transurethral Resection, Joint Replacement, Amputation, Open Reduction Internal Fixation, Arthroscopy, Neurologic Surgery, Brain Shunt, Mastectomy, Lumpectomy, Hysterectomy, Tubal Ligation, Section or Organ Transplant Social History SMOKING STATUS: Never smoker SECOND HAND EXPOSURE: Yes SUBSTANCE USE: former substance user and amphetamines ED Exam Narrative Physical exam: Physical Exam General: Awake and in mild distress. Conversational and non-toxic appearing. HEENT: Normocephalic, atraumatic, mucous membranes moist. Heart: Regular rate and rhythm, no murmurs. Lungs: Clear to auscultation with no wheezing or crackles. Abdomen: Soft, obese, nondistended, nontender, positive bowel sounds. ?No guarding or rebound tenderness. Neurologic: Alert and oriented x3, no gross neurological deficit, and patient able to move all 4 extremities. Extremities: No edema. Skin: No rash or ecchymoses. Course Quality Measures none Orders Category Date Time Status Bedside COVID-19 Antigen Test NOW Care 11/25/24 12:31 Active Bedside Influenza A&B Antigen Test NOW Care 11/25/24 12:31 Active EKG (ED ONLY) *Do not use* NOW Care 11/25/24 12:31 Completed EKG (ED Only) Stat Exams 11/25/24 12:31 Draft XR chest 2V Stat Exams 11/25/24 12:31 Completed B-Type Natriuretic Peptide Stat Lab 11/25/24 13:04 Completed CBC Stat Lab 11/25/24 13:04 Completed Comprehensive Metabolic Panel Stat Lab 11/25/24 13:04 Completed Magnesium Stat Lab 11/25/24 13:04 Completed Partial Thromboplastin Time Stat Lab 11/25/24 13:04 Completed Prothrombin Time with INR Stat Lab 11/25/24 13:04 Completed Troponin I Stat Lab 11/25/24 13:04 Completed Urinalysis Stat Lab 11/25/24 12:31 Ordered Acetaminophen Tab [Tylenol Tab] Med 11/25/24 16:32 Discontinued 650 mg PO X1 ONE Albuterol/Ipratr Rt Mariel [Duoneb Rt Mariel] Med 11/25/24 16:32 Discontinued 3 ml INH X1 ONE Ondansetron Odt [Zofran Odt] Med 11/25/24 16:32 Discontinued 4 mg PO X1 ONE Vital Signs Vital signs: Vital Signs Temperature 99.7 F 11/25/24 12:38 Pulse Rate 103 H 11/25/24 12:38 Respiratory Rate 20 11/25/24 12:38 Blood Pressure 119/77 11/25/24 12:38 Pulse Oximetry (%) 92 L 11/25/24 12:38 Oxygen Delivery Method Room Air 11/25/24 12:38 Shortness of Breath / Dyspnea MDM Narrative MDM Narrative:: Patient studies returned normal. CXR shows mild vascular congestion but no pneumonia. Labs studies reveal normal WBC and normal electrolytes and kidney functioning. COVID and flu were negative. Patient will be discharged home with refills for her albuterol inhaler and lasix. Patient encouraged to follow up with her regular doctor. Patient got a breathing treatment here, Tylenol, and Zofran. She was feeling better and ready to go home. Patient data External records reviewed:: [facility] previous records Clinical information provided by:: patient Social determinants that could affect healthcare access:: none Patient has the following chronic illnesses:: As above How is presenting disease/condition affected by chronic disease/condition?: exacerbated by Evaluation data The following diagnostics were reviewed and interpreted by me:: lab results, radiology exam(s) and EKG tracing(s) Lab and/or radiology exams considered but not ordered:: Ordered Interpretation Summary: As above Medications / Prescriptions Medications or Prescriptions considered but not ordered:: Given Medication administrations:: Medication Administration History Discontinued Medications Acetaminophen (Acetaminophen 325 Mg Tablet) 650 mg PO X1 ONE Stop: 11/25/24 16:33 Last Admin: 11/25/24 17:42 Dose: 650 mg Documented By: Albuterol/Ipratropium (Albuterol/Ipratropium (Duoneb) Rt Mariel 3 Ml Nebu) 3 ml INH X1 ONE Stop: 11/25/24 16:33 Last Admin: 11/25/24 17:35 Dose: 3 ml Documented By: NAFISA Ondansetron HCl (Ondansetron Odt 4 Mg Tabrap) 4 mg PO X1 ONE; Protocol Stop: 11/25/24 16:33 Last Admin: 11/25/24 17:42 Dose: 4 mg Documented By: Given Consultations Consultation(s) initiated? (list below): No Diagnosis Shortness of Breath Differential Diagnosis: acute exacerbation of chronic obstructive airways disease, congestive heart failure, community acquired pneumonia and asthma with exacerbation Most likely diagnosis given after review of the tests above:: Upper respiratory infection Admission Indicated Admission indicated?: not indicated Admission Request Was there a request for admission?: No Disposition Plan Disposition Plan: Discharge Discharge Attestation Discharge Attestation: The patient and all family members were given an opportunity to ask questions and understood the discharge instructions. Discharge instructions specifically effects, indications for sooner follow up or return to the emergency department, and the expected course of current diagnosis. Patient condition: Stable Discharge Plan Plan Patient Disposition: HOME (Self Care) Patient condition on transfer: Stable Prescriptions/Referrals Prescriptions/Med Rec: New albuterol sulfate 90 mcg/actuation HFA aerosol inhaler 1 puff inhalation QID PRN (Reason: shortness of breath or wheezing) Qty: 8.5 0RF furosemide 40 mg tablet 40 mg PO QDAY 14 Days Qty: 14 0RF No Action digoxin 125 mcg (0.125 mg) tablet 125 mcg PO DAILY metoprolol succinate 25 mg tablet extended release 24 hr 25 mg PO QDAY Qty: 30 3RF ipratropium-albuterol 0.5 mg-3 mg(2.5 mg base)/3 mL solution for nebulization 3 ml inhalation Q4H PRN (Reason: shortness of breath or wheezing) Qty: 90 0RF Jardiance 10 mg tablet 10 mg PO QAM Qty: 30 3RF Eliquis 5 mg tablet 5 mg PO BID 30 Days Qty: 60 3RF albuterol sulfate 90 mcg/actuation HFA aerosol inhaler 2 inh inhalation Q4H PRN (Reason: shortness of breath or wheezing) Qty: 8.5 0RF Qvar RediHaler 80 mcg/actuation HFA aerosol breath activated 2 inh inhalation BID Qty: 10.6 0RF Rx Instructions: administer with spacer fluticasone furoate-vilanterol [Breo Ellipta] 100-25 mcg/dose blister with device 1 inh inhalation Q24H Qty: 60 0RF benzonatate 100 mg capsule 100 mg PO TID PRN (Reason: cough) Qty: 14 0RF acetaminophen [Tylenol Extra Strength] 500 mg tablet 500 mg PO Q4H PRN (Reason: fever or pain) Qty: 20 0RF insulin glargine [Lantus Solostar U-100 Insulin] 100 unit/mL (3 mL) insulin pen 15 unit SUBCUT HS furosemide 40 mg tablet 40 mg PO BID 30 Days Qty: 30 3RF methylprednisolone [Medrol (Joe)] 4 mg tablets,dose pack 4 mg PO QDAY Qty: 21 0RF amiodarone 200 mg tablet 200 mg PO QDAY Qty: 30 1RF Referrals: Tavares Carnes MD [Primary Care Provider] - In 1 week Problem List Clinical Impression: Acute upper respiratory infection Patient/Caregiver Discharge Instructions Education Materials: Preventing Common Respiratory ..., ED URI, Viral W/ Wheezing (Adult) Additional Instructions: Today you were treated for upper respiratory infection. COVID and flu tests were negative so far. Please ensure regular hygiene and do your best to isolate from other sick contacts. Please continue taking your home medications as prescribed. Please follow up with your regular doctor for your medication refills. Take the albuterol inhaler as needed for shortness of breath or wheezing. You can take Tylenol for pain. Print Language: Telugu Stand Alone Forms: Cecelia Award Info., Patient Portal Info Letter
[2024-11-25] MEDS: ALBUTEROL/IPRATROPIUM (Duoneb) RT SOL 3 ML NEBU INH (17:35)
[2024-11-25 17:37] VITALS: PULSE 100; RESP 20; O2SAT 97
[2024-11-25] MEDS: ONDANSETRON ODT 4 MG TABRAP PO (17:42)
[2024-11-25] MEDS: ACETAMINOPHEN 325 MG TABLET 650 MG PO (17:42)
== END 2024-11-25 19:15 | disposition home or self-care (01) ==
PROVIDERS: Nurse Practitioner Family; Emergency Provider Emergency Medicine; PCP Family Medicine
DX: J06.9 Acute upper respiratory infection, unspecified (principal); R09.89 Other specified symptoms and signs involving the circulatory and respiratory systems; R00.0 Tachycardia, unspecified
CPT/HCPCS: 36415; 71046; 80053; 81001; 83735; 83880; 84484; 85025; 85610; 85730; 87400; 87811; 93005; 94640; 99283; A9270; Q0162

== ENCOUNTER 2024-12-03 15:08 | Emergency (ER) | payer MEDICAID, SELFPAY ==
[2024-12-03 15:10] VITALS: BP 118/69; PULSE 81; RESP 20; TEMP 37.1; O2SAT 95
--- NOTE | 2024-12-03 15:52 | XR_ITS ---
Examination: PA lateral chest 2 views Technique: Upright PA lateral chest 2 views Exam date and time: December 03, 2024 1618 hrs. Indications: Onset difficulty breathing chest pain beginning 3 days ago. Findings: Early heart failure Mild enlargement cardiac contour Prominent vascular congestion. Early septal edema at the lung bases Impression: Early heart failure
--- NOTE | 2024-12-03 15:52 | EKG_ITS ---
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
[2024-12-03 15:56] VITALS: BMI 41.0
--- NOTE | 2024-12-03 15:58 | EDNOTE_ITS ---
ED General RME/HPI General Stated complaint: SOB Time Seen by Provider: 12/03/24 15:51 Arrival date/time: 12/03/24 15:08 RME / HPI RME / HPI narrative: DR. JACOB MAIN ED EVALUATION: 54 year old female with past medical history significant for COPD presents to the Emergency Department [facility] with complaints of shortness of breath, cough, runny nose, pleuritic chest pain for the last couple of days. She is using her inhaler at home but not on any steroids. Patient is now staying with her sister and has home oxygen, used to be homeless and could not get it. She did not have her flu shot. Related Data Home Medications ?Medication ?Instructions ?Recorded ?Confirmed digoxin 125 mcg (0.125 mg) tablet 125 mcg PO DAILY 04/0409/25/24 insulin glargine 100 unit/mL (3 15 unit subcut HS 02/0909/25/24 mL) subcutaneous pen (Lantus Solostar U-100 Insulin) Previous Rx's ?Medication ?Instructions ?Recorded apixaban 5 mg tablet (Eliquis) 5 mg PO BID 1 month #60 tabs 02/12/24 empagliflozin 10 mg tablet 10 mg PO QAM #30 tabs 02/11 (Jardiance) ipratropium 0.5 mg-albuterol 3 mg 3 ml inhalation Q4H PRN shortness 02/12/24 (2.5 mg base)/3 mL nebulization of breath or wheezing #90 mL soln metoprolol succinate 25 mg 25 mg PO QDAY #30 tabs 0501/02 tablet,extended release 24 hr albuterol sulfate 90 mcg/actuation 2 inh inhalation Q4 H PRN shortness 03/27/24 aerosol inhaler of breath or wheezing #8.5 g salvatore beclomethasone dipropionate 80 2 inh inhalation BID As thma #10.6 03/27/24 mcg/actuation HFA breath activated grams aerosol (Qvar RediHaler) furosemide 40 mg tablet 40 mg PO BID 1 month #30 tab s 04/04/24 fluticasone furoate 100 1 inh inhalation Q24H #60 ea 07/02/24 mcg-vilanterol 25 mcg/dose inhalation powder (Breo Ellipta) acetaminophen 500 mg tablet 500 mg PO Q4H PRN fever or pain 08/30/24 (Tylenol Extra Strength) #20 tabs benzonatate 100 mg capsule 100 mg PO TID PRN cough #14 caps 08/30/24 methylprednisolone 4 mg tablets in 4 mg PO QDAY #21 ta bs 09/28/24 a dose pack (Medrol (Joe)) amiodarone 200 mg tablet 200 mg PO QDAY #30 tabs 03/05 albuterol sulfate 90 mcg/actuation 1 puff inhalation Q ID PRN 11/25/24 aerosol inhaler shortness of breath or wheez ing #8.5 grams furosemide 40 mg tablet 40 mg PO QDAY congestive hea rt 11/25/24 failure 2 weeks #14 tabs amoxicillin 875 mg-potassium 1 tab PO Q12H #20 tabs clavulanate 125 mg tablet prednisone 50 mg tablet 50 mg PO QDAY #5 tabs Allergies Allergy/AdvReac Type Severity Reaction Status Date / Time codeine Allergy Severe HIVES, Verified 11/25/24 12:13 SWELLING, DIFF BREATHING meloxicam Allergy Severe Difficulty Verified 11/25/24 12:13 Breathing Review of Systems Review of Systems Systems Reviewed: All systems reviewed, normal except as documented Narrative Review of Systems: GEN: No fever, no chills, no weight loss EYES: No discharge, no visual changes, no pain HEENT: No ear pain, + runny nose/ congestion, no sore throat PULM: + shortness of breath, + cough CV: + pleuritic chest pain, no dyspnea on exertion, no palpitations GI: No nausea, no vomiting, no diarrhea, no pain, no constipation : No frequency, no urgency and no dysuria MUSC/SKEL: No joint pain, no back pain SKIN: No rash PSYCH: No hallucinations, no depression HEME/LYMPH: No easy bleeding or bruising tendencies NEURO: No weakness, no headache Past Medical History Past Medical History NEUROLOGIC: Positive Neurological Disorders CARDIAC: Positive Cardiac Disorders, Myocardial Infarction, Cardiac Arrhythmia, Congestive Heart Failure and Hypotension RESPIRATORY: Positive Chronic Obstructive Pulmonary Disease (COPD), Asthma and Pneumonia GASTROINTESTINAL: Positive Gastrointestinal Disorders, Gall Bladder Disease and Obesity REPRODUCTIVE: Positive Previous Pregnancies MUSCULOSKELETAL: Positive Arthritis and Fractures ENDOCRINE: Positive Endocrine Disorders and Diabetes Mellitus Type 2 PSYCHO/SOCIAL: Positive Recreational Drug Use, Depression and Anxiety OTHER HISTORY: Positive Autoimmune Disease, Shingles, Falls and Chicken Pox Family History FAMILY HISTORY: Positive Family Cardiac Disorders, Family Cancer and Family Surgery Surgical History SURGICAL: Positive Abdominal Surgery Social History SMOKING STATUS: Never smoker SECOND HAND EXPOSURE: Yes SUBSTANCE USE: former substance user and amphetamines ED Exam Narrative Physical exam: GENERAL APPEARANCE: AxOx4, generally well-appearing, no acute distress. HEENT: NC, AT. MMM. EOMI, clear conjunctiva, oropharynx clear. NECK: Supple without lymphadenopathy. No stiffness or restricted ROM. HEART: Normal rate and regular rhythm, normal S1/S1, no m/r/g LUNGS: CTAB, moving air well. No crackles or wheezes are heard. ABDOMEN: Soft, nontender, nondistended with good bowel sounds heard. BACK: No midline C/T/L spine pain or deformity, No CVAT, no obvious deformity. EXTREMITIES: Without cyanosis, clubbing or edema. MUSCULOSKELETAL: FROM of all major joints, no chest tenderness NEUROLOGICAL: Grossly nonfocal. Alert and oriented, moving all 4 extremities. CN not formally tested but appear grossly intact. Observed to ambulate with normal gait. Skin: Warm and dry without any rash. Course Quality Measures none Orders Category Date Time Status EKG (ED ONLY) *Do not use* NOW Care 12/03/24 15:52 Completed EKG (ED Only) Stat Exams 12/03/24 15:52 Draft XR chest 2V Stat Exams 12/03/24 15:52 Completed Troponin I Stat Lab 12/03/24 16:15 Completed Albuterol/Ipratr Rt Mariel [Duoneb Rt Mariel] Med 12/03/24 15:52 Discontinued 3 ml INH X1 ONE Albuterol/Ipratr Rt Mariel [Duoneb Rt Mariel] Med 12/03/24 18:51 Discontinued 3 ml INH X1 ONE predniSONE Med 12/03/24 15:52 Discontinued 60 mg PO X1 ONE Vital Signs Vital signs: Vital Signs Temperature 98.8 F 12/03/24 15:10 Pulse Rate 81 12/03/24 15:10 Respiratory Rate 20 12/03/24 15:10 Blood Pressure 118/69 12/03/24 15:10 Pulse Oximetry (%) 95 12/03/24 15:10 Oxygen Delivery Method T-Piece 12/03/24 15:10 Oxygen Flow Rate 8 12/03/24 15:10 Procedures -ED EKG Interpretation #1: Date of EK12/03/24 Time of EK:27 Rate: 81 Interpretation: Interpreted by me Additional EKG comment: sinus rhythm, rate 81, normal intervals, normal axis, no acute ST-T wave changes. [facility] Patient data External records reviewed:: [facility] previous records (Reviewed last ED visit dated 11/25/24, discharged with the following: Acute upper respiratory infection) and EMS form Clinical information provided by:: patient and EMS Social determinants that could affect healthcare access:: none Patient has the following chronic illnesses:: COPD How is presenting disease/condition affected by chronic disease/condition?: exacerbated by Evaluation data The following diagnostics were reviewed and interpreted by me:: lab results, radiology exam(s) and EKG tracing(s) Lab and/or radiology exams considered but not ordered:: none Interpretation Summary: Procedure(s): XR chest 2V Accession Number(s): [id number] cc: Kong Jacob MD; Pete Araiza MD~ Examination: PA lateral chest 2 views Technique: Upright PA lateral chest 2 views Exam date and time: December 03, 2024 1618 hrs. Indications: Onset difficulty breathing chest pain beginning 3 days ago. Findings: Early heart failure Mild enlargement cardiac contour Prominent vascular congestion. Early septal edema at the lung bases Impression: Early heart failure Dictated By: Pete Araiza MD Medications Medications considered but not ordered:: none Medication administrations:: Medication Administration History Discontinued Medications Albuterol/Ipratropium (Albuterol/Ipratropium (Duoneb) Rt Mariel 3 Ml Nebu) 3 ml INH X1 ONE Stop: 12/03/24 15:53 Last Admin: 12/03/24 16:43 Dose: 3 ml Documented By: NELSY Albuterol/Ipratropium (Albuterol/Ipratropium (Duoneb) Rt Mariel 3 Ml Nebu) 3 ml INH X1 ONE Stop: 12/03/24 18:52 Last Admin: 12/03/24 19:47 Dose: 3 ml Documented By: CARLOS Prednisone (Prednisone 20 Mg Tablet) 60 mg PO X1 ONE Stop: 12/03/24 15:53 Last Admin: 12/03/24 16:10 Dose: 60 mg Documented By: see above Consultations Consultation(s) initiated? (list below): No Diagnosis Differential Diagnosis ED Complaint MDM: COPD exacerbation, pneumonia, Influenza, COVID Most likely diagnosis given after review of the tests above:: Otitis media Asthma exacerbation in COPD Admission Indicated Admission indicated?: not indicated Explain why admission is indicated or not indicated:: Patient has no emergent abnormalities on his studies and can be managed on an outpatient basis. Admission Request Was there a request for admission?: No Disposition Plan Disposition Plan: Discharge Discharge Attestation Discharge Attestation: The patient and all family members were given an opportunity to ask questions and understood the discharge instructions. Discharge instructions specifically effects, indications for sooner follow up or return to the emergency department, and the expected course of current diagnosis. Patient condition: Stable Medical Decision Making MDM Narrative MDM Narrative: Patti Faye am scribing for and in the presence of Dr. Jacob. Differential Diagnosis Differential Diagnosis: COPD exacerbation, pneumonia, Influenza, COVID Lab Data Labs: Lab Results 12/03/24 Range/Units 16:15 Troponin I < 0.020 (0.0-0.045) ng/mL Discharge Plan Plan Patient Disposition: HOME (Self Care) Prescriptions/Referrals Prescriptions/Med Rec: New prednisone 50 mg tablet 50 mg PO QDAY Qty: 5 0RF amoxicillin-pot clavulanate 875-125 mg tablet 1 tab PO Q12H Qty: 20 0RF No Action digoxin 125 mcg (0.125 mg) tablet 125 mcg PO DAILY metoprolol succinate 25 mg tablet extended release 24 hr 25 mg PO QDAY Qty: 30 3RF ipratropium-albuterol 0.5 mg-3 mg(2.5 mg base)/3 mL solution for nebulization 3 ml inhalation Q4H PRN (Reason: shortness of breath or wheezing) Qty: 90 0RF Jardiance 10 mg tablet 10 mg PO QAM Qty: 30 3RF Eliquis 5 mg tablet 5 mg PO BID 30 Days Qty: 60 3RF albuterol sulfate 90 mcg/actuation HFA aerosol inhaler 2 inh inhalation Q4H PRN (Reason: shortness of breath or wheezing) Qty: 8.5 0RF Qvar RediHaler 80 mcg/actuation HFA aerosol breath activated 2 inh inhalation BID Qty: 10.6 0RF Rx Instructions: administer with spacer fluticasone furoate-vilanterol [Breo Ellipta] 100-25 mcg/dose blister with device 1 inh inhalation Q24H Qty: 60 0RF benzonatate 100 mg capsule 100 mg PO TID PRN (Reason: cough) Qty: 14 0RF acetaminophen [Tylenol Extra Strength] 500 mg tablet 500 mg PO Q4H PRN (Reason: fever or pain) Qty: 20 0RF insulin glargine [Lantus Solostar U-100 Insulin] 100 unit/mL (3 mL) insulin pen 15 unit SUBCUT HS furosemide 40 mg tablet 40 mg PO BID 30 Days Qty: 30 3RF methylprednisolone [Medrol (Joe)] 4 mg tablets,dose pack 4 mg PO QDAY Qty: 21 0RF amiodarone 200 mg tablet 200 mg PO QDAY Qty: 30 1RF albuterol sulfate 90 mcg/actuation HFA aerosol inhaler 1 puff inhalation QID PRN (Reason: shortness of breath or wheezing) Qty: 8.5 0RF furosemide 40 mg tablet 40 mg PO QDAY 14 Days Qty: 14 0RF Referrals: Tavares Carnes MD [Primary Care Provider] - In 1 week Problem List Clinical Impression: Otitis media, Asthma exacerbation in COPD Patient/Caregiver Discharge Instructions Education Materials: ED COPD Flare, ED Otitis Media Antibiotic ... Additional Instructions: Follow-up with your primary care doctor in 3 to 5 days for recheck. You can r eturn to the emergency department sooner if symptoms worsen or if he notes any new, concerning issues. Print Language: Welsh Stand Alone Forms: Cecelia Award Info., Patient Portal Info Letter
[2024-12-03] MEDS: predniSONE 20 MG TABLET 60 MG PO (16:10)
[2024-12-03 16:42] LABS: Troponin I < 0.020 ng/mL (0.0-0.045)
[2024-12-03 16:43] VITALS: PULSE 82; RESP 18; O2SAT 98
[2024-12-03] MEDS: ALBUTEROL/IPRATROPIUM (Duoneb) RT SOL 3 ML NEBU INH ×2 (16:43→19:47)
[2024-12-03 19:48] VITALS: PULSE 88; RESP 18; O2SAT 94
== END 2024-12-03 20:38 | disposition home or self-care (01) ==
PROVIDERS: Emergency Medicine; Emergency Provider Emergency Medicine; PCP Family Medicine
DX: J45.901 Unspecified asthma with (acute) exacerbation (principal); J44.89 Other specified chronic obstructive pulmonary disease; H66.90 Otitis media, unspecified, unspecified ear; I50.9 Heart failure, unspecified; E11.9 Type 2 diabetes mellitus without complications
CPT/HCPCS: 36415; 71046; 84484; 93005; 94640; 99284; A9270; J7512

== ENCOUNTER 2025-01-24 10:51 | Emergency (ER) | payer MEDICAID, SELFPAY ==
[2025-01-24 10:52] VITALS: BMI 42.4
--- NOTE | 2025-01-24 10:58 | EKG_ITS ---
[facility] Test Date: 2025-01-24 Pat Name: LYDIA WOOD Department: Room: - Gender: Female Expert Witness: BEAU: 1970 Requested By: ED Temporary Provider Order Number: [id number] Reading MD: ED Temporary Provider Measurements Intervals [place] Rate: 78 P: 66 WI: 152 QRS: -22 QRSD: 88 T: 80 QT: 383 QTc: 437 Interpretive Statements SINUS RHYTHM LOW QRS VOLTAGE IN PRECORDIAL LEADS [QRS DEFLECTION < 1.0 mV IN CHEST LEADS] POSSIBLE ANTERIOR MYOCARDIAL INFARCTION , PROBABLY OLD [30 ms Q WAVE IN V3/V4, OR R < 0.2 mV IN V4] Compared to ECG 12/03/2024 16:27:51 Low QRS voltage now present Myocardial infarct finding now present T-wave abnormality no longer present /store/S0/[id number]/ecg/[id number].pdf
[2025-01-24 11:19] VITALS: BP 133/78; PULSE 78; RESP 22; TEMP 36.9; O2SAT 91; BMI 42.4
--- NOTE | 2025-01-24 11:19 | XR_ITS ---
Examination: PA lateral chest 2 views TECHNIQUE: Upright PA lateral chest 2 views Exam date and time: January 24, 2025 1143 hours Comparison December 03, 2024 INDICATIONS: Shortness of breath today. FINDINGS: Minor prominence left ventricle Mild vascular congestion. Suspicious for early pneumonia in the right middle lobe IMPRESSION: Mild vascular congestion Suspicious for early pneumonia in the right middle lobe
--- NOTE | 2025-01-24 11:20 | PD.EDRME ---
Rapid Medical Screening Exam E Arrival date/time: 01/24/25 10:51 54-year-old female with a history of COPD presents to the emergency room with a chief complaint of shortness of breath, and 8 out of 10 sternal chest pain since this morning. I have greeted and performed a focused initial assessment of this patient. A comprehensive ED assessment and evaluation of the patient, analysis of all test results, and completion of the medical decision making process will be conducted by additional ED providers. Chief Complaint: Shortness of Breath/Dyspnea Vital signs reviewed by provider: Yes
[2025-01-24 12:39] LABS: Basophils % (Auto) 0 % (0-2.5); Eosinophils # (Auto) 0.1 Thou/mm3 (0.0-0.5); Eosinophils % (Auto) 1 % (0-10); Hematocrit 43.6 % (36.0-46.0); Hemoglobin 13.9 g/dL (12.0-16.0); Immature Granulocytes % (Auto) 0 % (0-0); Immature Granulocytes Auto 0.02 Thou/mm3 (0.00-0.00); Lymphocytes # (Auto) 1.6 Thou/mm3 (1.0-4.8); Lymphocytes % (Auto) 26 % (10-50); Mean Corpuscular HGB Conc 31.9 g/dl (31.0-37.0); Mean Corpuscular Hemoglobin 29.1 pg (25.0-35.0); Mean Corpuscular Volume 91 fL (80-100); Monocytes # (Auto) 0.4 Thou/mm3 (0.0-0.8); Monocytes % (Auto) 7 % (0-12); Neutrophils % (Auto) 65 % (37-80); Nucleated Red Blood Cell % 0 /100 WBC (0); Platelet Count 210 Thou/mm3 (140-440); RDW Standard Deviation 45.1 fL (36.4-46.3); Red Blood Count 4.77 Miln/mm3 (4.00-5.20); White Blood Count 6.2 Thou/mm3 (3.6-11.0)
[2025-01-24 12:57] LABS: B-Type Natriuretic Peptide < 20 pg/mL (0-100)
[2025-01-24 13:00] LABS: Alanine Aminotransferase 14 U/L (10-49); Albumin, Serum 4.6 gm/dL (3.5-5.0); Albumin/Globulin Ratio 1.9 (1.2-2.2); Alkaline Phosphatase 103 U/L (46-116); Anion Gap 2 (7-16); Aspartate Amino Transferase 15 U/L (0-34); BUN/Creatinine Ratio 15 Ratio (12-20); Bilirubin,Total 1.1 mg/dL (0.3-1.2); Blood Urea Nitrogen 12 mg/dL (9-23); Calcium 9.5 mg/dL (8.3-10.6); Calcium (Corrected) 9.5 mg/dL (8.5-10.1); Carbon Dioxide 35.7 mMol/L (20.0-31.0); Chloride 101 mMol/L (98-107); Creatinine (Component) 0.8 mg/dL (0.6-1.3); Estimated Creatinine Clearance 81.2 mL/min (>60); Globulin 2.4 gm/dL (2.3-3.5); Glucose 262 mg/dL (74-106); Magnesium 1.8 mg/dL (1.6-2.6); Osmolality,Calculated 286 (275-295); Potassium 4.2 mMol/L (3.4-5.1); Sodium 139 mMol/L (136-145); Troponin I < 0.020 ng/mL (0.0-0.045); eGFR > 60 See Note
[2025-01-24 13:42] LABS: Partial Thromboplastin Time 27.9 Seconds (22.0-36.0); Prothrombin Time 10.8 Seconds (9.0-12.2)
[2025-01-24 14:17] VITALS: BP 104/63; PULSE 81; RESP 22; TEMP 37.1; O2SAT 93
--- NOTE | 2025-01-24 14:22 | PD.EDADULT ---
ED General RME/HPI General Chief complaint: Shortness of Breath/Dyspnea Stated complaint: SOB AND CHEST PAIN Time Seen by Provider: 01/24/25 14:22 Arrival date/time: 01/24/25 10:51 CC: Chest pain shortness of breath HPI ongoing for the past 5 to 6 hours. The patient has a history of COPD is on 3 L nasal cannula. When she points to her epigastrium is at site of her pain. The patient has no other complaints at this time. At the time of the assessment at 1423 patient continues to have mild chest pain but appears not in any acute distress RME / HPI RME / HPI narrative: 01/24/25 10:51 54-year-old female with a history of COPD presents to the emergency room with a chief complaint of shortness of breath, and 8 out of 10 sternal chest pain since this morning. I have greeted and performed a focused initial assessment of this patient. A comprehensive ED assessment and evaluation of the patient, analysis of all test results, and completion of the medical decision making process will be conducted by additional ED providers. Related Data Home Medications ?Medication ?Instructions ?Recorded ?Confirmed digoxin 125 mcg (0.125 mg) tablet 125 mcg PO DAILY 12/16/23 09/25/24 insulin glargine 100 unit/mL (3 15 unit subcut HS 02/24/24 09/25/24 mL) subcutaneous pen (Lantus Solostar U-100 Insulin) Previous Rx's ?Medication ?Instructions ?Recorded apixaban 5 mg tablet (Eliquis) 5 mg PO BID 1 month #60 tabs 02/12/24 empagliflozin 10 mg tablet 10 mg PO QAM #30 tabs 02/12/24 (Jardiance) ipratropium 0.5 mg-albuterol 3 mg 3 ml inhalation Q4H PRN shortness 02/12/24 (2.5 mg base)/3 mL nebulization of breath or wheezing #90 mL soln metoprolol succinate 25 mg 25 mg PO QDAY #30 tabs 02/12/24 tablet,extended release 24 hr albuterol sulfate 90 mcg/actuation 2 inh inhalation Q4H PRN shortness 03/27/24 aerosol inhaler of breath or wheezing #8.5 grams beclomethasone dipropionate 80 2 inh inhalation BID Asthma #10.6 03/27/24 mcg/actuation HFA breath activated grams aerosol (Qvar RediHaler) furosemide 40 mg tablet 40 mg PO BID 1 month #30 tabs 04/04/24 fluticasone furoate 100 1 inh inhalation Q24H #60 ea 07/02/24 mcg-vilanterol 25 mcg/dose inhalation powder (Breo Ellipta) acetaminophen 500 mg tablet 500 mg PO Q4H PRN fever or pain 08/30/24 (Tylenol Extra Strength) #20 tabs benzonatate 100 mg capsule 100 mg PO TID PRN cough #14 caps 08/30/24 methylprednisolone 4 mg tablets in 4 mg PO QDAY #21 tabs 09/28/24 a dose pack (Medrol (Joe)) amiodarone 200 mg tablet 200 mg PO QDAY #30 tabs 10/16/24 albuterol sulfate 90 mcg/actuation 1 puff inhalation QID PRN 11/25/24 aerosol inhaler shortness of breath or wheezing #8.5 grams amoxicillin 875 mg-potassium 1 tab PO Q12H #20 tabs 12/03/24 clavulanate 125 mg tablet prednisone 50 mg tablet 50 mg PO QDAY #5 tabs 12/03/24 Allergies Allergy/AdvReac Type Severity Reaction Status Date / Time codeine Allergy Severe HIVES, Verified 01/24/25 10:54 SWELLING, DIFF BREATHING meloxicam Allergy Severe Difficulty Verified 01/24/25 10:54 Breathing Review of Systems Review of Systems Narrative Review of Systems: GEN: No fever, no chills, no weight loss EYES: No discharge, no visual changes, no pain HEENT: No ear pain, no congestion, no sore throat PULM: + shortness of breath, no cough, no congestion CV: + chest pain, no dyspnea on exertion, no palpitations GI: No nausea, no vomiting, no diarrhea, no pain, no constipation : No frequency, no urgency, no dysuria MUSC/SKEL: No joint pain, no back pain SKIN: No rash PSYCH: No hallucinations, no depression HEME/LYMPH: No easy bleeding or bruising tendencies NEURO: No weakness, no headache Past Medical History Past Medical History NEUROLOGIC: Positive Neurological Disorders and Migraine; Negative Cerebrovascular Accident, Transient Ischemic Attacks (TIA), Dementia, Alzheimer's Disease, Parkinson's Disease, Brain Tumor, Meningitis, Seizures, Epilepsy, Multiple Sclerosis, Cerebral Palsy, Amyotrophic Lateral Sclerosis (ALS/[place] Gehrig's), Guillain-[place] Syndrome, Spina Bifida, Paralysis, Peripheral Neuropathy, Aguayo's Palsy, Subdural Hematoma, Head Trauma, Spinal Cord Injury or Traumatic Brain Injury CARDIAC: Positive Cardiac Disorders, Myocardial Infarction, Cardiac Arrhythmia, Congestive Heart Failure and Hypotension; Negative Atrial Fibrillation, Angina, Heart Murmur, Coronary Artery Disease, Atherosclerotic Heart Disease, Peripheral Vascular Disease, Hypercholesterolemia, Aneurysm, Congenital Heart Disease, Valvular Heart Disease, Rheumatic Fever, Cardiomyopathy, Edema, Pericarditis, Cellulitis, Deep Vein Thrombosis, Hypertension or Varicose Veins RESPIRATORY: Positive Chronic Obstructive Pulmonary Disease (COPD), Asthma and Pneumonia; Negative Bronchitis, Emphysema, Pulmonary Fibrosis, Cystic Fibrosis, Tuberculosis, Pulmonary Embolism, Pulmonary Edema or Sleep Apnea GASTROINTESTINAL: Positive Gastrointestinal Disorders, Gall Bladder Disease and Obesity; Negative Hepatitis, Cirrhosis, Pancreatitis, Celiac Disease, Gastrointestinal Bleed, Esophageal Varices, Silverio's Esophagus, Colitis, Ulcerative Colitis, Diverticulitis, Diverticulosis, Ulcer, Colorectal Cancer, Irritable Bowel, Crohn's Disease, Obstructive Bowel, Hiatal Hernia, Hemorrhoids or Gastroesophageal Reflux Disease GENITOURINARY: Negative Genitourinary Disorders, Renal Disease, Kidney Stones, Polycystic Kidney Disease, Neurogenic Bladder, Inguinal Hernia, Dialysis, Prostate Cancer or Benign Prostatic Hyperplasia REPRODUCTIVE: Positive Previous Pregnancies; Negative Breast Cancer, Endometriosis, Genital Herpes, Gonorrhea, Pelvic Inflammatory Disease, Syphilis, Testicular Cancer or Uterine Prolapse MUSCULOSKELETAL: Positive Arthritis and Fractures; Negative Musculoskeletal Disorders, Muscular Dystrophy, Myasthenia Gravis, Marfan's Syndrome, Bone Cancer, Rheumatoid Arthritis, Osteoporosis, Degenerative Disk Disease, Gout, Scoliosis, Carpal Tunnel Syndrome, Fibromyalgia, Degenerative Joint Disease, Osteomyelitis or Poliovirus ENT: Negative Cataracts, Glaucoma, Blind, Retinal Detachment, Macular Degeneration, Ear Infection, Deafness, Head Trauma or Eye Prosthesis ENDOCRINE: Positive Endocrine Disorders and Diabetes Mellitus Type 2; Negative Diabetes Mellitus Type 1, Hypoglycemia, Albin's Syndrome, Nova's Disease, Hyperthyroidism, Hypothyroidism, Parathyroid Disease, Pituitary Disease, Systemic Lupus Erythematosus, Syndrome of Inappropriate Antidiuretic Hormone (SIADH), Adrenal Disease or Graves' Disease HEMATOLOGIC: Negative Blood Disorders, Anemia, Leukemia, Hemophilia, Thalassemia, Sickle Cell Disease or Clotting Problems PSYCHO/SOCIAL: Positive Recreational Drug Use, Depression and Anxiety; Negative Psychiatric Problems, Schizophrenia, Bipolar Disorder, Behavior Problems, Self-Mutilation, Attention Deficit Disorder, Attention Deficit Hyperactivity Disorder, Depression, Post Traumatic Stress Disorder or Eating Disorder OTHER HISTORY: Positive Autoimmune Disease, Shingles, Falls and Chicken Pox; Negative Down Syndrome, Autism, Developmental Delay, Blood Transfusions, Blood Transfusion Reaction, Anesthesia Reactions, Organ Transplant, Chemotherapy, Radiation Therapy, Hyperbaric Therapy, MRSA, VRSA, Vancomycin-Resistant Enterococci, Human Immunodeficiency Virus (HIV), Measles, Mumps, Rubella (Finnish Measles), Pertussis, Clostridium Difficile, Cancer, Breast Cancer, Cervical Cancer, Colorectal Cancer, Lung Cancer, Ovarian Cancer, Prostate Cancer or Testicular Cancer Family History FAMILY HISTORY: Positive Family Cardiac Disorders, Family Cancer and Family Surgery; Negative Family Psychiatric Problems, Family Respiratory Disorders, Family Gastrointestinal Problems or Family Anesthesia Reaction Surgical History SURGICAL: Positive Abdominal Surgery; Negative Cardiac Surgery, Open Heart Surgery, Coronary Artery Bypass Graft, Valve Replacement, Vascular Surgery, Coronary Stent, Cardiac Catheterization, Pacemaker, Angiogram, Auto Implanted Cardiovert Defib, Carotid Endarterectomy, Endocrine Surgery, Thyroidectomy, Ear Surgery, Tympanostomy Tube, Eye Surgery, Nose Surgery, Oral Surgery, Tonsillectomy, Adenoidectomy, Cochlear Implant, Corneal Transplant, Throat Surgery, Tracheostomy, Gastrostomy, Bowel Surgery, Nephrectomy, Transurethral Resection, Joint Replacement, Amputation, Open Reduction Internal Fixation, Arthroscopy, Neurologic Surgery, Brain Shunt, Mastectomy, Lumpectomy, Hysterectomy, Tubal Ligation, Section or Organ Transplant Social History SMOKING STATUS: Former smoker SECOND HAND EXPOSURE: Yes SUBSTANCE USE: former substance user and amphetamines ED Exam Narrative Physical exam: [General: Obese not in any acute distress Head normocephalic HEENT: Eyes pupils are PERRLA EOMs are intact. All the subsystems HEENT are within acceptable limits Neck is supple nontender Chest equal chest rise nontender to palpation Respiratory: Clear to auscultation no wheezes crackles or rubs CV: Rate rhythm is regular no murmurs rubs or clicks Abdomen is distended secondary to body habitus soft nontender no masses positive bowel sounds all 4 quadrants Back: No CVA tenderness no spinous process tenderness from cervical spine thoracic and lumbar spine Skin: Intact no petechiae rash induration ulceration or crepitus Extremities: Moving all extremity against resistance cap refill less than 2 seconds neurosensory intact. No lower extremity edema Neuro: Awake alert oriented x3 Glascow coma 15 no focal deficits] Course Quality Measures none Orders Category Date Time Status Bedside COVID-19 Antigen Test NOW Care 01/24/25 11:20 Active Bedside Influenza A&B Antigen Test NOW Care 01/24/25 11:20 Completed EKG (ED ONLY) *Do not use* NOW Care 01/24/25 10:59 Completed EKG (ED Only) Stat Exams 01/24/25 10:58 Draft XR chest 2V Stat Exams 01/24/25 11:19 Completed B-Type Natriuretic Peptide Stat Lab 01/24/25 12:13 Completed CBC Stat Lab 01/24/25 12:13 Completed Comprehensive Metabolic Panel Stat Lab 01/24/25 12:13 Completed Magnesium Stat Lab 01/24/25 12:13 Completed Partial Thromboplastin Time Stat Lab 01/24/25 12:13 Completed Prothrombin Time with INR Stat Lab 01/24/25 12:13 Completed Troponin I Stat Lab 01/24/25 12:13 Completed Vital Signs Vital signs: Vital Signs Temperature 98.5 F 01/24/25 11:19 Pulse Rate 78 01/24/25 11:19 Respiratory Rate 22 H 01/24/25 11:19 Blood Pressure 133/78 H 01/24/25 11:19 Pulse Oximetry (%) 91 L 01/24/25 11:19 Oxygen Delivery Method Room Air 01/24/25 11:19 [facility] Patient data External records reviewed:: [facility] previous records Clinical information provided by:: patient Social determinants that could affect healthcare access:: none Patient has the following chronic illnesses:: COPD How is presenting disease/condition affected by chronic disease/condition?: exacerbated by Evaluation data The following diagnostics were reviewed and interpreted by me:: lab results, radiology exam(s) and EKG tracing(s) Lab and/or radiology exams considered but not ordered:: EKG performed at 1130 shows a ventricular rate of 78 MO interval 152 QRS of 88 QTc of 416 is sinus rhythm. CBC shows no acute leukocytosis anemia thrombocytopenia CMP shows no acute electrolyte imbalances renal impairment transaminitis or T. bili elevation please note the blood glucose level is 262. Coags within acceptable limits Troponin is negative BNP is less than 20 chest x-ray as interpreted by me shows mild vascular congestion. Interpretation Summary: Patient has no fever vital signs are stable at this time the patient is satting at 96% on 3 L nasal cannula comfortable discharging this patient home. Medications Medications considered but not ordered:: None Medication administrations:: None Consultations Consultation(s) initiated? (list below): No Diagnosis Differential Diagnosis ED Complaint MDM: ACS MS pneumonia Most likely diagnosis given after review of the tests above:: Shortness of breath chest pain Admission Indicated Admission indicated?: not indicated Explain why admission is indicated or not indicated:: Stable to discharge Admission Request Was there a request for admission?: No Disposition Plan Disposition Plan: Discharge Discharge Attestation Discharge Attestation: The patient and all family members were given an opportunity to ask questions and understood the discharge instructions. Discharge instructions specifically effects, indications for sooner follow up or return to the emergency department, and the expected course of current diagnosis. Patient condition: Stable Medical Decision Making Differential Diagnosis Differential Diagnosis: ACS MS pneumonia Lab Data 01/24/25 12:13 01/24/25 12:13 Labs: Lab Results 01/24/25 Range/Units 12:13 WBC 6.2 (3.6-11.0) Thou/mm3 RBC 4.77 (4.00-5.20) Miln/mm3 Hgb 13.9 (12.0-16.0) g/dL Hct 43.6 (36.0-46.0) % MCV 91 (80-100) fL MCH 29.1 (25.0-35.0) pg MCHC 31.9 (31.0-37.0) g/dl RDW Std Deviation 45.1 (36.4-46.3) fL Plt Count 210 (140-440) Thou/mm3 Neut % (Auto) 65 (37-80) % Lymph % (Auto) 26 (10-50) % Bath % (Auto) 7 (0-12) % Eos % (Auto) 1 (0-10) % Baso % (Auto) 0 (0-2.5) % Neut # (Auto) 4.0 (1.8-7.7) Thou/mm3 Lymph # (Auto) 1.6 (1.0-4.8) Thou/mm3 Bath # (Auto) 0.4 (0.0-0.8) Thou/mm3 Eos # (Auto) 0.1 (0.0-0.5) Thou/mm3 Baso # (Auto) 0.0 (0.0-0.2) Thou/mm3 Immature Gran # (Auto) 0.02 H (0.00-0.00) Thou/mm3 Absolute Nucleated RBC 0.00 (0.00-0.00) Thou/mm3 Immature Gran % 0 (0-0) % Nucleated RBC % 0 (0) /100 WBC PT 10.8 (9.0-12.2) Seconds INR 1.0 (0.9-1.3) APTT 27.9 (22.0-36.0) Seconds Sodium 139 (136-145) mMol/L Potassium 4.2 (3.4-5.1) mMol/L Chloride 101 (98-107) mMol/L Carbon Dioxide 35.7 H (20.0-31.0) mMol/L Anion Gap 2 L (7-16) BUN 12 (9-23) mg/dL Creatinine 0.8 (0.6-1.3) mg/dL Estim Creat Clear Calc 81.2 (>60) mL/min eGFR > 60 (60 - ) See Note BUN/Creatinine Ratio 15 (12-20) Ratio Glucose 262 H (74-106) mg/dL Calculated Osmolality 286 (275-295) Calcium 9.5 (8.3-10.6) mg/dL Corrected Calcium 9.5 (8.5-10.1) mg/dL Magnesium 1.8 (1.6-2.6) mg/dL Total Bilirubin 1.1 (0.3-1.2) mg/dL AST 15 (0-34) U/L ALT 14 (10-49) U/L Alkaline Phosphatase 103 (46-116) U/L Troponin I < 0.020 (0.0-0.045) ng/mL B-Natriuretic Peptide < 20 (0-100) pg/mL Total Protein 7.0 (5.7-8.2) gm/dL Albumin 4.6 (3.5-5.0) gm/dL Globulin 2.4 (2.3-3.5) gm/dL Albumin/Globulin Ratio 1.9 (1.2-2.2) Discharge Plan Plan Patient Disposition: HOME (Self Care) Patient condition on transfer: Stable Prescriptions/Referrals Prescriptions/Med Rec: No Action digoxin 125 mcg (0.125 mg) tablet 125 mcg PO DAILY metoprolol succinate 25 mg tablet extended release 24 hr 25 mg PO QDAY Qty: 30 3RF ipratropium-albuterol 0.5 mg-3 mg(2.5 mg base)/3 mL solution for nebulization 3 ml inhalation Q4H PRN (Reason: shortness of breath or wheezing) Qty: 90 0RF Jardiance 10 mg tablet 10 mg PO QAM Qty: 30 3RF Eliquis 5 mg tablet 5 mg PO BID 30 Days Qty: 60 3RF albuterol sulfate 90 mcg/actuation HFA aerosol inhaler 2 inh inhalation Q4H PRN (Reason: shortness of breath or wheezing) Qty: 8.5 0RF Qvar RediHaler 80 mcg/actuation HFA aerosol breath activated 2 inh inhalation BID Qty: 10.6 0RF Rx Instructions: administer with spacer fluticasone furoate-vilanterol [Breo Ellipta] 100-25 mcg/dose blister with device 1 inh inhalation Q24H Qty: 60 0RF benzonatate 100 mg capsule 100 mg PO TID PRN (Reason: cough) Qty: 14 0RF acetaminophen [Tylenol Extra Strength] 500 mg tablet 500 mg PO Q4H PRN (Reason: fever or pain) Qty: 20 0RF insulin glargine [Lantus Solostar U-100 Insulin] 100 unit/mL (3 mL) insulin pen 15 unit SUBCUT HS furosemide 40 mg tablet 40 mg PO BID 30 Days Qty: 30 3RF methylprednisolone [Medrol (Joe)] 4 mg tablets,dose pack 4 mg PO QDAY Qty: 21 0RF amiodarone 200 mg tablet 200 mg PO QDAY Qty: 30 1RF albuterol sulfate 90 mcg/actuation HFA aerosol inhaler 1 puff inhalation QID PRN (Reason: shortness of breath or wheezing) Qty: 8.5 0RF prednisone 50 mg tablet 50 mg PO QDAY Qty: 5 0RF amoxicillin-pot clavulanate 875-125 mg tablet 1 tab PO Q12H Qty: 20 0RF Referrals: Vero Fernández MD [Primary Care Provider] - In 1 week Problem List Clinical Impression: Chest pain Patient/Caregiver Discharge Instructions Education Materials: ED Chest Pain, Uncertain Cause Additional Instructions: Follow-up with your primary care provider if is worsening of symptoms return the emergency room medially for further evaluation. Print Language: Armenian Stand Alone Forms: [employer] Work/School Release, Patient Portal Info Letter PA/CATERING ATTENDANT Supervising Physician PA/CATERING ATTENDANT Supervising Physician: Tristian Eckert ENP
== END 2025-01-24 14:41 | disposition home or self-care (01) ==
PROVIDERS: Nurse Practitioner Family; Emergency Provider Emergency Medicine; PCP Family Medicine
DX: R07.9 Chest pain, unspecified (principal); R09.89 Other specified symptoms and signs involving the circulatory and respiratory systems; R94.31 Abnormal electrocardiogram [ECG] [EKG]; J44.89 Other specified chronic obstructive pulmonary disease; I50.9 Heart failure, unspecified; I25.2 Old myocardial infarction; Z79.01 Long term (current) use of anticoagulants; Z87.891 Personal history of nicotine dependence
CPT/HCPCS: 36415; 71046; 80053; 83735; 83880; 84484; 85025; 85610; 85730; 87400; 87811; 93005; 99283

== ENCOUNTER 2025-02-14 12:50 | Emergency (ER) | payer MEDICAID, SELFPAY ==
[2025-02-14 13:18] VITALS: BP 123/69; PULSE 86; RESP 22; TEMP 37.2; O2SAT 91; BMI 41.3
--- NOTE | 2025-02-14 13:20 | XR_ITS ---
Examination: PA lateral chest 2 views TECHNIQUE: Upright PA lateral chest 2 views Exam date and time: February 14, 2025 1326 hours INDICATIONS: Coughing shortness of breath beginning 4 days ago. FINDINGS: Normal heart size Mild vascular congestion. No lobar pneumonia or pulmonary edema IMPRESSION: Mild vascular congestion
--- NOTE | 2025-02-14 13:21 | PD.EDRME ---
Rapid Medical Screening Exam [facility] Arrival date/time: 02/14/25 12:50 54-year-old female with COPD presents to the emergency department for complaints of shortness of breath Chief Complaint: Flu Like Symptoms Vital signs: Vital Signs Temperature 98.9 F 02/14/25 13:18 Pulse Rate 86 02/14/25 13:18 Respiratory Rate 22 H 02/14/25 13:18 Blood Pressure 123/69 02/14/25 13:18 Pulse Oximetry (%) 91 L 02/14/25 13:18 Oxygen Delivery Method Nasal Cannula 02/14/25 13:18 Oxygen Flow Rate 3 02/14/25 13:18
[2025-02-14 14:16] LABS: Lactate (Lactic Acid) 1.3 mMol/L (0.4-2.0)
[2025-02-14 14:18] LABS: Basophils % (Auto) 0 % (0-2.5); Eosinophils # (Auto) 0.1 Thou/mm3 (0.0-0.5); Eosinophils % (Auto) 1 % (0-10); Hematocrit 40.7 % (36.0-46.0); Hemoglobin 12.8 g/dL (12.0-16.0); Immature Granulocytes % (Auto) 0 % (0-0); Immature Granulocytes Auto 0.02 Thou/mm3 (0.00-0.00); Lymphocytes # (Auto) 1.5 Thou/mm3 (1.0-4.8); Lymphocytes % (Auto) 21 % (10-50); Mean Corpuscular HGB Conc 31.4 g/dl (31.0-37.0); Mean Corpuscular Hemoglobin 28.7 pg (25.0-35.0); Mean Corpuscular Volume 91 fL (80-100); Monocytes # (Auto) 0.5 Thou/mm3 (0.0-0.8); Monocytes % (Auto) 7 % (0-12); Neutrophils # (Auto) 5.1 Thou/mm3 (1.8-7.7); Neutrophils % (Auto) 72 % (37-80); Nucleated Red Blood Cell % 0 /100 WBC (0); Platelet Count 153 Thou/mm3 (140-440); RDW Standard Deviation 45.3 fL (36.4-46.3); Red Blood Count 4.46 Miln/mm3 (4.00-5.20); White Blood Count 7.1 Thou/mm3 (3.6-11.0)
[2025-02-14 14:44] LABS: Alanine Aminotransferase 12 U/L (10-49); Albumin, Serum 4.4 gm/dL (3.5-5.0); Alkaline Phosphatase 86 U/L (46-116); Anion Gap 1 (7-16); Aspartate Amino Transferase 14 U/L (0-34); BUN/Creatinine Ratio 15 Ratio (12-20); Blood Urea Nitrogen 12 mg/dL (9-23); Calcium 9.3 mg/dL (8.3-10.6); Calcium (Corrected) 9.3 mg/dL (8.5-10.1); Carbon Dioxide 34.8 mMol/L (20.0-31.0); Chloride 100 mMol/L (98-107); Creatinine (Component) 0.8 mg/dL (0.6-1.3); Estimated Creatinine Clearance 80.1 mL/min (>60); Globulin 2.2 gm/dL (2.3-3.5); Glucose 282 mg/dL (74-106); Osmolality,Calculated 281 (275-295); Potassium 4.2 mMol/L (3.4-5.1); Procalcitonin 0.06 ng/ml (0.0-0.49); Sodium 136 mMol/L (136-145); Total Protein 6.6 gm/dL (5.7-8.2); Troponin I < 0.020 ng/mL (0.0-0.045); eGFR > 60 See Note
[2025-02-14 15:21] LABS: B-Type Natriuretic Peptide 21 pg/mL (0-100)
[2025-02-14 17:20] VITALS: BP 150/73; PULSE 76; RESP 20; TEMP 36.6; O2SAT 95
--- NOTE | 2025-02-14 17:32 | PD.EDURI ---
Upper Respiratory Inf. RME/HPI General Chief Complaint: Flu Like Symptoms Stated Complaint: FEVER, SOB, CHILLS Arrival date/time: 02/14/25 12:50 Limitations: no limitations RME / HPI RME / HPI Narrative: 02/14/25 12:50 54-year-old female with COPD presents to the emergency department for complaints of shortness of breath DR. VELASQUEZ MAIN ED EVALUATION: 54 year old female with past medical history significant for COPD, CHF on lasix, and atrial fibrillation on Eliquis presents to the Emergency Department with complaints of chronic shortness of breath but worsening today, fevers and chills for 2 days, a dry cough for 4 days, and a headache for 4 days. Symptoms are moderate. Related Data Home Medications ?Medication ?Instructions ?Recorded ?Confirmed digoxin 125 mcg (0.125 mg) tablet 125 mcg PO DAILY 12/16/23 09/25/24 insulin glargine 100 unit/mL (3 15 unit subcut HS 02/24/24 09/25/24 mL) subcutaneous pen (Lantus Solostar U-100 Insulin) Previous Rx's ?Medication ?Instructions ?Recorded apixaban 5 mg tablet (Eliquis) 5 mg PO BID 1 month #60 tabs 02/12/24 empagliflozin 10 mg tablet 10 mg PO QAM #30 tabs 02/12/24 (Jardiance) ipratropium 0.5 mg-albuterol 3 mg 3 ml inhalation Q4H PRN shortness 02/12/24 (2.5 mg base)/3 mL nebulization of breath or wheezing #90 mL soln metoprolol succinate 25 mg 25 mg PO QDAY #30 tabs 02/12/24 tablet,extended release 24 hr albuterol sulfate 90 mcg/actuation 2 inh inhalation Q4H PRN shortness 03/27/24 aerosol inhaler of breath or wheezing #8.5 grams beclomethasone dipropionate 80 2 inh inhalation BID Asthma #10.6 03/27/24 mcg/actuation HFA breath activated grams aerosol (Qvar RediHaler) furosemide 40 mg tablet 40 mg PO BID 1 month #30 tabs 04/04/24 fluticasone furoate 100 1 inh inhalation Q24H #60 ea 07/02/24 mcg-vilanterol 25 mcg/dose inhalation powder (Breo Ellipta) acetaminophen 500 mg tablet 500 mg PO Q4H PRN fever or pain 08/30/24 (Tylenol Extra Strength) #20 tabs benzonatate 100 mg capsule 100 mg PO TID PRN cough #14 caps 08/30/24 methylprednisolone 4 mg tablets in 4 mg PO QDAY #21 tabs 09/28/24 a dose pack (Medrol (Joe)) amiodarone 200 mg tablet 200 mg PO QDAY #30 tabs 10/16/24 albuterol sulfate 90 mcg/actuation 1 puff inhalation QID PRN 11/25/24 aerosol inhaler shortness of breath or wheezing #8.5 grams amoxicillin 875 mg-potassium 1 tab PO Q12H #20 tabs 12/03/24 clavulanate 125 mg tablet prednisone 50 mg tablet 50 mg PO QDAY #5 tabs 12/03/24 dexamethasone 6 mg tablet 6 mg PO QDAY #4 tabs 02/14/25 fluticasone fur. 100 mcg-umeclid 1 inh inhalation Q24H #28 ea 02/14/25 62.5 mcg-vilant 25 mcg inhalat.powder (Trelegy Ellipta) levofloxacin 500 mg tablet 500 mg PO Q24H 6 days #6 tabs 02/14/25 Allergies Allergy/AdvReac Type Severity Reaction Status Date / Time codeine Allergy Severe HIVES, Verified 02/14/25 12:57 SWELLING, DIFF BREATHING meloxicam Allergy Severe Difficulty Verified 02/14/25 12:57 Breathing Review of Systems Review of Systems Systems Reviewed: All systems reviewed, normal except as documented Narrative Review of Systems: GEN: + fever, + chills, no weight loss EYES: No discharge, no visual changes, no pain HEENT: No ear pain, no congestion, no sore throat PULM: + chronic shortness of breath, + dry cough, no congestion CV: No chest pain, no dyspnea on exertion, no palpitations GI: No nausea, no vomiting, no diarrhea, no pain, no constipation : No frequency, no urgency and no dysuria MUSC/SKEL: No joint pain, no back pain SKIN: No rash PSYCH: No hallucinations, no depression HEME/LYMPH: No easy bleeding or bruising tendencies NEURO: No weakness, + headache Past Medical History Past Medical History NEUROLOGIC: Positive Neurological Disorders and Migraine CARDIAC: Positive Cardiac Disorders, Myocardial Infarction, Cardiac Arrhythmia, Congestive Heart Failure and Hypotension RESPIRATORY: Positive Chronic Obstructive Pulmonary Disease (COPD), Asthma and Pneumonia GASTROINTESTINAL: Positive Gastrointestinal Disorders, Gall Bladder Disease and Obesity REPRODUCTIVE: Positive Previous Pregnancies MUSCULOSKELETAL: Positive Arthritis and Fractures ENDOCRINE: Positive Endocrine Disorders and Diabetes Mellitus Type 2 PSYCHO/SOCIAL: Positive Recreational Drug Use, Depression and Anxiety OTHER HISTORY: Positive Autoimmune Disease, Shingles, Falls and Chicken Pox Family History FAMILY HISTORY: Positive Family Cardiac Disorders, Family Cancer and Family Surgery Surgical History SURGICAL: Positive Abdominal Surgery Social History SMOKING STATUS: Former smoker SECOND HAND EXPOSURE: Yes SUBSTANCE USE: former substance user and amphetamines ALCOHOL: Never ED Exam General Limitations: Present no limitations General appearance: Present alert, in no apparent distress and obese (morbidly obese) Head Head exam: Present atraumatic, normocephalic and normal inspection Eye Eye exam: Present normal appearance, PERRL and EOMI ENT ENT exam: Present normal exam, normal oropharynx and mucous membranes moist Neck Neck exam: Present normal inspection, full ROM and trachea midline Chest Chest inspection: Present normal inspection and symmetric chest wall rise Respiratory Respiratory exam: Present normal lung sounds bilaterally and other (poor airway entry bilaterally) Cardiovascular Cardiovascular exam: Present regular rate, normal rhythm and normal heart sounds Abdominal Exam Abdominal exam: Present soft and normal bowel sounds Extremities Exam Extremities exam: Present full ROM and pedal edema (bilateral) Back Exam Back exam: Present normal inspection and full ROM Neurological Exam Neurological exam: Present alert, oriented X3 and CN II-XII intact Psychiatric Psychiatric exam: Present normal affect and normal mood Skin Skin exam: Present warm, dry, intact and normal color Course Quality Measures none Orders Category Date Time Status Bedside COVID-19 Antigen Test NOW Care 02/14/25 13:20 Active Bedside Influenza A&B Antigen Test NOW Care 02/14/25 13:20 Completed Discharge Routine Discharge 02/14/25 17:40 Active XR chest 2V Stat Exams 02/14/25 13:20 Completed BNP [B-Type Natriuretic Peptide] Stat Lab 02/14/25 14:03 Completed Blood Culture (Lab) Stat Lab 02/14/25 13:58 Received CBC Stat Lab 02/14/25 14:03 Completed Comprehensive Metabolic Panel Stat Lab 02/14/25 14:03 Completed Lactate (Lactic Acid) Stat Lab 02/14/25 14:03 Completed Procalcitonin Stat Lab 02/14/25 14:03 Completed Troponin I Stat Lab 02/14/25 14:03 Completed Albuterol/Ipratr Rt Mariel [Duoneb Rt Mariel] Med 02/14/25 17:37 Discontinued 3 ml INH X1 ONE Levofloxacin [Levaquin] Med 02/14/25 17:37 Discontinued 500 mg PO X1 ONE dexAMETHasone TAB [Decadron Tab] Med 02/14/25 17:40 Discontinued 10 mg PO QDAY ONE Vital Signs Vital signs: Vital Signs Temperature 98.9 F 02/14/25 13:18 Pulse Rate 86 02/14/25 13:18 Respiratory Rate 22 H 02/14/25 13:18 Blood Pressure 123/69 02/14/25 13:18 Pulse Oximetry (%) 91 L 02/14/25 13:18 Oxygen Delivery Method Nasal Cannula 02/14/25 13:18 Oxygen Flow Rate 3 02/14/25 13:18 Upper Respiratory Infection MDM Narrative MDM Narrative:: I, Patti Boyd am scribing for and in the presence of Dr. Velasquez. Rule out for CHF, COPD, pneumonia, sepsis, and left-sided heart failure. Plan for neb treatment, antibiotics, steroids, and cardiac work-up. No CHF. CXR is negative, no need for a CT scan. No sepsis. Plan to give levaquin, albuterol, prednisone and trelegy. Patient data External records reviewed:: [facility] previous records (Reviewed last ED visit dated 01/24/25 discharged with the following: chest pain) Clinical information provided by:: patient Social determinants that could affect healthcare access:: none Patient has the following chronic illnesses:: COPD, CHF on lasix, and atrial fibrillation on Eliquis How is presenting disease/condition affected by chronic disease/condition?: exacerbated by Evaluation data The following diagnostics were reviewed and interpreted by me:: lab results and radiology exam(s) Lab and/or radiology exams considered but not ordered:: none Interpretation Summary: Procedure(s): XR chest 2V Accession Number(s): [id number] cc: Oleg (VANE),Chai CIFUENTES; Pete Araiza MD; Vero Fernández MD~ Examination: PA lateral chest 2 views TECHNIQUE: Upright PA lateral chest 2 views Exam date and time: February 14, 2025 1326 hours INDICATIONS: Coughing shortness of breath beginning 4 days ago. FINDINGS: Normal heart size Mild vascular congestion. No lobar pneumonia or pulmonary edema IMPRESSION: Mild vascular congestion Dictated By: Pete Araiza MD Medications / Prescriptions Medications or Prescriptions considered but not ordered:: none Medication administrations:: Medication Administration History Discontinued Medications Albuterol/Ipratropium (Albuterol/Ipratropium (Duoneb) Rt Mariel 3 Ml Nebu) 3 ml INH X1 ONE Stop: 02/14/25 17:38 Dexamethasone (Dexamethasone 4 Mg Tablet) 10 mg PO QDAY ONE; Protocol Stop: 02/14/25 17:41 Levofloxacin (Levofloxacin 250 Mg Tablet) 500 mg PO X1 ONE Stop: 02/14/25 17:38 see above if any Consultations Consultation(s) initiated? (list below): No Diagnosis Upper Respiratory Differential Diagnosis: other (CHF, COPD, pneumonia, sepsis, and left-sided heart failure. ) Most likely diagnosis given after review of the tests above:: Acute exacerbation of chronic obstructive pulmonary disease Pneumonia Admission Indicated Admission indicated?: not indicated Admission Request Was there a request for admission?: No Disposition Plan Disposition Plan: Discharge Discharge Attestation Discharge Attestation: The patient and all family members were given an opportunity to ask questions and understood the discharge instructions. Discharge instructions specifically effects, indications for sooner follow up or return to the emergency department, and the expected course of current diagnosis. Patient condition: Stable Discharge Plan Plan Patient Disposition: HOME (Self Care) Patient condition on transfer: Stable Prescriptions/Referrals Prescriptions/Med Rec: New levofloxacin 500 mg tablet 500 mg PO Q24H 6 Days Qty: 6 0RF dexamethasone 6 mg tablet 6 mg PO QDAY Qty: 4 0RF Trelegy Ellipta 100-62.5-25 mcg blister with device 1 inh inhalation Q24H Qty: 28 0RF No Action digoxin 125 mcg (0.125 mg) tablet 125 mcg PO DAILY metoprolol succinate 25 mg tablet extended release 24 hr 25 mg PO QDAY Qty: 30 3RF ipratropium-albuterol 0.5 mg-3 mg(2.5 mg base)/3 mL solution for nebulization 3 ml inhalation Q4H PRN (Reason: shortness of breath or wheezing) Qty: 90 0RF Jardiance 10 mg tablet 10 mg PO QAM Qty: 30 3RF Eliquis 5 mg tablet 5 mg PO BID 30 Days Qty: 60 3RF albuterol sulfate 90 mcg/actuation HFA aerosol inhaler 2 inh inhalation Q4H PRN (Reason: shortness of breath or wheezing) Qty: 8.5 0RF Qvar RediHaler 80 mcg/actuation HFA aerosol breath activated 2 inh inhalation BID Qty: 10.6 0RF Rx Instructions: administer with spacer fluticasone furoate-vilanterol [Breo Ellipta] 100-25 mcg/dose blister with device 1 inh inhalation Q24H Qty: 60 0RF benzonatate 100 mg capsule 100 mg PO TID PRN (Reason: cough) Qty: 14 0RF acetaminophen [Tylenol Extra Strength] 500 mg tablet 500 mg PO Q4H PRN (Reason: fever or pain) Qty: 20 0RF insulin glargine [Lantus Solostar U-100 Insulin] 100 unit/mL (3 mL) insulin pen 15 unit SUBCUT HS furosemide 40 mg tablet 40 mg PO BID 30 Days Qty: 30 3RF methylprednisolone [Medrol (Joe)] 4 mg tablets,dose pack 4 mg PO QDAY Qty: 21 0RF amiodarone 200 mg tablet 200 mg PO QDAY Qty: 30 1RF albuterol sulfate 90 mcg/actuation HFA aerosol inhaler 1 puff inhalation QID PRN (Reason: shortness of breath or wheezing) Qty: 8.5 0RF prednisone 50 mg tablet 50 mg PO QDAY Qty: 5 0RF amoxicillin-pot clavulanate 875-125 mg tablet 1 tab PO Q12H Qty: 20 0RF Referrals: Vero Fernández MD [Primary Care Provider] - In 1 week Problem List Clinical Impression: Acute exacerbation of chronic obstructive pulmonary disease, Pneumonia Patient/Caregiver Discharge Instructions Discharge Activity: activity as tolerated Education Materials: COPD: Coping with Mucus, COPD: Using Inhalers, ED Pneumonia (Adult) Print Language: Fijian Stand Alone Forms: Cecelia Award Info., Patient Portal Info Letter
[2025-02-14 18:07] VITALS: PULSE 72; RESP 20; O2SAT 96
[2025-02-14] MEDS: ALBUTEROL/IPRATROPIUM (Duoneb) RT SOL 3 ML NEBU INH (18:07)
[2025-02-14] MEDS: LEVOFLOXACIN 250 MG TABLET 500 MG PO (18:11)
[2025-02-14] MEDS: dexAMETHasone 4 MG TABLET 10 MG PO (18:12)
[2025-02-14 18:24] VITALS: PULSE 62; RESP 20; TEMP 36.8; O2SAT 97
== END 2025-02-14 18:26 | disposition home or self-care (01) ==
PROVIDERS: Nurse Practitioner Primary Care; Emergency Provider Emergency Medicine; PCP Family Medicine
DX: J44.1 Chronic obstructive pulmonary disease with (acute) exacerbation (principal); J44.0 Chronic obstructive pulmonary disease with (acute) lower respiratory infection; J18.9 Pneumonia, unspecified organism; I48.91 Unspecified atrial fibrillation; I50.9 Heart failure, unspecified
CPT/HCPCS: 36415; 71046; 80053; 83605; 83880; 84145; 84484; 85025; 87040; 87400; 87811; 94640; 99283; A9270; J8540

== ENCOUNTER 2025-02-25 13:57 | Emergency (ER) | payer MEDICAID, SELFPAY ==
[2025-02-25 14:36] VITALS: BP 126/72; PULSE 93; RESP 22; TEMP 37.3; O2SAT 88; BMI 42.4
[2025-02-25 14:37] VITALS: O2SAT 93
--- NOTE | 2025-02-25 14:46 | XR_ITS ---
Examination: PA lateral chest 2 views Technique: Upright PA lateral chest 2 views Date and time: February 25, 2025 1606 hrs. Comparison February 14, 2025 Indications: Pneumonia shortness of breath this week. Findings: Mild enlargement cardiac contour Mild central vascular congestion. No current pneumonia or pulmonary edema Significant osteopenia Impression: No current pneumonia or pulmonary edema
--- NOTE | 2025-02-25 14:47 | EKG_ITS ---
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
--- NOTE | 2025-02-25 14:47 | PD.EDRME ---
Rapid Medical Screening Exam E Arrival date/time: 02/25/25 13:57 This is a 54-year-old female that comes in with complaints of shortness of breath. Patient was diagnosed with pneumonia approximately 1 month ago patient states that she is been given 2 rounds of antibiotics with no relief. Patient states she has a hard time breathing. Patient does take inhalers at home but they have not helped. Patient does have a history of COPD patient reports stop smoking approximately couple months ago. hx r COPD, CHF on lasix, and atrial fibrillation on Eliquis. I have greeted and performed a focused initial assessment of this patient. Initial appropriate labs ordered at this time. A comprehensive ED assessment and evaluation of the patient and analysis of all test and completion of medical decision making process will be conducted by additional ED provider. Chief Complaint: Flu Like Symptoms Time Seen by Provider: 02/25/25 14:20 Vital signs: Vital Signs Temperature 99.2 F 02/25/25 14:36 Pulse Rate 93 02/25/25 14:36 Respiratory Rate 22 H 02/25/25 14:36 Blood Pressure 126/72 02/25/25 14:36 Pulse Oximetry (%) 88 L 02/25/25 14:36 Oxygen Delivery Method Room Air 02/25/25 14:36
[2025-02-25] MEDS: ALBUTEROL/IPRATROPIUM (Duoneb) RT SOL 3 ML NEBU INH (15:13)
[2025-02-25 15:15] VITALS: PULSE 88; RESP 18; O2SAT 99
[2025-02-25 15:33] LABS: Basophils % (Auto) 0 % (0-2.5); Eosinophils # (Auto) 0.1 Thou/mm3 (0.0-0.5); Eosinophils % (Auto) 1 % (0-10); Hematocrit 40.8 % (36.0-46.0); Hemoglobin 13.4 g/dL (12.0-16.0); Immature Granulocytes % (Auto) 0 % (0-0); Immature Granulocytes Auto 0.03 Thou/mm3 (0.00-0.00); Lymphocytes # (Auto) 1.7 Thou/mm3 (1.0-4.8); Lymphocytes % (Auto) 20 % (10-50); Mean Corpuscular HGB Conc 32.8 g/dl (31.0-37.0); Mean Corpuscular Hemoglobin 28.8 pg (25.0-35.0); Mean Corpuscular Volume 88 fL (80-100); Monocytes # (Auto) 0.5 Thou/mm3 (0.0-0.8); Monocytes % (Auto) 6 % (0-12); Neutrophils # (Auto) 6.2 Thou/mm3 (1.8-7.7); Neutrophils % (Auto) 73 % (37-80); Nucleated Red Blood Cell % 0 /100 WBC (0); Platelet Count 161 Thou/mm3 (140-440); RDW Standard Deviation 42.2 fL (36.4-46.3); Red Blood Count 4.66 Miln/mm3 (4.00-5.20); White Blood Count 8.5 Thou/mm3 (3.6-11.0)
[2025-02-25 15:48] LABS: B-Type Natriuretic Peptide < 20 pg/mL (0-100)
[2025-02-25 15:54] LABS: Alanine Aminotransferase 15 U/L (10-49); Albumin, Serum 4.2 gm/dL (3.5-5.0); Albumin/Globulin Ratio 1.9 (1.2-2.2); Alkaline Phosphatase 95 U/L (46-116); Anion Gap 8 (7-16); Aspartate Amino Transferase 12 U/L (0-34); BUN/Creatinine Ratio 17 Ratio (12-20); Bilirubin,Total 0.9 mg/dL (0.3-1.2); Blood Urea Nitrogen 15 mg/dL (9-23); Calcium 8.8 mg/dL (8.3-10.6); Calcium (Corrected) 8.8 mg/dL (8.5-10.1); Carbon Dioxide 32.3 mMol/L (20.0-31.0); Chloride 97 mMol/L (98-107); Creatinine (Component) 0.9 mg/dL (0.6-1.3); Estimated Creatinine Clearance 72.2 mL/min (>60); Globulin 2.2 gm/dL (2.3-3.5); Osmolality,Calculated 296 (275-295); Potassium 4.4 mMol/L (3.4-5.1); Sodium 137 mMol/L (136-145); Total Protein 6.4 gm/dL (5.7-8.2); Troponin I < 0.020 ng/mL (0.0-0.045); eGFR > 60 See Note
[2025-02-25 16:00] LABS: Glucose 489 mg/dL (74-106)
--- NOTE | 2025-02-25 16:48 | PD.EDADULT ---
ED General RME/HPI General Chief complaint: Flu Like Symptoms Stated complaint: COUGH X YESTERDAY, SOB Time Seen by Provider: 02/25/25 14:20 Arrival date/time: 02/25/25 13:57 RME / HPI RME / HPI narrative: 02/25/25 13:57 This is a 54-year-old female that comes in with complaints of shortness of breath. Patient was diagnosed with pneumonia approximately 1 month ago patient states that she is been given 2 rounds of antibiotics with no relief. Patient states she has a hard time breathing. Patient does take inhalers at home but they have not helped. Patient does have a history of COPD patient reports stop smoking approximately couple months ago. hx r COPD, CHF on lasix, and atrial fibrillation on Eliquis. I have greeted and performed a focused initial assessment of this patient. Initial appropriate labs ordered at this time. A comprehensive ED assessment and evaluation of the patient and analysis of all test and completion of medical decision making process will be conducted by additional ED provider. DR. JACOB MAIN ED EVALUATION: 54 y/o female with Hx of COPD, Asthma, and Anxiety presents to ED c/o cough and shortness of breath. Patient was diagnosed with pneumonia approximately 2 weeks ago and discharged with Augmentin. She has her home oxygen, nebulizer and inhaler for management of COPD and Asthma. Patient also reports feeling stressed and not sleeping well due to her sister being admitted to into the hospital last week for a back fracture. Patient is anxious, but is mostly concerned about her cough. No other concerns or complaints expressed at this time. Related Data Home Medications ?Medication ?Instructions ?Recorded ?Confirmed digoxin 125 mcg (0.125 mg) tablet 125 mcg PO DAILY 12/16/23 09/25/24 insulin glargine 100 unit/mL (3 15 unit subcut HS 02/24/24 09/25/24 mL) subcutaneous pen (Lantus Solostar U-100 Insulin) Previous Rx's ?Medication ?Instructions ?Recorded apixaban 5 mg tablet (Eliquis) 5 mg PO BID 1 month #60 tabs 02/12/24 empagliflozin 10 mg tablet 10 mg PO QAM #30 tabs 02/12/24 (Jardiance) ipratropium 0.5 mg-albuterol 3 mg 3 ml inhalation Q4H PRN shortness 02/12/24 (2.5 mg base)/3 mL nebulization of breath or wheezing #90 mL soln metoprolol succinate 25 mg 25 mg PO QDAY #30 tabs 02/12/24 tablet,extended release 24 hr albuterol sulfate 90 mcg/actuation 2 inh inhalation Q4H PRN shortness 03/27/24 aerosol inhaler of breath or wheezing #8.5 grams beclomethasone dipropionate 80 2 inh inhalation BID Asthma #10.6 03/27/24 mcg/actuation HFA breath activated grams aerosol (Qvar RediHaler) furosemide 40 mg tablet 40 mg PO BID 1 month #30 tabs 04/04/24 fluticasone furoate 100 1 inh inhalation Q24H #60 ea 07/02/24 mcg-vilanterol 25 mcg/dose inhalation powder (Breo Ellipta) acetaminophen 500 mg tablet 500 mg PO Q4H PRN fever or pain 08/30/24 (Tylenol Extra Strength) #20 tabs benzonatate 100 mg capsule 100 mg PO TID PRN cough #14 caps 08/30/24 methylprednisolone 4 mg tablets in 4 mg PO QDAY #21 tabs 09/28/24 a dose pack (Medrol (Joe)) amiodarone 200 mg tablet 200 mg PO QDAY #30 tabs 10/16/24 albuterol sulfate 90 mcg/actuation 1 puff inhalation QID PRN 11/25/24 aerosol inhaler shortness of breath or wheezing #8.5 grams amoxicillin 875 mg-potassium 1 tab PO Q12H #20 tabs 12/03/24 clavulanate 125 mg tablet prednisone 50 mg tablet 50 mg PO QDAY #5 tabs 12/03/24 dexamethasone 6 mg tablet 6 mg PO QDAY #4 tabs 02/14/25 fluticasone fur. 100 mcg-umeclid 1 inh inhalation Q24H #28 ea 02/14/25 62.5 mcg-vilant 25 mcg inhalat.powder (Trelegy Ellipta) doxycycline hyclate 50 mg tablet 50 mg PO QDAY #10 tabs 02/25/25 prednisone 50 mg tablet 50 mg PO QDAY #3 tabs 02/25/25 Allergies Allergy/AdvReac Type Severity Reaction Status Date / Time codeine Allergy Severe HIVES, Verified 02/25/25 14:00 SWELLING, DIFF BREATHING meloxicam Allergy Severe Difficulty Verified 02/25/25 14:00 Breathing Review of Systems Review of Systems Systems Reviewed: All systems reviewed, normal except as documented Narrative Review of Systems: Gen: No fever, no chills, no weight loss EYES: No discharge, no visual changes, no pain HEENT: No ear pain, no congestion, no sore throat PULM: Positive cough, positive shortness of breath, no congestion CV: No chest pain, no dyspnea on exertion, no palpitations GI: No nausea, no vomiting, no diarrhea, no pain, no constipation : No frequency, no urgency, no dysuria Musc/skel: No joint pain, no back pain Skin: No rash Psyc: No hallucinations, no depression Heme/Lymph: No easy bleeding or bruising tendencies Neuro: No weakness, no headache Past Medical History Past Medical History NEUROLOGIC: Positive Neurological Disorders and Migraine CARDIAC: Positive Cardiac Disorders, Myocardial Infarction, Cardiac Arrhythmia, Congestive Heart Failure and Hypotension RESPIRATORY: Positive Chronic Obstructive Pulmonary Disease (COPD), Asthma and Pneumonia GASTROINTESTINAL: Positive Gastrointestinal Disorders, Gall Bladder Disease and Obesity REPRODUCTIVE: Positive Previous Pregnancies MUSCULOSKELETAL: Positive Arthritis and Fractures ENDOCRINE: Positive Endocrine Disorders and Diabetes Mellitus Type 2 PSYCHO/SOCIAL: Positive Recreational Drug Use, Depression and Anxiety OTHER HISTORY: Positive Autoimmune Disease, Shingles, Falls and Chicken Pox Family History FAMILY HISTORY: Positive Family Cardiac Disorders, Family Cancer and Family Surgery Surgical History SURGICAL: Positive Abdominal Surgery Social History SMOKING STATUS: Former smoker SECOND HAND EXPOSURE: Yes SUBSTANCE USE: former substance user and amphetamines ED Exam Narrative Physical exam: GENERAL APPEARANCE: AxOx4, generally well-appearing, no acute distress. HEENT: NC, AT. MMM. EOMI, clear conjunctiva, oropharynx clear. NECK: Supple without lymphadenopathy. No stiffness or restricted ROM. HEART: Normal rate and regular rhythm, normal S1/S1, no m/r/g LUNGS: S/P nebulizer treatment lungs are CTAB, moving air well. No crackles or wheezes are heard. ABDOMEN: Soft, nontender, nondistended with good bowel sounds heard. BACK: No midline C/T/L spine pain or deformity, No CVAT, no obvious deformity. EXTREMITIES: Without cyanosis, clubbing or edema. MUSCULOSKELETAL: FROM of all major joints, no chest tenderness NEUROLOGICAL: Grossly nonfocal. Alert and oriented, moving all 4 extremities. CN not formally tested but appear grossly intact. Observed to ambulate with normal gait. Skin: Warm and dry without any rash. Course Course Course Narrative: CXR is ordered for determining the etiology of shortness of breath. Quality Measures none Orders Category Date Time Status EKG (ED ONLY) *Do not use* NOW Care 02/25/25 14:47 Completed EKG (ED Only) Stat Exams 02/25/25 14:47 Draft XR chest 2V Stat Exams 02/25/25 14:46 Completed BNP [B-Type Natriuretic Peptide] Stat Lab 02/25/25 15:18 Completed CBC Stat Lab 02/25/25 15:18 Completed Comprehensive Metabolic Panel Stat Lab 02/25/25 15:18 Completed Troponin I Stat Lab 02/25/25 15:18 Completed Albuterol/Ipratr Rt Mariel [Duoneb Rt Mariel] Med 02/25/25 14:46 Discontinued 3 ml INH X1 ONE Vital Signs Vital signs: Vital Signs Temperature 99.2 F 02/25/25 14:36 Pulse Rate 93 02/25/25 14:36 Respiratory Rate 22 H 02/25/25 14:36 Blood Pressure 126/72 02/25/25 14:36 Pulse Oximetry (%) 88 L 02/25/25 14:36 Oxygen Delivery Method Room Air 02/25/25 14:36 Procedures -ED EKG Interpretation #1: Date of EK02/25/25 Time of EK:52 Rate: 87 Interpretation: Interpreted by me Additional EKG comment: Normal sinus rhythm, HR 87, normal axis, normal interval, no acute ST or T-wave changes, no STEMI. Discharge Plan Plan Patient Disposition: HOME (Self Care) Prescriptions/Referrals Prescriptions/Med Rec: New prednisone 50 mg tablet 50 mg PO QDAY Qty: 3 0RF doxycycline hyclate 50 mg tablet 50 mg PO QDAY Qty: 10 0RF No Action digoxin 125 mcg (0.125 mg) tablet 125 mcg PO DAILY metoprolol succinate 25 mg tablet extended release 24 hr 25 mg PO QDAY Qty: 30 3RF ipratropium-albuterol 0.5 mg-3 mg(2.5 mg base)/3 mL solution for nebulization 3 ml inhalation Q4H PRN (Reason: shortness of breath or wheezing) Qty: 90 0RF Jardiance 10 mg tablet 10 mg PO QAM Qty: 30 3RF Eliquis 5 mg tablet 5 mg PO BID 30 Days Qty: 60 3RF albuterol sulfate 90 mcg/actuation HFA aerosol inhaler 2 inh inhalation Q4H PRN (Reason: shortness of breath or wheezing) Qty: 8.5 0RF Qvar RediHaler 80 mcg/actuation HFA aerosol breath activated 2 inh inhalation BID Qty: 10.6 0RF Rx Instructions: administer with spacer fluticasone furoate-vilanterol [Breo Ellipta] 100-25 mcg/dose blister with device 1 inh inhalation Q24H Qty: 60 0RF benzonatate 100 mg capsule 100 mg PO TID PRN (Reason: cough) Qty: 14 0RF acetaminophen [Tylenol Extra Strength] 500 mg tablet 500 mg PO Q4H PRN (Reason: fever or pain) Qty: 20 0RF dexamethasone 6 mg tablet 6 mg PO QDAY Qty: 4 0RF Trelegy Ellipta 100-62.5-25 mcg blister with device 1 inh inhalation Q24H Qty: 28 0RF insulin glargine [Lantus Solostar U-100 Insulin] 100 unit/mL (3 mL) insulin pen 15 unit SUBCUT HS furosemide 40 mg tablet 40 mg PO BID 30 Days Qty: 30 3RF methylprednisolone [Medrol (Joe)] 4 mg tablets,dose pack 4 mg PO QDAY Qty: 21 0RF amiodarone 200 mg tablet 200 mg PO QDAY Qty: 30 1RF albuterol sulfate 90 mcg/actuation HFA aerosol inhaler 1 puff inhalation QID PRN (Reason: shortness of breath or wheezing) Qty: 8.5 0RF prednisone 50 mg tablet 50 mg PO QDAY Qty: 5 0RF amoxicillin-pot clavulanate 875-125 mg tablet 1 tab PO Q12H Qty: 20 0RF Referrals: Vero Fernández MD [Primary Care Provider] - In 1 week Problem List Clinical Impression: Acute bronchitis, COPD (chronic obstructive pulmonary disease) with acute bronchitis Patient/Caregiver Discharge Instructions Education Materials: ED Bronchitis with Wheezing (Adult) Additional Instructions: Follow-up with your primary care doctor in 3 to 5 days for recheck. You can return to the emergency department sooner if symptoms worsen or if you notice any new, concerning issues. Print Language: Liberian Stand Alone Forms: Cecelia Award Info., Patient Portal Info Letter MDM Narrative MDM hospital course (for use when minimal MDM required): Scribe Attestation: Marilyn Faye, am scribing for and in the presence of Dr. Jacob. Provider Notation: Although this document has been carefully reviewed, there may still be some phonetic and other typographical errors.? These errors are purely grammatical due to imperfections in the software program and should not be construed in any way to? compromise the substance of the patient's medical care during this visit. Clinical Information Provided by: patient Medical Records reviewed [facility] (Reviewed prior ED records from 02/14/25. Patient was seen for Acute exacerbation of chronic obstructive pulmonary disease.) Meds/Rx considered, not ordered None Labs/Rad/Tests considered, not ordered None Chronic Illness/Social Conditions which may negatively complicate care or outcome(s)-explain: Mental health, ETOH/drugs/substance abuse and COPD Explain: Migraine, Myocardial Infarction, Cardiac Arrhythmia, Congestive Heart Failure, Hypotension, Chronic Obstructive Pulmonary Disease (COPD), Asthma, Gall Bladder Disease, Obesity, Arthritis, Diabetes Mellitus Type 2, Depression and Anxiety Labs Labs: interpreted by me and see narrative above Imaging Imaging interpretation: interpreted by me and see narrative above Imaging Interpretation(s): RADIOLOGY Patient: LYDIA WOOD Med. Record#: [id number] Birthdate: 1970 Age/Sex: 54 / F Location: [facility] Attending Dr: Ordering Physician: Sari Painting NP Date of Service: 02/25/25 Procedure(s): XR chest 2V Accession Number(s): [id number] cc: Pete Araiza MD; Vero Fernández MD; Sari Painting NUTRITION MANAGER~ Examination: PA lateral chest 2 views Technique: Upright PA lateral chest 2 views Date and time: February 25, 2025 1606 hrs. Comparison February 14, 2025 Indications: Pneumonia shortness of breath this week. Findings: Mild enlargement cardiac contour Mild central vascular congestion. No current pneumonia or pulmonary edema Significant osteopenia Impression: No current pneumonia or pulmonary edema Dictated By: Pete Araiza MD Signed By: <Electronically signed by Pete Araiza MD in OV> 02/25/25 1616 Medication Administration(s) Medication Administration History Discontinued Medications Albuterol/Ipratropium (Albuterol/Ipratropium (Duoneb) Rt Mariel 3 Ml Nebu) 3 ml INH X1 ONE Stop: 02/25/25 14:47 Last Admin: 02/25/25 15:13 Dose: 3 ml Documented By: RG See above if any Diagnosis Differential Diagnosis ED Complaint MDM: Bronchitis, COPD Exacerbation, URI, Bronchiolitis, Pharyngitis
== END 2025-02-25 17:05 | disposition home or self-care (01) ==
PROVIDERS: Nurse Practitioner Family; Emergency Provider Emergency Medicine; PCP Family Medicine
DX: J20.9 Acute bronchitis, unspecified (principal); J44.0 Chronic obstructive pulmonary disease with (acute) lower respiratory infection; I50.9 Heart failure, unspecified; F41.9 Anxiety disorder, unspecified
CPT/HCPCS: 36415; 71046; 80053; 83880; 84484; 85025; 94640; 96372; 99283; A9270

== ENCOUNTER 2025-03-16 16:58 | Inpatient (IN) | payer MEDICAID, SELFPAY ==
[2025-03-16] VITALS (9 sets, daily range): BP systolic 113–128; BP diastolic 69–83; PULSE 76–88; RESP 19–23; TEMP 36.1–37.1; O2SAT 90–99; BMI 44.4; BMI 44.9; BMI 44.2
--- NOTE | 2025-03-16 17:31 | EKG_ITS ---
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
--- NOTE | 2025-03-16 18:03 | XR_ITS ---
Examination: A degenerative single view Technique one AP portable upright chest single view Date and time: March 16, 2025, 1819 hours Comparison February 25, 2025 INDICATIONS: Shortness of breath and weakness today FINDINGS: Normal heart size Prominent central pulmonary arteries with mild vascular congestion. No lobar pneumonia or pulmonary edema IMPRESSION: Prominent central pulmonary arteries is mild vascular congestion, consider pulmonary artery hypertension
--- NOTE | 2025-03-16 18:15 | EDNOTE_ITS ---
ED SOB =RME/HPI General Chief Complaint: Shortness of Breath/Dyspnea Stated Complaint: CHEST PAIN Time Seen by Provider: 03/16/25 18:02 Arrival date/time: 03/16/25 16:58 RME / HPI RME / HPI Narrative: This section includes all my notes and documentations, including HPI, PE, and ED course. Talha Bishop MD HPI: 54yo female with a history of COPD on 3L/NC, aFib BIBA from home presents to the ED for a chief complaint of worsening shortness of breath x several days. Patient was seen at her PCP's office today and was saturating at 86% room air. Patient denies any fever, chills, cough or any other associated symptoms. No other complaint reported. ROS: All negative except as documented in HPI. Physical Exam: General: Alert and oriented. In mild respiratory distress. Eyes: Conjunctivae and lids clear. ENT: No nasal congestion. Neck: Supple. Heart: RRR. Lungs: Mild respiratory distress. Moderate decreased air movement with wheezing. Abdomen: Soft and nontender. Skin: Warm and dry. Neuro: Alert and oriented X 3. I reviewed EMS notes. I reviewed all diagnostic test results. My interpretation of the EKG is sinus rhythm with no acute ST?T changes. My interpretation of the chest x-ray is no acute findings. Blood tests and urine test unremarkable. ABG showed pH 7.31, pCO2 70, and pHCO3 35. At this point, diagnoses include Acute on chronic respiratory failure with hypoxia, COPD exacerbation. Treatment here included Duoneb and Solumedrol. No significant improvement noted. I discussed the case with our hospitalist. About the presentation and exam and diagnostics and treatments here. And need of further care in the hospital. Will accept the patient. Talha Bishop MD Related Data Home Medications ?Medication ?Instructions ?Recorded ?Confirmed digoxin 125 mcg (0.125 mg) tablet 125 mcg PO DAILY 04/0409/25/24 insulin glargine 100 unit/mL (3 15 unit subcut HS 02/0909/25/24 mL) subcutaneous pen (Lantus Solostar U-100 Insulin) Previous Rx's ?Medication ?Instructions ?Recorded apixaban 5 mg tablet (Eliquis) 5 mg PO BID 1 month #60 tabs 02/12/24 empagliflozin 10 mg tablet 10 mg PO QAM #30 tabs 02/11 (Jardiance) ipratropium 0.5 mg-albuterol 3 mg 3 ml inhalation Q4H PRN shortness 02/12/24 (2.5 mg base)/3 mL nebulization of breath or wheezing #90 mL soln metoprolol succinate 25 mg 25 mg PO QDAY #30 tabs 05/0 01/02 tablet,extended release 24 hr albuterol sulfate 90 mcg/actuation 2 inh inhalation Q4 H PRN shortness 03/27/24 aerosol inhaler of breath or wheezing #8.5 g salvatore beclomethasone dipropionate 80 2 inh inhalation BID As thma #10.6 03/27/24 mcg/actuation HFA breath activated grams aerosol (Qvar RediHaler) furosemide 40 mg tablet 40 mg PO BID 1 month #30 tab s 04/04/24 fluticasone furoate 100 1 inh inhalation Q24H #60 ea 07/02/24 mcg-vilanterol 25 mcg/dose inhalation powder (Breo Ellipta) acetaminophen 500 mg tablet 500 mg PO Q4H PRN fever or pain 08/30/24 (Tylenol Extra Strength) #20 tabs benzonatate 100 mg capsule 100 mg PO TID PRN cough #14 caps 08/30/24 methylprednisolone 4 mg tablets in 4 mg PO QDAY #21 ta bs 09/28/24 a dose pack (Medrol (Joe)) amiodarone 200 mg tablet 200 mg PO QDAY #30 tabs 01/0 03/05 albuterol sulfate 90 mcg/actuation 1 puff inhalation Q ID PRN 11/25/24 aerosol inhaler shortness of breath or wheez ing #8.5 grams amoxicillin 875 mg-potassium 1 tab PO Q12H #20 tabs clavulanate 125 mg tablet prednisone 50 mg tablet 50 mg PO QDAY #5 tabs dexamethasone 6 mg tablet 6 mg PO QDAY #4 tabs 5 fluticasone fur. 100 mcg-umeclid 1 inh inhalation Q24H #28 ea 02/14/25 62.5 mcg-vilant 25 mcg inhalat.powder (Trelegy Ellipta) doxycycline hyclate 50 mg tablet 50 mg PO QDAY #10 tab s 02/25/25 prednisone 50 mg tablet 50 mg PO QDAY #3 tabs Allergies Allergy/AdvReac Type Severity Reaction Status Date / Time codeine Allergy Severe HIVES, Verified 03/16/25 17:39 SWELLING, DIFF BREATHING meloxicam Allergy Severe Difficulty Verified 03/16/25 17:39 Breathing Review of Systems Review of Systems Systems Reviewed: All systems reviewed, normal except as documented Past Medical History Past Medical History NEUROLOGIC: Positive Neurological Disorders and Migraine; Negative Cerebrovascular Accident, Transient Ischemic Attacks (TIA), Dementia, Alzheimer's Disease, Parkinson's Disease, Brain Tumor, Meningitis, Seizures, Epilepsy, Multiple Sclerosis, Cerebral Palsy, Amyotrophic Lateral Sclerosis ( ALS/Savannah Gehrig's), Guillain-Metz Syndrome, Spina Bifida, Paralysis, Peripheral Neuropathy, Aguayo's Palsy, Subdural Hematoma, Head Trauma, Spinal Cord Injury or Traumatic Brain Injury CARDIAC: Positive Cardiac Disorders, Myocardial Infarction, Cardiac Arrhythmia, Atrial Fibrillation, Congestive Heart Failure and Hypotension; Negative Angina, Heart Murmur, Coronary Artery Disease, Atherosclerotic Heart Disease, Peripheral Vascular Disease, Hypercholesterolemia, Aneurysm, Congenital Heart Disease, Valvular Heart Disease, Rheumatic Fever, Cardiomyopathy, Edema, Pericarditis, Cellulitis, Deep Vein Thrombosis, Hypertension or Varicose Veins RESPIRATORY: Positive Chronic Obstructive Pulmonary Disease (COPD), Asthma and Pneumonia; Negative Bronchitis, Emphysema, Pulmonary Fibrosis, Cystic Fibrosis, Tuberculosis, Pulmonary Embolism, Pulmonary Edema or Sleep Apnea GASTROINTESTINAL: Positive Gastrointestinal Disorders, Gall Bladder Disease and Obesity; Negative Hepatitis, Cirrhosis, Pancreatitis, Celiac Disease, Gastrointestinal Bleed, Esophageal Varices, Silverio's Esophagus, Colitis, Ulcerative Colitis, Diverticulitis, Diverticulosis, Ulcer, Colorectal Cancer, Irritable Bowel, Crohn's Disease, Obstructive Bowel, Hiatal Hernia, Hemorrhoids or Gastroesophageal Reflux Disease GENITOURINARY: Negative Genitourinary Disorders, Renal Disease, Kidney Stones, Polycystic Kidney Disease, Neurogenic Bladder, Inguinal Hernia, Dialysis, Prostate Cancer or Benign Prostatic Hyperplasia REPRODUCTIVE: Positive Previous Pregnancies; Negative Breast Cancer, Endometriosis, Genital Herpes, Gonorrhea, Pelvic Inflammatory Disease, Syphilis, Testicular Cancer or Uterine Prolapse MUSCULOSKELETAL: Positive Arthritis and Fractures; Negative Musculoskeletal Disorders, Muscular Dystrophy, Myasthenia Gravis, Marfan's Syndrome, Bone Cancer, Rheumatoid Arthritis, Osteoporosis, Degenerative Disk Disease, Gout, Scoliosis, Carpal Tunnel Syndrome, Fibromyalgia, Degenerative Joint Disease, Osteomyelitis or Poliovirus ENT: Negative Cataracts, Glaucoma, Blind, Retinal Detachment, Macular Degeneration, Ear Infection, Deafness, Head Trauma or Eye Prosthesis ENDOCRINE: Positive Endocrine Disorders and Diabetes Mellitus Type 2; Negative Diabetes Mellitus Type 1, Hypoglycemia, Kingsland's Syndrome, [place]'s Disease, Hyperthyroidism, Hypothyroidism, Parathyroid Disease, Pituitary Disease, Systemic Lupus Erythematosus, Syndrome of Inappropriate Antidiuretic Hormone (SIADH), Adrenal Disease or Graves' Disease HEMATOLOGIC: Negative Blood Disorders, Anemia, Leukemia, Hemophilia, Thalassemia, Sickle Cell Disease or Clotting Problems PSYCHO/SOCIAL: Positive Recreational Drug Use, Depression and Anxiety; Negative Psychiatric Problems, Schizophrenia, Bipolar Disorder, Behavior Problems, Self-Mutilation, Attention Deficit Disorder, Attention Deficit Hyperactivity Disorder, Depression, Post Traumatic Stress Disorder or Eating Disorder OTHER HISTORY: Positive Autoimmune Disease, Shingles, Falls and Chicken Pox; Negative Down Syndrome, Autism, Developmental Delay, Blood Transfusions, Blood Transfusion Reaction, Anesthesia Reactions, Organ Transplant, Chemotherapy, Radiation Therapy, Hyperbaric Therapy, MRSA, VRSA, Vancomycin-Resistant Enterococci, Human Immunodeficiency Virus (HIV), Measles, Mumps, Rubella (French Measles), Pertussis, Clostridium Difficile, Cancer, Breast Cancer, Cervical Cancer, Colorectal Cancer, Lung Cancer, Ovarian Cancer, Prostate Cancer or Testicular Cancer Family History FAMILY HISTORY: Positive Family Cardiac Disorders, Family Cancer and Family Surgery; Negative Family Psychiatric Problems, Family Respiratory Disorders, Family Gastrointestinal Problems or Family Anesthesia Reaction Surgical History SURGICAL: Positive Abdominal Surgery; Negative Cardiac Surgery, Open Heart Surgery, Coronary Artery Bypass Graft, Valve Replacement, Vascular Surgery, Coronary Stent, Cardiac Catheterization, Pacemaker, Angiogram, Auto Implanted Cardiovert Defib, Carotid Endarterectomy, Endocrine Surgery, Thyroidectomy, Ear Surgery, Tympanostomy Tube, Eye Surgery, Nose Surgery, Oral Surgery, Tonsillectomy, Adenoidectomy, Cochlear Implant, Corneal Transplant, Throat Surgery, Tracheostomy, Gastrostomy, Bowel Surgery, Nephrectomy, Transurethral Resection, Joint Replacement, Amputation, Open Reduction Internal Fixation, Arthroscopy, Neurologic Surgery, Brain Shunt, Mastectomy, Lumpectomy, Hysterectomy, Tubal Ligation, Section or Organ Transplant Social History SMOKING STATUS: Former smoker SECOND HAND EXPOSURE: Yes SUBSTANCE USE: former substance user and amphetamines ED Exam Narrative Physical exam: As noted in HPI. Course Course Course Narrative: CXR is ordered for determining the etiology of shortness of breath. Quality Measures none Orders Category Date Time Status Bedside COVID-19 Antigen Test NOW [facility] [place] 03/16/25 18:02 Active Bedside Influenza A&B Antigen Test NOW [facility] 03/16/25 18:02 Completed COVID-19 Screening Questionnaire NOW Care 03/16/25 20:[address] Screening NOW Care 03/16/25 18:03 Active Decision to Admit X1 Care 03/16/25 20:25 Completed EKG (ED ONLY) *Do not use* NOW Care 03/16/25 17:31 Completed Saline [Insert IV] NOW Care 03/16/25 18:02 Active Straight [In and Out Catheter] X1 Care 03/16/25 18:[address] angio chest Stat Exams 03/16/25 18:03 Stop Req EKG (ED Only) Stat Exams 03/16/25 17:31 Draft XR chest 1V portable Stat Exams 03/16/25 18:03 Completed ABG [Arterial Blood Gas] Stat Lab 03/16/25 18:44 Completed BNP [B-Type Natriuretic Peptide] Stat Lab 03/16/25 18:18 Completed Bilirubin,Direct Stat Lab 03/16/25 18:18 Completed CBC Stat Lab 03/16/25 18:18 Completed CMP [Comprehensive Metabolic Panel] Stat Lab 03/16/25 18:18 Completed D-Dimer Stat Lab 03/16/25 18:18 Completed Free T4 (Free Thyroxine) Stat Lab 03/16/25 18:18 Completed Magnesium Stat Lab 03/16/25 18:18 Completed TSH [Thyroid Stimulating Hormone] Stat Lab 03/16/25 18:18 Completed Troponin I Stat Lab 03/16/25 18:18 Completed UA, C/S IF [Urinalysis, C/S if Indicated] Stat Lab 03/16/25 18:30 Completed Albuterol/Ipratr Rt Mariel [Duoneb Rt Mariel] Med 03/16/25 18:03 Discontinued 3 ml INH X1 ONE MethylPREDNISolone.* [SoluMEDROL Inj] Med 03/16/25 18:03 Discontinued 125 mg IVP X1 ONE Vital Signs Vital signs: Vital Signs Temperature 98.7 F 03/16/25 17:02 Pulse Rate 87 03/16/25 17:02 Respiratory Rate 20 03/16/25 17:02 Blood Pressure 124/72 03/16/25 17:02 Pulse Oximetry (%) 90 L 03/16/25 17:02 Oxygen Delivery Method Nasal Cannula 03/16/25 17:02 Oxygen Flow Rate 4 03/16/25 17:02 Shortness of Breath / Dyspnea MDM Narrative MDM Narrative:: Scribe Attestation: 03/16/25 - Nina Faye am scribing for and in the presence of Dr. Bishop. 54yo female with a history of COPD on 3L/NC, aFib BIBA from home presents to the ED for a chief complaint of worsening shortness of breath x today. Patient was seen at her PCP's office today and was saturating at 86% room air. Patient states she has been out of her oxygen at home. Patient denies any fever, chills, cough or any other associated symptoms. No other complaint reported. Patient data External records reviewed:: [facility] previous records (Per chart review, patient was seen here on 02/25/25 for acute bronchitis.) Clinical information provided by:: patient Social determinants that could affect healthcare access:: none Patient has the following chronic illnesses:: COPD, aFib How is presenting disease/condition affected by chronic disease/condition?: exacerbated by Evaluation data The following diagnostics were reviewed and interpreted by me:: lab results, radiology exam(s) and EKG tracing(s) Lab and/or radiology exams considered but not ordered:: none Interpretation Summary: I reviewed all diagnostic test results. My interpretation of the EKG is sinus rhythm with no acute ST?T changes. My interpretation of the chest x-ray is no acute findings. Blood tests and urine test unremarkable. ABG showed pH 7.31, pCO2 70, and pHCO3 35. Medications / Prescriptions Medications or Prescriptions considered but not ordered:: none Medication administrations:: Medication Administration History Acetaminophen (Acetaminophen 325 Mg Tablet) 650 mg PO Q6H PRN PRN Reason: Fever >99.5 Stop: 04/15/25 20:46 Acetaminophen (Acetaminophen 325 Mg Tablet) 1,000 mg PO Q6H PRN PRN Reason: PAIN SCALE 1-3 (mild Stop: 04/15/25 20:46 Albuterol/Ipratropium (Albuterol/Ipratropium (Duoneb) Rt Mariel 3 Ml Nebu) 3 ml INH Q6HRRT CONSTANZA Stop: 04/16/25 00:59 Albuterol/Ipratropium (Albuterol/Ipratropium (Duoneb) Rt Mariel 3 Ml Nebu) 3 ml INH Q2HR PRN PRN Reason: SHORTNESS OF BREATH OR WHEEZE Stop: 04/15/25 20:52 Amiodarone HCl (Amiodarone Hcl 200 Mg Tablet) 200 mg PO QDAY [facility] Stop: 04/16/25 08:59 Apixaban (Apixaban 2.5 Mg Tablet) 5 mg PO BID CONSTANZA Stop: 04/15/25 20:59 Last Admin: 03/16/25 22:05 Dose: 5 mg Documented By: CCT Azithromycin (Azithromycin 250 Mg Tablet) 500 mg PO QDAY [facility] Stop: 03/24/25 08:59 Dextrose (Dextrose 50%-Water Inj 50 Ml Syringe) 25 ml IV Q15MIN PRN PRN Reason: BG 50-70 responsive npo pt Stop: 04/15/25 20:57 Dextrose (Dextrose 50%-Water Inj 50 Ml Syringe) 50 ml IV Q15MIN PRN PRN Reason: BG <50 OR BG <70 & pt unresponsive Stop: 04/15/25 20:57 Furosemide (Furosemide Inj 10 Mg/Ml 4ml Vial) 40 mg IVP BIDD [facility] Stop: 04/16/25 05:59 Glucagon (Glucagon Inj 1 Mg Vial) 1 mg IM Q15MIN PRN PRN Reason: BG <70, and no IV access Ceftriaxone Sodium/Dextrose (Rocephin/D5w 1gm Iv Premix) 1 gm in 50 mls @ 100 mls/hr IV QDAY [facility] Stop: 03/23/25 20:51 Last Admin: 03/16/25 22:06 Dose: 100 mls/hr Documented By: CCT Insulin Human Lispro (Insulin Lispro (Admelog) 1 Unit/0.01 Ml Unit) 0 unit SC [facility]; Protocol Stop: 04/16/25 07:29 Methylprednisolone Sodium Succinate (Methylprednisolone Sod Succ 40 Mg Vial) 40 mg IVP QDAY [facility] Stop: 03/24/25 08:59 Ondansetron HCl (Ondansetron Inj 2 Mg/Ml Inj 2 Ml) 4 mg IVP Q6H PRN; Protocol PRN Reason: NAUSEA OR VOMITING Stop: 04/15/25 20:46 Sodium Chloride (Sodium Chloride Rt Mariel 0.9% 3 Ml Nebu) 3 ml INH PRN PRN PRN Reason: SOLN Stop: 04/15/25 20:46 Discontinued Medications Albuterol/Ipratropium (Albuterol/Ipratropium (Duoneb) Rt Mariel 3 Ml Nebu) 3 ml INH X1 ONE Stop: 03/16/25 18:04 Last Admin: 03/16/25 18:36 Dose: 3 ml Documented By: NE Ipratropium Roundup (Ipratropium Rt 0.5 Mg/ 2.5 Ml Nebu) mg INH Q6HRRT [facility] Stop: 04/16/25 00:59 Levalbuterol HCl (Levalbuterol Rt 1.25 Mg/0.5 Ml Nebu) 1.25 mg INH Q6HRRT [facility] Stop: 04/16/25 00:59 Methylprednisolone Sodium Succinate (Methylprednisolone Sod Succ 62.5 Mg/Ml 2ml Vial) 125 mg IVP X1 ONE Stop: 03/16/25 18:04 Last Admin: 03/16/25 19:37 Dose: 125 mg Documented By: CCT From [place], patient received oxygen, Duoneb, Solumedrol. Consultations Consultation(s) initiated? (list below): No Diagnosis Shortness of Breath Differential Diagnosis: acute exacerbation of chronic obstructive airways disease, congestive heart failure, community acquired pneumonia, asthma with exacerbation and pulmonary embolism Most likely diagnosis given after review of the tests above:: Acute on chronic respiratory failure with hypoxia, COPD exacerbation Admission Indicated Admission indicated?: indicated Explain why admission is indicated or not indicated:: Acute respiratory failure. Admission Request Was there a request for admission?: Yes Admission Attestation Admission request attestation: Discussed case with Hospitalist service regarding admission. Discussed patients ED course, exam findings, labs, and radiology results. The Hospitalist [agrees] to accept the patient for admission. Disposition Plan Disposition Plan: Admit Discharge Plan Plan Patient Disposition: Admit Acute Care w/in Hospital Problem List Clinical Impression: Acute on chronic respiratory failure with hypoxia, COPD exacerbation
[2025-03-16 18:33] LABS: Basophils % (Auto) 0 % (0-2.5); Eosinophils # (Auto) 0.1 Thou/mm3 (0.0-0.5); Eosinophils % (Auto) 2 % (0-10); Hematocrit 40.8 % (36.0-46.0); Hemoglobin 13.4 g/dL (12.0-16.0); Immature Granulocytes % (Auto) 1 % (0-0); Immature Granulocytes Auto 0.04 Thou/mm3 (0.00-0.00); Lymphocytes # (Auto) 0.9 Thou/mm3 (1.0-4.8); Lymphocytes % (Auto) 19 % (10-50); Mean Corpuscular HGB Conc 32.8 g/dl (31.0-37.0); Mean Corpuscular Hemoglobin 28.6 pg (25.0-35.0); Mean Corpuscular Volume 87 fL (80-100); Monocytes # (Auto) 0.4 Thou/mm3 (0.0-0.8); Monocytes % (Auto) 9 % (0-12); Neutrophils # (Auto) 3.2 Thou/mm3 (1.8-7.7); Neutrophils % (Auto) 69 % (37-80); Nucleated Red Blood Cell % 0 /100 WBC (0); Platelet Count 122 Thou/mm3 (140-440); RDW Standard Deviation 45.1 fL (36.4-46.3); Red Blood Count 4.68 Miln/mm3 (4.00-5.20); White Blood Count 4.6 Thou/mm3 (3.6-11.0)
[2025-03-16] MEDS: ALBUTEROL/IPRATROPIUM (Duoneb) RT SOL 3 ML NEBU INH (18:36)
[2025-03-16 18:38] LABS: Collection Type, Urine Clean Catch; Squamous Epithelial Cell,Urine 0 /hpf (0-5)
[2025-03-16 18:43] LABS: B-Type Natriuretic Peptide < 20 pg/mL (0-100)
[2025-03-16 18:52] LABS: Alanine Aminotransferase 25 U/L (10-49); Albumin, Serum 4.5 gm/dL (3.5-5.0); Albumin/Globulin Ratio 2.3 (1.2-2.2); Alkaline Phosphatase 105 U/L (46-116); Anion Gap 10 (7-16); Aspartate Amino Transferase 20 U/L (0-34); BUN/Creatinine Ratio 11 Ratio (12-20); Bilirubin,Direct 0.2 mg/dL (0.0-0.3); Blood Urea Nitrogen 9 mg/dL (9-23); Calcium 9.2 mg/dL (8.3-10.6); Calcium (Corrected) 9.2 mg/dL (8.5-10.1); Carbon Dioxide 28.7 mMol/L (20.0-31.0); Chloride 100 mMol/L (98-107); Creatinine (Component) 0.8 mg/dL (0.6-1.3); Estimated Creatinine Clearance 84.1 mL/min (>60); Free T4 (Free Thyroxine) 1.18 ng/dL (0.89-1.76); Glucose 360 mg/dL (74-106); Magnesium 1.7 mg/dL (1.6-2.6); Osmolality,Calculated 291 (275-295); Potassium 4.2 mMol/L (3.4-5.1); Sodium 139 mMol/L (136-145); Thyroid Stimulating Hormone 6.39 uIU/mL (0.55-4.78); Total Protein 6.5 gm/dL (5.7-8.2); Troponin I < 0.020 ng/mL (0.0-0.045); eGFR > 60 See Note
[2025-03-16 18:57] LABS: Bacteria,Urine Rare; Bilirubin,Urine Negative (Negative); Blood,Urine Negative (Negative); Clarity,Urine Clear (Clear/Hazy); Color,Urine Lt-Yellow (Lt Yel-Yel); Culture Indicated,Urine Not Indicated; Glucose, Urine 4+ (Negative); Ketones,Urine Negative (Negative); Leukocyte Esterase,Urine Negative (Negative); Nitrite,Urine Negative (Negative); PH,Urine 6.5 (5.0-7.0); Protein,Urine Negative (Neg - Trace); RBC,Urine 12 /hpf (0-3); Urobilinogen,Urine Negative mg/dL (0.0-1.0); WBC,Urine 1 /hpf (0-5)
[2025-03-16 19:08] LABS: Allen Test Performed/OK; Base Excess 6 (-3-3); HCO3 35 mEq/L (20-26); Inspired O2, VO2 Liters 3 L/min; Inspired Oxygen, FIO2 21 %; O2 Saturation 100 % (91-98); PCO2 70 mmHg (32.0-48.0); PO2 145 mmHg (83-108); Puncture Site Right Radial; pH, Arterial 7.31 (7.35-7.45)
[2025-03-16 19:20] LABS: D-Dimer < 250 ng/mL (<600)
[2025-03-16] MEDS: MethylPREDNISolone SOD SUCC 62.5 MG/ML 2ML VIAL 125 MG IVP (19:37)
--- NOTE | 2025-03-16 20:55 | PD.RESHP ---
Documentation for date of: 03/16/25 HPI History of Present Illness Chief complaint: Shortness of breath History of present illness: 54-year-old female with past medical history of diabetes, CHF, atrial fibrillation on Eliquis, COPD who presented to the ED due to shortness of breath. Patient describes having progressive shortness of breath for the past 2 to 3 days. Patient went to her PCP to have her home oxygen prescription however in the office they found her to be desaturating in the 80s and was sent here to the ER. She also endorsed some chest pressure nonradiating that improved with some nitroglycerin, however troponins are negative, D-dimers negative as well. At this time patient denies any clear vision, nausea, vomiting, fever, chills, chest pain, shortness of breath, abdominal pain, recent travel, sick contacts. Patient will be admitted for COPD exacerbation. 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 F Hx: Unknown Review of Systems Review of Systems Systems Reviewed: All systems reviewed, normal except as documented Narrative Review of Systems: All 12 systems reviewed and found normal unless otherwise stated in the HPI. Exam Vital Signs Temp Pulse Resp BP Pulse Ox O2 Del Method O2 Flow Rate 98.4 F 58 L 24 H 113/69 94 L Nasal Cannula 3 03/16/25 18:24 03/16/25 18:37 03/16/25 18:37 03/16/25 18:24 03/16/25 18:37 03/16/25 18:24 03/16/25 18:37 Narrative Exam Physical Exam GENERAL: NAD, AAOx3, obese HEENT: Moist mucosa. Eyes open, symmetrical, & clear CARDIO: Heart RRR, no obvious murmurs PULM: Positive dyspnea, bilateral wheezing on auscultation GI: Abdomen soft, nondistended, no pain on palpation. BSx4 SKIN/MSK/EXT: Trace lower extremity edema up to the ankles, no pain on palpation. Pedal pulses present B/L NEURO: AAOx3, no focal neuro deficits, able to move all 4 extremities Results: Labs 03/17/25 05:03 03/16/25 18:18 Labs: Short CBC 03/16/25 Range/Units 18:18 WBC 4.6 (3.6-11.0) Thou/mm3 Hgb 13.4 (12.0-16.0) g/dL Hct 40.8 (36.0-46.0) % Plt Count 122 L D (140-440) Thou/mm3 BMP 03/16/25 18:18 Sodium 139 Potassium 4.2 Chloride 100 Carbon Dioxide 28.7 BUN 9 Creatinine 0.8 Glucose 360 H Calcium 9.2 Cardiac Enzymes 03/16/25 Range/Units 18:18 Troponin I < 0.020 (0.0-0.045) ng/mL Liver Function 03/16/25 Range/Units 18:18 Total Bilirubin 1.0 (0.3-1.2) mg/dL Direct Bilirubin 0.2 (0.0-0.3) mg/dL AST 20 (0-34) U/L ALT 25 (10-49) U/L Alkaline Phosphatase 105 (46-116) U/L Albumin 4.5 (3.5-5.0) gm/dL Urine 03/16/25 Range/Units 18:30 Urine Color Lt-Yellow (Lt Yel-Yel) Urine Clarity Clear (Clear/Hazy) Urine pH 6.5 (5.0-7.0) Ur Specific [place] 1.040 H (1.001-1.035) Urine Protein Negative (Neg - Trace) Urine Glucose (UA) 4+ A (Negative) ABG Interpretation ABG results: 03/16/25 18:44 ABG pH 7.31 L ABG pCO2 70 H ABG pO2 145 H ABG HCO3 35 H ABG O2 Saturation 100 H ABG Base Excess 6 H Quality Measures Quality Measures none Medications Home Medications and Allergies Home Medications ?Medication ?Instructions ?Recorded ?Confirmed ?Type digoxin 125 mcg (0.125 mg) tablet 125 mcg PO DAILY 12/16/23 03/16/25 History insulin glargine 100 unit/mL (3 10 unit subcut HS 02/24/24 03/16/25 History mL) subcutaneous pen (Lantus Solostar U-100 Insulin) baclofen 20 mg tablet 20 mg PO 3XD 03/16/25 03/16/25 History furosemide 40 mg tablet 20 mg PO BID 03/16/25 03/16/25 History Allergies Allergy/AdvReac Type Severity Reaction Status Date / Time codeine Allergy Severe HIVES, Verified 03/16/25 17:39 SWELLING, DIFF BREATHING meloxicam Allergy Severe Difficulty Verified 03/16/25 17:39 Breathing Visit Medications Acetaminophen (Acetaminophen 325 Mg Tablet) 650 mg PO Q6H PRN PRN Reason: Fever >99.5 Stop: 04/15/25 20:46 Acetaminophen (Acetaminophen 325 Mg Tablet) 1,000 mg PO Q6H PRN PRN Reason: PAIN SCALE 1-3 (mild Stop: 04/15/25 20:46 Albuterol/Ipratropium (Albuterol/Ipratropium (Duoneb) Rt Mariel 3 Ml Nebu) 3 ml INH Q6HRRT CONSTANZA Stop: 04/16/25 00:59 Albuterol/Ipratropium (Albuterol/Ipratropium (Duoneb) Rt Mariel 3 Ml Nebu) 3 ml INH Q2HR PRN PRN Reason: SHORTNESS OF BREATH OR WHEEZE Stop: 04/15/25 20:52 Apixaban (Apixaban 2.5 Mg Tablet) 5 mg PO BID CONSTANZA Stop: 04/15/25 20:59 Azithromycin (Azithromycin 250 Mg Tablet) 500 mg PO QDAY [facility] Stop: 03/24/25 08:59 Ceftriaxone Sodium/Dextrose (Rocephin/D5w 1gm Iv Premix) 1 gm in 50 mls @ 100 mls/hr IV QDAY CONSTANZA Stop: 03/23/25 20:51 Methylprednisolone Sodium Succinate (Methylprednisolone Sod Succ 40 Mg Vial) 40 mg IVP QDAY CONSTANZA Stop: 03/24/25 08:59 Ondansetron HCl (Ondansetron Inj 2 Mg/Ml Inj 2 Ml) 4 mg IVP Q6H PRN; Protocol PRN Reason: NAUSEA OR VOMITING Stop: 04/15/25 20:46 Sodium Chloride (Sodium Chloride Rt Mariel 0.9% 3 Ml Nebu) 3 ml INH PRN PRN PRN Reason: SOLN Stop: 04/15/25 20:46 Discontinued Medications Albuterol/Ipratropium (Albuterol/Ipratropium (Duoneb) Rt Mariel 3 Ml Nebu) 3 ml INH X1 ONE Stop: 03/16/25 18:04 Last Admin: 03/16/25 18:36 Dose: 3 ml Ipratropium [place] (Ipratropium Rt 0.5 Mg/ 2.5 Ml Nebu) mg INH Q6HRRT CONSTANZA Stop: 04/16/25 00:59 Levalbuterol HCl (Levalbuterol Rt 1.25 Mg/0.5 Ml Nebu) 1.25 mg INH Q6HRRT CONSTANZA Stop: 04/16/25 00:59 Methylprednisolone Sodium Succinate (Methylprednisolone Sod Succ 62.5 Mg/Ml 2ml Vial) 125 mg IVP X1 ONE Stop: 03/16/25 18:04 Last Admin: 03/16/25 19:37 Dose: 125 mg Assessment & Plan Plan 54-year-old female with past medical history as stated above who presented to the ED with shortness of breath. Patient will be admitted for COPD exacerbation #COPD exacerbation Patient presented with shortness of breath has been progressive for the past 2 to 3 days, patient ran out of oxygen and went to her PCP to get prescription filled however was found to be desatting and was sent to the ER. Cardinal symptoms (dyspnea, increased sputum production, wheezing) Chest x-ray: Vascular congestion possibly pulmonary hypertension ? Ceftriaxone ? Azithromycin ? DuoNebs scheduled and as needed ? Methylprednisolone 40 mg IV daily ? Oxygen goal 88 to 92% #Diabetes mellitus type 2 Last A1c: 8.7, 2023 ? SSI ? Hypoglycemia protocol in place #A-fib #CHF #? Pulmonary hypertension Med rec ordered ? Resumed Eliquis ? Resumed amiodarone ? Echo ordered ? Resume Lasix Health Maintenance: Disposition: Observation for COPD exacerbation Fluids: None Feeding: Low-sodium Thrombo prophylaxis: Eliquis Gastric Ulcer prophylaxis: Not indicated CODE STATUS: Full code Case discussed with my attending Dr. Nick Carnes MD PGY-1 Attending Provider Attestation/Addendum I have examined the patient, reviewed labs and imaging findings, discussed the case with the resident(s), and reviewed entered orders. I agree with the plan of care as outlined in this note, with these additional summaries/recommendations: 54-year-old female with past medical history of A-fib, CHF, COPD on home O2 3 L presented to the ED after being sent in by primary care provider for chest pain, shortness of breath, hypoxia in clinic with O2 sat 86% on room air. Patient reports he ran out of portable oxygen and unable to get a new one prescribed at this time. On exam patient found to have labored breathing, significant wheezing bilaterally. Labs showed acute respiratory acidosis with pH 7.31 and PCO2 of 70. Will admit patient for acute on chronic hypoxic/hypercapnic respiratory failure and COPD exacerbation with steroids and DuoNebs. Daniel Romero MD
--- NOTE | 2025-03-16 22:00 | PC.NURSE ---
Report given to AGNES Hernández med-surg
[2025-03-16] MEDS: APIXABAN 2.5 MG TABLET 5 MG PO (22:05)
[2025-03-16] MEDS: cefTRIAXone/D5w 1gm IV premix 1 GM/50 ML BAG IV (22:06)
[2025-03-16] MEDS: INSULIN LISPRO (AdmeLOG) 1 UNIT/0.01 ML UNIT 5 UNIT SC (23:16)
[2025-03-17] VITALS (16 sets, daily range): BP systolic 107–135; BP diastolic 66–84; PULSE 70–103; RESP 17–23; TEMP 35.9–36.8; O2SAT 92–99; BMI 44.1
[2025-03-17] MEDS: ACETAMINOPHEN 325 MG TABLET 1000 MG PO ×2 (00:11→19:26)
[2025-03-17] MEDS: FUROSEMIDE INJ 10 MG/ML 4ML VIAL 40 MG IVP ×2 (05:54→18:24)
[2025-03-17 05:59] LABS: Basophils % (Auto) 0 % (0-2.5); Eosinophils % (Auto) 0 % (0-10); Hematocrit 44.6 % (36.0-46.0); Immature Granulocytes % (Auto) 2 % (0-0); Immature Granulocytes Auto 0.09 Thou/mm3 (0.00-0.00); Lymphocytes # (Auto) 0.6 Thou/mm3 (1.0-4.8); Lymphocytes % (Auto) 11 % (10-50); Mean Corpuscular HGB Conc 31.4 g/dl (31.0-37.0); Mean Corpuscular Volume 92 fL (80-100); Monocytes # (Auto) 0.1 Thou/mm3 (0.0-0.8); Monocytes % (Auto) 2 % (0-12); Neutrophils # (Auto) 5.1 Thou/mm3 (1.8-7.7); Neutrophils % (Auto) 86 % (37-80); Nucleated Red Blood Cell % 0 /100 WBC (0); Platelet Count 127 Thou/mm3 (140-440); RDW Standard Deviation 46.4 fL (36.4-46.3); Red Blood Count 4.83 Miln/mm3 (4.00-5.20); White Blood Count 5.9 Thou/mm3 (3.6-11.0)
[2025-03-17 06:07] LABS: Glucose Estimated Average 289 mg/dL (80-131); Hemoglobin A1C 11.7 % Hgb (4.8-6.0)
[2025-03-17 06:24] LABS: Alanine Aminotransferase 24 U/L (10-49); Albumin, Serum 4.5 gm/dL (3.5-5.0); Albumin/Globulin Ratio 2.3 (1.2-2.2); Alkaline Phosphatase 107 U/L (46-116); Anion Gap 8 (7-16); Aspartate Amino Transferase 23 U/L (0-34); BUN/Creatinine Ratio 15 Ratio (12-20); Bilirubin,Total 0.9 mg/dL (0.3-1.2); Blood Urea Nitrogen 12 mg/dL (9-23); Carbon Dioxide 32.2 mMol/L (20.0-31.0); Chloride 94 mMol/L (98-107); Creatinine (Component) 0.8 mg/dL (0.6-1.3); Estimated Creatinine Clearance 83.3 mL/min (>60); Magnesium 1.8 mg/dL (1.6-2.6); Osmolality,Calculated 287 (275-295); Phosphorous 4.7 mg/dL (2.4-5.1); Potassium 5.1 mMol/L (3.4-5.1); Sodium 134 mMol/L (136-145); Total Protein 6.5 gm/dL (5.7-8.2); eGFR > 60 See Note
[2025-03-17 06:37] LABS: Amphetamine/Methamp Scrn,U Negative (Negative); Barbiturate Screen,Urine Negative (Negative); Benzodiazepines Screen,Urine Negative (Negative); Benzoylecgonine Screen, Ur Negative (Negative); Fentanyl Screen,Urine Negative (Negative); Opiate Screen,Urine Negative (Negative); THC Screen,Urine Negative (Negative)
[2025-03-17 06:37] LABS: Glucose 459 mg/dL (74-106)
[2025-03-17] MEDS: ALBUTEROL/IPRATROPIUM (Duoneb) RT SOL 3 ML NEBU INH ×3 (07:00→19:32)
[2025-03-17] MEDS: INSULIN LISPRO (AdmeLOG) 1 UNIT/0.01 ML UNIT 10 UNIT SC (07:07)
[2025-03-17] MEDS: INSULIN GLARGINE (Lantus) 5 UNIT/0.05 ML (PER 5 UNITS) 15 UNIT SC (07:52)
[2025-03-17] MEDS: ACETAMINOPHEN 325 MG TABLET 650 MG PO (07:52)
[2025-03-17] MEDS: INSULIN LISPRO (AdmeLOG) 1 UNIT/0.01 ML UNIT 9 UNIT SC (07:53)
[2025-03-17] MEDS: INSULIN LISPRO (AdmeLOG) 1 UNIT/0.01 ML UNIT SC ×3 (07:53→18:22)
[2025-03-17] MEDS: cefTRIAXone/D5w 1gm IV premix 1 GM/50 ML BAG IV (09:17)
[2025-03-17] MEDS: APIXABAN 2.5 MG TABLET 5 MG PO ×2 (09:18→20:20)
[2025-03-17] MEDS: AMIODARONE HCL 200 MG TABLET PO (09:18)
[2025-03-17] MEDS: AZITHROMYCIN 250 MG TABLET 500 MG PO (09:18)
--- NOTE | 2025-03-17 10:58 | ESPR_ITS ---
<Statement entered by Montse Bojorquez MD - 03/31/25 14:02> I reviewed above note and agree with findings and plans. I have also personally examined the patient with medicine team and went over assessment and plan with medical team including editorial intern and resident physician. Documentation for date of: 03/17/25 Subjective Subjective Interval history: Overnight admission. Seen and examined at bedside and states that she is still short of breath but improved compared to prior. Upon further history taking, given chest pressure that was relieved with nitroglycerin, we will obtain an EKG and repeat troponin although original troponins on admission were negative. Blood sugars also noted to be significantly elevated that peaked at 574. Have since discontinued steroids and given a total of 60 units short acting insulin and 15 units glargine, with sugars downtrending to 475. Will closely monitor and adjust insulin as necessary. Also noted to be flu positive and started on oseltamavir. Exam Vital Signs Temp Pulse Resp BP Pulse Ox O2 Del Method O2 Flow Rate 97.7 F 81 23 H 113/84 94 L Nasal Cannula 4 03/17/25 08:00 03/17/25 09:18 03/17/25 08:00 03/17/25 09:18 03/17/25 08:00 03/17/25 08:00 03/17/25 08:00 Narrative Exam General: AOx3, no acute distress, able to speak full sentences HEENT: NC/AT, mucous membranes moist, bilateral sclera anicteric Cardiovascular: regular rate and rhythm, S1/S2 present, no murmurs appreciated Pulmonary: mild wheezing bilaterally Abdominal: obese, soft, non-tender, non-distended, no rebound/guarding, normal bowel sounds present Musculoskeletal: normal ROM, no peripheral edema Skin: warm and dry, intact, no rashes Neuro: CN II-XII intact, no focal deficits Objective Labs 03/17/25 05:03 03/17/25 05:03 Labs: Laboratory Results - last 24 hr 03/16/25 03/16/25 03/16/25 18:18 18:30 18:44 WBC 4.6 RBC 4.68 Hgb 13.4 Hct 40.8 MCV 87 MCH 28.6 MCHC 32.8 RDW Std Deviation 45.1 Plt Count 122 L D Neut % (Auto) 69 Lymph % (Auto) 19 [place] % (Auto) 9 Eos % (Auto) 2 Baso % (Auto) 0 Neut # (Auto) 3.2 Lymph # (Auto) 0.9 L [place] # (Auto) 0.4 Eos # (Auto) 0.1 Baso # (Auto) 0.0 Immature Gran # (Auto) 0.04 H Absolute Nucleated RBC 0.00 Immature Gran % 1 H Nucleated RBC % 0 D-Dimer < 250 Puncture Site Right Radial ABG pH 7.31 L ABG pCO2 70 H ABG pO2 145 H ABG HCO3 35 H ABG O2 Saturation 100 H ABG Base Excess 6 H Oxygen Liter Flow 3 FiO2 21 Sodium 139 Potassium 4.2 Chloride 100 Carbon Dioxide 28.7 Anion Gap 10 BUN 9 Creatinine 0.8 Estim Creat Clear Calc 84.1 eGFR > 60 BUN/Creatinine Ratio 11 L Glucose [address] Glu mg/dL Hemoglobin A1c Calculated Osmolality 291 Calcium 9.2 Corrected Calcium 9.2 Phosphorus Magnesium 1.7 Total Bilirubin 1.0 Direct Bilirubin 0.2 AST 20 ALT 25 Alkaline Phosphatase 105 Troponin I < 0.020 B-Natriuretic Peptide < 20 Total Protein 6.5 Albumin 4.5 Globulin 2.0 L Albumin/Globulin Ratio 2.3 H TSH 6.39 H Free T4 1.18 Ur Collection Type Clean Catch Urine Color Lt-Yellow Urine Clarity Clear Urine pH 6.5 Ur Specific [place] 1.040 H Urine Protein Negative Urine Glucose (UA) 4+ A Urine Ketones Negative Urine Blood Negative Urine Nitrite Negative Urine Bilirubin Negative Urine Urobilinogen (Auto) Negative Ur Leukocyte Esterase Negative Urine RBC 12 H Urine WBC 1 Ur Squamous Epith Cells 0 Urine Bacteria Rare Ur Culture Indicated? Not Indicated Urine Opiates Screen Negative Urine Fentanyl Screen Negative Ur Barbiturates Screen Negative U Amphetamin/Meth Scrn Negative U Benzodiazepines Scrn Negative U Cocaine Metab Screen Negative U Marijuana (THC) Screen Negative 03/17/25 05:03 WBC 5.9 RBC 4.83 Hgb 14.0 Hct 44.6 MCV 92 MCH 29.0 MCHC 31.4 RDW Std Deviation 46.4 H Plt Count 127 L Neut % (Auto) 86 H Lymph % (Auto) 11 [place] % (Auto) 2 Eos % (Auto) 0 Baso % (Auto) 0 Neut # (Auto) 5.1 Lymph # (Auto) 0.6 L [place] # (Auto) 0.1 Eos # (Auto) 0.0 Baso # (Auto) 0.0 Immature Gran # (Auto) 0.09 H Absolute Nucleated RBC 0.00 Immature Gran % 2 H Nucleated RBC % 0 D-Dimer Puncture Site ABG pH ABG pCO2 ABG pO2 ABG HCO3 ABG O2 Saturation ABG Base Excess Oxygen Liter Flow FiO2 Sodium 134 L Potassium 5.1 D Chloride 94 L Carbon Dioxide 32.2 H Anion Gap 8 BUN 12 Creatinine 0.8 Estim Creat Clear Calc 83.3 eGFR > 60 BUN/Creatinine Ratio 15 Glucose 459 H* D Estimated Ave Glu mg/dL 289 H Hemoglobin A1c 11.7 H Calculated Osmolality 287 Calcium 10.0 Corrected Calcium 10.0 Phosphorus 4.7 Magnesium 1.8 Total Bilirubin 0.9 Direct Bilirubin AST 23 ALT 24 Alkaline Phosphatase 107 Troponin I B-Natriuretic Peptide Total Protein 6.5 Albumin 4.5 Globulin 2.0 L Albumin/Globulin Ratio 2.3 H TSH Free T4 Ur Collection Type Urine Color Urine Clarity Urine pH Ur Specific [place] Urine Protein Urine Glucose (UA) Urine Ketones Urine Blood Urine Nitrite Urine Bilirubin Urine Urobilinogen (Auto) Ur Leukocyte Esterase Urine RBC Urine WBC Ur Squamous Epith Cells Urine Bacteria Ur Culture Indicated? Urine Opiates Screen Urine Fentanyl Screen Ur Barbiturates Screen U Amphetamin/Meth Scrn U Benzodiazepines Scrn U Cocaine Metab Screen U Marijuana (THC) Screen ABG Interpretation ABG results: 03/16/25 18:44 ABG pH 7.31 L ABG pCO2 70 H ABG pO2 145 H ABG HCO3 35 H ABG O2 Saturation 100 H ABG Base Excess 6 H Quality Measures Quality Measures none Assessment & Plan Assessment Current Active Medications: Generic Name Dose Route Start Last Admin Trade Name Freq PRN Reason Stop Dose Admin Acetaminophen 650 mg 03/16/25 20:47 03/17/25 07:52 Acetaminophen 325 Mg Tablet PO 04/15/25 20:46 650 mg Q6H PRN Administration Fever >99.5 Acetaminophen 1,000 mg 03/16/25 20:47 03/17/25 00:11 Acetaminophen 325 Mg Tablet PO 04/15/25 20:46 1,000 mg Q6H PRN Administration PAIN SCALE 1-3 (mild Albuterol/Ipratropium 3 ml 03/17/25 01:00 03/17/25 07:46 Albuterol/Ipratropium (Duoneb) Rt Mariel 3 Ml Nebu INH 04/16/25 00:59 Not Given Q6HRRT CONSTANZA Albuterol/Ipratropium 3 ml 03/16/25 20:53 Albuterol/Ipratropium (Duoneb) Rt Mariel 3 Ml Nebu INH 04/15/25 20:52 Q2HR PRN SHORTNESS OF BREATH OR WHEEZE Amiodarone HCl 200 mg 03/17/25 09:00 03/17/25 09:18 Amiodarone Hcl 200 Mg Tablet PO 04/16/25 08:59 200 mg QDAY CONSTANZA Administration Apixaban 5 mg 03/16/25 21:00 03/17/25 09:18 Apixaban 2.5 Mg Tablet PO 04/15/25 20:59 5 mg BID CONSTANZA Administration Azithromycin 500 mg 03/17/25 09:00 03/17/25 09:18 Azithromycin 250 Mg Tablet PO 03/24/25 08:59 500 mg QDAY CONSTANZA Administration Dextrose 25 ml 03/16/25 20:58 Dextrose 50%-Water Inj 50 Ml Syringe IV 04/15/25 20:57 Q15MIN PRN BG 50-70 responsive npo pt Dextrose 50 ml 03/16/25 20:58 Dextrose 50%-Water Inj 50 Ml Syringe IV 04/15/25 20:57 Q15MIN PRN BG <50 OR BG <70 & pt unresponsive Furosemide 40 mg 03/17/25 06:00 03/17/25 05:54 Furosemide Inj 10 Mg/Ml 4ml Vial IVP 04/16/25 05:59 40 mg BIDD CONSTANZA Administration Glucagon 1 mg 03/16/25 20:58 Glucagon Inj 1 Mg Vial IM Q15MIN PRN BG <70, and no IV access Ceftriaxone Sodium 1 gm/ 50 mls @ 100 mls/hr 03/18/25 09:00 Sodium Chloride IV 03/25/25 08:59 QDAY CONSTANZA Insulin Glargine 15 unit 03/17/25 07:45 03/17/25 07:52 Insulin Glargine (Lantus) 5 Unit/0.05 Ml (Per 5 Units) SC 04/16/25 07:44 15 unit QDAY CONSTANZA Administration Insulin Human Lispro 0 unit 03/17/25 07:30 03/17/25 07:53 Insulin Lispro (Admelog) 1 Unit/0.01 Ml Unit SC 04/16/25 07:29 6 unit AC CONSTANZA Administration Protocol Insulin Human Lispro 3 unit 03/17/25 12:00 Insulin Lispro (Admelog) 1 Unit/0.01 Ml Unit SC 04/16/25 11:59 [facility] Ondansetron HCl 4 mg 03/16/25 20:47 Ondansetron Inj 2 Mg/Ml Inj 2 Ml IVP 04/15/25 20:46 Q6H PRN NAUSEA OR VOMITING Protocol Sodium Chloride 3 ml 03/16/25 20:47 Sodium Chloride Rt Mariel 0.9% 3 Ml Nebu INH 04/15/25 20:46 PRN PRN SOLN Plan Janis Reynaga is a 54-year-old female with a past medical history of COPD on 3 L home oxygen, A-fib on Eliquis and amiodarone, HFrEF (EF 35 to 40% on 2023), type 2 diabetes mellitus, and history of amphetamine use who presents with acute on chronic hypoxic respiratory failure likely secondary to influenza pneumonia. #Acute on chronic hypoxic and hypercapnic respiratory failure in setting of influenza pneumonia #COPD exacerbation likely secondary to influenza pneumonia #Influenza pneumonia Presented with progressive shortness of breath for the past 2 to 3 days. She ran out of her home oxygen and went to her PCP to get refill but was found to be desaturating and endorsed chest discomfort. She has a chronic cough in setting of COPD but has not been worse and no worsening sputum production but was found to be influenza B positive. CXR showed vascular congestion and possible pulmonary hypertension. ABG showed pH 7.31, pCO2 70, pO2 145. ? Duonebs scheduled q6h and PRN ? Ceftriaxone and azithromycin (03/16-) ? Oseltamivir 75 mg p.o. twice daily ? Oxygen goal 88 to 92% ? Methylprednisolone discontinued due to significant hyperglycemia #Type 2 diabetes mellitus, insulin-dependent Last A1c 8.7% in 2023, now 11.7% on 03/17. Received ~60 units short-acting insulin since admission and 15 units glargine. ? SSI ? Glargine 15 units daily ? Lispro 3 units TIDWM ? Hypoglycemia protocol in place #Atrial fibrillation ? Amiodarone 200 mg p.o. daily ? Eliquis 5 mg p.o. BID #HFrEF (EF 35-40% in 2023) Not in acute exacerbation. ? Lasix 40 mg IV BID ? Follow-up echo Hospital management: Disposition: acute on chronic hypoxic respiratory failure, hyperglycemia Diet: low sodium diet with carb consistent low modification Lines: PIV DVT prophylaxis: eliquis 5 mg p.o. BID CODE STATUS: full code ----- Plan discussed with attending physician Dr. Maryellen Farmer MD PGY-1 Internal Medicine Health Maintenance: Disposition: Observation for COPD exacerbation Fluids: None Feeding: Low-sodium Thrombo prophylaxis: Eliquis Gastric Ulcer prophylaxis: Not indicated CODE STATUS: Full code
[2025-03-17] MEDS: INSULIN LISPRO (AdmeLOG) 1 UNIT/0.01 ML UNIT 20 UNIT SC ×3 (11:12→15:26)
[2025-03-17] MEDS: INSULIN LISPRO (AdmeLOG) 1 UNIT/0.01 ML UNIT 3 UNIT SC (11:13)
--- NOTE | 2025-03-17 11:25 | PC.DIETICIAN ---
Dietitian note. Pt is requesting [employer] [address] to see if her smart phone compatible with [place] Thank you
--- NOTE | 2025-03-17 11:44 | EKG_ITS ---
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
[2025-03-17 12:13] LABS: Troponin I < 0.002 ng/mL (0.0-0.045)
--- NOTE | 2025-03-17 13:26 | PC.SS ---
Patient Janis Reynaga is a 54 Year old female admitted for Chest pain. SS met with patient regarding his discharge plan. Patient was alert/oriented. Patient was able to confirm demographic and contact information. Patient reports she resides at home with her brother, Jason Reynaga who she reports is his surrogate decision maker [phone]. Patient does not utilize any source of DME to assist with ambulation. Pt has O2 concentrator and 2 small O2 tanks from [employer] in [place]. Pt states she will have friend provide transportation at time of discharge. D/C plan: Home Next of Kin: BrotherJason
[2025-03-17] MEDS: OSELTAMIVIR 75 MG CAPSULE PO ×2 (13:28→20:20)
--- NOTE | 2025-03-17 14:16 | PC.SS ---
SS follow up note; Monitoring COPD exacerbation, Patient will discharge back home when medically cleared.
[2025-03-17 14:26] LABS: Anion Gap 10 (7-16); BUN/Creatinine Ratio 17 Ratio (12-20); Blood Urea Nitrogen 19 mg/dL (9-23); Calcium 9.7 mg/dL (8.3-10.6); Carbon Dioxide 35.3 mMol/L (20.0-31.0); Chloride 91 mMol/L (98-107); Creatinine (Component) 1.1 mg/dL (0.6-1.3); Estimated Creatinine Clearance 60.6 mL/min (>60); Glucose 390 mg/dL (74-106); Osmolality,Calculated 290 (275-295); Potassium 4.8 mMol/L (3.4-5.1); Sodium 136 mMol/L (136-145); eGFR 60 See Note
--- NOTE | 2025-03-17 15:03 | PC.CC ---
Request from EMERITA Devlin, to obtain PA for [employer] Odilon 3 Plus sensors and [id number]ator Odilon 3 [place]. PA submitted and approved until 03/17/26. Please prescribe upon discharge.
[2025-03-17] MEDS: INSULIN LISPRO (AdmeLOG) 1 UNIT/0.01 ML UNIT 5 UNIT SC (18:21)
--- NOTE | 2025-03-17 20:47 | ECHO_ITS ---
Transthoracic Echo Report Ht (in): 59 Wt (lb): 219 Exam Location: Echo Lab Status: Inpatient Programming Internship: Nilsa Brennan Indications: Procedure Performed: BP: 110 / 70 HR: 79 Technical Quality: Technically Difficult Due To Body Habitus MEASUREMENTS (Male / Female) Normal Values 2D ECHO LV Diastolic Diameter PLAX 4.7 cm 4.2 - 5.9 / 3.9 - 5.3 cm LV Systolic Diameter PLAX 3.8 cm IVS Diastolic Thickness 1.0 cm 0.6 - 1.0 / 0.6 - 0.9 cm LVPW Diastolic Thickness 1.3 cm 0.6 - 1.0 / 0.6 - 0.9 cm LV Relative Wall Thickness 0.5 LVOT Diameter 2.1 cm LA Volume Index 27.0 cm?/m? 16 - 28 cm?/m? DOPPLER AV Peak Velocity 146.0 cm/s AV Peak Gradient 8.5 mmHg LVOT Peak Velocity 72.3 cm/s LVOT Peak Gradient 2.1 mmHg AV Area Cont Eq pk 1.7 cm? MV Area PHT 4.1 cm? Mitral E Point Velocity 85.4 cm/s Mitral A Point Velocity 121.0 cm/s Mitral E to A Ratio 0.7 LV E' Lateral Velocity 5.9 cm/s Mitral E to LV E' Lateral Ratio 14.5 LV E' Septal Velocity 3.1 cm/s Mitral E to LV E' Septal Ratio 27.1 PV Peak Velocity 79.5 cm/s PV Peak Gradient 2.5 mmHg FINDINGS Left Ventricle The left ventricle is not well visualized. Mild left ventricular hypertrophy. The left ventricular ejection fraction is moderately decreased, 35-40%. The left ventricular diastolic function is normal. Right Ventricle The right ventricle not well visualized. Left Atrium The left atrium is normal by two-dimensional, color flow and Doppler imaging with no structural abnormalities, no thrombus formation present. Right Atrium Right atrium is not well visualized. Atrial Septum The interatrial septum appears normal with no evidence of a shunt. Aorta The aorta is normal by two-dimensional, color flow and Doppler interrogation. Mitral Valve The mitral valve is normal by two-dimensional, color flow and Doppler interrogation. There is no significant mitral valve regurgitation, stenosis or prolapse. Aortic Valve The aortic valve is trileaflet and normal by two-dimensional, color flow and Doppler interrogation. There is no significant aortic valve regurgitation. Tricuspid Valve The tricuspid valve is normal by two-dimensional, color flow and Doppler interrogation. There is no significant tricuspid valve regurgitation. Pulmonic Valve The pulmonic valve is not well visualized. There is no significant pulmonic valve regurgitation. Vessels The pulmonary artery, inferior vena cava, and hepatic vein are not well visualized. Pericardium The pericardium is not well visualized. CONCLUSIONS Indication: History of CHF Suboptimal images. Normal size left ventricle woth modertae global hypokinesis with Estimated EF 35-40%. RV not well visualized. Trace MR Sadaf Baac (Electronically Signed) Final Date: 17 March 2025 22:57
[2025-03-18] VITALS (20 sets, daily range): BP systolic 106–124; BP diastolic 63–83; PULSE 60–92; RESP 16–23; TEMP 36.1–36.6; O2SAT 92–100
[2025-03-18] MEDS: FUROSEMIDE INJ 10 MG/ML 4ML VIAL 40 MG IVP (05:19)
[2025-03-18 06:29] LABS: Basophils % (Auto) 0 % (0-2.5); Eosinophils % (Auto) 0 % (0-10); Hematocrit 42.7 % (36.0-46.0); Hemoglobin 13.7 g/dL (12.0-16.0); Immature Granulocytes % (Auto) 0 % (0-0); Immature Granulocytes Auto 0.03 Thou/mm3 (0.00-0.00); Lymphocytes # (Auto) 1.3 Thou/mm3 (1.0-4.8); Lymphocytes % (Auto) 16 % (10-50); Mean Corpuscular HGB Conc 32.1 g/dl (31.0-37.0); Mean Corpuscular Hemoglobin 28.9 pg (25.0-35.0); Mean Corpuscular Volume 90 fL (80-100); Monocytes # (Auto) 0.6 Thou/mm3 (0.0-0.8); Monocytes % (Auto) 8 % (0-12); Neutrophils % (Auto) 75 % (37-80); Nucleated Red Blood Cell % 0 /100 WBC (0); Platelet Count 122 Thou/mm3 (140-440); RDW Standard Deviation 44.9 fL (36.4-46.3); Red Blood Count 4.74 Miln/mm3 (4.00-5.20)
[2025-03-18] MEDS: ALBUTEROL/IPRATROPIUM (Duoneb) RT SOL 3 ML NEBU INH ×5 (06:33→22:37)
[2025-03-18 06:44] LABS: Alanine Aminotransferase 19 U/L (10-49); Albumin, Serum 4.3 gm/dL (3.5-5.0); Albumin/Globulin Ratio 2.4 (1.2-2.2); Alkaline Phosphatase 91 U/L (46-116); Anion Gap 10 (7-16); BUN/Creatinine Ratio 22 Ratio (12-20); Bilirubin,Total 0.8 mg/dL (0.3-1.2); Blood Urea Nitrogen 20 mg/dL (9-23); Calcium 9.5 mg/dL (8.3-10.6); Calcium (Corrected) 9.5 mg/dL (8.5-10.1); Carbon Dioxide 33.2 mMol/L (20.0-31.0); Chloride 92 mMol/L (98-107); Creatinine (Component) 0.9 mg/dL (0.6-1.3); Estimated Creatinine Clearance 74.1 mL/min (>60); Globulin 1.8 gm/dL (2.3-3.5); Glucose 377 mg/dL (74-106); Magnesium 1.9 mg/dL (1.6-2.6); Osmolality,Calculated 287 (275-295); Phosphorous 5.3 mg/dL (2.4-5.1); Potassium 3.6 mMol/L (3.4-5.1); Sodium 135 mMol/L (136-145); Total Protein 6.1 gm/dL (5.7-8.2); eGFR > 60 See Note
[2025-03-18] MEDS: INSULIN LISPRO (AdmeLOG) 1 UNIT/0.01 ML UNIT 5 UNIT SC (07:23)
[2025-03-18] MEDS: INSULIN LISPRO (AdmeLOG) 1 UNIT/0.01 ML UNIT SC ×2 (07:23→11:13)
[2025-03-18] MEDS: APIXABAN 2.5 MG TABLET 5 MG PO ×2 (08:00→21:10)
[2025-03-18] MEDS: AZITHROMYCIN 250 MG TABLET 500 MG PO (08:01)
[2025-03-18] MEDS: OSELTAMIVIR 75 MG CAPSULE PO ×2 (08:01→21:11)
[2025-03-18] MEDS: INSULIN GLARGINE (Lantus) 5 UNIT/0.05 ML (PER 5 UNITS) 15 UNIT SC (08:02)
[2025-03-18] MEDS: AMIODARONE HCL 200 MG TABLET PO (08:03)
[2025-03-18] MEDS: cefTRIAXone/D5w 1gm IV premix 1 GM/50 ML BAG IV (08:53)
[2025-03-18] MEDS: METOPROLOL SUCCINATE XL 25 MG TABCR PO (09:53)
[2025-03-18] MEDS: INSULIN GLARGINE (Lantus) 5 UNIT/0.05 ML (PER 5 UNITS) 25 UNIT SC (09:54)
[2025-03-18] MEDS: INSULIN LISPRO (AdmeLOG) 1 UNIT/0.01 ML UNIT 20 UNIT SC ×2 (09:55→11:12)
--- NOTE | 2025-03-18 10:43 | XR_ITS ---
Examination: CT chest, without intravenous contrast. Sagittal and coronal 2-D reconstructions. Exam date and time: March 18, 2025 1422 hrs. Comparison September 02, 2024 Indications: Onset chest pain beginning 3 days ago CTDI:vol (mGy) 19.5 DLP: (mGycm) 653 Technique: Multiple 3.0 mm axial sections of the chest to been obtained. Bone and lung density settings are obtained. Sagittal and coronal 2-D reconstructions have been obtained. Low dose protocols were performed. One or more of the following dose reduction techniques were used; automated exposure control, adjustment of the mA and/or KV according to patient size, use of iterative reconstruction technique. Findings: No thoracic aortic aneurysm dilatation Pulmonary artery segments are not enlarged. No paratracheal tracheobronchial or bronchopulmonary adenopathy. No pneumonia or pulmonary edema or pleural disease Moderate osteopenia Mild enlargement cardiac contour Central pulmonary vascular prominence Moderate osteopenia Fatty infiltration throughout the liver Impression: Mild enlargement cardiac contour Mild pulmonary vascular redistribution. No mediastinal lymphadenopathy. No pneumonia or pulmonary edema or pleural disease
[2025-03-18] MEDS: Magnesium Sulfate 2 GM Ivpb 2 GM/50 ML BAG IV (10:57)
[2025-03-18] MEDS: LOSARTAN POTASSIUM 25 MG TABLET PO (11:11)
[2025-03-18] MEDS: DAPAGLIFLOZIN PROPANEDIOL 5 MG TABLET 10 MG PO (11:55)
--- NOTE | 2025-03-18 12:10 | ESPR_ITS ---
<Statement entered by Katelyn Tee MD - 03/18/25 14:07> I Katelyn Tee MD reviewed the note and agree with the resident's assessment & plan with exceptions as below. I have personally reviewed labs, imaging, home meds/prior records, examined the patient, formulated and discussed management plan with the IM team. A 54-year-old F with Hx of COPD, AF, HFrEF, DM and amphetamine use previously admitted for influenza pneumonia and COPD exacerbation. Patient continues to have significant respiratory distress and wheezing. Plan to start on IV methylprednisolone 40 mg every 8 hours along with DuoNeb every 4 hours and Dulera twice daily. Continue oseltamivir and empiric antibiotic coverage with Rocephin and azithromycin. Insulin adjusted as above. Continue amiodarone and Eliquis, start on metoprolol succinate 25 mg daily. Started Farxiga and losartan as GDMT. Continue Lasix as needed will titrate as needed on daily basis. a 54-year-old female with a past medical history of COPD on 3 L home oxygen, A- fib on Eliquis and amiodarone, HFrEF (EF 35 to 40% on 2023), type 2 diabetes mellitus, and history of amphetamine use who presents with acute on chronic hypoxic respiratory failure likely secondary to influenza pneumonia. #Acute on chronic hypoxic and hypercapnic respiratory failure in setting of influenza pneumonia #COPD exacerbation likely secondary to influenza pneumonia #Influenza pneumonia Presented with progressive shortness of breath for the past 2 to 3 days. She ran out of her home oxygen and went to her PCP to get refill but was found to be desaturating and endorsed chest discomfort. She has a chronic cough in setting of COPD but has not been worse and no worsening sputum production but was found to be influenza B positive. CXR showed vascular congestion and possible pulmonary hypertension. ABG showed pH 7.31, pCO2 70, pO2 145. ? Duonebs scheduled q6h and PRN ? Ceftriaxone and azithromycin (03/16-) ? Oseltamivir 75 mg p.o. twice daily ? Oxygen goal 88 to 92% ? 03/18/25: Steroids were held yesterday due to severe hyperglycemia; however, to prevent rebound symptoms and potential adrenal insufficiency, IV steroids were restarted today to address both the wheezing and the risks associated with abrupt steroid discontinuation. We will switch IV steroids to PO tmw, and will try gradually taper down. #Type 2 diabetes mellitus, insulin-dependent Last A1c 8.7% in 2023, now 11.7% on 03/17. ? SSI ? Glargine 40 BID ? Lispro 20 units TIDWM ? Hypoglycemia protocol in place #Atrial fibrillation ? Amiodarone 200 mg p.o. daily ? Eliquis 5 mg p.o. BID #HFrEF (EF 35-40% in 2023) Not in acute exacerbation. ? started on GDMT with metoprolol, losartan, Farxiga was added as a part of the GDMT, will close monitor hemodynamics for now. Goal is to optimize GDMT as she tolerates ? Lasix 40 mg PO BID ? Close monitor urine output Documentation for date of: 03/18/25 Subjective Subjective Interval history: The patient was seen and examined at the bedside. No acute overnight events were reported. On physical exam, diffuse wheezing was noted. The patient reported a long-term history of steroid use. Steroids were held yesterday due to severe hyperglycemia; however, to prevent rebound symptoms and potential adrenal insufficiency, IV steroids were restarted today to address both the wheezing and the risks associated with abrupt steroid discontinuation. We will switch IV steroids to PO tmw, and will try gradually taper down. Her blood glucose remains elevated, with levels above 400 mg/dL. Over the past 24 hours, she has received more than 100 units of insulin. Her insulin regimen has been adjusted to 40 units of long-acting insulin twice daily, and 20 units of lispro three times daily with meals. Patient appears to be euvolemic, hence IV Lasix was changed to p.o., will close monitor urine output Patient had HFrEF with EF of 35 to 40%, and started on GDMT with metoprolol, losartan, Farxiga was added as a part of the GDMT, will close monitor hemodynamics for now. Continue Eliquis and amiodarone for A-fib. Exam Vital Signs Temp Pulse Resp BP Pulse Ox O2 Del Method O2 Flow Rate 97.8 F 72 18 106/77 94 L Nasal Cannula 4 03/18/25 08:00 03/18/25 11:11 03/18/25 08:00 03/18/25 11:11 03/18/25 08:00 03/18/25 08:00 03/18/25 06:34 Narrative Exam GENERAL: no acute distress, AAO x3, well nourished. HEENT: Head AT/ NC. Mucous membranes moist. NECK: Supple, no lymphadenopathy, no carotid bruits. CARDIOVASCULAR: RRR. Normal S1/S2, No m/r/g.1+ pitting edema of bilateral LEs. LE BL redness and engine cleaner touch RESPIRATORY: BL diffuse wheezing GASTROINTESTINAL: Abdomen soft, non tender no palpable masses. Bowel sounds present in all 4 quadrants. NEUROLOGICAL: CN II-XII grossly intact. No focal deficits. Sensation intact, symmetric. PSYCHIATRIC: Awake and alert, not agitated, normal mood and affect. Objective Labs 03/18/25 04:44 03/18/25 04:44 Labs: Laboratory Results - last 24 hr 03/17/25 03/17/25 03/18/25 11:19 13:53 04:44 WBC 8.0 RBC 4.74 Hgb 13.7 Hct 42.7 MCV 90 MCH 28.9 MCHC 32.1 RDW Std Deviation 44.9 Plt Count 122 L Neut % (Auto) 75 Lymph % (Auto) 16 [place] % (Auto) 8 Eos % (Auto) 0 Baso % (Auto) 0 Neut # (Auto) 6.0 Lymph # (Auto) 1.3 [place] # (Auto) 0.6 Eos # (Auto) 0.0 Baso # (Auto) 0.0 Immature Gran # (Auto) 0.03 H Absolute Nucleated RBC 0.00 Immature Gran % 0 Nucleated RBC % 0 Sodium 136 135 L Potassium 4.8 3.6 D Chloride 91 L 92 L Carbon Dioxide 35.3 H 33.2 H Anion Gap 10 10 BUN 19 20 Creatinine 1.1 0.9 Estim Creat Clear Calc 60.6 L 74.1 eGFR 60 > 60 BUN/Creatinine Ratio 17 22 H Glucose 390 H D 377 H Calculated Osmolality 290 287 Calcium 9.7 9.5 Corrected Calcium 9.5 Phosphorus 5.3 H Magnesium 1.9 Total Bilirubin 0.8 ALT 19 Alkaline Phosphatase 91 Troponin I < 0.002 Total Protein 6.1 Albumin 4.3 Globulin 1.8 L Albumin/Globulin Ratio 2.4 H ABG Interpretation ABG results: 03/16/25 18:44 ABG pH 7.31 L ABG pCO2 70 H ABG pO2 145 H ABG HCO3 35 H ABG O2 Saturation 100 H ABG Base Excess 6 H Quality Measures Quality Measures none Assessment & Plan Assessment Current Active Medications: Generic Name Dose Route Start Last Admin Trade Name Freq PRN Reason Stop Dose Admin Acetaminophen 650 mg 03/16/25 20:47 03/17/25 07:52 Acetaminophen 325 Mg Tablet PO 04/15/25 20:46 650 mg Q6H PRN Administration Fever >99.5 Acetaminophen 1,000 mg 03/18/25 10:46 Acetaminophen 500 Mg Tablet PO 04/15/25 20:46 Q6H PRN PAIN SCALE 1-3 (mild Albuterol/Ipratropium 3 ml 03/16/25 20:53 Albuterol/Ipratropium (Duoneb) Rt Mariel 3 Ml Nebu INH 04/15/25 20:52 Q2HR PRN SHORTNESS OF BREATH OR WHEEZE Albuterol/Ipratropium 3 ml 03/18/25 13:00 Albuterol/Ipratropium (Duoneb) Rt Mariel 3 Ml Nebu INH 04/17/25 12:59 Q3HRRT CONSTANZA Amiodarone HCl 200 mg 03/17/25 09:00 03/18/25 08:03 Amiodarone Hcl 200 Mg Tablet PO 04/16/25 08:59 200 mg QDAY CONSTANZA Administration Apixaban 5 mg 03/16/25 21:00 03/18/25 08:00 Apixaban 2.5 Mg Tablet PO 04/15/25 20:59 5 mg BID CONSTANZA Administration Azithromycin 500 mg 03/17/25 09:00 03/18/25 08:01 Azithromycin 250 Mg Tablet PO 03/24/25 08:59 500 mg QDAY CONSTANZA Administration Dapagliflozin 10 mg 03/18/25 09:30 03/18/25 11:55 Dapagliflozin Propanediol 5 Mg Tablet PO 04/17/25 09:29 10 mg QAM CONSTANZA Administration Dextrose 25 ml 03/16/25 20:58 Dextrose 50%-Water Inj 50 Ml Syringe IV 04/15/25 20:57 Q15MIN PRN BG 50-70 responsive npo pt Dextrose 50 ml 03/16/25 20:58 Dextrose 50%-Water Inj 50 Ml Syringe IV 04/15/25 20:57 Q15MIN PRN BG <50 OR BG <70 & pt unresponsive Furosemide 40 mg 03/18/25 21:00 Furosemide 40 Mg Tablet PO 04/17/25 20:59 BID CONSTANZA Glucagon 1 mg 03/16/25 20:58 Glucagon Inj 1 Mg Vial IM Q15MIN PRN BG <70, and no IV access Ceftriaxone Sodium/Dextrose 1 gm in 50 mls @ 100 mls/hr 03/18/25 09:00 03/18/25 08:53 Rocephin/D5w 1gm Iv Premix IV 03/25/25 08:59 100 mls/hr QDAY CONSTANZA Administration Magnesium Sulfate 2 gm in 50 mls @ 25 mls/hr 03/18/25 10:38 03/18/25 10:57 Magnesium Sulfate Ivpb IV 03/18/25 12:37 25 mls/hr X1 ONE Administration Insulin Glargine 40 unit 03/18/25 21:00 Insulin Glargine (Lantus) 5 Unit/0.05 Ml (Per 5 Units) SC 04/17/25 20:59 BID CONSTANZA Insulin Human Lispro 0 unit 03/17/25 07:30 03/18/25 11:13 Insulin Lispro (Admelog) 1 Unit/0.01 Ml Unit SC 04/16/25 07:29 4 unit AC CONSTANZA Administration Protocol Insulin Human Lispro 20 unit 03/18/25 09:15 03/18/25 11:12 Insulin Lispro (Admelog) 1 Unit/0.01 Ml Unit SC 04/17/25 09:14 20 unit TIDWMEAL CONSTANZA Administration Losartan Potassium 25 mg 03/18/25 11:00 03/18/25 11:11 Losartan Potassium 25 Mg Tablet PO 04/17/25 10:59 25 mg QDAY@1100 CONSTANZA Administration Methylprednisolone Sodium Succinate 40 mg 03/18/25 14:00 Methylprednisolone Sod Succ 40 Mg Vial IVP 03/19/25 09:00 TID CONSTANZA Metoprolol Succinate 25 mg 03/18/25 09:30 03/18/25 09:53 Metoprolol Succinate Xl 25 Mg Tabcr PO 04/17/25 09:29 25 mg QDAY CONSTANZA Administration Ondansetron HCl 4 mg 03/16/25 20:47 Ondansetron Inj 2 Mg/Ml Inj 2 Ml IVP 04/15/25 20:46 Q6H PRN NAUSEA OR VOMITING Protocol Oseltamivir Phosphate 75 mg 03/17/25 11:45 03/18/25 08:01 Oseltamivir 75 Mg Capsule PO 03/21/25 21:01 75 mg BID CONSTANZA Administration Sodium Chloride 3 ml 03/16/25 20:47 Sodium Chloride Rt Mariel 0.9% 3 Ml Nebu INH 04/15/25 20:46 PRN PRN SOLN Silvino Janis Reynaga is a 54-year-old female with a past medical history of COPD on 3 L home oxygen, A-fib on Eliquis and amiodarone, HFrEF (EF 35 to 40% on 2023), type 2 diabetes mellitus, and history of amphetamine use who presents with acute on chronic hypoxic respiratory failure likely secondary to influenza pneumonia. #Acute on chronic hypoxic and hypercapnic respiratory failure in setting of influenza pneumonia #COPD exacerbation likely secondary to influenza pneumonia #Influenza pneumonia Presented with progressive shortness of breath for the past 2 to 3 days. She ran out of her home oxygen and went to her PCP to get refill but was found to be desaturating and endorsed chest discomfort. She has a chronic cough in setting of COPD but has not been worse and no worsening sputum production but was found to be influenza B positive. CXR showed vascular congestion and possible pulmonary hypertension. ABG showed pH 7.31, pCO2 70, pO2 145. ? Duonebs scheduled q6h and PRN ? Ceftriaxone and azithromycin (03/16-) ? Oseltamivir 75 mg p.o. twice daily ? Oxygen goal 88 to 92% ? 03/18/25: Steroids were held yesterday due to severe hyperglycemia; however, to prevent rebound symptoms and potential adrenal insufficiency, IV steroids were restarted today to address both the wheezing and the risks associated with abrupt steroid discontinuation. We will switch IV steroids to PO tmw, and will try gradually taper down. #Type 2 diabetes mellitus, insulin-dependent Last A1c 8.7% in 2023, now 11.7% on 03/17. ? SSI ? Glargine 40 BID ? Lispro 20 units TIDWM ? Hypoglycemia protocol in place #Atrial fibrillation ? Amiodarone 200 mg p.o. daily ? Eliquis 5 mg p.o. BID #HFrEF (EF 35-40% in 2023) Not in acute exacerbation. ? started on GDMT with metoprolol, losartan, Farxiga was added as a part of the GDMT, will close monitor hemodynamics for now. Goal is to optimize GDMT as she tolerates ? Lasix 40 mg PO BID ? Close monitor urine output Disposition: Observation for COPD exacerbation Fluids: None Feeding: Low-sodium Thrombo prophylaxis: Eliquis Gastric Ulcer prophylaxis:PPI CODE STATUS: Full code Patient care was discussed with attending physician Dr. Randal Abreu MD PGY-2 I have carefully reviewed this document. Due to imperfections in the voice software, there could be grammatical errors including phonetic/typographic errors. This in no way compromises the medical care the patient is receiving
[2025-03-18] MEDS: PANTOPRAZOLE 40 MG TABLET PO (13:26)
[2025-03-18] MEDS: ACETAMINOPHEN 500 MG TABLET 1000 MG PO (19:25)
[2025-03-18] MEDS: INSULIN GLARGINE (Lantus) 5 UNIT/0.05 ML (PER 5 UNITS) 40 UNIT SC (21:09)
[2025-03-18] MEDS: Furosemide 40 MG TABLET PO (21:10)
[2025-03-19] VITALS (21 sets, daily range): BP systolic 100–116; BP diastolic 53–85; PULSE 62–82; RESP 16–25; TEMP 36.1–37.2; O2SAT 90–99
[2025-03-19] MEDS: ALBUTEROL/IPRATROPIUM (Duoneb) RT SOL 3 ML NEBU INH ×7 (01:56→21:56)
[2025-03-19 06:24] LABS: Basophils % (Auto) 0 % (0-2.5); Eosinophils % (Auto) 0 % (0-10); Immature Granulocytes % (Auto) 1 % (0-0); Immature Granulocytes Auto 0.06 Thou/mm3 (0.00-0.00); Lymphocytes # (Auto) 0.7 Thou/mm3 (1.0-4.8); Lymphocytes % (Auto) 8 % (10-50); Mean Corpuscular HGB Conc 31.8 g/dl (31.0-37.0); Mean Corpuscular Hemoglobin 28.5 pg (25.0-35.0); Mean Corpuscular Volume 90 fL (80-100); Monocytes # (Auto) 0.1 Thou/mm3 (0.0-0.8); Monocytes % (Auto) 2 % (0-12); Neutrophils # (Auto) 7.6 Thou/mm3 (1.8-7.7); Neutrophils % (Auto) 89 % (37-80); Nucleated Red Blood Cell % 0 /100 WBC (0); Platelet Count 162 Thou/mm3 (140-440); RDW Standard Deviation 46.8 fL (36.4-46.3); Red Blood Count 4.91 Miln/mm3 (4.00-5.20); White Blood Count 8.5 Thou/mm3 (3.6-11.0)
[2025-03-19] MEDS: INSULIN LISPRO (AdmeLOG) 1 UNIT/0.01 ML UNIT SC ×3 (07:13→16:31)
[2025-03-19] MEDS: INSULIN LISPRO (AdmeLOG) 1 UNIT/0.01 ML UNIT 10 UNIT SC (07:13)
[2025-03-19 07:28] LABS: Alanine Aminotransferase 24 U/L (10-49); Albumin, Serum 4.4 gm/dL (3.5-5.0); Alkaline Phosphatase 94 U/L (46-116); Anion Gap 10 (7-16); BUN/Creatinine Ratio 30 Ratio (12-20); Bilirubin,Total 0.9 mg/dL (0.3-1.2); Blood Urea Nitrogen 27 mg/dL (9-23); Calcium 9.5 mg/dL (8.3-10.6); Calcium (Corrected) 9.5 mg/dL (8.5-10.1); Carbon Dioxide 33.7 mMol/L (20.0-31.0); Chloride 93 mMol/L (98-107); Creatinine (Component) 0.9 mg/dL (0.6-1.3); Estimated Creatinine Clearance 74.1 mL/min (>60); Globulin 2.2 gm/dL (2.3-3.5); Glucose 285 mg/dL (74-106); Magnesium 2.4 mg/dL (1.6-2.6); Osmolality,Calculated 288 (275-295); Phosphorous 5.5 mg/dL (2.4-5.1); Potassium 4.4 mMol/L (3.4-5.1); Sodium 137 mMol/L (136-145); Total Protein 6.6 gm/dL (5.7-8.2); eGFR > 60 See Note
[2025-03-19] MEDS: AMIODARONE HCL 200 MG TABLET PO (08:27)
[2025-03-19] MEDS: AZITHROMYCIN 250 MG TABLET 500 MG PO (08:27)
[2025-03-19] MEDS: OSELTAMIVIR 75 MG CAPSULE PO ×2 (08:27→20:27)
[2025-03-19] MEDS: PANTOPRAZOLE 40 MG TABLET PO (08:27)
[2025-03-19] MEDS: METOPROLOL SUCCINATE XL 25 MG TABCR PO (08:28)
[2025-03-19] MEDS: Furosemide 40 MG TABLET PO ×2 (08:28→20:26)
[2025-03-19] MEDS: APIXABAN 2.5 MG TABLET 5 MG PO ×2 (08:28→20:30)
[2025-03-19] MEDS: cefTRIAXone/D5w 1gm IV premix 1 GM/50 ML BAG IV (08:28)
[2025-03-19] MEDS: INSULIN GLARGINE (Lantus) 5 UNIT/0.05 ML (PER 5 UNITS) 40 UNIT SC ×2 (08:29→20:25)
[2025-03-19] MEDS: DAPAGLIFLOZIN PROPANEDIOL 5 MG TABLET 10 MG PO (08:29)
[2025-03-19] MEDS: DiphenhydrAMINE INJ 50 MG/ML VIAL 25 MG IVP (09:33)
[2025-03-19] MEDS: FAMOTIDINE INJ 10 MG/ML VIAL 2 ML 20 MG IVP (09:34)
--- NOTE | 2025-03-19 10:50 | PC.SS ---
SS follow up note; Glucose being monitored. Weaning down on 02. Patient will discharge back home when medically cleared.
[2025-03-19] MEDS: INSULIN LISPRO (AdmeLOG) 1 UNIT/0.01 ML UNIT 15 UNIT SC ×2 (11:27→16:32)
[2025-03-19] MEDS: LOSARTAN POTASSIUM 25 MG TABLET PO (11:29)
[2025-03-19] MEDS: predniSONE 20 MG TABLET 40 MG PO (11:29)
--- NOTE | 2025-03-19 12:02 | ESPR_ITS ---
<Statement entered by Montse Bojorquez MD - 03/31/25 14:04> I reviewed above note and agree with findings and plans. I have also personally examined the patient with medicine team and went over assessment and plan with medical team including internal medicine nurse practitioner and resident physician. Documentation for date of: 03/19/25 Subjective Subjective Interval history: The patient was seen and examined at the bedside. No acute events were noted overnight. Labs and vitals were reviewed. Blood glucose was elevated at 285, prompting an adjustment in the insulin regimen. The patient will continue current treatment and GDMT. Urine output remains adequate, and oxygen saturation is 94% on 2L via nasal cannula. Current management will continue. This morning, upon evaluation, the patient reported tongue swelling and itching following breakfast. The symptoms are most likely attributed to an allergic reaction; however, the patient was unable to identify the specific allergen. Benadryl and IV famotidine were administered, and the patient reported symptom relief shortly thereafter. The patient has been started on a PO steroid taper. Current management will continue, and we will continue to monitor progress. Discharge is anticipated within the next 24 hours, provided no further complications arise. Exam Vital Signs Temp Pulse Resp BP Pulse Ox O2 Del Method O2 Flow Rate 97.0 F 65 18 109/66 98 Nasal Cannula 3 03/19/25 08:00 03/19/25 11:29 03/19/25 10:26 03/19/25 11:29 03/19/25 10:26 03/19/25 08:00 03/19/25 10:26 Narrative Exam GENERAL: no acute distress, AAO x3, well nourished. HEENT: Head AT/ NC. Mucous membranes moist. NECK: Supple, no lymphadenopathy, no carotid bruits. CARDIOVASCULAR: RRR. Normal S1/S2, No m/r/g. 1+ pitting edema of bilateral LEs. LE BL redness and veterinarian touch RESPIRATORY: BL mild wheezing, on 2 L NC GASTROINTESTINAL: Abdomen soft, non tender no palpable masses. Bowel sounds present in all 4 quadrants. NEUROLOGICAL: CN II-XII grossly intact. No focal deficits. Sensation intact, symmetric. PSYCHIATRIC: Awake and alert, not agitated, normal mood and affect. Objective Labs 03/19/25 05:07 03/19/25 05:07 Labs: Laboratory Results - last 24 hr 03/19/25 05:07 WBC 8.5 RBC 4.91 Hgb 14.0 Hct 44.0 MCV 90 MCH 28.5 MCHC 31.8 RDW Std Deviation 46.8 H Plt Count 162 D Neut % (Auto) 89 H Lymph % (Auto) 8 L [place] % (Auto) 2 Eos % (Auto) 0 Baso % (Auto) 0 Neut # (Auto) 7.6 Lymph # (Auto) 0.7 L [place] # (Auto) 0.1 Eos # (Auto) 0.0 Baso # (Auto) 0.0 Immature Gran # (Auto) 0.06 H Absolute Nucleated RBC 0.00 Immature Gran % 1 H Nucleated RBC % 0 Sodium 137 Potassium 4.4 D Chloride 93 L Carbon Dioxide 33.7 H Anion Gap 10 BUN 27 H Creatinine 0.9 Estim Creat Clear Calc 74.1 eGFR > 60 BUN/Creatinine Ratio 30 H Glucose 285 H D Calculated Osmolality 288 Calcium 9.5 Corrected Calcium 9.5 Phosphorus 5.5 H Magnesium 2.4 Total Bilirubin 0.9 ALT 24 Alkaline Phosphatase 94 Total Protein 6.6 Albumin 4.4 Globulin 2.2 L Albumin/Globulin Ratio 2.0 ABG Interpretation ABG results: 03/16/25 18:44 ABG pH 7.31 L ABG pCO2 70 H ABG pO2 145 H ABG HCO3 35 H ABG O2 Saturation 100 H ABG Base Excess 6 H Quality Measures Quality Measures none Assessment & Plan Assessment Current Active Medications: Generic Name Dose Route Start Last Admin Trade Name Freq PRN Reason Stop Dose Admin Acetaminophen 650 mg 03/16/25 20:47 03/17/25 07:52 Acetaminophen 325 Mg Tablet PO 04/15/25 20:46 650 mg Q6H PRN Administration Fever >99.5 Acetaminophen 1,000 mg 03/18/25 10:46 03/18/25 19:25 Acetaminophen 500 Mg Tablet PO 04/15/25 20:46 1,000 mg Q6H PRN Administration PAIN SCALE 1-3 (mild Albuterol/Ipratropium 3 ml 03/16/25 20:53 Albuterol/Ipratropium (Duoneb) Rt Mariel 3 Ml Nebu INH 04/15/25 20:52 Q2HR PRN SHORTNESS OF BREATH OR WHEEZE Albuterol/Ipratropium 3 ml 03/18/25 13:00 03/19/25 10:25 Albuterol/Ipratropium (Duoneb) Rt Mariel 3 Ml Nebu INH 04/17/25 12:59 3 ml Q3HRRT CONSTANZA Administration Amiodarone HCl 200 mg 03/17/25 09:00 03/19/25 08:27 Amiodarone Hcl 200 Mg Tablet PO 04/16/25 08:59 200 mg QDAY CONSTANZA Administration Apixaban 5 mg 03/16/25 21:00 03/19/25 08:28 Apixaban 2.5 Mg Tablet PO 04/15/25 20:59 5 mg BID CONSTANZA Administration Azithromycin 500 mg 03/17/25 09:00 03/19/25 08:27 Azithromycin 250 Mg Tablet PO 03/24/25 08:59 500 mg QDAY CONSTANZA Administration Dapagliflozin 10 mg 03/18/25 09:30 03/19/25 08:29 Dapagliflozin Propanediol 5 Mg Tablet PO 04/17/25 09:29 10 mg QAM CONSTANZA Administration Dextrose 25 ml 03/16/25 20:58 Dextrose 50%-Water Inj 50 Ml Syringe IV 04/15/25 20:57 Q15MIN PRN BG 50-70 responsive npo pt Dextrose 50 ml 03/16/25 20:58 Dextrose 50%-Water Inj 50 Ml Syringe IV 04/15/25 20:57 Q15MIN PRN BG <50 OR BG <70 & pt unresponsive Furosemide 40 mg 03/18/25 21:00 03/19/25 08:28 Furosemide 40 Mg Tablet PO 04/17/25 20:59 40 mg BID CONSTANZA Administration Glucagon 1 mg 03/16/25 20:58 Glucagon Inj 1 Mg Vial IM Q15MIN PRN BG <70, and no IV access Ceftriaxone Sodium/Dextrose 1 gm in 50 mls @ 100 mls/hr 03/18/25 09:00 03/19/25 08:28 Rocephin/D5w 1gm Iv Premix IV 03/25/25 08:59 100 mls/hr QDAY CONSTANZA Administration Insulin Glargine 40 unit 03/18/25 21:00 03/19/25 08:29 Insulin Glargine (Lantus) 5 Unit/0.05 Ml (Per 5 Units) SC 04/17/25 20:59 40 unit BID CONSTANZA Administration Insulin Human Lispro 0 unit 03/17/25 07:30 03/19/25 11:26 Insulin Lispro (Admelog) 1 Unit/0.01 Ml Unit SC 04/16/25 07:29 6 unit AC CONSTANZA Administration Protocol Insulin Human Lispro 15 unit 03/19/25 12:00 03/19/25 11:27 Insulin Lispro (Admelog) 1 Unit/0.01 Ml Unit SC 04/18/25 11:59 15 unit TIDWMEAL CONSTANZA Administration Losartan Potassium 25 mg 03/18/25 11:00 03/19/25 11:29 Losartan Potassium 25 Mg Tablet PO 04/17/25 10:59 25 mg QDAY@1100 CONSTANZA Administration Metoprolol Succinate 25 mg 03/18/25 09:30 03/19/25 08:28 Metoprolol Succinate Xl 25 Mg Tabcr PO 04/17/25 09:29 25 mg QDAY CONSTANZA Administration Ondansetron HCl 4 mg 03/16/25 20:47 Ondansetron Inj 2 Mg/Ml Inj 2 Ml IVP 04/15/25 20:46 Q6H PRN NAUSEA OR VOMITING Protocol Oseltamivir Phosphate 75 mg 03/17/25 11:45 03/19/25 08:27 Oseltamivir 75 Mg Capsule PO 03/21/25 21:01 75 mg BID CONSTANZA Administration Pantoprazole Sodium 40 mg 03/18/25 13:00 03/19/25 08:27 Pantoprazole 40 Mg Tablet PO 04/17/25 12:59 40 mg QDAY CONSTANZA Administration Prednisone 40 mg 03/19/25 11:00 03/19/25 11:29 Prednisone 20 Mg Tablet PO 03/22/25 09:00 40 mg QDAY CONSTANZA Administration Sodium Chloride 3 ml 03/16/25 20:47 Sodium Chloride Rt Mariel 0.9% 3 Ml Nebu INH 04/15/25 20:46 PRN PRN SOLN Plan Janis Reynaga is a 54-year-old female with a past medical history of COPD on 3 L home oxygen, A-fib on Eliquis and amiodarone, HFrEF (EF 35 to 40% on 2023), type 2 diabetes mellitus, and history of amphetamine use who presents with acute on chronic hypoxic respiratory failure likely secondary to influenza pneumonia. #Tongue swelling #Allergic reaction patient reported tongue swelling and itching following breakfast. The symptoms are most likely attributed to an allergic reaction; however, the patient was unable to identify the specific allergen. Benadryl and IV famotidine were administered, and the patient reported symptom relief shortly thereafter. - Monitor for 1 more day #Acute on chronic hypoxic and hypercapnic respiratory failure in setting of influenza pneumonia?resolved #COPD exacerbation likely secondary to influenza pneumonia?improving #Influenza pneumonia Presented with progressive shortness of breath for the past 2 to 3 days. She ran out of her home oxygen and went to her PCP to get refill but was found to be desaturating and endorsed chest discomfort. She has a chronic cough in setting of COPD but has not been worse and no worsening sputum production but was found to be influenza B positive. CXR showed vascular congestion and possible pulmonary hypertension. ABG showed pH 7.31, pCO2 70, pO2 145. ? Duonebs scheduled q6h and PRN ? Ceftriaxone and azithromycin (03/16-) ? Oseltamivir 75 mg p.o. twice daily ? Oxygen goal 88 to 92% ? Steroids address both the wheezing and to prevent rebound symptoms and potential adrenal insufficiency, Patient started on p.o. steroids today,, and will try gradually taper down. #Type 2 diabetes mellitus, insulin-dependent Last A1c 8.7% in 2023, now 11.7% on 03/17. ? SSI ? Glargine 40 BID ? Lispro 15 units TIDWM ? Hypoglycemia protocol in place #Atrial fibrillation ? Amiodarone 200 mg p.o. daily ? Eliquis 5 mg p.o. BID #HFrEF (EF 35-40% in 2023) Not in acute exacerbation. ? started on GDMT with metoprolol, losartan, Farxiga was added as a part of the GDMT, will close monitor hemodynamics for now. Goal is to optimize GDMT as she tolerates ? Lasix 40 mg PO BID ? Close monitor urine output Disposition: Observation for COPD exacerbation Fluids: None Feeding: Low-sodium Thrombo prophylaxis: Eliquis Gastric Ulcer prophylaxis:PPI CODE STATUS: Full code Patient care was discussed with attending physician Dr.Obad Mildred Abreu MD PGY-2 I have carefully reviewed this document. Due to imperfections in the voice software, there could be grammatical errors including phonetic/typographic errors. This in no way compromises the medical care the patient is receiving
[2025-03-19] MEDS: ACETAMINOPHEN 500 MG TABLET 1000 MG PO (22:53)
[2025-03-20] VITALS (11 sets, daily range): BP systolic 104–133; BP diastolic 60–86; PULSE 62–87; RESP 17–24; TEMP 36.1–36.4; O2SAT 93–99
[2025-03-20] MEDS: ALBUTEROL/IPRATROPIUM (Duoneb) RT SOL 3 ML NEBU INH ×4 (00:06→12:28)
[2025-03-20 05:39] LABS: Basophils % (Auto) 0 % (0-2.5); Eosinophils % (Auto) 0 % (0-10); Hematocrit 42.7 % (36.0-46.0); Hemoglobin 13.8 g/dL (12.0-16.0); Immature Granulocytes % (Auto) 0 % (0-0); Immature Granulocytes Auto 0.04 Thou/mm3 (0.00-0.00); Lymphocytes % (Auto) 22 % (10-50); Mean Corpuscular HGB Conc 32.3 g/dl (31.0-37.0); Mean Corpuscular Volume 90 fL (80-100); Monocytes # (Auto) 0.7 Thou/mm3 (0.0-0.8); Monocytes % (Auto) 7 % (0-12); Neutrophils # (Auto) 6.5 Thou/mm3 (1.8-7.7); Neutrophils % (Auto) 71 % (37-80); Nucleated Red Blood Cell % 0 /100 WBC (0); Platelet Count 145 Thou/mm3 (140-440); Red Blood Count 4.76 Miln/mm3 (4.00-5.20); White Blood Count 9.2 Thou/mm3 (3.6-11.0)
[2025-03-20 06:02] LABS: Anion Gap 10 (7-16); BUN/Creatinine Ratio 28 Ratio (12-20); Blood Urea Nitrogen 25 mg/dL (9-23); Calcium 9.4 mg/dL (8.3-10.6); Carbon Dioxide 38.2 mMol/L (20.0-31.0); Chloride 94 mMol/L (98-107); Creatinine (Component) 0.9 mg/dL (0.6-1.3); Estimated Creatinine Clearance 74.3 mL/min (>60); Glucose 146 mg/dL (74-106); Osmolality,Calculated 290 (275-295); Sodium 142 mMol/L (136-145); eGFR > 60 See Note
[2025-03-20] MEDS: POTASSIUM CHLORIDE 10% 20 MEQ/15 ML UDC 40 MEQ PO ×2 (08:05→09:54)
[2025-03-20] MEDS: predniSONE 20 MG TABLET 40 MG PO (08:05)
[2025-03-20] MEDS: AMIODARONE HCL 200 MG TABLET PO (08:05)
[2025-03-20] MEDS: METOPROLOL SUCCINATE XL 25 MG TABCR PO (08:06)
[2025-03-20] MEDS: AZITHROMYCIN 250 MG TABLET 500 MG PO (08:06)
[2025-03-20] MEDS: OSELTAMIVIR 75 MG CAPSULE PO (08:06)
[2025-03-20] MEDS: DAPAGLIFLOZIN PROPANEDIOL 5 MG TABLET 10 MG PO (08:06)
[2025-03-20] MEDS: Furosemide 40 MG TABLET PO (08:06)
[2025-03-20] MEDS: PANTOPRAZOLE 40 MG TABLET PO (08:06)
[2025-03-20] MEDS: APIXABAN 2.5 MG TABLET 5 MG PO (08:06)
[2025-03-20] MEDS: cefTRIAXone/D5w 1gm IV premix 1 GM/50 ML BAG IV (08:07)
[2025-03-20] MEDS: INSULIN GLARGINE (Lantus) 5 UNIT/0.05 ML (PER 5 UNITS) 40 UNIT SC (08:07)
--- NOTE | 2025-03-20 10:14 | PC.SS ---
Addendum entered by Chante Bermudez 03/20/25 14:32: SS informed by [facility] requesting an udpated O2 RN note, SS informed AGNES Leon. Updated O2 note submitted via [employer] to [employer]. Addendum entered by Chante Bermudez 03/20/25 13:57: Jelly Harrison informed SS auto transport driver will deliver DME portable concentrator by 1430 at bedside. AGNES Leon informed. [facility] accepted DME order and requesting updated oxygen test. SS informed AGNES Leon. Addendum entered by Chante Bermudez 03/20/25 12:27: DME referral submitted via [employer] to the following DME companies: [employer], [facility], [facility], [employer], [employer], [employer]. Responses pending. Addendum entered by Chante Bermudez 03/20/25 11:50: [id number], [id number] SS attempted to contact [employer] [phone] to inquire about portable oxygen, no answer; a message was left requesting a return call. Original Note: SS informed by Dr. Farmer patient is requesting portable oxygen. SS to confirm with DME company.
[2025-03-20] MEDS: INSULIN LISPRO (AdmeLOG) 1 UNIT/0.01 ML UNIT 15 UNIT SC (11:22)
[2025-03-20] MEDS: INSULIN LISPRO (AdmeLOG) 1 UNIT/0.01 ML UNIT SC (11:22)
--- NOTE | 2025-03-20 11:57 | ESDS_ITS ---
<Statement entered by Cheli Angela DO - 03/21/25 07:30> I, Cheli Angela DO, attest that I was physically present for the woodruff portions of the service and evaluated the patient with the resident and I reviewed and discussed the case with the resident and agree with the resident's findings and plans of care as documented above Planned Discharge Date 03/20/25 DS: Providers Provider Date of admission: 03/19/25 14:13 Primary care physician: Physician No Primary/Family Admitting Provider: Daniel Romero MD Attending Provider on Admission: Montse Bojorquez MD Attending Provider on DC: Javi Farmer MD Discharging Provider: Javi Farmer MD DS: Diagnosis Problem List Completed Was Problem List Reviewed/Reconciled?: Yes Hospital Course Hospital Course Hospital course: Janis Reynaga is a 54-year-old female with a past medical history of COPD on 3 L home oxygen, A-fib on Eliquis and amiodarone, HFrEF (EF 35 to 40% on 2023), type 2 diabetes mellitus, and history of amphetamine use who presents with acute on c hronic hypoxic respiratory failure likely secondary to influenza pneumonia. Presented with progressive shortness of breath for 2 to 3 days. Noted to have gone to her PCP to refill her home oxygen but was noted to be hypoxic, saturating in the 80s, and was sent to the ED. She also endorsed chest pressure that improved nitroglycerin but troponins were negative and EKG did not show any signs of ST changes or T wave abnormalities. She was initially started on tamiflu, ceftriaxone and azithromycin, DuoNebs, and methylprednisolone 40 mg IV daily. However, her blood sugars were difficult to control after being started on IV steroids and noted to have hemoglobin A1c of 11.7% with initial blood glucose of 459. Patient received over 100 units of insulin in 24 hours to manage blood sugars and eventually was managed on 40 units glargine BID and 15 units lispro TIDWM. She was also started on GDMT of dapagliflozin, losartan, and metoprolol. Her oxygen requirements had returned to her baseline and other vital signs stable, CBC unremarkable, and chem panel showed hypokalemia that was replenished and fasting glucose of 146. Thus, patient was deemed stable for discharge. Diagnoses during admission: #Acute on chronic hypoxic and hypercapnic respiratory failure in setting of influenza pneumonia?resolved #COPD exacerbation likely secondary to influenza pneumonia?improving #Influenza pneumonia #Type 2 diabetes mellitus, insulin-dependent #Atrial fibrillation #HFrEF (EF 35-40% in 2023) Discharge instructions: ? You've been started on dapagliflozin, losartan, and metoprolol for your heart failure and hold them all if your systolic blood pressure is < 100 ? Your lasix has been decreased to 20 mg daily, but if you notice more swelling or weight gain then take a total of 40 mg daily ? Take oseltamivir for two more days to finish course ? Take methylprednisolone as instructed ? Continue taking all other home medications as prescribed ? Follow-up with PCP within 1-2 weeks of discharge ? If you do not have a PCP, you can follow-up at the [facility] (you can call [phone] to make an appointment) ? If you wish to follow-up with Dr. Farmer, schedule appointment on Thursday afternoons ? Return to ED if symptoms worsen or recur ----- Plan discussed with attending physician Dr. Coreen Farmer MD PGY-1 Internal Medicine Time Spent with Patient Time attestation: Total time spent providing and/or coordinating discharge services: Time spent: Greater than 30 minutes Exam Vital Signs Temp Pulse Resp BP Pulse Ox O2 Del Method O2 Flow Rate 97.0 F 68 20 107/60 98 Nasal Cannula 2 03/20/25 08:00 03/20/25 11:47 03/20/25 09:17 03/20/25 11:47 03/20/25 09:17 03/20/25 08:00 03/20/25 09:17 Narrative Exam GENERAL: no acute distress, AAO x3, well nourished. HEENT: Head AT/ NC. Mucous membranes moist. NECK: Supple, no lymphadenopathy, no carotid bruits. CARDIOVASCULAR: RRR. Normal S1/S2, No m/r/g. 1+ pitting edema of bilateral LEs. 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 Bowel sounds present in all 4 quadrants. NEUROLOGICAL: CN II-XII grossly intact. No focal deficits. Sensation intact, symmetric. PSYCHIATRIC: Awake and alert, not agitated, normal mood and affect. Discharge Plan Plan Patient Disposition: HOME (Self Care) Patient condition on transfer: Stable Care Plan Goals: ? You've been started on dapagliflozin, losartan, and metoprolol for your heart failure and hold them all if your systolic blood pressure is < 100 ? Your lasix has been decreased to 20 mg daily, but if you notice more swelling or weight gain then take a total of 40 mg daily ? Take oseltamivir for two more days to finish course ? Take methylprednisolone as instructed ? Continue taking all other home medications as prescribed ? Follow-up with PCP within 1-2 weeks of discharge ? If you do not have a PCP, you can follow-up at the [facility] (you can call [phone] to make an appointment) ? If you wish to follow-up with Dr. Farmer, schedule appointment on Thursday afternoons ? Return to ED if symptoms worsen or recur Prescriptions/Referrals Prescriptions/Med Rec: New (DME) FreeStyle Odilon 3 Plus Sensor Device See Rx Instructions .Route Qty: 2 0RF Rx Instructions: As directed (DME) FreeStyle Odilon 3 Elmo Misc See Rx Instructions .Route Qty: 1 0RF Rx Instructions: As directed oseltamivir 75 mg capsule 75 mg PO BID 2 Days Qty: 4 0RF dapagliflozin propanediol 10 mg tablet 10 mg PO QAM Qty: 30 0RF (DME) pen needle, diabetic [1st Tier Unifine Pentips Plus] 29 gauge x 1/2 needle See Rx Instructions .Route Qty: 100 0RF Rx Instructions: Use for administration of insulin only furosemide 20 mg tablet 20 mg PO QAM Qty: 30 0RF losartan 25 mg Tablet 25 mg PO QDAY@1100 30 Days Qty: 0 0RF metoprolol succinate 25 mg Tablet Extended Release 24 Hr 25 mg PO QDAY 30 Days Qty: 0 0RF pantoprazole 40 mg Tablet,Delayed Release (Dr/Ec) 40 mg PO QDAY 30 Days Qty: 30 0RF methylprednisolone 4 mg tablets,dose pack See Taper PO QDAY Qty: 21 0RF Taper: Prednisone Taper 20 mg DAILY for 2 Days and 0 Hour 10 mg DAILY for 2 Days and 0 Hour 5 mg DAILY for 7 Days and 0 Hour insulin glargine 100 unit/mL (3 mL) insulin pen 40 unit subcut QDAY Qty: 15 0RF Continued digoxin 125 mcg (0.125 mg) tablet 125 mcg PO DAILY Eliquis 5 mg tablet 5 mg PO BID 30 Days Qty: 60 3RF albuterol sulfate 90 mcg/actuation HFA aerosol inhaler 2 inh inhalation Q4H PRN (Reason: shortness of breath or wheezing) Qty: 8.5 0RF Trelegy Ellipta 100-62.5-25 mcg blister with device 1 inh inhalation Q24H Qty: 28 0RF amiodarone 200 mg tablet 200 mg PO QDAY Qty: 30 1RF baclofen 20 mg tablet 20 mg PO 3XD Discontinued Qvar RediHaler 80 mcg/actuation HFA aerosol breath activated 2 inh inhalation BID Qty: 10.6 0RF Rx Instructions: administer with spacer dexamethasone 6 mg tablet 6 mg PO QDAY Qty: 4 0RF insulin glargine [Lantus Solostar U-100 Insulin] 100 unit/mL (3 mL) insulin pen 10 unit SUBCUT HS prednisone 50 mg tablet 50 mg PO QDAY Qty: 5 0RF furosemide 40 mg tablet 20 mg PO BID Referrals: No Primary/Family,Physician [Primary Care Provider] - Patient/Caregiver Discharge Instructions Education Materials: Asthma Print Language: Greenlandic Stand Alone Forms: Cecelia Award Info., Patient Portal Info Letter Discharge Order Discharge Orders: Discharge (Routine); Ordered 03/20/25 Ordered By: Javi Farmer Quality Discharge Quality Measures VTE prophylaxis
--- NOTE | 2025-03-20 13:35 | PC.NURSE ---
o2 test done on patient on 2l pt saturation is 97%.when she walks without oxygen patient felt short of breath and o2 drop to 87%.
--- NOTE | 2025-03-20 14:24 | PC.NURSE ---
pt saturation on room air is 87%.
== END 2025-03-20 15:35 | disposition home or self-care (01) | DRG 140 ==
LOC: SERX 20:26 → SERHOLD 21:23 → S3NX 03-17 05:45
PROVIDERS: Student in an Organized Health Care Education/Training Program; Admitting Provider Student in an Organized Health Care Education/Training Program; Emergency Provider Emergency Medicine; Visit Provider Internal Medicine
DX: J44.1 Chronic obstructive pulmonary disease with (acute) exacerbation (principal); E11.65 Type 2 diabetes mellitus with hyperglycemia; J96.21 Acute and chronic respiratory failure with hypoxia; J96.22 Acute and chronic respiratory failure with hypercapnia; J44.0 Chronic obstructive pulmonary disease with (acute) lower respiratory infection; J10.00 Influenza due to other identified influenza virus with unspecified type of pneumonia; I27.20 Pulmonary hypertension, unspecified; I48.91 Unspecified atrial fibrillation; I50.22 Chronic systolic (congestive) heart failure; J45.901 Unspecified asthma with (acute) exacerbation; E87.6 Hypokalemia; Z79.01 Long term (current) use of anticoagulants; Z79.4 Long term (current) use of insulin; Z79.899 Other long term (current) drug therapy; Z87.891 Personal history of nicotine dependence; Z99.81 Dependence on supplemental oxygen
CPT/HCPCS: 36415; 36600; 71045; 71250; 80048; 80053; 80307; 81001; 82248; 82803; 83036; 83735; 83880; 84100; 84439; 84443; 84484; 85025; 85379; 87400; 87811; 93005; 93225; 93306; 94640; 94762; 96365; 96375; A9270; G0378; J0696; J1200; J1815; J1938; J2919; J3475; J3490; J7512; J8499

== ENCOUNTER 2025-04-15 15:28 | Emergency (ER) | payer MEDICAID, SELFPAY ==
[2025-04-15 15:47] VITALS: BP 116/83; PULSE 92; RESP 20; TEMP 36.8; O2SAT 92; BMI 42.4
--- NOTE | 2025-04-15 15:55 | PD.EDSOB ---
ED SOB =RME/HPI General Chief Complaint: Shortness of Breath/Dyspnea Stated Complaint: SOB today, no insulin in 5 days Time Seen by Provider: 04/15/25 15:44 Arrival date/time: 04/15/25 15:28 Limitations: no limitations RME / HPI RME / HPI Narrative: DR. VARNER MAIN ED EVALUATION: 54 year old female with past medical history significant for COPD on 3 L home oxygen, A-fib on Eliquis and amiodarone, HFrEF (EF 35 to 40% on 2023), type 2 diabetes mellitus, and history of amphetamine use presents to the Emergency Department with complaint of shortness of breath onset 6 AM today. Symptoms are moderate. She also mentions that she had been out of her insulin for 5 days. Related Data Home Medications ?Medication ?Instructions ?Recorded ?Confirmed digoxin 125 mcg (0.125 mg) tablet 125 mcg PO DAILY 12/16/23 03/16/25 baclofen 20 mg tablet 20 mg PO 3XD 03/16/25 03/16/25 insulin glargine 100 unit/mL (3 15 unit subcut QDAY 04/15/25 04/15/25 mL) subcutaneous pen Previous Rx's ?Medication ?Instructions ?Recorded apixaban 5 mg tablet (Eliquis) 5 mg PO BID 1 month #60 tabs 02/12/24 albuterol sulfate 90 mcg/actuation 2 inh inhalation Q4H PRN shortness 03/27/24 aerosol inhaler of breath or wheezing #8.5 grams amiodarone 200 mg tablet 200 mg PO QDAY #30 tabs 10/16/24 fluticasone fur. 100 mcg-umeclid 1 inh inhalation Q24H #28 ea 02/14/25 62.5 mcg-vilant 25 mcg inhalat.powder (Trelegy Ellipta) blood-glucose sensor (FreeStyle #2 ea 03/17/25 Odilon 3 Plus Sensor device) blood-glucose,meal cooker,cont #1 ea 03/17/25 (FreeStyle Odilon 3 [place]) dapagliflozin propanediol 10 mg 10 mg PO QAM #30 tabs 03/20/25 tablet furosemide 20 mg tablet 20 mg PO QAM #30 tabs 03/20/25 losartan 25 mg tablet 25 mg PO QDAY@1100 30 days #0 tabs 03/20/25 methylprednisolone 4 mg tablets in See Taper PO QDAY #21 tabs 03/20/25 a dose pack metoprolol succinate 25 mg 25 mg PO QDAY 30 days #0 tabs 03/20/25 tablet,extended release 24 hr pantoprazole 40 mg tablet,delayed 40 mg PO QDAY 30 days #30 tabs 03/20/25 release pen needle, diabetic 29 gauge x #100 ea 03/20/25 1/2 (1st Tier Unifine Pentips Plus) insulin glargine 100 unit/mL (3 15 unit (0.15 mL) subcut QAM #15 mL 04/15/25 mL) subcutaneous pen Allergies Allergy/AdvReac Type Severity Reaction Status Date / Time codeine Allergy Severe HIVES, Verified 04/15/25 15:33 SWELLING, DIFF BREATHING meloxicam Allergy Severe Difficulty Verified 04/15/25 15:33 Breathing Review of Systems Review of Systems Systems Reviewed: All systems reviewed, normal except as documented Narrative Review of Systems: GEN: No fever, no chills, no weight loss EYES: No discharge, no visual changes, no pain HEENT: No ear pain, no congestion, no sore throat PULM: + shortness of breath, no cough, no congestion CV: No chest pain, no dyspnea on exertion, no palpitations GI: No nausea, no vomiting, no diarrhea, no pain, no constipation : No frequency, no urgency and no dysuria MUSC/SKEL: No joint pain, no back pain SKIN: No rash PSYCH: No hallucinations, no depression HEME/LYMPH: No easy bleeding or bruising tendencies NEURO: No weakness, no headache Past Medical History Past Medical History NEUROLOGIC: Positive Neurological Disorders and Migraine CARDIAC: Positive Cardiac Disorders, Myocardial Infarction, Cardiac Arrhythmia, Congestive Heart Failure and Hypotension RESPIRATORY: Positive Chronic Obstructive Pulmonary Disease (COPD), Asthma and Pneumonia GASTROINTESTINAL: Positive Gastrointestinal Disorders, Gall Bladder Disease and Obesity REPRODUCTIVE: Positive Previous Pregnancies MUSCULOSKELETAL: Positive Arthritis and Fractures ENDOCRINE: Positive Endocrine Disorders and Diabetes Mellitus Type 2 PSYCHO/SOCIAL: Positive Recreational Drug Use, Depression and Anxiety OTHER HISTORY: Positive Autoimmune Disease, Shingles, Falls and Chicken Pox Family History FAMILY HISTORY: Positive Family Cardiac Disorders, Family Cancer and Family Surgery Surgical History SURGICAL: Positive Abdominal Surgery Social History SMOKING STATUS: Former smoker SECOND HAND EXPOSURE: Yes SUBSTANCE USE: former substance user and amphetamines ED Exam General Limitations: Present no limitations General appearance: Present alert Head Head exam: Present atraumatic, normocephalic and normal inspection Eye Eye exam: Present normal appearance, PERRL and EOMI ENT ENT exam: Present normal exam, normal oropharynx and mucous membranes moist Neck Neck exam: Present normal inspection, full ROM and trachea midline Chest Chest inspection: Present normal inspection and symmetric chest wall rise Respiratory Respiratory exam: Present respiratory distress and other (prolonged expiratory wheezing) Cardiovascular Cardiovascular exam: Present regular rate, normal rhythm and normal heart sounds Abdominal Exam Abdominal exam: Present soft and normal bowel sounds Extremities Exam Extremities exam: Present normal inspection and full ROM Back Exam Back exam: Present normal inspection and full ROM Neurological Exam Neurological exam: Present alert, oriented X3 and CN II-XII intact Psychiatric Psychiatric exam: Present normal affect and normal mood Skin Skin exam: Present warm, dry, intact and normal color Course Course Course Narrative: CXR is ordered for determining the etiology of shortness of breath. Quality Measures none Orders Category Date Time Status Radiocommunications Technician STAT Care 04/15/25 15:57 Active Continuous Pulse Oximetry ONCE Care 04/15/25 15:57 Completed EKG (ED ONLY) *Do not use* NOW Care 04/15/25 15:57 Completed Insert IV STAT Care 04/15/25 15:57 Active EKG (ED Only) Stat Exams 04/15/25 15:57 Draft XR chest 1V portable Stat Exams 04/15/25 15:57 Completed B-Type Natriuretic Peptide Stat Lab 04/15/25 16:08 Completed CBC Stat Lab 04/15/25 16:08 Completed Comprehensive Metabolic Panel Stat Lab 04/15/25 16:08 Completed Magnesium Stat Lab 04/15/25 16:08 Completed Troponin I Stat Lab 04/15/25 16:08 Completed ALBUTEROL RT 3ml [Proventil Rt 3ml] Med 04/15/25 15:58 Discontinued 5 mg INH X1 ONE Insulin Glargine Inj [Lantus Inj] Med 04/15/25 18:31 Discontinued 40 unit SC X1 ONE Magnesium Sulfate 1 gm Ivpb [Magnesium Sulfate Ivpb] Med 04/15/25 15:59 Discontinued 1 gm in 100 ml IV X1 Sodium Chloride 0.9% 1000 ml [Ns] 1,000 ml Med 04/15/25 15:56 Discontinued IV 999 mls/hr Sodium Chloride 0.9% 1000 ml [Ns] 1,000 ml Med 04/15/25 17:19 Discontinued IV 999 mls/hr fentaNYL INJ [Sublimaze Inj] Med 04/15/25 17:19 Discontinued 50 mcg IM X1 ONE fentaNYL INJ [Sublimaze Inj] Med 04/15/25 17:33 Discontinued 50 mcg IVP X1 ONE Oxygen Delivery NOW RT 04/15/25 15:57 Active Vital Signs Vital signs: Vital Signs Temperature 98.2 F 04/15/25 15:47 Pulse Rate 92 04/15/25 15:47 Respiratory Rate 20 04/15/25 15:47 Blood Pressure 116/83 04/15/25 15:47 Pulse Oximetry (%) 92 L 04/15/25 15:47 Oxygen Delivery Method Nasal Cannula 04/15/25 15:47 Oxygen Flow Rate 3 04/15/25 15:47 Shortness of Breath / Dyspnea MDM Narrative MDM Narrative:: IPatti am scribing for and in the presence of Dr. Varner. Patient data External records reviewed:: [facility] previous records (Reviewed prior ED records from 03/16/25. Patient was seen for Acute on chronic respiratory failure with hypoxia.) Clinical information provided by:: patient Social determinants that could affect healthcare access:: other (specify) (Former smoker.) Patient has the following chronic illnesses:: COPD on 3 L home oxygen, A-fib on Eliquis and amiodarone, HFrEF (EF 35 to 40% on 2023), type 2 diabetes mellitus, and history of amphetamine use. How is presenting disease/condition affected by chronic disease/condition?: caused by Evaluation data The following diagnostics were reviewed and interpreted by me:: lab results, radiology exam(s) and EKG tracing(s) (My interpretation: EKG performed at 1616 hours, sinus rhythm, rate 92, nonspecific ST-T wave changes) Lab and/or radiology exams considered but not ordered:: none Interpretation Summary: Procedure(s): XR chest 1V portable Accession Number(s): [id number] cc: Kleber Varner MD; Pete Araiza MD; NO PRIMARY/FAMILY,PHYSICIAN~ Examination: AP chest single view TECHNIQUE: AP portable upright chest single view Date and time: April 15, 2025, 1609 hours Comparison March 16, 2025 1810 hours INDICATIONS: Chest pain and shortness of breath 2 days ago. Findings: Normal heart size Lungs are clear. The osseous structures are intact IMPRESSION: No active disease Dictated By: Pete Araiza MD Medications / Prescriptions Medications or Prescriptions considered but not ordered:: none Medication administrations:: Medication Administration History Discontinued Medications Albuterol (Albuterol Rt 2.5 Mg/3 Ml Nebu) 5 mg INH X1 ONE Stop: 04/15/25 15:59 Last Admin: 04/15/25 16:23 Dose: 5 mg Documented By: GWENDOLYN Fentanyl Citrate (Fentanyl Cit Inj 50 Mcg/Ml Amp 2ml) 50 mcg IM X1 ONE Stop: 04/15/25 17:20 Last Admin: 04/15/25 17:34 Dose: Not Given Documented By: KAYLEN Non-Admin Reason: Discontinued Fentanyl Citrate (Fentanyl Cit Inj 50 Mcg/Ml Amp 2ml) 50 mcg IVP X1 ONE Stop: 04/15/25 17:34 Last Admin: 04/15/25 17:35 Dose: 50 mcg Documented By: KAYLEN Sodium Chloride (Ns) 1,000 mls @ 999 mls/hr IV .Q1H1M ONE Stop: 04/15/25 16:56 Last Infusion: 04/15/25 17:19 Dose: Infused Documented By: Admin: 04/15/25 16:08 Dose: 999 mls/hr Documented By: AMAN Magnesium Sulfate/Dextrose (Magnesium Sulfate Ivpb) 1 gm in 100 mls @ 100 mls/hr IV X1 ONE Stop: 04/15/25 16:58 Last Infusion: 04/15/25 17:18 Dose: Infused Documented By: Admin: 04/15/25 16:11 Dose: 100 mls/hr Documented By: AMAN Sodium Chloride (Ns) 1,000 mls @ 999 mls/hr IV .Q1H1M ONE Stop: 04/15/25 18:19 Last Infusion: 04/15/25 18:48 Dose: Infused Documented By: Admin: 04/15/25 17:31 Dose: 999 mls/hr Documented By: KAYLEN Insulin Glargine (Insulin Glargine (Lantus) 5 Unit/0.05 Ml (Per 5 Units)) 40 unit SC X1 ONE Stop: 04/15/25 18:32 Last Admin: 04/15/25 18:40 Dose: 40 unit Documented By: AMAN Co-signed By: SANYA see above if any Consultations Consultation(s) initiated? (list below): No Diagnosis Shortness of Breath Differential Diagnosis: acute exacerbation of chronic obstructive airways disease, congestive heart failure, community acquired pneumonia, asthma with exacerbation and pulmonary embolism Most likely diagnosis given after review of the tests above:: Acute bronchospasm. Admission Indicated Admission indicated?: not indicated Explain why admission is indicated or not indicated:: Patient does not meet admission criteria. Admission Request Was there a request for admission?: No Disposition Plan Disposition Plan: Discharge Discharge Attestation Discharge Attestation: The patient and all family members were given an opportunity to ask questions and understood the discharge instructions. Discharge instructions specifically effects, indications for sooner follow up or return to the emergency department, and the expected course of current diagnosis. Patient condition: Stable Discharge Plan Plan Patient Disposition: HOME (Self Care) Patient condition on transfer: Stable Prescriptions/Referrals Prescriptions/Med Rec: No Action digoxin 125 mcg (0.125 mg) tablet 125 mcg PO DAILY Eliquis 5 mg tablet 5 mg PO BID 30 Days Qty: 60 3RF albuterol sulfate 90 mcg/actuation HFA aerosol inhaler 2 inh inhalation Q4H PRN (Reason: shortness of breath or wheezing) Qty: 8.5 0RF Trelegy Ellipta 100-62.5-25 mcg blister with device 1 inh inhalation Q24H Qty: 28 0RF amiodarone 200 mg tablet 200 mg PO QDAY Qty: 30 1RF baclofen 20 mg tablet 20 mg PO 3XD (DME) FreeStyle Odilon 3 Plus Sensor Device See Rx Instructions .Route Qty: 2 0RF Rx Instructions: As directed (DME) FreeStyle Odilon 3 [place] Misc See Rx Instructions .Route Qty: 1 0RF Rx Instructions: As directed dapagliflozin propanediol 10 mg tablet 10 mg PO QAM Qty: 30 0RF (DME) pen needle, diabetic [1st Tier Unifine Pentips Plus] 29 gauge x 1/2 needle See Rx Instructions .Route Qty: 100 0RF Rx Instructions: Use for administration of insulin only furosemide 20 mg tablet 20 mg PO QAM Qty: 30 0RF losartan 25 mg Tablet 25 mg PO QDAY@1100 30 Days Qty: 0 0RF metoprolol succinate 25 mg Tablet Extended Release 24 Hr 25 mg PO QDAY 30 Days Qty: 0 0RF pantoprazole 40 mg Tablet,Delayed Release (Dr/Ec) 40 mg PO QDAY 30 Days Qty: 30 0RF methylprednisolone 4 mg tablets,dose pack See Taper PO QDAY Qty: 21 0RF Taper: Prednisone Taper 20 mg DAILY for 2 Days and 0 Hour 10 mg DAILY for 2 Days and 0 Hour 5 mg DAILY for 7 Days and 0 Hour insulin glargine 100 unit/mL (3 mL) insulin pen 40 unit subcut QDAY Qty: 15 0RF Referrals: No Primary/Family,Physician [Primary Care Provider] - In 1 week Problem List Clinical Impression: Acute bronchospasm Patient/Caregiver Discharge Instructions Discharge Activity: activity as tolerated Education Materials: ED Bronchospasm (Adult) Print Language: Georgian Stand Alone Forms: Cecelia Award Info., Patient Portal Info Letter
--- NOTE | 2025-04-15 15:57 | EKG_ITS ---
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
[2025-04-15 16:00] VITALS: PULSE 92
[2025-04-15] MEDS: SODIUM CHLORIDE 0.9% 1000 ML 1,000 ML 999 ML IV ×2 (16:08→17:31)
[2025-04-15 16:20] LABS: Basophils # (Auto) 0.0 Thou/mm3 (0.0-0.2); Basophils % (Auto) 0 % (0-2.5); Eosinophils # (Auto) 0.1 Thou/mm3 (0.0-0.5); Eosinophils % (Auto) 2 % (0-10); Hematocrit 44.1 % (36.0-46.0); Hemoglobin 14.3 g/dL (12.0-16.0); Immature Granulocytes Auto 0.01 Thou/mm3 (0.00-0.00); Lymphocytes # (Auto) 1.5 Thou/mm3 (1.0-4.8); Lymphocytes % (Auto) 24 % (10-50); Mean Corpuscular HGB Conc 32.4 g/dl (31.0-37.0); Mean Corpuscular Hemoglobin 28.7 pg (25.0-35.0); Mean Corpuscular Volume 88 fL (80-100); Monocytes # (Auto) 0.4 Thou/mm3 (0.0-0.8); Monocytes % (Auto) 6 % (0-12); Neutrophils # (Auto) 4.2 Thou/mm3 (1.8-7.7); Neutrophils % (Auto) 68 % (37-80); Nucleated Red Blood Cell # 0.00 Thou/mm3 (0.00-0.00); Nucleated Red Blood Cell % 0 /100 WBC (0); Platelet Count 157 Thou/mm3 (140-440); RDW Standard Deviation 43.9 fL (36.4-46.3); Red Blood Count 4.99 Miln/mm3 (4.00-5.20); White Blood Count 6.1 Thou/mm3 (3.6-11.0)
[2025-04-15 16:23] VITALS: PULSE 92
[2025-04-15] MEDS: ALBUTEROL RT 2.5 MG/3 ML NEBU 5 MG INH (16:23)
[2025-04-15 16:24] VITALS: PULSE 87; PULSE 89; RESP 20; RESP 24; O2SAT 93; O2SAT 98
[2025-04-15 16:39] LABS: Alanine Aminotransferase 20 U/L (10-49); Albumin, Serum 4.4 gm/dL (3.5-5.0); Albumin/Globulin Ratio 1.8 (1.2-2.2); Alkaline Phosphatase 91 U/L (46-116); Anion Gap 11 (7-16); Aspartate Amino Transferase 16 U/L (0-34); BUN/Creatinine Ratio 10 Ratio (12-20); Bilirubin,Total 0.9 mg/dL (0.3-1.2); Blood Urea Nitrogen 11 mg/dL (9-23); Calcium 9.5 mg/dL (8.3-10.6); Calcium (Corrected) 9.5 mg/dL (8.5-10.1); Carbon Dioxide 31.5 mMol/L (20.0-31.0); Chloride 102 mMol/L (98-107); Creatinine (Component) 1.1 mg/dL (0.6-1.3); Estimated Creatinine Clearance 59.1 mL/min (>60); Globulin 2.5 gm/dL (2.3-3.5); Glucose 335 mg/dL (74-106); Magnesium 1.6 mg/dL (1.6-2.6); Osmolality,Calculated 299 (275-295); Potassium 3.9 mMol/L (3.4-5.1); Sodium 144 mMol/L (136-145); Total Protein 6.9 gm/dL (5.7-8.2); Troponin I < 0.020 ng/mL (0.0-0.045); eGFR 60 See Note
[2025-04-15 16:41] LABS: B-Type Natriuretic Peptide 29 pg/mL (0-100)
[2025-04-15] MEDS: fentaNYL CIT INJ 50 mCg/ML AMP 2ML IVP (17:35)
[2025-04-15 17:55] VITALS: BP 129/67; PULSE 90; RESP 16; TEMP 36.6; O2SAT 95
[2025-04-15] MEDS: INSULIN GLARGINE (Lantus) 5 UNIT/0.05 ML (PER 5 UNITS) 40 UNIT SC (18:40)
[2025-04-15 19:20] VITALS: BP 125/62; PULSE 90; RESP 18; TEMP 36.6; O2SAT 93
== END 2025-04-15 19:21 | disposition home or self-care (01) ==
PROVIDERS: Emergency Provider Emergency Medicine
DX: J98.01 Acute bronchospasm (principal); R94.31 Abnormal electrocardiogram [ECG] [EKG]; Z87.891 Personal history of nicotine dependence
CPT/HCPCS: 36415; 71045; 80053; 83735; 83880; 84484; 85025; 93005; 94640; 96361; 96365; 96375; 99284; J1815; J3010; J3475; J7030

== ENCOUNTER 2025-05-10 11:34 | Emergency (ER) | payer MEDICAID, SELFPAY ==
[2025-05-10 11:35] VITALS: BMI 40.4
--- NOTE | 2025-05-10 11:40 | PC.NURSE ---
CHARGE NURSE PATTI INFORMED OF PT'S BLOOD SUGAR OF 498. SHE SAID TO LET PERI PLACE HIS ORDERS AND THEN SHE WOULD GIVE HER A BED.
[2025-05-10 11:41] VITALS: BP 127/77; PULSE 96; RESP 24; TEMP 36.8; O2SAT 92
--- NOTE | 2025-05-10 11:49 | XR_ITS ---
Examination: PA lateral chest 2 views TECHNIQUE: Upright PA lateral chest 2 views Date and time: May 10, 2025 1202 hours Comparison April 15, 2025 INDICATIONS: Shortness of breath congestion chest pain beginning 2 days ago. FINDINGS: Normal heart size Moderate vascular congestion including central vascular engorgement No lobar pneumonia or pulmonary edema IMPRESSION: Moderate vascular congestion, central vascular engorgement, suspicious for pulmonary artery hypertension
--- NOTE | 2025-05-10 11:49 | EKG_ITS ---
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
--- NOTE | 2025-05-10 11:49 | PD.EDRME ---
Rapid Medical Screening Exam RME Arrival date/time: 05/10/25 11:34 54-year-old female with a history of COPD, CHF, type 2 diabetes, atrial fibrillation presents to the emergency room with a chief complaint of chest pain, palpitations, and increased shortness of breath x 1 week that has progressively gotten worse in the last 2 days I have greeted and performed a focused initial assessment of this patient. A comprehensive ED assessment and evaluation of the patient, analysis of all test results, and completion of the medical decision making process will be conducted by additional ED providers. Chief Complaint: Shortness of Breath/Dyspnea Time Seen by Provider: 05/10/25 11:45 Vital signs: Vital Signs Temperature 98.3 F 05/10/25 11:41 Pulse Rate 96 05/10/25 11:41 Respiratory Rate 24 H 05/10/25 11:41 Blood Pressure 127/77 05/10/25 11:41 Pulse Oximetry (%) 91 L 05/10/25 11:41 Oxygen Delivery Method Nasal Cannula 05/10/25 11:41 Oxygen Flow Rate 3 05/10/25 11:41 Vital signs reviewed by provider: Yes
[2025-05-10 12:08] LABS: Basophils # (Auto) 0.0 Thou/mm3 (0.0-0.2); Basophils % (Auto) 0 % (0-2.5); Eosinophils # (Auto) 0.1 Thou/mm3 (0.0-0.5); Eosinophils % (Auto) 2 % (0-10); Hematocrit 44.7 % (36.0-46.0); Hemoglobin 14.3 g/dL (12.0-16.0); Immature Granulocytes Auto 0.03 Thou/mm3 (0.00-0.00); Lymphocytes # (Auto) 2.1 Thou/mm3 (1.0-4.8); Lymphocytes % (Auto) 27 % (10-50); Mean Corpuscular HGB Conc 32.0 g/dl (31.0-37.0); Mean Corpuscular Hemoglobin 28.7 pg (25.0-35.0); Mean Corpuscular Volume 90 fL (80-100); Monocytes # (Auto) 0.5 Thou/mm3 (0.0-0.8); Monocytes % (Auto) 6 % (0-12); Neutrophils # (Auto) 4.8 Thou/mm3 (1.8-7.7); Neutrophils % (Auto) 64 % (37-80); Nucleated Red Blood Cell # 0.00 Thou/mm3 (0.00-0.00); Nucleated Red Blood Cell % 0 /100 WBC (0); Platelet Count 164 Thou/mm3 (140-440); RDW Standard Deviation 44.1 fL (36.4-46.3); Red Blood Count 4.99 Miln/mm3 (4.00-5.20); White Blood Count 7.6 Thou/mm3 (3.6-11.0)
[2025-05-10 12:29] LABS: Alanine Aminotransferase 15 U/L (10-49); Albumin, Serum 4.5 gm/dL (3.5-5.0); Albumin/Globulin Ratio 1.9 (1.2-2.2); Alkaline Phosphatase 99 U/L (46-116); Anion Gap 4 (7-16); Aspartate Amino Transferase 15 U/L (0-34); BUN/Creatinine Ratio 13 Ratio (12-20); Bilirubin,Total 1.1 mg/dL (0.3-1.2); Blood Urea Nitrogen 10 mg/dL (9-23); Calcium 10.0 mg/dL (8.3-10.6); Calcium (Corrected) 10.0 mg/dL (8.5-10.1); Carbon Dioxide 35.9 mMol/L (20.0-31.0); Chloride 100 mMol/L (98-107); Creatinine (Component) 0.8 mg/dL (0.6-1.3); Estimated Creatinine Clearance 78.9 mL/min (>60); Globulin 2.4 gm/dL (2.3-3.5); Glucose 191 mg/dL (74-106); Magnesium 1.3 mg/dL (1.6-2.6); Osmolality,Calculated 283 (275-295); Potassium 4.0 mMol/L (3.4-5.1); Sodium 140 mMol/L (136-145); Total Protein 6.9 gm/dL (5.7-8.2); Troponin I < 0.020 ng/mL (0.0-0.045); eGFR > 60 See Note
[2025-05-10 12:33] LABS: B-Type Natriuretic Peptide 39 pg/mL (0-100)
[2025-05-10 12:34] LABS: Collection Type, Urine Clean Catch
[2025-05-10 12:44] LABS: INR 1.0 (0.9-1.3); Partial Thromboplastin Time 27.6 Seconds (22.0-36.0); Prothrombin Time 10.9 Seconds (9.0-12.2)
[2025-05-10 12:45] LABS: Bacteria,Urine Rare; Bilirubin,Urine Negative (Negative); Blood,Urine Negative (Negative); Clarity,Urine Clear (Clear/Hazy); Color,Urine Yellow (Lt Yel-Yel); Glucose, Urine Negative (Negative); Ketones,Urine Negative (Negative); Leukocyte Esterase,Urine Positive (Negative); Nitrite,Urine Negative (Negative); PH,Urine 7.0 (5.0-7.0); Protein,Urine Trace (Neg - Trace); RBC,Urine 1 /hpf (0-3); Specific Gravity,Urine 1.022 (1.001-1.035); Squamous Epithelial Cell,Urine 7 /hpf (0-5); Urobilinogen,Urine 3.0 mg/dL (0.0-1.0); WBC,Urine 1 /hpf (0-5)
--- NOTE | 2025-05-10 13:56 | PC.NURSE ---
PT PUT IN ROOM 15 FOR OXYGEN BECAUSE THE BATTERY ON HER CONCENTRATOR RAN OUT.
[2025-05-10] MEDS: ACETAMINOPHEN 325 MG TABLET 650 MG PO (14:19)
[2025-05-10 15:07] VITALS: BP 125/84; PULSE 77; RESP 24; TEMP 37; O2SAT 97
--- NOTE | 2025-05-10 16:15 | PD.EDSOB ---
ED SOB =RME/HPI General Chief Complaint: Shortness of Breath/Dyspnea Stated Complaint: DIFFICULTY BREATHING; BLOOD SUGAR 498 Time Seen by Provider: 05/10/25 11:45 Arrival date/time: 05/10/25 11:34 RME / HPI RME / HPI Narrative: 05/10/25 11:34 54-year-old female with a history of COPD, CHF, type 2 diabetes, atrial fibrillation presents to the emergency room with a chief complaint of chest pain, palpitations, and increased shortness of breath x 1 week that has progressively gotten worse in the last 2 days I have greeted and performed a focused initial assessment of this patient. A comprehensive ED assessment and evaluation of the patient, analysis of all test results, and completion of the medical decision making process will be conducted by additional ED providers. DR. CASEY MAIN ED EVALUATION 54 year old female with history of atrial fibrillation, HFrEF 35-40% 03/2025, COPD on 3L home oxygen, diabetes presents to the ED for evaluation of cough and shortness of breath beginning 1 week ago. Described feeling she is not getting enough air that is not improved with use of oxygen or inhaler. Denies fevers, chills, sweats, chest pain, abdominal pain, n/v/d, or urinary symptoms. Related Data Home Medications ?Medication ?Instructions ?Recorded ?Confirmed digoxin 125 mcg (0.125 mg) tablet 125 mcg PO DAILY 12/16/23 03/16/25 baclofen 20 mg tablet 20 mg PO 3XD 03/16/25 03/16/25 insulin glargine 100 unit/mL (3 15 unit subcut QDAY 04/15/25 04/15/25 mL) subcutaneous pen Previous Rx's ?Medication ?Instructions ?Recorded apixaban 5 mg tablet (Eliquis) 5 mg PO BID 1 month #60 tabs 02/12/24 albuterol sulfate 90 mcg/actuation 2 inh inhalation Q4H PRN shortness 03/27/24 aerosol inhaler of breath or wheezing #8.5 grams amiodarone 200 mg tablet 200 mg PO QDAY #30 tabs 10/16/24 fluticasone fur. 100 mcg-umeclid 1 inh inhalation Q24H #28 ea 02/14/25 62.5 mcg-vilant 25 mcg inhalat.powder (Trelegy Ellipta) blood-glucose sensor ([employer] #2 ea 03/17/25 Odilon 3 Plus Sensor device) blood-glucose,inspector materials and processes,cont #1 ea 03/17/25 (FreeStyle Odilon 3 [place]) dapagliflozin propanediol 10 mg 10 mg PO QAM #30 tabs 03/20/25 tablet furosemide 20 mg tablet 20 mg PO QAM #30 tabs 03/20/25 methylprednisolone 4 mg tablets in See Taper PO QDAY #21 tabs 03/20/25 a dose pack pen needle, diabetic 29 gauge x #100 ea 03/20/25 1/2 (1st Tier Unifine Pentips Plus) insulin glargine 100 unit/mL (3 15 unit (0.15 mL) subcut QAM #15 mL 04/15/25 mL) subcutaneous pen Allergies Allergy/AdvReac Type Severity Reaction Status Date / Time codeine Allergy Severe HIVES, Verified 05/10/25 11:38 SWELLING, DIFF BREATHING meloxicam Allergy Severe Difficulty Verified 05/10/25 11:38 Breathing Review of Systems Review of Systems Systems Reviewed: All systems reviewed, normal except as documented Past Medical History Past Medical History NEUROLOGIC: Positive Neurological Disorders and Migraine CARDIAC: Positive Cardiac Disorders, Myocardial Infarction, Cardiac Arrhythmia, Atrial Fibrillation, Congestive Heart Failure, Edema and Hypotension RESPIRATORY: Positive Chronic Obstructive Pulmonary Disease (COPD), Asthma and Pneumonia GASTROINTESTINAL: Positive Gastrointestinal Disorders, Gall Bladder Disease and Obesity MUSCULOSKELETAL: Positive Arthritis and Fractures ENDOCRINE: Positive Endocrine Disorders and Diabetes Mellitus Type 2 PSYCHO/SOCIAL: Positive Recreational Drug Use, Depression and Anxiety OTHER HISTORY: Positive Autoimmune Disease, Shingles, Falls and Chicken Pox Family History FAMILY HISTORY: Positive Family Respiratory Disorders, Family Cardiac Disorders, Family Cancer and Family Surgery Surgical History SURGICAL: Positive Abdominal Surgery Social History SMOKING STATUS: Former smoker SECOND HAND EXPOSURE: Yes SUBSTANCE USE: former substance user and amphetamines ED Exam Narrative Physical exam: GENERAL APPEARANCE: alert and oriented x 4, well-developed, well-nourished, no acute distress HEENT: Normocephalic, atraumatic; pupils equal, round, reactive to light; EOMI; mucous membranes pink, moist; oropharynx clear NECK: Supple LUNGS: CTABL; no wheezes, no rales, no rhonchi HEART: Regular rate, regular rhythm; normal S1, S2; no murmurs ABDOMEN: non distended; normal BS; soft, no tenderness, no guarding, no rebound; no masses, no organomegaly, no hernia BACK: no CVA tenderness EXTREMITIES: atraumatic; no edema NEUROLOGIC: awake; alert and oriented x4; cranial nerves II-XII grossly intact; no focal sensory or motor deficits PSYCHIATRIC: appropriate mood and affect SKIN: warm, dry, normal color; no rashes Course Quality Measures none Orders Category Date Time Status Bedside COVID-19 Antigen Test NOW Care 05/10/25 16:15 Completed Bedside Influenza A&B Antigen Test NOW Care 05/10/25 16:15 Completed EKG (ED ONLY) *Do not use* NOW Care 05/10/25 11:49 Completed EKG (ED Only) Stat Exams 05/10/25 11:49 Draft XR chest 2V Stat Exams 05/10/25 11:49 Completed B-Type Natriuretic Peptide Stat Lab 05/10/25 12:00 Completed CBC Stat Lab 05/10/25 12:00 Completed Comprehensive Metabolic Panel Stat Lab 05/10/25 12:00 Completed Magnesium Stat Lab 05/10/25 12:00 Completed Partial Thromboplastin Time Stat Lab 05/10/25 12:00 Completed Prothrombin Time with INR Stat Lab 05/10/25 12:00 Completed Strep A Rapid Stat Lab 05/10/25 17:11 Completed Troponin I Stat Lab 05/10/25 12:00 Completed Urinalysis Stat Lab 05/10/25 12:20 Completed Acetaminophen Tab [Tylenol Tab] Med 05/10/25 14:09 Discontinued 650 mg PO X1 ONE Albuterol/Ipratr Rt Mariel [Duoneb Rt Mariel] Med 05/10/25 16:14 Discontinued 3 ml INH X1 ONE Magnesium Oxide [Mag-Ox 400] Med 05/10/25 16:14 Discontinued 800 mg PO X1 ONE dexAMETHasone TAB [Decadron Tab] Med 05/10/25 17:49 Discontinued 6 mg PO X1 ONE Vital Signs Vital signs: Vital Signs Temperature 98.3 F 05/10/25 11:41 Pulse Rate 96 05/10/25 11:41 Respiratory Rate 24 H 05/10/25 11:41 Blood Pressure 127/77 05/10/25 11:41 Pulse Oximetry (%) 92 L 05/10/25 11:41 Oxygen Delivery Method Nasal Cannula 05/10/25 11:41 Oxygen Flow Rate 3 05/10/25 11:41 Shortness of Breath / Dyspnea MDM Narrative MDM Narrative:: I, Virginia Hou, am scribing for and in the presence of Dr. Casey. Patient data External records reviewed:: [facility] previous records (I reviewed ED visit on 04/15/2025 ) Clinical information provided by:: patient Social determinants that could affect healthcare access:: substance use (history of methamphetamine use) Patient has the following chronic illnesses:: atrial fibrillation, HFrEF 35-40% 03/2025, COPD on 3L home oxygen, diabetes How is presenting disease/condition affected by chronic disease/condition?: exacerbated by Evaluation data The following diagnostics were reviewed and interpreted by me:: lab results, radiology exam(s) and EKG tracing(s) (05/10/2025 @ 11:53 AM. Sinus rhythm, rate 87, no acute ischemic changes, no STEMI. ) Lab and/or radiology exams considered but not ordered:: None Interpretation Summary: Ordering Physician: Ángel Melton Date of Service: 05/10/25 Procedure(s): XR chest 2V Accession Number(s): [id number] cc: Ángel Melton; Pete Araiza MD; Vero Fernández MD~ Examination: PA lateral chest 2 views TECHNIQUE: Upright PA lateral chest 2 views Date and time: May 10, 2025 1202 hours Comparison April 15, 2025 INDICATIONS: Shortness of breath congestion chest pain beginning 2 days ago. FINDINGS: Normal heart size Moderate vascular congestion including central vascular engorgement No lobar pneumonia or pulmonary edema IMPRESSION: Moderate vascular congestion, central vascular engorgement, suspicious for pulmonary artery hypertension Dictated By: Pete Araiza MD Signed By: <Electronically signed by Pete Araiza MD in OV> 05/10/25 1242 Medications / Prescriptions Medications or Prescriptions considered but not ordered:: None Medication administrations:: Medication Administration History Discontinued Medications Acetaminophen (Acetaminophen 325 Mg Tablet) 650 mg PO X1 ONE Stop: 05/10/25 14:10 Last Admin: 05/10/25 14:19 Dose: 650 mg Documented By: Albuterol/Ipratropium (Albuterol/Ipratropium (Duoneb) Rt Mariel 3 Ml Nebu) 3 ml INH X1 ONE Stop: 05/10/25 16:15 Last Admin: 05/10/25 16:39 Dose: 3 ml Documented By: JENNY Dexamethasone (Dexamethasone 4 Mg Tablet) 6 mg PO X1 ONE; Protocol Stop: 05/10/25 17:50 Last Admin: 05/10/25 18:20 Dose: 6 mg Documented By: JOSUE Magnesium Oxide (Magnesium Oxide 400 Mg Tablet) 800 mg PO X1 ONE Stop: 05/10/25 16:15 Last Admin: 05/10/25 17:42 Dose: 800 mg Documented By: JOSUE See above Consultations Consultation(s) initiated? (list below): No Diagnosis Shortness of Breath Differential Diagnosis: acute exacerbation of chronic obstructive airways disease, congestive heart failure, community acquired pneumonia and asthma with exacerbation Most likely diagnosis given after review of the tests above:: Dyspnea COPD Admission Indicated Admission indicated?: not indicated Admission Request Was there a request for admission?: No Disposition Plan Disposition Plan: Discharge Discharge Attestation Discharge Attestation: The patient and all family members were given an opportunity to ask questions and understood the discharge instructions. Discharge instructions specifically effects, indications for sooner follow up or return to the emergency department, and the expected course of current diagnosis. Patient condition: Stable Discharge Plan Plan Patient Disposition: HOME (Self Care) Prescriptions/Referrals Prescriptions/Med Rec: No Action digoxin 125 mcg (0.125 mg) tablet 125 mcg PO DAILY Eliquis 5 mg tablet 5 mg PO BID 30 Days Qty: 60 3RF albuterol sulfate 90 mcg/actuation HFA aerosol inhaler 2 inh inhalation Q4H PRN (Reason: shortness of breath or wheezing) Qty: 8.5 0RF Trelegy Ellipta 100-62.5-25 mcg blister with device 1 inh inhalation Q24H Qty: 28 0RF amiodarone 200 mg tablet 200 mg PO QDAY Qty: 30 1RF baclofen 20 mg tablet 20 mg PO 3XD (DME) FreeStyle Odilon 3 Plus Sensor Device See Rx Instructions .Route Qty: 2 0RF Rx Instructions: As directed (DME) FreeStyle Odilon 3 [place] Misc See Rx Instructions .Route Qty: 1 0RF Rx Instructions: As directed dapagliflozin propanediol 10 mg tablet 10 mg PO QAM Qty: 30 0RF (DME) pen needle, diabetic [1st Tier Unifine Pentips Plus] 29 gauge x 1/2 needle See Rx Instructions .Route Qty: 100 0RF Rx Instructions: Use for administration of insulin only furosemide 20 mg tablet 20 mg PO QAM Qty: 30 0RF methylprednisolone 4 mg tablets,dose pack See Taper PO QDAY Qty: 21 0RF Taper: Prednisone Taper 20 mg DAILY for 2 Days and 0 Hour 10 mg DAILY for 2 Days and 0 Hour 5 mg DAILY for 7 Days and 0 Hour insulin glargine 100 unit/mL (3 mL) insulin pen 15 unit subcut QDAY insulin glargine 100 unit/mL (3 mL) insulin pen 15 unit subcut QAM Qty: 15 0RF Referrals: Vero Fernández MD [Primary Care Provider] - In 1 week Problem List Clinical Impression: Dyspnea, COPD (chronic obstructive pulmonary disease) Patient/Caregiver Discharge Instructions Education Materials: COPD: Wheezing and Chest Tightness Print Language: Kuwaiti Stand Alone Forms: Cecelia Award Info., Patient Portal Info Letter
[2025-05-10] MEDS: ALBUTEROL/IPRATROPIUM (Duoneb) RT SOL 3 ML NEBU INH (16:39)
[2025-05-10 16:40] VITALS: PULSE 80; RESP 24; O2SAT 98
[2025-05-10 17:39] LABS: Strep A Rapid Negative (Negative)
[2025-05-10] MEDS: MAGNESIUM OXIDE 400 MG TABLET 800 MG PO (17:42)
== END 2025-05-10 18:49 | disposition home or self-care (01) ==
PROVIDERS: Nurse Practitioner Family; Emergency Provider Emergency Medicine; PCP Family Medicine
DX: J44.9 Chronic obstructive pulmonary disease, unspecified (principal); R94.31 Abnormal electrocardiogram [ECG] [EKG]; I48.91 Unspecified atrial fibrillation; I50.20 Unspecified systolic (congestive) heart failure; I25.2 Old myocardial infarction; Z87.891 Personal history of nicotine dependence; Z79.01 Long term (current) use of anticoagulants
CPT/HCPCS: 36415; 71046; 80053; 81001; 83735; 83880; 84484; 85025; 85610; 85730; 87400; 87651; 87811; 93005; 94640; 99283; A9270; J8540

== ENCOUNTER 2025-05-26 09:39 | Emergency (ER) | payer MEDICAID, SELFPAY ==
[2025-05-26 09:40] VITALS: BMI 42.4
[2025-05-26 09:51] VITALS: BP 121/80; PULSE 91; RESP 19; TEMP 36.4; O2SAT 93
--- NOTE | 2025-05-26 09:55 | XR_ITS ---
Examination: PA chest single view TECHNIQUE: Upright PA chest single view Date and time: May 26, 2025 1003 hours Comparison May 10, 2025 INDICATIONS: Chest pain short of breath beginning 3 days ago. FINDINGS: Mild vascular congestion. Minimal prominence left ventricle. No lobar pneumonia or pulmonary edema IMPRESSION: Mild vascular congestion
--- NOTE | 2025-05-26 09:55 | EKG_ITS ---
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
--- NOTE | 2025-05-26 09:56 | EDRME_ITS ---
Rapid Medical Screening Exam [facility] Arrival date/time: 05/26/25 09:39 CC: Shortness of breath HPI ongoing for the past 3 days worsening in the last 12 hours turned her home oxygen up from 3 to 4 L, continues to be tachypneic and short of breath. Stopped smoking 4 months ago history of COPD. Chief Complaint: Shortness of Breath/Dyspnea Time Seen by Provider: 05/26/25 09:53 Vital signs: Vital Signs Temperature 97.6 F 05/26/25 09:51 Pulse Rate 91 05/26/25 09:51 Respiratory Rate 19 05/26/25 09:51 Blood Pressure 121/80 05/26/25 09:51 Pulse Oximetry (%) 93 L 05/26/25 09:51 Oxygen Delivery Method Nasal Cannula 05/26/25 09:51 Oxygen Flow Rate 3 05/26/25 09:51
[2025-05-26] MEDS: ALBUTEROL/IPRATROPIUM (Duoneb) RT SOL 3 ML NEBU INH (10:12)
[2025-05-26 10:13] VITALS: PULSE 85; RESP 18; O2SAT 99
[2025-05-26] MEDS: MethylPREDNISolone SOD SUCC 62.5 MG/ML 2ML VIAL 125 MG IM (11:04)
[2025-05-26 11:08] LABS: Basophils # (Auto) 0.0 Thou/mm3 (0.0-0.2); Basophils % (Auto) 0 % (0-2.5); Eosinophils # (Auto) 0.1 Thou/mm3 (0.0-0.5); Eosinophils % (Auto) 1 % (0-10); Hematocrit 45.6 % (36.0-46.0); Hemoglobin 14.6 g/dL (12.0-16.0); Immature Granulocytes Auto 0.02 Thou/mm3 (0.00-0.00); Lymphocytes # (Auto) 1.9 Thou/mm3 (1.0-4.8); Lymphocytes % (Auto) 30 % (10-50); Mean Corpuscular HGB Conc 32.0 g/dl (31.0-37.0); Mean Corpuscular Hemoglobin 28.9 pg (25.0-35.0); Mean Corpuscular Volume 90 fL (80-100); Monocytes # (Auto) 0.4 Thou/mm3 (0.0-0.8); Monocytes % (Auto) 6 % (0-12); Neutrophils # (Auto) 4.0 Thou/mm3 (1.8-7.7); Neutrophils % (Auto) 63 % (37-80); Nucleated Red Blood Cell # 0.00 Thou/mm3 (0.00-0.00); Nucleated Red Blood Cell % 0 /100 WBC (0); Platelet Count 156 Thou/mm3 (140-440); RDW Standard Deviation 43.8 fL (36.4-46.3); Red Blood Count 5.06 Miln/mm3 (4.00-5.20); White Blood Count 6.3 Thou/mm3 (3.6-11.0)
[2025-05-26 11:25] LABS: INR 1.0 (0.9-1.3); Partial Thromboplastin Time 26.9 Seconds (22.0-36.0); Prothrombin Time 10.6 Seconds (9.0-12.2)
[2025-05-26 11:30] LABS: B-Type Natriuretic Peptide 20 pg/mL (0-100)
[2025-05-26 11:33] LABS: Collection Type, Urine Clean Catch
[2025-05-26 11:33] LABS: Alanine Aminotransferase 14 U/L (10-49); Albumin, Serum 4.5 gm/dL (3.5-5.0); Albumin/Globulin Ratio 2.0 (1.2-2.2); Alkaline Phosphatase 98 U/L (46-116); Anion Gap 6 (7-16); Aspartate Amino Transferase 17 U/L (0-34); BUN/Creatinine Ratio 13 Ratio (12-20); Bilirubin,Total 1.1 mg/dL (0.3-1.2); Blood Urea Nitrogen 12 mg/dL (9-23); Calcium 9.7 mg/dL (8.3-10.6); Calcium (Corrected) 9.7 mg/dL (8.5-10.1); Carbon Dioxide 33.6 mMol/L (20.0-31.0); Chloride 99 mMol/L (98-107); Creatinine (Component) 0.9 mg/dL (0.6-1.3); Estimated Creatinine Clearance 72.2 mL/min (>60); Globulin 2.2 gm/dL (2.3-3.5); Glucose 256 mg/dL (74-106); LDH (Lactate Dehydrogenase) 171 U/L (120-246); Magnesium 1.7 mg/dL (1.6-2.6); Osmolality,Calculated 286 (275-295); Potassium 4.3 mMol/L (3.4-5.1); Sodium 139 mMol/L (136-145); Total Protein 6.7 gm/dL (5.7-8.2); Troponin I < 0.020 ng/mL (0.0-0.045); eGFR > 60 See Note
[2025-05-26 11:44] LABS: Bilirubin,Urine Negative (Negative); Blood,Urine Negative (Negative); Clarity,Urine Clear (Clear/Hazy); Color,Urine Lt-Yellow (Lt Yel-Yel); Glucose, Urine 3+ (Negative); Ketones,Urine Negative (Negative); Leukocyte Esterase,Urine Positive (Negative); Nitrite,Urine Negative (Negative); PH,Urine 6.5 (5.0-7.0); Protein,Urine Trace (Neg - Trace); RBC,Urine 5 /hpf (0-3); Specific Gravity,Urine 1.027 (1.001-1.035); Squamous Epithelial Cell,Urine 10 /hpf (0-5); Urobilinogen,Urine Negative mg/dL (0.0-1.0); WBC,Urine 2 /hpf (0-5)
[2025-05-26 11:50] LABS: Amphetamine/Methamp Scrn,U Negative (Negative); Barbiturate Screen,Urine Negative (Negative); Benzodiazepines Screen,Urine Negative (Negative); Benzoylecgonine Screen, Ur Negative (Negative); Fentanyl Screen,Urine Negative (Negative); Opiate Screen,Urine Negative (Negative); THC Screen,Urine Negative (Negative)
--- NOTE | 2025-05-26 11:58 | EDNOTE_ITS ---
ED General RME/HPI General Chief complaint: Shortness of Breath/Dyspnea Stated complaint: HAVING TROUBLE BREATHING, MIGRAINE Time Seen by Provider: 05/26/25 09:53 Arrival date/time: 05/26/25 09:39 CC: See RME RME / HPI RME / HPI narrative: 05/26/25 09:39 CC: Shortness of breath HPI ongoing for the past 3 days worsening in the last 12 hours turned her home oxygen up from 3 to 4 L, continues to be tachypneic and short of breath. Stopped smoking 4 months ago history of COPD. Related Data Home Medications ?Medication ?Instructions ?Recorded ?Confirmed digoxin 125 mcg (0.125 mg) tablet 125 mcg PO DAILY 04/0403/16/25 baclofen 20 mg tablet 20 mg PO 3XD 03/16/25 insulin glargine 100 unit/mL (3 15 unit subcut QDAY 04/15/25 mL) subcutaneous pen Previous Rx's ?Medication ?Instructions ?Recorded apixaban 5 mg tablet (Eliquis) 5 mg PO BID 1 month #60 tabs 02/12/24 albuterol sulfate 90 mcg/actuation 2 inh inhalation Q4 H PRN shortness 03/27/24 aerosol inhaler of breath or wheezing #8.5 g salvatore amiodarone 200 mg tablet 200 mg PO QDAY #30 tabs 03/05 fluticasone fur. 100 mcg-umeclid 1 inh inhalation Q24H #28 ea 02/14/25 62.5 mcg-vilant 25 mcg inhalat.powder (Trelegy Ellipta) blood-glucose sensor (FreeStyle #2 ea 03/17/25 Odilon 3 Plus Sensor device) blood-glucose,awning maker and installer,cont #1 ea 03/17/25 (FreeStyle Odilon 3 Coleman) dapagliflozin propanediol 10 mg 10 mg PO QAM #30 tabs 03/20/25 tablet furosemide 20 mg tablet 20 mg PO QAM #30 tabs methylprednisolone 4 mg tablets in See Taper PO QDAY # 21 tabs 03/20/25 a dose pack pen needle, diabetic 29 gauge x #100 ea 03/20/25 1/2 (1st Tier Unifine Pentips Plus) insulin glargine 100 unit/mL (3 15 unit (0.15 mL) subc ut QAM #15 mL 04/15/25 mL) subcutaneous pen amiodarone 200 mg tablet 200 mg PO QDAY #30 tabs 05/12 03/05 pantoprazole 40 mg tablet,delayed 40 mg PO QDAY #30 ta bs 05/26/25 release prednisone 20 mg tablet See Taper PO BID 3 days #6 t abs 05/26/25 Allergies Allergy/AdvReac Type Severity Reaction Status Date / Time codeine Allergy Severe HIVES, Verified 05/26/25 09:40 SWELLING, DIFF BREATHING meloxicam Allergy Severe Difficulty Verified 05/26/25 09:40 Breathing Review of Systems Review of Systems Narrative Review of Systems: GEN: No fever, no chills, no weight loss EYES: No discharge, no visual changes, no pain HEENT: No ear pain, no congestion, no sore throat PULM: + shortness of breath, no cough, no congestion CV: No chest pain, no dyspnea on exertion, no palpitations GI: No nausea, no vomiting, no diarrhea, no pain, no constipation : No frequency, no urgency, no dysuria MUSC/SKEL: No joint pain, no back pain SKIN: No rash PSYCH: No hallucinations, no depression HEME/LYMPH: No easy bleeding or bruising tendencies NEURO: No weakness, no headache Past Medical History Past Medical History NEUROLOGIC: Positive Neurological Disorders and Migraine; Negative Cerebrovascular Accident, Transient Ischemic Attacks (TIA), Dementia, Alzheimer's Disease, Parkinson's Disease, Brain Tumor, Meningitis, Seizures, Epi lepsy, Multiple Sclerosis, Cerebral Palsy, Amyotrophic Lateral Sclerosis (ALS/Savannah Gehrig's), Guillain-[place] Syndrome, Spina Bifida, Paralysis, Peripheral Neuropathy, Aguayo's Palsy, Subdural Hematoma, Head Trauma, Spinal Cord Injury or Traumatic Brain Injury CARDIAC: Positive Cardiac Disorders, Myocardial Infarction, Cardiac Arrhythmia, Atrial Fibrillation, Congestive Heart Failure, Edema and Hypotension; Negative Angina, Heart Murmur, Coronary Artery Disease, Atherosclerotic Heart Disease, Peripheral Vascular Disease, Hypercholesterolemia, Aneurysm, Congenital Heart Disease, Valvular Heart Disease, Rheumatic Fever, Cardiomyopathy, Pericarditis, Cellulitis, Deep Vein Thrombosis, Hypertension or Varicose Veins RESPIRATORY: Positive Chronic Obstructive Pulmonary Disease (COPD), Asthma and Pneumonia; Negative Bronchitis, Emphysema, Pulmonary Fibrosis, Cystic Fibrosis, Tuberculosis, Pulmonary Embolism, Pulmonary Edema or Sleep Apnea GASTROINTESTINAL: Positive Gastrointestinal Disorders, Gall Bladder Disease and Obesity; Negative Hepatitis, Cirrhosis, Pancreatitis, Celiac Disease, Gastrointestinal Bleed, Esophageal Varices, Silverio's Esophagus, Colitis, Ulcerative Colitis, Diverticulitis, Diverticulosis, Ulcer, Colorectal Cancer, Irritable Bowel, Crohn's Disease, Obstructive Bowel, Hiatal Hernia, Hemorrhoids or Gastroesophageal Reflux Disease GENITOURINARY: Negative Genitourinary Disorders, Renal Disease, Kidney Stones, Polycystic Kidney Disease, Neurogenic Bladder, Inguinal Hernia, Dialysis, Prostate Cancer or Benign Prostatic Hyperplasia REPRODUCTIVE: Positive Previous Pregnancies; Negative Breast Cancer, Endometriosis, Genital Herpes, Gonorrhea, Pelvic Inflammatory Disease, Syphilis, Testicular Cancer or Uterine Prolapse MUSCULOSKELETAL: Positive Arthritis and Fractures; Negative Musculoskeletal Disorders, Muscular Dystrophy, Myasthenia Gravis, Marfan's Syndrome, Bone Cancer, Rheumatoid Arthritis, Osteoporosis, Degenerative Disk Disease, Gout, Scoliosis, Carpal Tunnel Syndrome, Fibromyalgia, Degenerative Joint Disease, Osteomyelitis or Poliovirus ENT: Negative Cataracts, Glaucoma, Blind, Retinal Detachment, Macular Degeneration, Ear Infection, Deafness, Head Trauma or Eye Prosthesis ENDOCRINE: Positive Endocrine Disorders and Diabetes Mellitus Type 2; Negative Diabetes Mellitus Type 1, Hypoglycemia, Yani's Syndrome, Clifford's Disease, Hyperthyroidism, Hypothyroidism, Parathyroid Disease, Pituitary Disease, Systemic Lupus Erythematosus, Syndrome of Inappropriate Antidiuretic Hormone (SIADH), Adrenal Disease or Graves' Disease HEMATOLOGIC: Negative Blood Disorders, Anemia, Leukemia, Hemophilia, Thalassemia, Sickle Cell Disease or Clotting Problems PSYCHO/SOCIAL: Positive Recreational Drug Use, Depression and Anxiety; Negative Psychiatric Problems, Schizophrenia, Bipolar Disorder, Behavior Problems, Self-Mutilation, Attention Deficit Disorder, Attention Deficit Hyperactivity Disorder, Depression, Post Traumatic Stress Disorder or Eating Disorder OTHER HISTORY: Positive Autoimmune Disease, Shingles, Falls and Chicken Pox; Negative Down Syndrome, Autism, Developmental Delay, Blood Transfusions, Blood Transfusion Reaction, Anesthesia Reactions, Organ Transplant, Chemotherapy, Radiation Therapy, Hyperbaric Therapy, MRSA, VRSA, Vancomycin-Resistant Enterococci, Human Immunodeficiency Virus (HIV), Measles, Mumps, Rubella (Kinyarwanda Measles), Pertussis, Clostridium Difficile, Cancer, Breast Cancer, Cervical Cancer, Colorectal Cancer, Lung Cancer, Ovarian Cancer, Prostate Cancer or Testicular Cancer Family History FAMILY HISTORY: Positive Family Respiratory Disorders, Family Cardiac Disorders, Family Cancer and Family Surgery; Negative Family Psychiatric Problems, Family Gastrointestinal Problems or Family Anesthesia Reaction Surgical History SURGICAL: Positive Abdominal Surgery; Negative Cardiac Surgery, Open Heart Surgery, Coronary Artery Bypass Graft, Valve Replacement, Vascular Surgery, Coronary Stent, Cardiac Catheterization, Pacemaker, Angiogram, Auto Implanted Cardiovert Defib, Carotid Endarterectomy, Endocrine Surgery, Thyroidectomy, Ear Surgery, Tympanostomy Tube, Eye Surgery, Nose Surgery, Oral Surgery, Tonsillectomy, Adenoidectomy, Cochlear Implant, Corneal Transplant, Throat Surgery, Tracheostomy, Gastrostomy, Bowel Surgery, Nephrectomy, Transurethral Resection, Joint Replacement, Amputation, Open Reduction Internal Fixation, Arthroscopy, Neurologic Surgery, Brain Shunt, Mastectomy, Lumpectomy, Hysterectomy, Tubal Ligation, Section or Organ Transplant Social History SMOKING STATUS: Former smoker SECOND HAND EXPOSURE: Yes SUBSTANCE USE: former substance user and amphetamines ED Exam Narrative Physical exam: [General: Morbidly obese, in mild discomfort but not in any acute distress Head normocephalic HEENT: Within acceptable limits Neck is supple nontender Chest equal chest rise nontender to palpation Respiratory: Tachypneic clear to auscultation no wheezes crackles or rubs CV: Rate rhythm is regular no murmurs rubs or clicks Abdomen is distended secondary to body habitus soft nontender no masses positive bowel sounds all 4 quadrants Back: No CVA tenderness no spinous process tenderness from cervical spine thoracic and lumbar spine Skin: Intact no petechiae rash induration ulceration or crepitus Extremities: Moving all extremity against resistance cap refill less than 2 seconds neurosensory intact. Mild extremity edema Neuro: Awake alert oriented x3 Glascow coma 15 no focal deficits] Course Course Course Narrative: At 1206 patient has significant improvement in her breathing after Solu-Medrol IM, and a DuoNeb. Chest x-ray shows mild vascular congestion there is no other acute finding quires emergent or immediate intervention. Patient is out of her amiodarone and pantoprazole which I will refill with a bridge dose. Patient be discharged home on steroids. Quality Measures none Orders Category Date Time Status EKG (ED ONLY) *Do not use* NOW Care 05/26/25 09:55 Completed Glucose [Bedside Blood Glucose] NOW Care 05/26/25 12:01 Active EKG (ED Only) Stat Exams 05/26/25 09:55 Draft XR chest 1V Stat Exams 05/26/25 09:55 Completed B-Type Natriuretic Peptide Stat Lab 05/26/25 10:44 Completed CBC Stat Lab 05/26/25 10:44 Completed Comprehensive Metabolic Panel Stat Lab 05/26/25 10:44 Completed Drug Screen,Urine Stat Lab 05/26/25 11:25 Completed LDH (Lactate Dehydrogenase) Stat Lab 05/26/25 10:44 Completed Magnesium Stat Lab 05/26/25 10:44 Completed Partial Thromboplastin Time Stat Lab 05/26/25 10:44 Completed Prothrombin Time with INR Stat Lab 05/26/25 10:44 Completed Troponin I Stat Lab 05/26/25 10:44 Completed Urinalysis Stat Lab 05/26/25 11:25 Completed Albuterol/Ipratr Rt Mariel [Duoneb Rt Mariel] Med 05/26/25 09:55 Discontinued 3 ml INH X1 ONE MethylPREDNISolone.* [SoluMEDROL Inj] Med 05/26/25 10:56 Discontinued 125 mg IM X1 ONE MethylPREDNISolone.* [SoluMEDROL Inj] Med 05/26/25 09:55 Discontinued 125 mg IVP X1 ONE Vital Signs Vital signs: Vital Signs Temperature 97.6 F 05/26/25 09:51 Pulse Rate 91 05/26/25 09:51 Respiratory Rate 19 05/26/25 09:51 Blood Pressure 121/80 05/26/25 09:51 Pulse Oximetry (%) 93 L 05/26/25 09:51 Oxygen Delivery Method Nasal Cannula 05/26/25 09:51 Oxygen Flow Rate 3 05/26/25 09:51 Discharge Plan Plan Patient Disposition: HOME (Self Care) Patient condition on transfer: Stable Prescriptions/Referrals Prescriptions/Med Rec: New amiodarone 200 mg tablet 200 mg PO QDAY Qty: 30 1RF pantoprazole 40 mg tablet,delayed release (DR/EC) 40 mg PO QDAY Qty: 30 1RF prednisone 20 mg tablet See Taper PO BID 3 Days Qty: 6 0RF Taper: Prednisone Taper 20 mg DAILY for 2 Days and 0 Hour 10 mg DAILY for 2 Days and 0 Hour 5 mg DAILY for 7 Days and 0 Hour No Action digoxin 125 mcg (0.125 mg) tablet 125 mcg PO DAILY Eliquis 5 mg tablet 5 mg PO BID 30 Days Qty: 60 3RF albuterol sulfate 90 mcg/actuation HFA aerosol inhaler 2 inh inhalation Q4H PRN (Reason: shortness of breath or wheezing) Qty: 8.5 0RF Trelegy Ellipta 100-62.5-25 mcg blister with device 1 inh inhalation Q24H Qty: 28 0RF amiodarone 200 mg tablet 200 mg PO QDAY Qty: 30 1RF baclofen 20 mg tablet 20 mg PO 3XD (DME) FreeStyle Odilon 3 Plus Sensor Device See Rx Instructions .Route Qty: 2 0RF Rx Instructions: As directed (DME) FreeStyle Odilon 3 Coleman Misc See Rx Instructions .Route Qty: 1 0RF Rx Instructions: As directed dapagliflozin propanediol 10 mg tablet 10 mg PO QAM Qty: 30 0RF (DME) pen needle, diabetic [1st Tier Unifine Pentips Plus] 29 gauge x 1/2 needle See Rx Instructions .Route Qty: 100 0RF Rx Instructions: Use for administration of insulin only furosemide 20 mg tablet 20 mg PO QAM Qty: 30 0RF methylprednisolone 4 mg tablets,dose pack See Taper PO QDAY Qty: 21 0RF Taper: Prednisone Taper 20 mg DAILY for 2 Days and 0 Hour 10 mg DAILY for 2 Days and 0 Hour 5 mg DAILY for 7 Days and 0 Hour insulin glargine 100 unit/mL (3 mL) insulin pen 15 unit subcut QDAY insulin glargine 100 unit/mL (3 mL) insulin pen 15 unit subcut QAM Qty: 15 0RF Referrals: Tavares Carnes MD [Primary Care Provider] - In 1 week Problem List Clinical Impression: COPD exacerbation, Hyperglycemia Patient/Caregiver Discharge Instructions Education Materials: COPD Diabetes Additional Instructions: Take the medication as prescribed follow-up with your primary care doctor if there is worsening of symptoms return the emergency room medially for further evaluation. Print Language: Hebrew Stand Alone Forms: Cecelia Award Info., Patient Portal Info Letter, Work/School Release PA/SIMULATION DEVELOPER Supervising Physician PA/SIMULATION DEVELOPER Supervising Physician: Tristian [facility] Clinical Information Provided by patient Medical Records Reviewed [facility] Meds/Rx Considered, not Ordered None Labs/Rad/Tests considered, not Ordered None EKG EKG not done Lab Interpretation Lab(s) interpretation(s): CBC shows no acute leukocytosis anemia thrombocytopenia Coags within acceptable limits CMP shows CO2 of 33.6 no other electrolyte imbalances glucose level at 256 no transaminitis or T. bili elevation Troponin and BNP within acceptable limits Urine is negative for UTI UDS is negative. Imaging Provider imaging interpretation(s): Chest x-ray as interpreted by me read by radiology shows mild vascular congestion. Medication Administration(s) Medication Administration History Discontinued Medications Albuterol/Ipratropium (Albuterol/Ipratropium (Duoneb) Rt Mariel 3 Ml Nebu) 3 ml INH X1 ONE Stop: 05/26/25 09:56 Last Admin: 05/26/25 10:12 Dose: 3 ml Documented By: NELSY Methylprednisolone Sodium Succinate (Methylprednisolone Sod Succ 62.5 Mg/Ml 2ml Vial) 125 mg IVP X1 ONE Stop: 05/26/25 09:56 Last Admin: 05/26/25 11:05 Dose: Not Given Documented By: ABIDA Non-Admin Reason: Cancelled by Provider Methylprednisolone Sodium Succinate (Methylprednisolone Sod Succ 62.5 Mg/Ml 2ml Vial) 125 mg IM X1 ONE Stop: 05/26/25 10:57 Last Admin: 05/26/25 11:04 Dose: 125 mg Documented By: ABIDA
[2025-05-26 12:20] VITALS: BP 122/76; PULSE 96; RESP 22; TEMP 37.2; O2SAT 95
== END 2025-05-26 12:21 | disposition home or self-care (01) ==
PROVIDERS: Registered Nurse General Practice; Emergency Provider Family Medicine; PCP Family Medicine
DX: J44.1 Chronic obstructive pulmonary disease with (acute) exacerbation (principal); E11.65 Type 2 diabetes mellitus with hyperglycemia; I25.2 Old myocardial infarction; I48.91 Unspecified atrial fibrillation; I50.9 Heart failure, unspecified; E66.01 Morbid (severe) obesity due to excess calories; Z68.41 Body mass index [BMI] 40.0-44.9, adult; Z87.891 Personal history of nicotine dependence; Z88.5 Allergy status to narcotic agent; Z79.01 Long term (current) use of anticoagulants; Z79.4 Long term (current) use of insulin; Z79.899 Other long term (current) drug therapy
CPT/HCPCS: 36415; 71045; 80053; 80307; 81001; 83615; 83735; 83880; 84484; 85025; 85610; 85730; 93005; 94640; 96372; 99283; A9270; J2919

== ENCOUNTER 2025-07-06 16:25 | Inpatient (IN) | payer MEDICAID, SELFPAY ==
[2025-07-06] VITALS (26 sets, daily range): BP systolic 119–139; BP diastolic 68–97; PULSE 89–109; RESP 13–42; TEMP 36.3–36.9; O2SAT 89–99; BMI 1332.0; BMI 43.4
--- NOTE | 2025-07-06 16:28 | EKG_ITS ---
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: BEAU: 1970 Requested By: ED Temporary Provider Order Number: [id number] Reading MD: ED Temporary Provider Measurements Intervals [place] Rate: 96 P: 69 IN: 157 QRS: -45 QRSD: 82 T: 78 QT: 361 QTc: 458 Interpretive Statements SINUS RHYTHM LEFT AXIS DEVIATION [QRS AXIS < -30] LOW QRS VOLTAGE IN PRECORDIAL LEADS [QRS DEFLECTION < 1.0 mV IN CHEST LEADS] POSSIBLE ANTERIOR MYOCARDIAL INFARCTION , PROBABLY OLD [30 ms Q WAVE IN V3/V4, OR R < 0.2 mV IN V4] Compared to ECG 05/26/2025 10:24:26 Left-axis deviation now present Low QRS voltage now present Myocardial infarct finding still present /store/S0/[id number]/[id number]
--- NOTE | 2025-07-06 16:34 | EDNOTE_ITS ---
ED SOB =RME/HPI General Chief Complaint: Shortness of Breath/Dyspnea Stated Complaint: SOB Time Seen by Provider: 07/06/25 16:35 Arrival date/time: 07/06/25 16:25 Limitations: no limitations RME / HPI RME / HPI Narrative: 54 year old female with history of atrial fibrillation, HFrEF 35-40% 03/2025, COPD on 3L home oxygen, diabetes presents to the ED BIBA from the welfare office for evaluation of shortness of breath beginning today. Per medics, on scene patient was saturating 84-88% on her 3L nasal cannula and appeared to be in respiratpory distress. Given a total of three Albuterol breathing treatments through CPAP and 1:1 epinephrine IM to the left shoulder. On arrival to ED, patient saturating 94% on CPAP. Prehospital blood pressure 154/78 and HR 100- 120s. Related Data Home Medications ?Medication ?Instructions ?Recorded ?Confirmed digoxin 125 mcg (0.125 mg) tablet 125 mcg PO DAILY 04/0407/06/25 baclofen 20 mg tablet 20 mg PO 3XD 03/16/25 albuterol sulfate 90 mcg/actuation 2 inh inhalation BI D PRN shortness 07/06/25 07/06/25 aerosol inhaler of breath or wheezing fluticasone propionate 45 2 inh inhalation BID PRN denisa rtness 07/06/25 07/06/25 mcg-salmeterol 21 mcg/actuation of breath or wheezing HFA inhaler (Advair HFA) Previous Rx's ?Medication ?Instructions ?Recorded apixaban 5 mg tablet (Eliquis) 5 mg PO BID 1 month #60 tabs 02/12/24 albuterol sulfate 90 mcg/actuation 2 inh inhalation Q4 H PRN shortness 03/27/24 aerosol inhaler of breath or wheezing #8.5 g salvatore amiodarone 200 mg tablet 200 mg PO QDAY #30 tabs 03/05 fluticasone fur. 100 mcg-umeclid 1 inh inhalation Q24H #28 ea 02/14/25 62.5 mcg-vilant 25 mcg inhalat.powder (Trelegy Ellipta) blood-glucose sensor (FreeStyle #2 ea 03/17/25 Odilon 3 Plus Sensor device) blood-glucose,janitor helper,cont #1 ea 03/17/25 (FreeStyle Odilon 3 Broadbent) furosemide 20 mg tablet 20 mg PO QAM #30 tabs pen needle, diabetic 29 gauge x #100 ea 03/20/2510/13 (1st Tier Unifine Pentips Plus) pantoprazole 40 mg tablet,delayed 40 mg PO QDAY #30 ta bs 05/26/25 release melatonin 5 mg capsule 5 mg PO HS 30 days #30 caps 07/08/25 insulin glargine U-300 conc 300 15 unit (0.05 mL) subc ut QDAY 30 07/09/25 unit/mL (3 mL) subcutaneous pen days #1.5 mL insulin lispro 100 unit/mL 1 sliding scale dose subcut 07/09/25 subcutaneous pen USEASDIRECTD 30 days #15 mL lancets #200 ea 07/09/25 pen needle, diabetic 29 gauge x #100 ea 07/09/2510/13 Allergies Allergy/AdvReac Type Severity Reaction Status Date / Time codeine Allergy Severe HIVES, Verified 07/06/25 16:46 SWELLING, DIFF BREATHING meloxicam Allergy Severe Difficulty Verified 07/06/25 16:46 Breathing Review of Systems Review of Systems Systems Reviewed: All systems reviewed, normal except as documented Past Medical History Past Medical History NEUROLOGIC: Positive Neurological Disorders and Migraine CARDIAC: Positive Cardiac Disorders, Myocardial Infarction, Cardiac Arrhythmia, Atrial Fibrillation, Congestive Heart Failure, Edema and Hypotension RESPIRATORY: Positive Chronic Obstructive Pulmonary Disease (COPD), Asthma and Pneumonia GASTROINTESTINAL: Positive Gastrointestinal Disorders, Gall Bladder Disease and Obesity REPRODUCTIVE: Positive Previous Pregnancies MUSCULOSKELETAL: Positive Arthritis and Fractures ENDOCRINE: Positive Endocrine Disorders and Diabetes Mellitus Type 2 PSYCHO/SOCIAL: Positive Recreational Drug Use, Depression and Anxiety OTHER HISTORY: Positive Autoimmune Disease, Shingles, Falls and Chicken Pox Family History FAMILY HISTORY: Positive Family Respiratory Disorders, Family Cardiac Disorders, Family Cancer and Family Surgery Surgical History SURGICAL: Positive Abdominal Surgery Social History SMOKING STATUS: Former smoker SECOND HAND EXPOSURE: Yes SUBSTANCE USE: former substance user and amphetamines ED Exam General Limitations: Present no limitations General appearance: Present alert and other (chronically ill appearing with acute decompensation ) Head Head exam: Present atraumatic Eye Eye exam: Present normal appearance, PERRL and EOMI ENT ENT exam: Present normal exam, normal oropharynx and mucous membranes moist Neck Neck exam: Present normal inspection, full ROM and trachea midline Chest Chest inspection: Present normal inspection and symmetric chest wall rise Respiratory Respiratory exam: Present other (Diminished breath sounds bilaterally ) Cardiovascular Cardiovascular exam: Present regular rate, normal rhythm and normal heart sounds Abdominal Exam Abdominal exam: Present soft and normal bowel sounds Extremities Exam Extremities exam: Present normal inspection and full ROM Back Exam Back exam: Present normal inspection and full ROM Neurological Exam Neurological exam: Present alert, oriented X3 and CN II-XII intact Psychiatric Psychiatric exam: Present normal affect and normal mood Skin Skin exam: Present warm, dry, intact and normal color Course Quality Measures none Orders Category Date Time Status Bedside COVID-19 Antigen Test NOW Care 07/06/25 16:37 Completed EKG (ED ONLY) *Do not use* NOW Care 07/06/25 16:28 Completed CXR [XR chest 1V] Stat Exams 07/06/25 17:32 Completed EKG (ED Only) Stat Exams 07/06/25 16:28 Draft ABG [Arterial Blood Gas] Stat Lab 07/06/25 20:49 Completed BNP [B-Type Natriuretic Peptide] Stat Lab 07/06/25 17:05 Completed CBC Stat Lab 07/06/25 17:05 Completed CMP [Comprehensive Metabolic Panel] Stat Lab 07/06/25 17:05 Completed Drug Screen,Urine Stat Lab 07/06/25 22:04 Completed FLU A&B [Influenza A & B Rapid Panel] Stat Lab 07/06/25 17:41 Completed Troponin I Stat Lab 07/06/25 17:05 Completed VBG [Venous Blood Gas] Stat Lab 07/06/25 17:05 Completed ALBUTEROL RT 0.5ml [Proventil Rt 0.5ml] Med 07/06/25 16:30 Discontinued 10 mg .ROUTE .STK-MED ONE ALBUTEROL RT 0.5ml [Proventil Rt 0.5ml] Med 07/06/25 16:35 Discontinued 10 mg INH X1 ONE ALBUTEROL RT 0.5ml [Proventil Rt 0.5ml] Med 07/06/25 17:57 Discontinued 10 mg INH X1 ONE Furosemide Inj [Lasix Inj] Med 07/06/25 19:54 Discontinued 40 mg IVP X1 ONE Insulin Regular Med 07/06/25 18:28 Discontinued 5 unit IV X1 ONE Insulin Regular Med 07/06/25 19:56 Discontinued 8 unit IV X1 ONE Ipratropium [place] Rt Mariel [Atrovent Rt Mariel] Med 07/06/25 16:35 Discontinued 1 mg INH X1 ONE Ipratropium [place] Rt Mariel [Atrovent Rt Mariel] Med 07/06/25 17:57 Discontinued 1 mg INH X1 ONE MethylPREDNISolone.* [SoluMEDROL Inj] Med 07/06/25 16:38 Discontinued 125 mg IVP X1 ONE Ringers Lactated 1000 ml [Lactated Ringers] 1,000 ml Med 07/06/25 17:01 Discontinued IV 50 mls/hr Ringers Lactated 1000 ml [Lactated Ringers] 1,000 ml Med 07/06/25 16:47 Discontinued IV 80 mls/hr Sodium Chloride Rt Mariel 0.9% [NS Rt Mariel 0.9%] Med 07/06/25 16:35 Discontinued 3 ml INH PRN PRN Sodium Chloride Rt Mariel 0.9% [NS Rt Mariel 0.9%] Med 07/06/25 16:35 Discontinued 3 ml INH PRN PRN Sodium Chloride Rt Mariel 0.9% [NS Rt Mariel 0.9%] Med 07/06/25 17:57 Discontinued 3 ml INH PRN PRN BiPAP / CPAP NEEDED RT 07/06/25 16:44 Completed Vital Signs Vital signs: Vital Signs Temperature 97.4 F 07/06/25 16:41 Pulse Rate 97 07/06/25 16:41 Respiratory Rate 18 07/06/25 16:41 Blood Pressure 139/97 H 07/06/25 16:41 Pulse Oximetry (%) 95 07/06/25 16:41 Oxygen Delivery Method Room Air 07/06/25 16:41 Shortness of Breath / Dyspnea MDM Narrative MDM Narrative:: Virginia Faye am scribing for and in the presence of Dr. Franco. 18:00 On reassessment, patients lung sounds are still diminished, ordered for additional breathing treatment. Patient signed out to Dr. Diaz. Patient data External records reviewed:: [facility] previous records and EMS form Clinical information provided by:: patient and EMS Social determinants that could affect healthcare access:: substance use (Meth use ) Patient has the following chronic illnesses:: atrial fibrillation, HFrEF 35-40% 03/2025, COPD on 3L home oxygen, diabetes How is presenting disease/condition affected by chronic disease/condition?: exacerbated by Evaluation data The following diagnostics were reviewed and interpreted by me:: lab results, radiology exam(s) and EKG tracing(s) Lab and/or radiology exams considered but not ordered:: None Interpretation Summary: See MDM Medications / Prescriptions Medications or Prescriptions considered but not ordered:: None Medication administrations:: Medication Administration History Discontinued Medications Acetaminophen (Acetaminophen 325 Mg Tablet) 650 mg PO Q6HR PRN PRN Reason: Fever >101 or pain 1-3 Stop: 08/06/25 11:58 Last Admin: 07/09/25 02:59 Dose: 650 mg Documented By: Admin: 07/08/25 19:22 Dose: 650 mg Documented By: Admin: 07/08/25 13:05 Dose: 650 mg Documented By: Admin: 07/07/25 12:36 Dose: 650 mg Documented By: RICKIE Albuterol (Albuterol Rt 2.5 Mg/0.5 Ml Nebu) Confirm Administered Dose 10 mg .ROUTE .STK-MED ONE Stop: 07/06/25 16:31 Albuterol (Albuterol Rt 2.5 Mg/0.5 Ml Nebu) 10 mg INH X1 ONE Stop: 07/06/25 16:36 Last Admin: 07/06/25 16:42 Dose: 10 mg Documented By: TRES Albuterol (Albuterol Rt 2.5 Mg/0.5 Ml Nebu) 10 mg INH X1 ONE Stop: 07/06/25 17:58 Last Admin: 07/06/25 18:16 Dose: 10 mg Documented By: CARLOS Albuterol/Ipratropium (Albuterol/Ipratropium (Duoneb) Rt Mariel 3 Ml Nebu) 3 ml INH Q4HRRT [place] Stop: 08/05/25 22:59 Last Admin: 07/09/25 11:04 Dose: 3 ml Documented By: Admin: 07/09/25 07:38 Dose: 3 ml Documented By: Admin: 07/09/25 03:16 Dose: 3 ml Documented By: Admin: 07/08/25 23:41 Dose: 3 ml Documented By: Admin: 07/08/25 18:55 Dose: 3 ml Documented By: Admin: 07/08/25 14:58 Dose: 3 ml Documented By: Admin: 07/08/25 06:48 Dose: 3 ml Documented By: Admin: 07/08/25 02:43 Dose: 3 ml Documented By: Admin: 07/07/25 22:05 Dose: 3 ml Documented By: Admin: 07/07/25 19:21 Dose: 3 ml Documented By: Admin: 07/07/25 14:46 Dose: 3 ml Documented By: Admin: 07/07/25 10:50 Dose: 3 ml Documented By: Admin: 07/07/25 06:34 Dose: 3 ml Documented By: Admin: 07/07/25 02:28 Dose: 3 ml Documented By: Admin: 07/06/25 22:30 Dose: 3 ml Documented By: ROYA(2) Comments: pt did not have arm band on to scan Albuterol/Ipratropium (Albuterol/Ipratropium (Duoneb) Rt Mariel 3 Ml Nebu) 3 ml INH Q2HR PRN PRN Reason: SHORTNESS OF BREATH OR WHEEZE Stop: 08/05/25 20:39 Amiodarone HCl (Amiodarone Hcl 200 Mg Tablet) 200 mg PO QDAY [place] Stop: 08/06/25 08:59 Last Admin: 07/09/25 08:41 Dose: 200 mg Documented By: abimael Admin: 07/08/25 09:10 Dose: 200 mg Documented By: Admin: 07/07/25 09:16 Dose: 200 mg Documented By: MATTHIAS Apixaban (Apixaban 2.5 Mg Tablet) 5 mg PO BID CONSTANZA Stop: 08/06/25 08:59 Last Admin: 07/09/25 08:41 Dose: 5 mg Documented By: abimael Admin: 07/08/25 21:15 Dose: 5 mg Documented By: Admin: 07/08/25 09:06 Dose: 5 mg Documented By: Admin: 07/07/25 22:20 Dose: 5 mg Documented By: Admin: 07/07/25 09:16 Dose: 5 mg Documented By: MATTHIAS Baclofen (Baclofen 10 Mg Tablet) 20 mg PO TID [place] Stop: 08/06/25 06:59 Last Admin: 07/09/25 05:23 Dose: 20 mg Documented By: Admin: 07/08/25 21:15 Dose: 20 mg Documented By: Admin: 07/08/25 14:32 Dose: 20 mg Documented By: Admin: 07/08/25 06:22 Dose: 20 mg Documented By: [email or web address] Admin: 07/07/25 22:19 Dose: 20 mg Documented By: Admin: 07/07/25 14:05 Dose: 20 mg Documented By: Admin: 07/07/25 06:24 Dose: 20 mg Documented By: ERICK Bumetanide (Bumetanide Inj 0.25 Mg/Ml Vial 4 Ml) 1 mg IVP QDAY [place] Stop: 08/06/25 08:59 Dextrose (Dextrose 50%-Water Inj 50 Ml Syringe) 25 ml IV Q15MIN PRN PRN Reason: BG 50-70 responsive npo pt Stop: 08/05/25 20:49 Dextrose (Dextrose 50%-Water Inj 50 Ml Syringe) 50 ml IV Q15MIN PRN PRN Reason: BG <50 OR BG <70 & pt unresponsive Stop: 08/05/25 20:49 Dextrose (Dextrose 50%-Water Inj 50 Ml Syringe) 25 ml IV Q15MIN PRN PRN Reason: BG 50-70 responsive npo pt Stop: 08/06/25 09:07 Dextrose (Dextrose 50%-Water Inj 50 Ml Syringe) 50 ml IV Q15MIN PRN PRN Reason: BG <50 OR BG <70 & pt unresponsive Stop: 08/06/25 09:07 Digoxin (Digoxin 0.125 Mg Tablet) 0.125 mg PO DAILY CONSTANZA Stop: 08/06/25 08:59 Last Admin: 07/09/25 08:40 Dose: 0.125 mg Documented By: abimael Admin: 07/08/25 09:08 Dose: 0.125 mg Documented By: Admin: 07/07/25 09:16 Dose: 0.125 mg Documented By: MATTHIAS Furosemide (Furosemide Inj 10 Mg/Ml 4ml Vial) 40 mg IVP X1 ONE Stop: 07/06/25 19:55 Last Admin: 07/06/25 20:19 Dose: 40 mg Documented By: CASEY Furosemide (Furosemide 20 Mg Tablet) 40 mg PO QAM [place] Stop: 08/06/25 08:59 Last Admin: 07/07/25 09:15 Dose: 40 mg Documented By: MATTHIAS Glucagon (Glucagon Inj 1 Mg Vial) 1 mg IM Q15MIN PRN PRN Reason: BG <70, and no IV access Glucagon (Glucagon Inj 1 Mg Vial) 1 mg IM Q15MIN PRN PRN Reason: BG <70, and no IV access Lactated Ringer's (Lactated Ringers) 1,000 mls @ 80 mls/hr IV .[id number] ONE Stop: 07/07/25 05:16 Last Admin: 07/06/25 17:12 Dose: Not Given Documented By: CHRISSY Non-Admin Reason: Cancelled by Provider Lactated Ringer's (Lactated Ringers) 1,000 mls @ 50 mls/hr IV .Q20H [place] Stop: 08/05/25 17:00 Last Infusion: 07/06/25 18:00 Dose: 0 mls/hr Documented By: Admin: 07/06/25 17:02 Dose: 50 mls/hr Documented By: CHRISSY Ceftriaxone Sodium/Dextrose (Rocephin/D5w 1gm Iv Premix) 1 gm in 50 mls @ 100 mls/hr IV QDAY [place] Stop: 07/13/25 20:59 Last Admin: 07/09/25 08:41 Dose: 100 mls/hr Documented By: abimael Infusion: 07/08/25 09:38 Dose: Infused Documented By: abimael Admin: 07/08/25 09:08 Dose: 100 mls/hr Documented By: Infusion: 07/07/25 09:47 Dose: Infused Documented By: Admin: 07/07/25 09:17 Dose: 100 mls/hr Documented By: Infusion: 07/06/25 23:52 Dose: Infused Documented By: Admin: 07/06/25 23:22 Dose: 100 mls/hr Documented By: ERICK Azithromycin 500 mg/ Sodium (Chloride) 250 mls @ 250 mls/hr IV QDAY@2300 [place] Stop: 07/14/25 22:59 Last Admin: 07/08/25 22:08 Dose: 250 mls/hr Documented By: Infusion: 07/07/25 23:19 Dose: Infused Documented By: Admin: 07/07/25 22:19 Dose: 250 mls/hr Documented By: ADRIANA Azithromycin 500 mg/ Sodium (Chloride) 250 mls @ 250 mls/hr IV X1 ONE Stop: 07/06/25 21:59 Last Admin: 07/06/25 23:19 Dose: 250 mls/hr Documented By: ERICK Lactated Ringer's (Lactated Ringers) 500 mls @ 75 mls/hr IV .[id number] ONE Stop: 07/07/25 19:26 Last Admin: 07/07/25 13:01 Dose: 75 mls/hr Documented By: RICKIE Ibuprofen (Ibuprofen Tab 200 Mg Tablet) 200 mg PO X1 ONE Stop: 07/09/25 08:10 Last Admin: 07/09/25 08:41 Dose: 200 mg Documented By: abimael Insulin Degludec (Insulin Degludec 5 Unit/0.05 Ml (Per 5 Units)) 15 unit SC X1 ONE Stop: 07/07/25 01:40 Last Admin: 07/07/25 01:54 Dose: 15 unit Documented By: WB Co-signed By: IG Insulin Degludec (Insulin Degludec 5 Unit/0.05 Ml (Per 5 Units)) 20 unit SC HS [place] Stop: 08/06/25 20:59 Last Admin: 07/07/25 22:43 Dose: 20 unit Documented By: ADRIANA Co-signed By: [facility] [place] Insulin Degludec (Insulin Degludec 5 Unit/0.05 Ml (Per 5 Units)) 25 unit SC HS [place]STAN[place] Stop: 08/07/25 20:59 Insulin Degludec (Insulin Degludec 5 Unit/0.05 Ml (Per 5 Units)) 15 unit SC HS [place] Stop: 08/07/25 20:59 Last Admin: 07/08/25 21:16 Dose: 15 unit Documented By: ADRIANA Co-signed By: MLD Insulin Glargine (Insulin Glargine (Lantus) 5 Unit/0.05 Ml (Per 5 Units)) 15 unit SC QDAY [place] Stop: 08/06/25 08:59 Insulin Glargine (Insulin Glargine (Lantus) 5 Unit/0.05 Ml (Per 5 Units)) 15 unit SC HS [place]ANZA Stop: 08/06/25 20:59 Insulin Human Lispro (Insulin Lispro (Admelog) 1 Unit/0.01 Ml Unit) 0 unit SC Q6HR [place]; Protocol Stop: 08/06/25 00:00 Last Admin: 07/07/25 00:10 Dose: Not Given Documented By: WB Non-Admin Reason: Per Protocol Insulin Human Lispro (Insulin Lispro (Admelog) 1 Unit/0.01 Ml Unit) 4 unit SC X1 ONE Stop: 07/07/25 01:41 Last Admin: 07/07/25 01:53 Dose: 4 unit Documented By: ERICK Co-signed By: MARCELO Insulin Human Lispro (Insulin Lispro (Admelog) 1 Unit/0.01 Ml Unit) 0 unit SC Q6HR [place]; Protocol Stop: 08/06/25 00:00 Last Admin: 07/07/25 05:36 Dose: 6 unit Documented By: ERICK Co-signed By: MARIYA Insulin Human Lispro (Insulin Lispro (Admelog) 1 Unit/0.01 Ml Unit) 3 unit SC TIDWM PRN PRN Reason: Hyperglycemia Stop: 08/06/25 07:59 Insulin Human Lispro (Insulin Lispro (Admelog) 1 Unit/0.01 Ml Unit) 3 unit SC TID [place] Stop: 08/06/25 05:59 Last Admin: 07/07/25 05:36 Dose: 3 unit Documented By: ERICK Co-signed By: MARIYA Insulin Human Lispro (Insulin Lispro (Admelog) 1 Unit/0.01 Ml Unit) 0 unit SC ACHS [facility]; Protocol Stop: 08/06/25 11:29 Last Admin: 07/09/25 08:02 Dose: 3 unit Documented By: abimael Co-signed By: Admin: 07/08/25 21:16 Dose: 3 unit Documented By: ADRIANA Co-signed By: DARIUS Admin: 07/08/25 17:14 Dose: Not Given Documented By: MATTHIAS Non-Admin Reason: Per Protocol Admin: 07/08/25 12:42 Dose: 2 unit Documented By: MATTHIAS Co-signed By: JAYLAN Admin: 07/08/25 07:37 Dose: 4 unit Documented By: MATTHIAS Co-signed By: LUKE Admin: 07/07/25 22:43 Dose: 4 unit Documented By: ADRIANA Co-signed By: SUSANA Admin: 07/07/25 17:34 Dose: 4 unit Documented By: MATTHIAS Co-signed By: PAMELLA Admin: 07/07/25 12:35 Dose: 4 unit Documented By: RICKIE Co-signed By: RICK Insulin Human Lispro (Insulin Lispro (Admelog) 1 Unit/0.01 Ml Unit) 5 unit SC TID [facility] Stop: 08/06/25 13:59 Insulin Human Lispro (Insulin Lispro (Admelog) 1 Unit/0.01 Ml Unit) 5 unit SC AC [facility] Stop: 08/06/25 12:29 Last Admin: 07/07/25 12:35 Dose: 5 unit Documented By: RICKIE Co-signed By: RICK Insulin Human Lispro (Insulin Lispro (Admelog) 1 Unit/0.01 Ml Unit) 10 unit SC AC [facility] Stop: 08/06/25 16:59 Last Admin: 07/08/25 07:38 Dose: 10 unit Documented By: MATTHIAS Co-signed By: LUKE Admin: 07/07/25 17:34 Dose: 10 unit Documented By: MATTHIAS Co-signed By: PAMELLA Insulin Human Lispro (Insulin Lispro (Admelog) 1 Unit/0.01 Ml Unit) 12 unit SC ACHS [facility] Stop: 08/07/25 11:29 Last Admin: 07/08/25 17:31 Dose: Not Given Documented By: MATTHIAS Non-Admin Reason: Held per Dr. Vincent Admin: 07/08/25 12:43 Dose: 12 unit Documented By: MATTHIAS Co-signed By: BR Insulin Human Lispro (Insulin Lispro (Admelog) 1 Unit/0.01 Ml Unit) 8 unit SC ACHS [facility] Stop: 08/07/25 20:59 Last Admin: 07/09/25 08:02 Dose: 8 unit Documented By: abimael Co-signed By: Admin: 07/08/25 21:07 Dose: Not Given Documented By: ADRIANA Non-Admin Reason: Cancelled by Provider Insulin Human Regular (Insulin Hum Regular 1 Unit/0.01 Ml (Per Unit)) 5 unit IV X1 ONE Stop: 07/06/25 18:29 Last Admin: 07/06/25 18:41 Dose: 5 unit Documented By: CHRISSY Co-signed By: KARLA Insulin Human Regular (Insulin Hum Regular 1 Unit/0.01 Ml (Per Unit)) 8 unit IV X1 ONE Stop: 07/06/25 19:57 Last Admin: 07/06/25 20:20 Dose: 8 unit Documented By: CASEY Co-signed By: SOLE Insulin Human Regular (Insulin Hum Regular 1 Unit/0.01 Ml (Per Unit)) 10 unit IV X1 ONE Stop: 07/07/25 08:30 Last Admin: 07/07/25 09:25 Dose: 10 unit Documented By: MATTHIAS Co-signed By: RICK Insulin Human Regular (Insulin Hum Regular 1 Unit/0.01 Ml (Per Unit)) 15 unit IV X1 ONE Stop: 07/07/25 12:46 Last Admin: 07/07/25 13:00 Dose: 15 unit Documented By: RICKIE Co-signed By: RICK Ipratropium [place] (Ipratropium Rt 0.5 Mg/ 2.5 Ml Nebu) 1 mg INH X1 ONE Stop: 07/06/25 16:36 Last Admin: 07/06/25 16:42 Dose: 1 mg Documented By: TRES Ipratropium [place] (Ipratropium Rt 0.5 Mg/ 2.5 Ml Nebu) 1 mg INH X1 ONE Stop: 07/06/25 17:58 Melatonin (Melatonin 3 Mg Tablet) 6 mg PO X1 ONE Stop: 07/07/25 00:07 Last Admin: 07/07/25 00:18 Dose: 6 mg Documented By: ERICK Melatonin (Melatonin 3 Mg Tablet) 18 mg PO HS CONSTAN[place]; Protocol Stop: 08/06/25 20:59 Last Admin: 07/07/25 22:19 Dose: 18 mg Documented By: ADRIANA Melatonin (Melatonin 3 Mg Tablet) 6 mg PO HS [place]; Protocol Stop: 08/07/25 20:59 Last Admin: 07/08/25 21:15 Dose: 6 mg Documented By: ADRIANA Methylprednisolone Sodium Succinate (Methylprednisolone Sod Succ 62.5 Mg/Ml 2ml Vial) 125 mg IVP X1 ONE Stop: 07/06/25 16:39 Last Admin: 07/06/25 16:58 Dose: 125 mg Documented By: CHRISSY Methylprednisolone Sodium Succinate (Methylprednisolone Sod Succ 40 Mg/Ml Vial) 40 mg IVP BID [place] Stop: 07/13/25 20:59 Methylprednisolone Sodium Succinate (Methylprednisolone Sod Succ 40 Mg/Ml Vial) 40 mg IVP QDAY [place] Stop: 07/14/25 08:59 Last Admin: 07/07/25 09:15 Dose: 40 mg Documented By: MATTHIAS Pantoprazole Sodium (Pantoprazole Inj 40 Mg Vial) 40 mg IVP QDAY [place] Stop: 08/06/25 08:59 Last Admin: 07/09/25 08:40 Dose: 40 mg Documented By: ps Admin: 07/08/25 09:06 Dose: 40 mg Documented By: Admin: 07/07/25 09:14 Dose: 40 mg Documented By: MATTHIAS Sodium Chloride (Sodium Chloride Rt Mariel 0.9% 3 Ml Nebu) 3 ml INH PRN PRN PRN Reason: SOLN Stop: 08/05/25 16:34 Sodium Chloride (Sodium Chloride Rt Mariel 0.9% 3 Ml Nebu) 3 ml INH PRN PRN PRN Reason: SOLN Stop: 08/05/25 16:34 Sodium Chloride (Sodium Chloride Rt Mariel 0.9% 3 Ml Nebu) 3 ml INH PRN PRN PRN Reason: SOLN Stop: 08/05/25 17:56 Sodium Chloride (Sodium Chloride Rt 10% 15 Ml Nebu) 5 ml INH X1 ONE Stop: 07/06/25 20:56 See above Consultations Consultation(s) initiated? (list below): No Diagnosis Shortness of Breath Differential Diagnosis: other (See MDM) Most likely diagnosis given after review of the tests above:: COPD exacerbation Admission Indicated Admission indicated?: not indicated Explain why admission is indicated or not indicated:: Signed out pending final disposition Admission Request Was there a request for admission?: No Disposition Plan Disposition Plan: other (specify) (Signed out to Dr. Diaz ) Critical Care Time Critical Care Time Critical Care Time: Yes Total Critical Care Time (min.): 45 Attestation: The high probability of sudden, clinically significant deterioration in the patient's condition required the highest level of my preparedness to intervene urgently. The services I provided to this patient were to treat and/or prevent clinically significant deterioration. Services included the following: chart data review, reviewing nursing notes and/or old charts, documentation time, residential property consultant collaboration regarding findings and treatment options, medication orders and management, direct patient care, vital sign assessments and ordering, interpreting and reviewing diagnostic studies and lab tests. Aggregate critical care time includes only time during which I was engaged in work directly related to the patient's care, as described above, whether at bedside or elsewhere in the Emergency Department. It did not include time spent performing other reported procedures or the services of residents, students, nurses or physician assistants. Discharge Plan Plan Patient Disposition: Admit Acute Care w/in Hospital Patient condition on transfer: Stable Problem List Clinical Impression: Dyspnea and respiratory abnormalities Patient/Caregiver Discharge Instructions Other Activity Instructions:: Change your melatonin dose to 5mg nightly. Change your long acting insulin from 15 to 20 units daily. If you notice your fasting blood glucose is above 150 in the morning, increase your long-acting by 1 unit. Your goal fasting blood glucose is 70-130. Continue sliding scale insulin as directed. Resume previous medications. Continue using your inhalers as needed for COPD management. Weight yourself daily to monitor for fluid retention. Follow up with your PCP in 1-2 weeks
[2025-07-06] MEDS: IPRATROPIUM RT 0.5 MG/ 2.5 ML NEBU 1 MG INH (16:42)
[2025-07-06] MEDS: ALBUTEROL RT 2.5 MG/0.5 ML NEBU 10 MG INH ×2 (16:42→18:16)
[2025-07-06] MEDS: MethylPREDNISolone SOD SUCC 62.5 MG/ML 2ML VIAL 125 MG IVP (16:58)
[2025-07-06] MEDS: RINGERS LACTATED 1000 ML 1,000 ML 50 ML IV (17:02)
[2025-07-06 17:14] LABS: Base Excess, Venous 4 (-3-3); O2 Saturation, Venous 82 % (96-97); PCO2, Venous 56 mmHg (36-56); PO2, Venous 46 mmHg (15-58); pH, Venous 7.35 (7.33-7.66)
[2025-07-06 17:18] LABS: Basophils # (Auto) 0.0 Thou/mm3 (0.0-0.2); Basophils % (Auto) 0 % (0-2.5); Eosinophils # (Auto) 0.1 Thou/mm3 (0.0-0.5); Eosinophils % (Auto) 1 % (0-10); Hematocrit 44.2 % (36.0-46.0); Hemoglobin 14.3 g/dL (12.0-16.0); Immature Granulocytes Auto 0.03 Thou/mm3 (0.00-0.00); Lymphocytes # (Auto) 4.7 Thou/mm3 (1.0-4.8); Lymphocytes % (Auto) 43 % (10-50); Mean Corpuscular HGB Conc 32.4 g/dl (31.0-37.0); Mean Corpuscular Hemoglobin 29.5 pg (25.0-35.0); Mean Corpuscular Volume 91 fL (80-100); Monocytes # (Auto) 0.7 Thou/mm3 (0.0-0.8); Monocytes % (Auto) 6 % (0-12); Neutrophils # (Auto) 5.4 Thou/mm3 (1.8-7.7); Neutrophils % (Auto) 50 % (37-80); Nucleated Red Blood Cell # 0.00 Thou/mm3 (0.00-0.00); Nucleated Red Blood Cell % 0 /100 WBC (0); Platelet Count 185 Thou/mm3 (140-440); RDW Standard Deviation 43.3 fL (36.4-46.3); Red Blood Count 4.84 Miln/mm3 (4.00-5.20); White Blood Count 10.9 Thou/mm3 (3.6-11.0)
--- NOTE | 2025-07-06 17:32 | XR_ITS ---
Examination: AP chest single view Technique one AP portable upright chest single view Date and time: June 26, 2025, 1003 hrs. Indications: Shortness of breath today Findings: Mild prominence left ventricle. Mild vascular congestion. No lobar pneumonia or pulmonary edema. Prominent osteopenia Impression: Mild enlargement cardiac contour. Mild vascular congestion
[2025-07-06 17:34] LABS: B-Type Natriuretic Peptide < 20 pg/mL (0-100)
[2025-07-06 17:41] LABS: Alanine Aminotransferase 15 U/L (10-49); Albumin, Serum 4.4 gm/dL (3.5-5.0); Albumin/Globulin Ratio 2.2 (1.2-2.2); Alkaline Phosphatase 116 U/L (46-116); Anion Gap 11 (7-16); Aspartate Amino Transferase 15 U/L (0-34); BUN/Creatinine Ratio 14 Ratio (12-20); Bilirubin,Total 0.9 mg/dL (0.3-1.2); Blood Urea Nitrogen 14 mg/dL (9-23); Calcium 9.4 mg/dL (8.3-10.6); Calcium (Corrected) 9.4 mg/dL (8.5-10.1); Carbon Dioxide 29.2 mMol/L (20.0-31.0); Chloride 101 mMol/L (98-107); Creatinine (Component) 1.0 mg/dL (0.6-1.3); Estimated Creatinine Clearance 65.7 mL/min (>60); Globulin 2.0 gm/dL (2.3-3.5); Potassium 3.7 mMol/L (3.4-5.1); Sodium 141 mMol/L (136-145); Total Protein 6.4 gm/dL (5.7-8.2); Troponin I < 0.020 ng/mL (0.0-0.045); eGFR > 60 See Note
[2025-07-06 17:56] LABS: Osmolality,Calculated 302 (275-295)
[2025-07-06 17:59] LABS: Glucose 476 mg/dL (74-106)
--- NOTE | 2025-07-06 18:07 | PC.NURSE ---
pt brought in by ems due to sob and idff breathing home that started around 1600. pt has hx of CHF, Afib, Dm, and COPD. pt bs in route was 347mg/dl. breathing tx x3 done in route and placed on cpap. ei im1mg given along with mag iv 2mg. rt called to bedside for bipap. cont breathing tx will be started per md. pt breathing labored and even. pt also has slight cough. md at bedside.
--- NOTE | 2025-07-06 18:31 | PD.EDADDENDU ---
Emergency Room Addendum <Marilyn Heredia - Last Filed: 07/06/25 20:08> Addendum Narrative: 1800: Care assumed from Dr. Franco (emergency physician). Past medical, surgical, social and family history reviewed. Vitals and home medications reviewed. Results and treatment plan discussed. I will assume the care of the patient at this time and will follow the patient, pending breathing treatment. The following addendum documentation note is intended to reflect any pending information, findings, or radiology results not included in the patient?s initial chart by the previous shift scribe. Assumed care of this pleasant female with long-standing COPD and CHF on 3L O2 at home, A-fib on Eliquis and Amiodarone with EF 35-40% presenting with progressive dyspnea x 48 hours. 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 No increasing lower extremity edema. Patient treated aggressively with serial steroids and magnesium with improvement. Laboratory markers show normal WBC, no anemia or thromobocytopenia. ABG demonstrates mild respiratory acidosis. Serum chemistries demonstrate markedly elevated blood sugar of 476, and CO2 of 29. UA with equivocal evidence of infection. CXR performed demonstrates mid cardiomegaly and vascular congestion. Patient also received 1 dose IV LASIX and 1 mg Versed for anxiety. Persistently wheezing will contact hospitalist for consideration for admission. 20:00 - Discussed with resident physician for hospitalist for admission. Reviewed the patient?s HPI, PMHx, lab and/or radiology results. Discussed treatment plan. Will consult an admission to the hospitalist. Clinical impression includes acute COPD exacerbation. Discussed with hospitalist who agrees to admit. <Benny Diaz DO - Last Filed: 07/07/25 06:29> Addendum Narrative: 1800: Care assumed from Dr. Ruff (emergency physician). Past medical, surgical, social and family history reviewed. Vitals and home medications reviewed. Results and treatment plan discussed. I will assume the care of the patient at this time and will follow the patient, pending breathing treatment. The following addendum documentation note is intended to reflect any pending information, findings, or radiology results not included in the patient?s initial chart by the previous shift scribe. Assumed care of this pleasant female with long-standing COPD and CHF on 3L O2 at home, A-fib on Eliquis and Amiodarone with EF 35-40% presenting with progressive dyspnea x 48 hours. 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 No increasing lower extremity edema. Patient treated aggressively with serial steroids and magnesium with improvement. Laboratory markers show normal WBC, no anemia or thromobocytopenia. ABG demonstrates mild respiratory acidosis. Serum chemistries demonstrate markedly elevated blood sugar of 476, and CO2 of 29. UA with equivocal evidence of infection. CXR performed demonstrates mid cardiomegaly and vascular congestion. Patient also received 1 dose IV LASIX and 1 mg Versed for anxiety. Persistently wheezing will contact hospitalist for consideration for admission. 20:00 - Discussed with resident physician for hospitalist for admission. Reviewed the patient?s HPI, PMHx, lab and/or radiology results. Discussed treatment plan. Will consult an admission to the hospitalist. Clinical impression includes acute COPD exacerbation. Discussed with hospitalist who agrees to admit. Critical Care Time <Marilyn Heredia - Last Filed: 07/06/25 20:08> Critical Care Time Critical Care Time: Yes Total Critical Care Time (min.): 35 Attestation: The high probability of sudden, clinically significant deterioration in the patient?s condition required the highest level of my preparedness to intervene urgently. The services I provided to this patient were to treat and/or prevent clinically significant deterioration. Services included the following: chart data review, reviewing nursing notes and/or old charts, documentation time, cleaning validation consultant collaboration regarding findings and treatment options, medication orders and management, direct patient care, vital sign assessments and ordering, interpreting and reviewing diagnostic studies and lab tests. Aggregate critical care time includes only time during which I was engaged in work directly related to the patient?s care, as described above, whether at bedside or elsewhere in the Emergency Department. It did not include time spent performing other reported procedures or the services of residents, students, nurses or physician assistants.
[2025-07-06 18:33] LABS: Influenza A Ag Negative; Influenza B Ag Negative
[2025-07-06] MEDS: INSULIN HUM REGULAR 1 UNIT/0.01 ML (PER UNIT) 5 UNIT IV (18:41)
[2025-07-06] MEDS: FUROSEMIDE INJ 10 MG/ML 4ML VIAL 40 MG IVP (20:19)
[2025-07-06] MEDS: INSULIN HUM REGULAR 1 UNIT/0.01 ML (PER UNIT) 8 UNIT IV (20:20)
[2025-07-06 20:53] LABS: Base Excess 3 (-3-3); HCO3 30 mEq/L (20-26); Inspired Oxygen, FIO2 30 %; O2 Saturation 92 % (91-98); PCO2 55 mmHg (32.0-48.0); PO2 66 mmHg (83-108); pH, Arterial 7.34 (7.35-7.45)
[2025-07-06 20:54] LABS: Allen Test Performed/OK; Puncture Site Right Radial
--- NOTE | 2025-07-06 20:54 | PD.RESHP ---
Documentation for date of: 07/06/25 HPI History of Present Illness Chief complaint: Shortness of breath/dyspnea History of present illness: Ms. Reynaga is a 54-year-old female past medical history of COPD on 3 L home oxygen, insulin-dependent type 2 diabetes, CHF, A-fib on Eliquis and amiodarone, HFrEF (35 to 40%), presented to the [facility] ED on 07/06/2025 with chief complaint of shortness of breath. Patient reports sudden onset of shortness of breath that began yesterday evening. Patient says she used a moderate amount of oxygen however the 2 L no elevated shortness of breath. Associated with chest pressure, which patient reports is not a new symptom. Patient reports she sleeps of bed inclined at home, endorses occasional PND. Patient also reports mild headache, episode of fever of 101 and chills. She states that the fever and chills improved after taking Tylenol at home. She denies recent sick contact, cough, abdominal pain, nausea, vomiting, urinary symptoms. 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 Snider in [place]. Patient reported she is compliant with all medication. ED Course: -Vitals were BP 118/60, pulse 109, RR 22, temperature 98.5, O2 sat 91% on 30 FiO2 BiPAP -Labs significant for VBG pH 7.35, pCO2 56, PaO2 46. Glucose 476, osmolality 302, troponin negative, BNP<20. UA showed 3+ glucose, leukocyte esterase, urine RBC 5, squamous epithelial 10. -Imaging included EKG sinus rhythm with QTc 458, chest x-ray showed mild vascular congestion and mild enlargement cardiac contour -In the ED, patient was given 10 mg x 1, ipratropium 1mg x 1, methylprednisolone 125 IVP x 1, 1 L LR -Patient was admitted for acute hypoxic respiratory failure in setting of COPD exacerbation. Review of Systems Review of systems otherwise negative except what is mentioned above. Past Medical History: Mentioned above Family History: Noncontributory Surgical History: Cholecystectomy Social History: Quit smoking few months ago, long history of 2 pack/day. 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 Skin: Warm, dry, intact. No rash or ecchymoses. Head: Normocephalic, atraumatic. Eye: Normal conjunctiva, PERRL. Throat: Oral mucosa moist. No obvious lesions in oropharynx. Cardiovascular: Regular rate and rhythm, no murmur, +S1/S2. Respiratory: Bilateral air sound entry with lower left crackles, respirations labored, no wheezing. Gastrointestinal: Soft, nontender, non-distended. No guarding or rebound tenderness. Extremities: No edema, no cyanosis, no clubbing. Neuro: Alert and oriented x3.No focal deficits observed. Conversant, moving all extremities. No overt cerebellar signs/incoordination. Psychiatric: Cooperative, appropriate affect Results: Labs 07/08/25 05:57 07/08/25 05:57 Labs: Short CBC 07/06/25 Range/Units 17:05 WBC 10.9 (3.6-11.0) Thou/mm3 Hgb 14.3 (12.0-16.0) g/dL Hct 44.2 (36.0-46.0) % Plt Count 185 (140-440) Thou/mm3 BMP 07/06/25 17:05 Sodium 141 Potassium 3.7 Chloride 101 Carbon Dioxide 29.2 BUN 14 Creatinine 1.0 Glucose 476 H* Calcium 9.4 Cardiac Enzymes 07/06/25 Range/Units 17:05 Troponin I < 0.020 (0.0-0.045) ng/mL Liver Function 07/06/25 Range/Units 17:05 Total Bilirubin 0.9 (0.3-1.2) mg/dL AST 15 (0-34) U/L ALT 15 (10-49) U/L Alkaline Phosphatase 116 (46-116) U/L Albumin 4.4 (3.5-5.0) gm/dL ABG Interpretation ABG results: 07/06/25 17:05 VBG pH 7.35 VBG pCO2 56 VBG pO2 46 VBG Base Excess 4 H Quality Measures Quality Measures none Medications Home Medications and Allergies Home Medications ?Medication ?Instructions ?Recorded ?Confirmed ?Type digoxin 125 mcg (0.125 mg) tablet 125 mcg PO DAILY 12/16/23 07/06/25 History baclofen 20 mg tablet 20 mg PO 3XD 03/16/25 07/06/25 History albuterol sulfate 90 mcg/actuation 2 inh inhalation BID PRN shortness 07/06/25 07/06/25 History aerosol inhaler of breath or wheezing fluticasone propionate 45 2 inh inhalation BID PRN shortness 07/06/25 07/06/25 History mcg-salmeterol 21 mcg/actuation of breath or wheezing HFA inhaler (Advair HFA) Allergies Allergy/AdvReac Type Severity Reaction Status Date / Time codeine Allergy Severe HIVES, Verified 07/06/25 16:46 SWELLING, DIFF BREATHING meloxicam Allergy Severe Difficulty Verified 07/06/25 16:46 Breathing Visit Medications Albuterol/Ipratropium (Albuterol/Ipratropium (Duoneb) Rt Mariel 3 Ml Nebu) 3 ml INH Q4HRRT [facility] Stop: 08/05/25 22:59 Albuterol/Ipratropium (Albuterol/Ipratropium (Duoneb) Rt Mariel 3 Ml Nebu) 3 ml INH Q2HR PRN PRN Reason: SHORTNESS OF BREATH OR WHEEZE Stop: 08/05/25 20:39 Bumetanide (Bumetanide Inj 0.25 Mg/Ml Vial 4 Ml) 1 mg IVP QDAY [facility] Stop: 08/06/25 08:59 Dextrose (Dextrose 50%-Water Inj 50 Ml Syringe) 25 ml IV Q15MIN PRN PRN Reason: BG 50-70 responsive npo pt Stop: 08/05/25 20:49 Dextrose (Dextrose 50%-Water Inj 50 Ml Syringe) 50 ml IV Q15MIN PRN PRN Reason: BG <50 OR BG <70 & pt unresponsive Stop: 08/05/25 20:49 Glucagon (Glucagon Inj 1 Mg Vial) 1 mg IM Q15MIN PRN PRN Reason: BG <70, and no IV access Ceftriaxone Sodium/Dextrose (Rocephin/D5w 1gm Iv Premix) 1 gm in 50 mls @ 100 mls/hr IV QDAY [facility] Stop: 07/13/25 20:59 Azithromycin 500 mg/ Sodium (Chloride) 250 mls @ 250 mls/hr IV QDAY [facility] Stop: 07/13/25 20:51 Insulin Human Lispro (Insulin Lispro (Admelog) 1 Unit/0.01 Ml Unit) 0 unit SC Q6HR [facility]; Protocol Stop: 08/06/25 00:00 Methylprednisolone Sodium Succinate (Methylprednisolone Sod Succ 40 Mg/Ml Vial) 40 mg IVP QDAY [facility] Stop: 07/14/25 08:59 Sodium Chloride (Sodium Chloride Rt Mariel 0.9% 3 Ml Nebu) 3 ml INH PRN PRN PRN Reason: SOLN Stop: 08/05/25 16:34 Sodium Chloride (Sodium Chloride Rt Mariel 0.9% 3 Ml Nebu) 3 ml INH PRN PRN PRN Reason: SOLN Stop: 08/05/25 16:34 Sodium Chloride (Sodium Chloride Rt Mariel 0.9% 3 Ml Nebu) 3 ml INH PRN PRN PRN Reason: SOLN Stop: 08/05/25 17:56 Discontinued Medications Albuterol (Albuterol Rt 2.5 Mg/0.5 Ml Nebu) 10 mg INH X1 ONE Stop: 07/06/25 16:36 Last Admin: 07/06/25 16:42 Dose: 10 mg Albuterol (Albuterol Rt 2.5 Mg/0.5 Ml Nebu) 10 mg INH X1 ONE Stop: 07/06/25 17:58 Last Admin: 07/06/25 18:16 Dose: 10 mg Furosemide (Furosemide Inj 10 Mg/Ml 4ml Vial) 40 mg IVP X1 ONE Stop: 07/06/25 19:55 Last Admin: 07/06/25 20:19 Dose: 40 mg Lactated Ringer's (Lactated Ringers) 1,000 mls @ 80 mls/hr IV .[id number] ONE Stop: 07/07/25 05:16 Last Admin: 07/06/25 17:12 Dose: Not Given Lactated Ringer's (Lactated Ringers) 1,000 mls @ 50 mls/hr IV .Q20H [facility] Stop: 08/05/25 17:00 Last Infusion: 07/06/25 18:00 Dose: 0 mls/hr Insulin Human Regular (Insulin Hum Regular 1 Unit/0.01 Ml (Per Unit)) 5 unit IV X1 ONE Stop: 07/06/25 18:29 Last Admin: 07/06/25 18:41 Dose: 5 unit Insulin Human Regular (Insulin Hum Regular 1 Unit/0.01 Ml (Per Unit)) 8 unit IV X1 ONE Stop: 07/06/25 19:57 Last Admin: 07/06/25 20:20 Dose: 8 unit Ipratropium [place] (Ipratropium Rt 0.5 Mg/ 2.5 Ml Nebu) 1 mg INH X1 ONE Stop: 07/06/25 16:36 Last Admin: 07/06/25 16:42 Dose: 1 mg Ipratropium [place] (Ipratropium Rt 0.5 Mg/ 2.5 Ml Nebu) 1 mg INH X1 ONE Stop: 07/06/25 17:58 Methylprednisolone Sodium Succinate (Methylprednisolone Sod Succ 62.5 Mg/Ml 2ml Vial) 125 mg IVP X1 ONE Stop: 07/06/25 16:39 Last Admin: 07/06/25 16:58 Dose: 125 mg Methylprednisolone Sodium Succinate (Methylprednisolone Sod Succ 40 Mg/Ml Vial) 40 mg IVP BID [facility] Stop: 07/13/25 20:59 Assessment & Plan Plan Ms. Reynaga is a 54-year-old female past medical history of COPD on 3 L home oxygen, insulin-dependent type 2 diabetes, CHF, A-fib on Eliquis and amiodarone, HFrEF (35 to 40%), presented to the [facility] ED on 07/06/2025 with chief complaint of shortness of breath. Admitted for acute hypoxic respiratory failure in setting of COPD exacerbation. #Acute on chronic hypoxic respiratory failure setting of #COPD exacerbation #History of CHF #HrEF (EF 35-40%) #? Left lower lobe pneumonia DDx: COPD exacerbation versus CHF exacerbation Patient endorsed shortness of breath, onset 2 days ago, worse with exertion and laying flat, normally on 3 L home oxygen. Upon presentation patient saturating 97% on 30 O2 BiPAP. Left lower lobe crackles present, no bilateral extremity edema, pointed to low suspicion for CHF exacerbation. Nonetheless patient endorses fever, chills, negative indicating possible infective process leading to COPD exacerbation in setting of pneumonia. Chest x-ray showed vascular congestion and enlarged cardiac silhouette. Echo done 03/17/2025 showed EF 35 to 40% with trace MR Repeat ABG 7.34, CO2 55, PaO2 66, bicarb 30 respiratory acidosis with metabolic compensation -DuoNeb as needed -CPAP/BiPAP as needed -Started ceftriaxone 1 mg daily and azithromycin 500 mg daily -Started Bumex 1 mg daily -Started methylprednisolone 40 mg daily -Sputum culture and Gram stain ordered, pending -Strict ins and outs -Fluid restriction 1500 ml -Supplemental O2 as needed, wean as tolerated #A-fib, rate control Patient has a history of atrial fibrillation on Amiodarone, Eliquis and Digoxin EKG is paced sinus rhythm rate 96, QTc 458. Patient follows outpatient cardiology Dr. Tylor BOJORQUEZDsVAS score 6-?13.6% risk of stroke/TIA/systemic embolism HAS BLED score 3 - Resumed home amiodarone 200 mg p.o. - Resumed Eliquis 5 mg p.o. - Resume digoxin 0.125 mg p.o. - Monitor on telemetry - Keep K > 4 and Mg > 2 #Insulin-dependent type 2 diabetes mellitus #Hyperglycemia Patient is on home Lantus 10 units at night. On admission patient had a blood glucose of 476, likely due to methylprednisolone for acute exacerbation. Last A1c 03/17/2025 was 11.7. Patient blood glucose has been uptrending [phone]. Received 4 units lispro and 15 units glargine Patient reports her compliant with all medication - A1c ordered, pending ? SSI Step3 ? Started glargine 15 units daily at night ? Started lispro 3 units TIDWM ? Hypoglycemia protocol in place #Asymptomatic pyuria Patient denies dysuria, urgency or frequency. However UA was positive for 3+ glucose, leukocyte esterase, urine RBC 5 -No intervention indicated presently - Continue to monitor Hospital management: Lines: peripheral IV Diet: Low-sodium 2 gm GI prophylaxis: pantoprazole DVT prophylaxis: Eliquis 5mg Disposition: tele acute hypoxic respiratory failure secondary to COPD exacerbation CODE STATUS: Full code Patient seen and assessed under supervision of attending physician Dr.Alhalaibeh Eleanor Alexandre MD PGY-1, Internal Medicine Please note: this document was transcribed using voice recognition technology; minor inaccuracies may be present. Attending Provider Attestation/Addendum After examination of the patient and review of the clinical data I feel that this patient needs admission to the hospital for further treatment/evaluation. Plan of care discussed with patient and is in agreement. I Camille Gutierrez MD, attest that I was physically present for woodruff portions of evaluation, and examined patient, labs and imagings and plan of care were discussed with IM residents team, and I agree with the findings and plans documented above.
[2025-07-06] MEDS: ALBUTEROL/IPRATROPIUM (Duoneb) RT SOL 3 ML NEBU INH (22:30)
[2025-07-06 22:53] LABS: Amphetamine/Methamp Scrn,U Negative (Negative); Barbiturate Screen,Urine Negative (Negative); Benzodiazepines Screen,Urine Negative (Negative); Benzoylecgonine Screen, Ur Negative (Negative); Fentanyl Screen,Urine Negative (Negative); Opiate Screen,Urine Negative (Negative); THC Screen,Urine Negative (Negative)
[2025-07-06] MEDS: AZITHROMYCIN INJ 500 MG in SODIUM CHLORIDE 0.9% 250 ML 250 ML 250 MG IV (23:19)
[2025-07-06] MEDS: cefTRIAXone/D5w 1gm IV premix 1 GM/50 ML BAG IV (23:22)
[2025-07-07] VITALS (17 sets, daily range): BP systolic 91–130; BP diastolic 62–78; PULSE 20–102; RESP 15–86; TEMP 35.9–36.7; O2SAT 89–99; BMI 43.4
[2025-07-07] MEDS: MELATONIN 3 MG TABLET 6 MG PO (00:18)
[2025-07-07 01:39] LABS: Glucose 637 mg/dL (74-106)
[2025-07-07] MEDS: INSULIN LISPRO (AdmeLOG) 1 UNIT/0.01 ML UNIT 4 UNIT SC (01:53)
[2025-07-07] MEDS: INSULIN DEGLUDEC 5 UNIT/0.05 ML (PER 5 UNITS) 15 UNIT SC (01:54)
[2025-07-07] MEDS: ALBUTEROL/IPRATROPIUM (Duoneb) RT SOL 3 ML NEBU INH ×6 (02:28→22:05)
[2025-07-07] MEDS: INSULIN LISPRO (AdmeLOG) 1 UNIT/0.01 ML UNIT SC ×4 (05:36→22:43)
[2025-07-07] MEDS: INSULIN LISPRO (AdmeLOG) 1 UNIT/0.01 ML UNIT 3 UNIT SC (05:36)
[2025-07-07 06:08] LABS: Basophils # (Auto) 0.0 Thou/mm3 (0.0-0.2); Basophils % (Auto) 0 % (0-2.5); Eosinophils # (Auto) 0.0 Thou/mm3 (0.0-0.5); Eosinophils % (Auto) 0 % (0-10); Hematocrit 41.3 % (36.0-46.0); Hemoglobin 13.3 g/dL (12.0-16.0); Immature Granulocytes Auto 0.03 Thou/mm3 (0.00-0.00); Lymphocytes # (Auto) 0.7 Thou/mm3 (1.0-4.8); Lymphocytes % (Auto) 8 % (10-50); Mean Corpuscular HGB Conc 32.2 g/dl (31.0-37.0); Mean Corpuscular Hemoglobin 29.1 pg (25.0-35.0); Mean Corpuscular Volume 90 fL (80-100); Monocytes # (Auto) 0.1 Thou/mm3 (0.0-0.8); Monocytes % (Auto) 1 % (0-12); Neutrophils # (Auto) 8.4 Thou/mm3 (1.8-7.7); Neutrophils % (Auto) 91 % (37-80); Nucleated Red Blood Cell # 0.00 Thou/mm3 (0.00-0.00); Nucleated Red Blood Cell % 0 /100 WBC (0); Platelet Count 149 Thou/mm3 (140-440); RDW Standard Deviation 43.0 fL (36.4-46.3); Red Blood Count 4.57 Miln/mm3 (4.00-5.20); White Blood Count 9.3 Thou/mm3 (3.6-11.0)
[2025-07-07] MEDS: BACLOFEN 10 MG TABLET 20 MG PO ×3 (06:24→22:19)
[2025-07-07 06:33] LABS: Alanine Aminotransferase 7 U/L (10-49); Albumin, Serum 4.6 gm/dL (3.5-5.0); Albumin/Globulin Ratio 2.0 (1.2-2.2); Alkaline Phosphatase 110 U/L (46-116); Anion Gap 10 (7-16); Aspartate Amino Transferase 16 U/L (0-34); BUN/Creatinine Ratio 17 Ratio (12-20); Bilirubin,Total 0.7 mg/dL (0.3-1.2); Blood Urea Nitrogen 15 mg/dL (9-23); Calcium 9.8 mg/dL (8.3-10.6); Calcium (Corrected) 9.8 mg/dL (8.5-10.1); Carbon Dioxide 31.5 mMol/L (20.0-31.0); Chloride 98 mMol/L (98-107); Creatinine (Component) 0.9 mg/dL (0.6-1.3); Estimated Creatinine Clearance 73.3 mL/min (>60); Globulin 2.3 gm/dL (2.3-3.5); Magnesium 1.9 mg/dL (1.6-2.6); Osmolality,Calculated 296 (275-295); Phosphorous 5.6 mg/dL (2.4-5.1); Potassium 3.7 mMol/L (3.4-5.1); Sodium 139 mMol/L (136-145); Total Protein 6.9 gm/dL (5.7-8.2); eGFR > 60 See Note
[2025-07-07 06:37] LABS: Glucose 422 mg/dL (74-106)
[2025-07-07 07:02] LABS: Glucose Estimated Average 286 mg/dL (80-131); Hemoglobin A1C 11.6 % Hgb (4.8-6.0)
--- NOTE | 2025-07-07 09:11 | PC.NURSE ---
Patient blood sugar 466. Dr. Fontana and bedside. Called Charge nurse Christiano and made aware. Gave patient 10 units of regular insulin IV.
[2025-07-07] MEDS: APIXABAN 2.5 MG TABLET 5 MG PO ×2 (09:16→22:20)
[2025-07-07] MEDS: DIGOXIN 0.125 MG TABLET PO (09:16)
[2025-07-07] MEDS: AMIODARONE HCL 200 MG TABLET PO (09:16)
[2025-07-07] MEDS: cefTRIAXone/D5w 1gm IV premix 1 GM/50 ML BAG IV (09:17)
[2025-07-07] MEDS: INSULIN HUM REGULAR 1 UNIT/0.01 ML (PER UNIT) 10 UNIT IV (09:25)
--- NOTE | 2025-07-07 10:12 | PC.NURSE ---
Patient blood sugar 372. Called Dr. Vincent and made aware. will adjust patient's insulin orders.
--- NOTE | 2025-07-07 10:12 | PC.NURSE ---
Called Dr. Vincent and updated her on Patient's blood sugar after IV insulin given. Blood sugar 372.
--- NOTE | 2025-07-07 10:50 | CHAP ---
Patient was visited by the Spiritual Care Volunteer who prayed for them. (Volunteer was in the hospital from C 9:30-10:50)
--- NOTE | 2025-07-07 11:04 | PC.SS ---
Janis Reynaga is a 54-year-old female admitted to [facility] for AHFR/CHF Exacerbation. SS conducted bedside contact with the patient to complete initial assessment and to discuss discharge planning. Role and reason explained. Patient confirmed demographic information. Patient identifies brothhermelindo Reynaga [phone] as her surrogate decision maker. Pt states she is able to complete all ADL?s independently. No need for any source of DME other than O2 3L from [employer]. Pts PCP is Dr. Carnes; last visit was 3 weeks ago. Pharmacy of choice is [facility]. Discharge options discussed and the pt wishes to return home. Family will provide transportation upon DC. No further intervention required at this time, social media content manager would be available to address any further concerns. DC Plan: Home Contact: Jason Blackwell Address: Confirmed on face sheet PCP: Deyvi
--- NOTE | 2025-07-07 11:07 | PC.SS ---
Rounding: On IV Steroids and ABX, 2-3 days poss DC over weekend home.
--- NOTE | 2025-07-07 11:45 | PC.NURSE ---
Patient's blood sugar is 432. Called Dr. Vincent and made aware. will make changes to patient's insulin orders.
--- NOTE | 2025-07-07 12:12 | ESPR_ITS ---
<Statement entered by Concepcion Vincent MD - 07/07/25 14:36> Patient examined at bedside. Around 11 AM there was rapid response due to new onset of blurry vision. Vitals at bedside were stable, she appeared very anxious and was teary-eyed. No new neurologic deficits noted on physical exam. Bedside blood sugar 500s. Patient was given 15 units regular insulin x 1. Will hold IV methylprednisone as wheezing is minimal on auscultation and worsening hyperglycemia. End of rapid blurry vision had resolved. Plan to increase long- acting insulin to 20 units daily with scheduled lispro 10 units with meals. Monitor blood sugars. Continue IV antibiotics and duonebs in setting of COPD exacerbation. The patient's management plan was discussed with my attending physician Dr. Angela. Concepcion Vincent, PGY-2 Documentation for date of: 07/07/25 Subjective Subjective Interval history: Ms. Reynaga is a 54-year-old female past medical history of COPD on 3 L home oxygen, insulin-dependent type 2 diabetes, CHF, A-fib on Eliquis and amiodarone, HFrEF (35 to 40%), presented to the [facility] ED on 07/06/2025 with chief complaint of shortness of breath, admitted for Acute hypoxic respiratory failure secondary to either COPD exacerbation or CHF exacerbation. In the ED, she was afebrile, normotensive, afebrile, on 91% with 30 FiO2 on BIPAP. BNP was negative but glucose found to be elevated in the 400s. Patient,was started on duonebs and methylprednisolone. 07/07 Patient examined at bedside, stated she was starting to breath better. Blood glucose has been persistently elevated ranging from the 400 to 600 range. She takes 15U daily at home but still finds her fasting glucose to be around the 300 to 400 range. Rapid response was called for blurred vision and shortness of breath that occured while she was eating. O2 sat dropped to 86% on 2L NC, and blood glucose was in the 500s at that time. See event note for more details. Since admission last night, she was given 38 units regular insulin IV, 12 units Lispro, and 15 units Degludec. Her scheduled regimen now is degludec 20 unit HS, 10 U Lispro ACHS. IV methylprednisolone was discontinued. Continue duonebs. Exam Vital Signs Temp Pulse Resp BP Pulse Ox O2 Del Method O2 Flow Rate 97.4 F 86 23 H 119/70 91 L Nasal Cannula 2 07/07/25 11:51 07/07/25 11:51 07/07/25 11:51 07/07/25 11:51 07/07/25 11:51 07/07/25 11:51 07/07/25 11:51 FiO2 30 07/07/25 08:00 Narrative Exam General: Patient is obese, conversational, in no acute distress, HEENT: Mucosa moist. Pupils are equal, no scleral icterus or injection. Cardiovascular: Soft heart tones, no murmur appreciated, irregular pulse. Extremities warm and well perfused. Respiratory: Scant wheezing near the anterior upper portion of the lungs. Crackles not appreciate, limited breath sounds at the bases. Abdomen: Soft, nontender, not distended, Skin: Dry, no rashes or bruising Musculoskeletal: No gross injuries. Able to move all 4 extremities. Non edematous lower extremities. Bottoms of feet are free of ulcers, dirt is notable on the soles of her feet. Neuro: Alert and oriented x3. No focal neuro deficits. Gross sensation present in the bilateral lower extremities. Psych: Normal affect and mood Objective Labs 07/08/25 05:57 07/08/25 05:57 Labs: Laboratory Results - last 24 hr 07/06/25 07/06/25 07/06/25 17:05 17:41 20:49 WBC 10.9 RBC 4.84 Hgb 14.3 Hct 44.2 MCV 91 MCH 29.5 MCHC 32.4 RDW Std Deviation 43.3 Plt Count 185 Neut % (Auto) 50 Lymph % (Auto) 43 Spencer % (Auto) 6 Eos % (Auto) 1 Baso % (Auto) 0 Neut # (Auto) 5.4 Lymph # (Auto) 4.7 Spencer # (Auto) 0.7 Eos # (Auto) 0.1 Baso # (Auto) 0.0 Immature Gran # (Auto) 0.03 H Absolute Nucleated RBC 0.00 Immature Gran % 0 Nucleated RBC % 0 Puncture Site Right Radial ABG pH 7.34 L ABG pCO2 55 H ABG pO2 66 L ABG HCO3 30 H ABG O2 Saturation 92 ABG Base Excess 3 VBG pH 7.35 VBG pCO2 56 VBG pO2 46 VBG O2 Sat (Domingo) 82 L VBG Base Excess 4 H FiO2 30 Sodium 141 Potassium 3.7 Chloride 101 Carbon Dioxide 29.2 Anion Gap 11 BUN 14 Creatinine 1.0 Estim Creat Clear Calc 65.7 eGFR > 60 BUN/Creatinine Ratio 14 Glucose 476 H* Estimated Ave Glu mg/dL Hemoglobin A1c Calculated Osmolality 302 H Calcium 9.4 Corrected Calcium 9.4 Phosphorus Magnesium Total Bilirubin 0.9 AST 15 ALT 15 Alkaline Phosphatase 116 Troponin I < 0.020 B-Natriuretic Peptide < 20 Total Protein 6.4 Albumin 4.4 Globulin 2.0 L Albumin/Globulin Ratio 2.2 Urine Opiates Screen Urine Fentanyl Screen Ur Barbiturates Screen U Amphetamin/Meth Scrn U Benzodiazepines Scrn U Cocaine Metab Screen U Marijuana (THC) Screen Influenza A (Rapid) Negative Influenza B (Rapid) Negative 07/06/25 07/07/25 07/07/25 22:04 00:12 05:05 WBC 9.3 RBC 4.57 Hgb 13.3 Hct 41.3 MCV 90 MCH 29.1 MCHC 32.2 RDW Std Deviation 43.0 Plt Count 149 D Neut % (Auto) 91 H Lymph % (Auto) 8 L Spencer % (Auto) 1 Eos % (Auto) 0 Baso % (Auto) 0 Neut # (Auto) 8.4 H Lymph # (Auto) 0.7 L Spencer # (Auto) 0.1 Eos # (Auto) 0.0 Baso # (Auto) 0.0 Immature Gran # (Auto) 0.03 H Absolute Nucleated RBC 0.00 Immature Gran % 0 Nucleated RBC % 0 Puncture Site ABG pH ABG pCO2 ABG pO2 ABG HCO3 ABG O2 Saturation ABG Base Excess VBG pH VBG pCO2 VBG pO2 VBG O2 Sat (Domingo) VBG Base Excess FiO2 Sodium 139 Potassium 3.7 Chloride 98 Carbon Dioxide 31.5 H Anion Gap 10 BUN 15 Creatinine 0.9 Estim Creat Clear Calc 73.3 eGFR > 60 BUN/Creatinine Ratio 17 Glucose 637 H* D 422 H* D Estimated Ave Glu mg/dL 286 H Hemoglobin A1c 11.6 H Calculated Osmolality 296 H Calcium 9.8 Corrected Calcium 9.8 Phosphorus 5.6 H Magnesium 1.9 Total Bilirubin 0.7 AST 16 ALT 7 L Alkaline Phosphatase 110 Troponin I B-Natriuretic Peptide Total Protein 6.9 Albumin 4.6 Globulin 2.3 Albumin/Globulin Ratio 2.0 Urine Opiates Screen Negative Urine Fentanyl Screen Negative Ur Barbiturates Screen Negative U Amphetamin/Meth Scrn Negative U Benzodiazepines Scrn Negative U Cocaine Metab Screen Negative U Marijuana (THC) Screen Negative Influenza A (Rapid) Influenza B (Rapid) ABG Interpretation ABG results: 07/06/25 07/06/25 17:05 20:49 ABG pH 7.34 L ABG pCO2 55 H ABG pO2 66 L ABG HCO3 30 H ABG O2 Saturation 92 ABG Base Excess 3 VBG pH 7.35 VBG pCO2 56 VBG pO2 46 VBG Base Excess 4 H Quality Measures Quality Measures none Assessment & Plan Assessment Current Active Medications: Generic Name Dose Route Start Last Admin Trade Name Freq PRN Reason Stop Dose Admin Acetaminophen 650 mg 07/07/25 11:59 Acetaminophen 325 Mg Tablet PO 08/06/25 11:58 Q6HR PRN Fever >101 or pain 1-3 Albuterol/Ipratropium 3 ml 07/06/25 23:00 07/07/25 10:50 Albuterol/Ipratropium (Duoneb) Rt Mariel 3 Ml Nebu INH 08/05/25 22:59 3 ml Q4HRRT CONSTANZA Administration Albuterol/Ipratropium 3 ml 07/06/25 20:40 Albuterol/Ipratropium (Duoneb) Rt Mariel 3 Ml Nebu INH 08/05/25 20:39 Q2HR PRN SHORTNESS OF BREATH OR WHEEZE Amiodarone HCl 200 mg 07/07/25 09:00 07/07/25 09:16 Amiodarone Hcl 200 Mg Tablet PO 08/06/25 08:59 200 mg QDAY CONSTANZA Administration Apixaban 5 mg 07/07/25 09:00 07/07/25 09:16 Apixaban 2.5 Mg Tablet PO 08/06/25 08:59 5 mg BID CONSTANZA Administration Baclofen 20 mg 07/07/25 07:00 07/07/25 06:24 Baclofen 10 Mg Tablet PO 08/06/25 06:59 20 mg TID CONSTANZA Administration Dextrose 25 ml 07/07/25 09:08 Dextrose 50%-Water Inj 50 Ml Syringe IV 08/06/25 09:07 Q15MIN PRN BG 50-70 responsive npo pt Dextrose 50 ml 07/07/25 09:08 Dextrose 50%-Water Inj 50 Ml Syringe IV 08/06/25 09:07 Q15MIN PRN BG <50 OR BG <70 & pt unresponsive Digoxin 0.125 mg 07/07/25 09:00 07/07/25 09:16 Digoxin 0.125 Mg Tablet PO 08/06/25 08:59 0.125 mg DAILY CONSTANZA Administration Furosemide 40 mg 07/07/25 09:00 07/07/25 09:15 Furosemide 20 Mg Tablet PO 08/06/25 08:59 40 mg QAM CONSTANZA Administration Glucagon 1 mg 07/07/25 09:08 Glucagon Inj 1 Mg Vial IM Q15MIN PRN BG <70, and no IV access Ceftriaxone Sodium/Dextrose 1 gm in 50 mls @ 100 mls/hr 07/06/25 21:00 07/07/25 09:17 Rocephin/D5w 1gm Iv Premix IV 07/13/25 20:59 100 mls/hr QDAY [facility] Administration Azithromycin 500 mg/ Sodium 250 mls @ 250 mls/hr 07/07/25 23:00 Chloride IV 07/14/25 22:59 QDAY@2300 [facility] Insulin Degludec 20 unit 07/07/25 21:00 Insulin Degludec 5 Unit/0.05 Ml (Per 5 Units) MO 08/06/25 20:59 HS [facility] Insulin Human Lispro 0 unit 07/07/25 11:30 Insulin Lispro (Admelog) 1 Unit/0.01 Ml Unit MO 08/06/25 11:29 ACHS [facility] Protocol Insulin Human Lispro 5 unit 07/07/25 14:00 Insulin Lispro (Admelog) 1 Unit/0.01 Ml Unit MO 08/06/25 13:59 TID [facility] Melatonin 18 mg 07/07/25 21:00 Melatonin 3 Mg Tablet PO 08/06/25 20:59 HS [facility] Protocol Methylprednisolone Sodium Succinate 40 mg 07/07/25 09:00 07/07/25 09:15 Methylprednisolone Sod Succ 40 Mg/Ml Vial IVP 07/14/25 08:59 40 mg QDAY CONSTANZA Administration Pantoprazole Sodium 40 mg 07/07/25 09:00 07/07/25 09:14 Pantoprazole Inj 40 Mg Vial IVP 08/06/25 08:59 40 mg QDAY CONSTANZA Administration Sodium Chloride 3 ml 07/06/25 17:57 Sodium Chloride Rt Mariel 0.9% 3 Ml Nebu INH 08/05/25 17:56 PRN PRN SOLN Plan Ms. Reynaga is a 54-year-old female past medical history of COPD on 3 L home oxygen, insulin-dependent type 2 diabetes, CHF, A-fib on Eliquis and amiodarone, HFrEF (35 to 40%), presented to the [facility] ED on 07/06/2025 with chief complaint of shortness of breath, admitted for Acute hypoxic respiratory failure secondary to either COPD exacerbation or CHF exacerbation. #Insulin-dependent type 2 diabetes mellitus, A1c 11.6 #Hyperglycemia Patient is on home 15 units glargine at night, states she often wakes up with blood glucose in the 300s. On admission patient had a blood glucose of 476, likely due to methylprednisolone for acute exacerbation of COPD. Last A1c 03/17/2025 was 11.7, 11.6 on 07/06. Patient blood glucose has been uptrending 347>[phone]>[id number]. Blood glucose has been persistently elevated in the 400-500 range today. Has received a total of 38 U Regular Insulin, 12 Units Lispro, and 15 Units degludec. Patient reports her compliant with all medication ? SSI Step3 ? degludec 15 units HS ? lispro 10 units TIDWM ? Hypoglycemia protocol in place - Discontinue methylprednisolone at this point. -Would benefit from outpatient jiardiance, metformin, and possibly ozempic. #Acute hypoxic respiratory failure setting of #COPD exacerbation #History of CHF #HrEF (EF 35-40%) #? Left lower lobe pneumonia DDx: COPD exacerbation versus CHF exacerbation Patient endorsed shortness of breath, onset 2 days ago, worse with exertion and laying flat, normally on 3 L home oxygen. Upon presentation patient saturating 97% on 30 O2 BiPAP. Left lower lobe crackles present, no bilateral extremity edema, pointed to low suspicion for CHF exacerbation. Nonetheless patient endorses fever, chills, negative indicating possible infective process leading to COPD exacerbation in setting of pneumonia. Chest x-ray showed vascular congestion and enlarged cardiac silhouette. Echo done 03/17/2025 showed EF 35 to 40% with trace MR Repeat ABG 7.34, CO2 55, PaO2 66, bicarb 30 respiratory acidosis with metabolic compensation -DuoNeb as needed -CPAP/BiPAP as needed -Started ceftriaxone 1 mg daily and azithromycin 500 mg daily -Started Bumex 1 mg daily -Discontinued methylprednisolone 40 mg daily -Sputum culture and Gram stain ordered, pending -Strict ins and outs -Fluid restriction 1500 ml -Supplemental O2 as needed, wean as tolerated #A-fib, rate control Patient has a history of atrial fibrillation on Amiodarone, Eliquis and Digoxin EKG is paced sinus rhythm rate 96, QTc 458. Patient follows outpatient cardiology Dr. Snider CHADsVAS score 6-?13.6% risk of stroke/TIA/systemic embolism HAS BLED score 3 - Resumed home amiodarone 100 mg p.o BID., patient was instructed by her sonography technician to cut the pill in half and take it BID. - Resumed Eliquis 5 mg p.o. - Resume digoxin 0.125 mg p.o. - Monitor on telemetry - Keep K > 4 and Mg > 2 #Asymptomatic pyuria Patient denies dysuria, urgency or frequency. However UA was positive for 3+ glucose, leukocyte esterase, urine RBC 5 -No intervention indicated presently - Continue to monitor Health Maintenance: DVT prophylaxis: eliquis Diet: Carbohydrate low, 1500 fluid restriction Champagne: No Lines: PIV CODE STATUS: Full code Disposition: Pending glucose control. Patient's plan and care discussed with my attending, Dr. Angela and my senior Dr. Carlton Boston DO PGY-1 ([facility] Resident) Attending Provider Attestation/Addendum Cheli Faye DO, attest that I was physically present for the woodruff portions of the service and evaluated the patient with the resident and I reviewed and discussed the case with the resident and agree with the resident's findings and plans of care as documented above Patient seen and evaluated this AM. She states she is feeling well and currently on 2L/NC. She continues to have mild wheezing. Blood glucose has been elevated due to poor glucose control and steroids. Discussed with patient that her A1c was >11. Patient states she has been using 10 units of long acting insulin at home if she had it available. She was told to switch to 15u daily, but does not get enough refills outpatient to self- administer 15 u daily. She states she goes about a week without insulin at times. Counselled patient on better BG control. She wears 2L/NC at home occasionally. She has been ambulating without issue to the bathroom or dyspnea. Patient reported blurry vision in the afternoon during which rapid response was called. Patient stated that her vision appeared blurry while she had been eating. Neuro exam at was unremarkable and patient reported improvement of her vision at time of exam. No focal neurologic deficits were noted. Gross sensation and MS 4+/5 in all four extremities. However, suspect that blurry vision was secondary to uncontroll BG which was >500. Patient was given another 15u of regular insulin. Will give gentle IV fluids, hold lasix, DC steroids as respiratory status has improved and increase baseal insulin to 15u qHS with 10u SC AC. Will uptitrate insulin as needed.
[2025-07-07] MEDS: INSULIN LISPRO (AdmeLOG) 1 UNIT/0.01 ML UNIT 5 UNIT SC (12:35)
[2025-07-07] MEDS: ACETAMINOPHEN 325 MG TABLET 650 MG PO (12:36)
--- NOTE | 2025-07-07 12:40 | PC.NURSE ---
PC RN Student and Instructor were in patient's room giving Insulin. Patient said she felt shaky and couldn't see. Checked patient's vitals and called a rapid response at 12:40. Checked blood sugar during rapid and blood sugar was 535. Stacey at bedside added new orders for patient. See Rapid response form on worklist.
[2025-07-07] MEDS: INSULIN HUM REGULAR 1 UNIT/0.01 ML (PER UNIT) 15 UNIT IV (13:00)
[2025-07-07] MEDS: RINGERS LACTATED 500 ML 500 ML 75 ML IV (13:01)
[2025-07-07 13:05] LABS: Base Excess, Venous 5 (-3-3); O2 Saturation, Venous 72 % (96-97); PCO2, Venous 51 mmHg (36-56); PO2, Venous 37 mmHg (15-58); pH, Venous 7.40 (7.33-7.66)
[2025-07-07 13:09] LABS: Basophils # (Auto) 0.0 Thou/mm3 (0.0-0.2); Basophils % (Auto) 0 % (0-2.5); Eosinophils # (Auto) 0.0 Thou/mm3 (0.0-0.5); Eosinophils % (Auto) 0 % (0-10); Hematocrit 41.7 % (36.0-46.0); Hemoglobin 13.7 g/dL (12.0-16.0); Immature Granulocytes Auto 0.02 Thou/mm3 (0.00-0.00); Lymphocytes # (Auto) 0.7 Thou/mm3 (1.0-4.8); Lymphocytes % (Auto) 6 % (10-50); Mean Corpuscular HGB Conc 32.9 g/dl (31.0-37.0); Mean Corpuscular Hemoglobin 29.8 pg (25.0-35.0); Mean Corpuscular Volume 91 fL (80-100); Monocytes # (Auto) 0.2 Thou/mm3 (0.0-0.8); Monocytes % (Auto) 2 % (0-12); Neutrophils # (Auto) 10.1 Thou/mm3 (1.8-7.7); Neutrophils % (Auto) 92 % (37-80); Nucleated Red Blood Cell # 0.00 Thou/mm3 (0.00-0.00); Nucleated Red Blood Cell % 0 /100 WBC (0); Platelet Count 138 Thou/mm3 (140-440); RDW Standard Deviation 43.7 fL (36.4-46.3); Red Blood Count 4.60 Miln/mm3 (4.00-5.20); White Blood Count 11.0 Thou/mm3 (3.6-11.0)
--- NOTE | 2025-07-07 13:19 | EVENTNT_ITS ---
Documentation for date of: 07/07/25 Event Note Event Note: Rapid Response called for patient reporting blurred vision, shortness of breath, and o2 sat at 86% while she was eating. On inital evaluation, VSS, normontensive, O2 sat fluctated between high 80s and low 90s. Airway intact and bilateral breath sounds appreciated with minimal wheezing. Extremites were warm and well perfused. Blurred vision improving and no focal neuro deficit. She had just been given 9 units regular insulin, with repeat glucose check in the 500s. Subsequently given 15 units regular insulin IV. Additionally, she was started on 500cc of LR at rate of 75cc/hr. Repeat BMP, VBG, and CBC drawn. Her IV steriods were discontinued. Patient reporting her blurred vision improved. This is most likely secondary to her high blood glucose, also considering HHS. Diagnostic work up and interventions as listed above. Patient's plan and care discussed with my attending, Dr. Coreen Boston, DO PGY-1 ([facility] Resident)
[2025-07-07 13:48] LABS: Anion Gap 8 (7-16); BUN/Creatinine Ratio 14 Ratio (12-20); Blood Urea Nitrogen 14 mg/dL (9-23); Calcium 9.7 mg/dL (8.3-10.6); Carbon Dioxide 29.7 mMol/L (20.0-31.0); Chloride 94 mMol/L (98-107); Creatinine (Component) 1.0 mg/dL (0.6-1.3); Estimated Creatinine Clearance 66.0 mL/min (>60); Osmolality,Calculated 290 (275-295); Potassium 3.9 mMol/L (3.4-5.1); Sodium 132 mMol/L (136-145); eGFR > 60 See Note
[2025-07-07 13:50] LABS: Glucose 540 mg/dL (74-106)
[2025-07-07] MEDS: INSULIN LISPRO (AdmeLOG) 1 UNIT/0.01 ML UNIT 10 UNIT SC (17:34)
[2025-07-07] MEDS: AZITHROMYCIN INJ 500 MG in SODIUM CHLORIDE 0.9% 250 ML 250 ML 250 MG IV (22:19)
[2025-07-07] MEDS: MELATONIN 3 MG TABLET 18 MG PO (22:19)
[2025-07-07] MEDS: INSULIN DEGLUDEC 5 UNIT/0.05 ML (PER 5 UNITS) 20 UNIT SC (22:43)
[2025-07-08] VITALS (14 sets, daily range): BP systolic 96–126; BP diastolic 50–84; PULSE 70–94; RESP 16–26; TEMP 35.9–36.3; O2SAT 88–99; BMI 43.7
[2025-07-08] MEDS: ALBUTEROL/IPRATROPIUM (Duoneb) RT SOL 3 ML NEBU INH ×5 (02:43→23:41)
[2025-07-08 06:15] LABS: Basophils # (Auto) 0.0 Thou/mm3 (0.0-0.2); Basophils % (Auto) 0 % (0-2.5); Eosinophils # (Auto) 0.0 Thou/mm3 (0.0-0.5); Eosinophils % (Auto) 0 % (0-10); Hematocrit 40.1 % (36.0-46.0); Hemoglobin 12.8 g/dL (12.0-16.0); Immature Granulocytes Auto 0.03 Thou/mm3 (0.00-0.00); Lymphocytes # (Auto) 2.0 Thou/mm3 (1.0-4.8); Lymphocytes % (Auto) 17 % (10-50); Mean Corpuscular HGB Conc 31.9 g/dl (31.0-37.0); Mean Corpuscular Hemoglobin 29.4 pg (25.0-35.0); Mean Corpuscular Volume 92 fL (80-100); Monocytes # (Auto) 0.5 Thou/mm3 (0.0-0.8); Monocytes % (Auto) 4 % (0-12); Neutrophils # (Auto) 8.8 Thou/mm3 (1.8-7.7); Neutrophils % (Auto) 78 % (37-80); Nucleated Red Blood Cell # 0.00 Thou/mm3 (0.00-0.00); Nucleated Red Blood Cell % 0 /100 WBC (0); Platelet Count 132 Thou/mm3 (140-440); RDW Standard Deviation 44.4 fL (36.4-46.3); Red Blood Count 4.36 Miln/mm3 (4.00-5.20); White Blood Count 11.3 Thou/mm3 (3.6-11.0)
[2025-07-08] MEDS: BACLOFEN 10 MG TABLET 20 MG PO ×3 (06:22→21:15)
[2025-07-08 06:51] LABS: Alanine Aminotransferase 12 U/L (10-49); Albumin, Serum 4.2 gm/dL (3.5-5.0); Albumin/Globulin Ratio 2.2 (1.2-2.2); Alkaline Phosphatase 89 U/L (46-116); Anion Gap 7 (7-16); Aspartate Amino Transferase 12 U/L (0-34); BUN/Creatinine Ratio 20 Ratio (12-20); Bilirubin,Total 0.6 mg/dL (0.3-1.2); Blood Urea Nitrogen 16 mg/dL (9-23); Calcium 9.4 mg/dL (8.3-10.6); Calcium (Corrected) 9.4 mg/dL (8.5-10.1); Carbon Dioxide 33.9 mMol/L (20.0-31.0); Chloride 98 mMol/L (98-107); Creatinine (Component) 0.8 mg/dL (0.6-1.3); Estimated Creatinine Clearance 82.9 mL/min (>60); Globulin 1.9 gm/dL (2.3-3.5); Glucose 337 mg/dL (74-106); Magnesium 2.0 mg/dL (1.6-2.6); Osmolality,Calculated 291 (275-295); Phosphorous 4.8 mg/dL (2.4-5.1); Potassium 3.8 mMol/L (3.4-5.1); Sodium 139 mMol/L (136-145); Total Protein 6.1 gm/dL (5.7-8.2); eGFR > 60 See Note
[2025-07-08] MEDS: INSULIN LISPRO (AdmeLOG) 1 UNIT/0.01 ML UNIT SC ×3 (07:37→21:16)
[2025-07-08] MEDS: INSULIN LISPRO (AdmeLOG) 1 UNIT/0.01 ML UNIT 10 UNIT SC (07:38)
[2025-07-08] MEDS: APIXABAN 2.5 MG TABLET 5 MG PO ×2 (09:06→21:15)
[2025-07-08] MEDS: cefTRIAXone/D5w 1gm IV premix 1 GM/50 ML BAG IV (09:08)
[2025-07-08] MEDS: DIGOXIN 0.125 MG TABLET PO (09:08)
[2025-07-08] MEDS: AMIODARONE HCL 200 MG TABLET PO (09:10)
--- NOTE | 2025-07-08 10:09 | ESPR_ITS ---
<Statement entered by Shilpa Fontana MD - 07/08/25 17:26> Patient seen and examined at bedside. Patient states that her shortness of breath is doing much better. Patient is back to her home Oxygen, and will continue to optimize her glucose. Glucose this morning was 337, and will increase her sliding scale insulin as well as her long-acting insulin prior to discharge. Patient will most likely require increased insulin requirements at discharge most likely tomorrow. I discussed with and supervised the management retail intern physician who took care of this patient. I personally saw and examined the patient and discussed the assessment and plan with the entire medicine team, including my attending Dr. Angela, I agree with most of the assessment and plan as documented below Shilpa Fontana M.D. PGY-3 Disclaimer: Despite multiple revisions, due to the dictation software being used, the document bellow may not be free of grammatical errors including phonetic/typographic errors. However, this does not deter from our commitment to providing health care in the patient's best interest in mind. Documentation for date of: 07/08/25 Subjective Subjective Interval history: Ms. Reynaga is a 54-year-old female past medical history of COPD on 3 L home oxygen, insulin-dependent type 2 diabetes, CHF, A-fib on Eliquis and amiodarone, HFrEF (35 to 40%), presented to [facility] ED on 07/06/2025 with chief complaint of shortness of breath, admitted for Acute hypoxic respiratory failure secondary to either COPD exacerbation or CHF exacerbation. In the ED, she was afebrile, normotensive, afebrile, on 91% with 30 FiO2 on BIPAP. BNP was negative but glucose found to be elevated in the 400s. Patient,was started on duonebs and methylprednisolone. 07/07 Patient examined at bedside, stated she was starting to breath better. Blood glucose has been persistently elevated ranging from the 400 to 600 range. She takes 15U daily at home but still finds her fasting glucose to be around the 300 to 400 range. Rapid response was called for blurred vision and shortness of breath that occured while she was eating. O2 sat dropped to 86% on 2L NC, and blood glucose was in the 500s at that time. See event note for more details. Since admission last night, she was given 38 units regular insulin IV, 12 units Lispro, and 15 units Degludec. 07/08 Patient states her breathing is doing much better, she is quite anxious to get home because she has a trip to [place] next week with her sister that has severe Parkinsons and states she has a lot of affairs to get squared away. She is agreeable to stay today in order to get further optimized medically. Morning glc was 337, this is on 20U degludec last night. She was also getting 10 U Lispro ACHS and consistently getting 4 additional units with sliding scale. Increase degludec to 25U HS. Lispro increased from 10 to 12 ACHS. Will likely decrease this upon discharge, as her uncontrollable blood sugars a likely secondary to the IV steroids. Exam Vital Signs Temp Pulse Resp BP Pulse Ox O2 Del Method O2 Flow Rate 96.6 F L 73 18 113/70 93 L Nasal Cannula 3 07/08/25 08:00 07/08/25 09:10 07/08/25 08:00 07/08/25 09:10 07/08/25 08:00 07/08/25 08:00 07/08/25 08:00 FiO2 30 07/07/25 16:00 Narrative Exam General: Patient is obese, conversational, in no acute distress, HEENT: Mucosa moist. Pupils are equal, no scleral icterus or injection. Cardiovascular: Soft heart tones, no murmur appreciated, irregular pulse. Extremities warm and well perfused. Respiratory: Scant wheezing near the anterior upper portion of the lungs. Crackles not appreciate, limited breath sounds at the bases. Abdomen: Soft, nontender, not distended, Skin: Dry, no rashes or bruising Musculoskeletal: No gross injuries. Able to move all 4 extremities. Non edematous lower extremities. Bottoms of feet are free of ulcers, dirt is notable on the soles of her feet. Neuro: Alert and oriented x3. No focal neuro deficits. Gross sensation present in the bilateral lower extremities. Psych: Normal affect and mood Objective Labs 07/09/25 06:55 07/09/25 06:55 Labs: Laboratory Results - last 24 hr 07/07/25 07/08/25 13:00 05:57 WBC 11.0 11.3 H RBC 4.60 4.36 Hgb 13.7 12.8 Hct 41.7 40.1 MCV 91 92 MCH 29.8 29.4 MCHC 32.9 31.9 RDW Std Deviation 43.7 44.4 Plt Count 138 L 132 L Neut % (Auto) 92 H 78 Lymph % (Auto) 6 L 17 Gladwin % (Auto) 2 4 Eos % (Auto) 0 0 Baso % (Auto) 0 0 Neut # (Auto) 10.1 H 8.8 H Lymph # (Auto) 0.7 L 2.0 Gladwin # (Auto) 0.2 0.5 Eos # (Auto) 0.0 0.0 Baso # (Auto) 0.0 0.0 Immature Gran # (Auto) 0.02 H 0.03 H Absolute Nucleated RBC 0.00 0.00 Immature Gran % 0 0 Nucleated RBC % 0 0 VBG pH 7.40 VBG pCO2 51 VBG pO2 37 VBG O2 Sat (Domingo) 72 L VBG Base Excess 5 H Sodium 132 L 139 Potassium 3.9 3.8 Chloride 94 L 98 Carbon Dioxide 29.7 33.9 H Anion Gap 8 7 BUN 14 16 Creatinine 1.0 0.8 Estim Creat Clear Calc 66.0 82.9 eGFR > 60 > 60 BUN/Creatinine Ratio 14 20 Glucose 540 H* D 337 H D Calculated Osmolality 290 291 Calcium 9.7 9.4 Corrected Calcium 9.4 Phosphorus 4.8 Magnesium 2.0 Total Bilirubin 0.6 AST 12 ALT 12 Alkaline Phosphatase 89 D Total Protein 6.1 Albumin 4.2 Globulin 1.9 L Albumin/Globulin Ratio 2.2 ABG Interpretation ABG results: 07/06/25 07/06/25 07/07/25 17:05 20:49 13:00 ABG pH 7.34 L ABG pCO2 55 H ABG pO2 66 L ABG HCO3 30 H ABG O2 Saturation 92 ABG Base Excess 3 VBG pH 7.35 7.40 VBG pCO2 56 51 VBG pO2 46 37 VBG Base Excess 4 H 5 H Quality Measures Quality Measures none Assessment & Plan Assessment Current Active Medications: Generic Name Dose Route Start Last Admin Trade Name Freq PRN Reason Stop Dose Admin Acetaminophen 650 mg 07/07/25 11:59 07/07/25 12:36 Acetaminophen 325 Mg Tablet PO 08/06/25 11:58 650 mg Q6HR PRN Administration Fever >101 or pain 1-3 Albuterol/Ipratropium 3 ml 07/06/25 23:00 07/08/25 02:43 Albuterol/Ipratropium (Duoneb) Rt Mariel 3 Ml Nebu INH 08/05/25 22:59 3 ml Q4HRRT CONSTANZA Administration Albuterol/Ipratropium 3 ml 07/06/25 20:40 Albuterol/Ipratropium (Duoneb) Rt Mariel 3 Ml Nebu INH 08/05/25 20:39 Q2HR PRN SHORTNESS OF BREATH OR WHEEZE Amiodarone HCl 200 mg 07/07/25 09:00 07/08/25 09:10 Amiodarone Hcl 200 Mg Tablet PO 08/06/25 08:59 200 mg QDAY CONSTANZA Administration Apixaban 5 mg 07/07/25 09:00 07/08/25 09:06 Apixaban 2.5 Mg Tablet PO 08/06/25 08:59 5 mg BID CONSTANZA Administration Baclofen 20 mg 07/07/25 07:00 07/08/25 06:22 Baclofen 10 Mg Tablet PO 08/06/25 06:59 20 mg TID CONSTANZA Administration Dextrose 25 ml 07/07/25 09:08 Dextrose 50%-Water Inj 50 Ml Syringe IV 08/06/25 09:07 Q15MIN PRN BG 50-70 responsive npo pt Dextrose 50 ml 07/07/25 09:08 Dextrose 50%-Water Inj 50 Ml Syringe IV 08/06/25 09:07 Q15MIN PRN BG <50 OR BG <70 & pt unresponsive Digoxin 0.125 mg 07/07/25 09:00 07/08/25 09:08 Digoxin 0.125 Mg Tablet PO 08/06/25 08:59 0.125 mg DAILY CONSTANZA Administration Furosemide 40 mg 07/07/25 09:00 07/07/25 09:15 Furosemide 20 Mg Tablet PO 08/06/25 08:59 40 mg On Hold: 07/07/25 12:47 QAM CONSTANZA Administration Glucagon 1 mg 07/07/25 09:08 Glucagon Inj 1 Mg Vial IM Q15MIN PRN BG <70, and no IV access Ceftriaxone Sodium/Dextrose 1 gm in 50 mls @ 100 mls/hr 07/06/25 21:00 07/08/25 09:08 Rocephin/D5w 1gm Iv Premix IV 07/13/25 20:59 100 mls/hr QDAY CONSTANZA Administration Azithromycin 500 mg/ Sodium 250 mls @ 250 mls/hr 07/07/25 23:00 07/07/25 22:19 Chloride IV 07/14/25 22:59 250 mls/hr QDAY@2300 CONSTANZA Administration Insulin Degludec 25 unit 07/08/25 21:00 Insulin Degludec 5 Unit/0.05 Ml (Per 5 Units) SC 08/07/25 20:59 HS CONSTANZA Insulin Human Lispro 0 unit 07/07/25 11:30 07/08/25 07:37 Insulin Lispro (Admelog) 1 Unit/0.01 Ml Unit SC 08/06/25 11:29 4 unit ACHS CONSTANZA Administration Protocol Insulin Human Lispro 12 unit 07/08/25 11:30 Insulin Lispro (Admelog) 1 Unit/0.01 Ml Unit SC 08/07/25 11:29 ACHS CONSTANZA Melatonin 18 mg 07/07/25 21:00 07/07/25 22:19 Melatonin 3 Mg Tablet PO 08/06/25 20:59 18 mg HS CONSTANZA Administration Protocol Pantoprazole Sodium 40 mg 07/07/25 09:00 07/08/25 09:06 Pantoprazole Inj 40 Mg Vial IVP 08/06/25 08:59 40 mg QDAY CONSTANZA Administration Sodium Chloride 3 ml 07/06/25 17:57 Sodium Chloride Rt Mariel 0.9% 3 Ml Nebu INH 08/05/25 17:56 PRN PRN SOLN Plan Ms. Reynaga is a 54-year-old female past medical history of COPD on 3 L home oxygen, insulin-dependent type 2 diabetes, CHF, A-fib on Eliquis and amiodarone, HFrEF (35 to 40%), presented to the [facility] ED on 07/06/2025 with chief complaint of shortness of breath, admitted for Acute hypoxic respiratory failure secondary to either COPD exacerbation or CHF exacerbation. #Insulin-dependent type 2 diabetes mellitus, A1c 11.6 #Hyperglycemia Patient is on home 15 units glargine at night, states she often wakes up with blood glucose in the 300s. On admission patient had a blood glucose of 476, likely due to methylprednisolone for acute exacerbation of COPD. Last A1c 03/17/2025 was 11.7, 11.6 on 07/06. Patient blood glucose has been uptrending 347>533>509>637. Blood glucose has been persistently elevated in the 400-500 range today. Has received a total of 38 U Regular Insulin, 12 Units Lispro, and 15 Units degludec on 07/07. Patient reports her compliant with all medication Anticipate glucose levels will drop after discharge, so will likely send her out with a regimen with lower doses than she is currently on inpatient. ? SSI Step3 ? degludec 25 units HS ? lispro 12 units TIDWM ? Hypoglycemia protocol in place - Discontinue methylprednisolone at this point. -Would benefit from outpatient jiardiance, metformin, and possibly ozempic. #Acute hypoxic respiratory failure setting of #COPD exacerbation #History of CHF #HrEF (EF 35-40%) #? Left lower lobe pneumonia DDx: COPD exacerbation versus CHF exacerbation Patient endorsed shortness of breath, onset 2 days ago, worse with exertion and laying flat, normally on 3 L home oxygen. Upon presentation patient saturating 97% on 30 O2 BiPAP. Left lower lobe crackles present, no bilateral extremity edema, pointed to low suspicion for CHF exacerbation. Nonetheless patient endorses fever, chills, negative indicating possible infective process leading to COPD exacerbation in setting of pneumonia. Chest x-ray showed vascular congestion and enlarged cardiac silhouette. Echo done 03/17/2025 showed EF 35 to 40% with trace MR Oxygenation improved, minimal wheezing on exam. -DuoNeb as needed -CPAP/BiPAP as needed -Started ceftriaxone 1 mg daily and azithromycin 500 mg daily. (07/06- -Started Bumex 1 mg daily -Discontinued methylprednisolone 40 mg daily -Sputum culture and Gram stain ordered, pending -Strict ins and outs -Fluid restriction 1500 ml -Supplemental O2 as needed, wean as tolerated #A-fib, rate control Patient has a history of atrial fibrillation on Amiodarone, Eliquis and Digoxin EKG is paced sinus rhythm rate 96, QTc 458. Patient follows outpatient cardiology Dr. 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 - Resumed Eliquis 5 mg p.o. - Resume digoxin 0.125 mg p.o. - Monitor on telemetry - Keep K > 4 and Mg > 2 #Asymptomatic pyuria Patient denies dysuria, urgency or frequency. However UA was positive for 3+ glucose, leukocyte esterase, urine RBC 5 -No intervention indicated presently - Continue to monitor Health Maintenance: DVT prophylaxis: eliquis Diet: Carbohydrate low, 1500 fluid restriction Champagne: No Lines: PIV CODE STATUS: Full code Disposition: Pending glucose control. Patient's plan and care discussed with my attending, Dr Angela and my senior Dr Marizol Boston DO PGY-1 ([facility] Resident) Attending Provider Attestation/Addendum Cheli Faye DO, attest that I was physically present for the woodruff portions of the service and evaluated the patient with the resident and I reviewed and discussed the case with the resident and agree with the resident's findings and plans of care as documented above Patient seen and evaluated this AM. She states she is feeling well, no longer complains of blurry vision. Blood glucose remains uncontrolled. Will continue to uptitrate insulin. Steroids discontinued. Wheezing has much improved and patient remains on 2L/NC. Anticipate DC within next 24h if blood glucose is stable and improved.
[2025-07-08] MEDS: INSULIN LISPRO (AdmeLOG) 1 UNIT/0.01 ML UNIT 12 UNIT SC (12:43)
[2025-07-08] MEDS: ACETAMINOPHEN 325 MG TABLET 650 MG PO ×2 (13:05→19:22)
--- NOTE | 2025-07-08 16:03 | PC.SS ---
rounding note: possible d/c tomorrow pending sugar levels change.
--- NOTE | 2025-07-08 17:14 | PC.NURSE ---
Pt not feeling well. Blood Sugar 91. Dinner at bedside. Called Dr. Vincent and made aware. Held scheduled insulin at this time.
[2025-07-08] MEDS: MELATONIN 3 MG TABLET 6 MG PO (21:15)
[2025-07-08] MEDS: INSULIN DEGLUDEC 5 UNIT/0.05 ML (PER 5 UNITS) 15 UNIT SC (21:16)
[2025-07-08] MEDS: AZITHROMYCIN INJ 500 MG in SODIUM CHLORIDE 0.9% 250 ML 250 ML 250 MG IV (22:08)
[2025-07-09] VITALS (9 sets, daily range): BP systolic 117–150; BP diastolic 71–86; PULSE 66–101; RESP 17–23; TEMP 36–36.2; O2SAT 94–100
[2025-07-09] MEDS: ACETAMINOPHEN 325 MG TABLET 650 MG PO (02:59)
[2025-07-09] MEDS: ALBUTEROL/IPRATROPIUM (Duoneb) RT SOL 3 ML NEBU INH ×3 (03:16→11:04)
[2025-07-09] MEDS: BACLOFEN 10 MG TABLET 20 MG PO (05:23)
[2025-07-09 07:28] LABS: Basophils # (Auto) 0.0 Thou/mm3 (0.0-0.2); Basophils % (Auto) 0 % (0-2.5); Eosinophils # (Auto) 0.0 Thou/mm3 (0.0-0.5); Eosinophils % (Auto) 1 % (0-10); Hematocrit 42.3 % (36.0-46.0); Hemoglobin 13.2 g/dL (12.0-16.0); Immature Granulocytes Auto 0.01 Thou/mm3 (0.00-0.00); Lymphocytes # (Auto) 2.2 Thou/mm3 (1.0-4.8); Lymphocytes % (Auto) 34 % (10-50); Mean Corpuscular HGB Conc 31.2 g/dl (31.0-37.0); Mean Corpuscular Hemoglobin 29.5 pg (25.0-35.0); Mean Corpuscular Volume 94 fL (80-100); Monocytes # (Auto) 0.4 Thou/mm3 (0.0-0.8); Monocytes % (Auto) 7 % (0-12); Neutrophils # (Auto) 3.8 Thou/mm3 (1.8-7.7); Neutrophils % (Auto) 58 % (37-80); Nucleated Red Blood Cell # 0.00 Thou/mm3 (0.00-0.00); Nucleated Red Blood Cell % 0 /100 WBC (0); Platelet Count 121 Thou/mm3 (140-440); RDW Standard Deviation 46.2 fL (36.4-46.3); Red Blood Count 4.48 Miln/mm3 (4.00-5.20); White Blood Count 6.5 Thou/mm3 (3.6-11.0)
[2025-07-09 07:32] LABS: Alanine Aminotransferase 18 U/L (10-49); Albumin, Serum 4.1 gm/dL (3.5-5.0); Albumin/Globulin Ratio 2.3 (1.2-2.2); Alkaline Phosphatase 88 U/L (46-116); Anion Gap 4 (7-16); Aspartate Amino Transferase 20 U/L (0-34); BUN/Creatinine Ratio 19 Ratio (12-20); Bilirubin,Total 0.7 mg/dL (0.3-1.2); Blood Urea Nitrogen 15 mg/dL (9-23); Calcium 9.5 mg/dL (8.3-10.6); Calcium (Corrected) 9.5 mg/dL (8.5-10.1); Carbon Dioxide 38.7 mMol/L (20.0-31.0); Chloride 101 mMol/L (98-107); Creatinine (Component) 0.8 mg/dL (0.6-1.3); Estimated Creatinine Clearance 82.7 mL/min (>60); Globulin 1.8 gm/dL (2.3-3.5); Glucose 271 mg/dL (74-106); Magnesium 2.0 mg/dL (1.6-2.6); Osmolality,Calculated 297 (275-295); Phosphorous 4.4 mg/dL (2.4-5.1); Potassium 4.2 mMol/L (3.4-5.1); Sodium 144 mMol/L (136-145); Total Protein 5.9 gm/dL (5.7-8.2); eGFR > 60 See Note
[2025-07-09] MEDS: INSULIN LISPRO (AdmeLOG) 1 UNIT/0.01 ML UNIT SC (08:02)
[2025-07-09] MEDS: INSULIN LISPRO (AdmeLOG) 1 UNIT/0.01 ML UNIT 8 UNIT SC (08:02)
--- NOTE | 2025-07-09 08:31 | ESDS_ITS ---
<Statement entered by Cheli Angela DO - 07/10/25 08:22> I, Cheli Angela DO, attest that I was physically present for the woodruff portions of the service and evaluated the patient with the resident and I reviewed and discussed the case with the resident and agree with the resident's findings and plans of care as documented above Planned Discharge Date 07/09/25 DS: Providers Provider Date of admission: 07/06/25 20:34 Primary care physician: Tavares Carnes MD Admitting Provider: Camille Gutierrez MD Attending Provider on Admission: Cheli Angela DO Attending Provider on DC: Cheli Angela DO Discharging Provider: Cheli Angela DO Anticipated date of discharge: 07/09/25 DS: Diagnosis Problem List Completed Was Problem List Reviewed/Reconciled?: Yes Hospital Course Hospital Course Hospital course: Ms. Reynaga is a 54-year-old female past medical history of COPD on 3 L home oxygen, insulin-dependent type 2 diabetes, CHF, A-fib on Eliquis and amiodarone, HFrEF (35 to 40%), presented to the [facility] ED on 07/06/2025 with chief complaint of shortness of breath, admitted for Acute hypoxic respiratory failure secondary to either COPD exacerbation or CHF exacerbation. In the ED, she was afebrile, normotensive, afebrile, on 91% with 30 FiO2 on BIPAP. BNP was negative but glucose found to be elevated in the 400s. Patient,was started on duonebs and methylprednisolone. During her hospital course, her blood glucose had remained persistently elevated in the 400s to 600s. On her first hospital day a rapid response was called for blurred vision which was attributed to her hyperglycemia. By that point, her breathing had made some improvement and her IV steriods were discontinued as they were likely contributing to her difficult to control blood sugar. Her insulin regimen was uptitrated throughout her hospital course and by her 3rd hospital day, her breathing and blood glucose were much better controlled. Patient was counselled on medication compliance and given adequate refills. She was advised to f/u closely with PCP. She was felt ready to go home and was medically cleared. She was subsequently discharged in stable condition. Recommendations: Change your melatonin dose to 5mg nightly. Change your long acting insulin from 15 to 20 units daily. If you notice your fasting blood glucose is above 150 in the morning, increase your long-acting by 1 unit. Your goal fasting blood glucose is 70-130. Continue sliding scale insulin as directed. Resume previous medications. Continue using your inhalers as needed for COPD management. Weight yourself daily to monitor for fluid retention. Follow up with your PCP in 1-2 weeks Discharge Diagnoses: #Insulin-dependent type 2 diabetes mellitus, A1c 11.6 #Hyperglycemia #Acute hypoxic respiratory failure setting of #COPD exacerbation #History of CHF #HrEF (EF 35-40%) #? Left lower lobe pneumonia #A-fib, rate control #Asymptomatic pyuria Patient's plan and care discussed with my attending, Dr. Coreen Boston, DO PGY-1 ([facility] Resident) Time Spent with Patient Time attestation: Total time spent providing and/or coordinating discharge services: Time spent: Greater than 30 minutes Exam Vital Signs Temp Pulse Resp BP Pulse Ox O2 Del Method O2 Flow Rate 97.1 F 74 17 117/71 97 Nasal Cannula 3 07/09/25 08:00 07/09/25 08:00 07/09/25 08:00 07/09/25 08:00 07/09/25 08:00 07/09/25 08:00 07/09/25 08:00 FiO2 30 07/07/25 16:00 Narrative Exam General: Patient is obese, conversational, in no acute distress, HEENT: Mucosa moist. Pupils are equal, no scleral icterus or injection. Cardiovascular: Soft heart tones, no murmur appreciated, irregular pulse. Extremities warm and well perfused. Respiratory: Scant wheezing near the anterior upper portion of the lungs. Crackles not appreciated, limited breath sounds at the bases. Abdomen: Soft, nontender, not distended, Skin: Dry, no rashes or bruising Musculoskeletal: No gross injuries. Able to move all 4 extremities. Non edematous lower extremities. Bottoms of feet are free of ulcers, dirt is notable on the soles of her feet. Neuro: Alert and oriented x3. No focal neuro deficits. Gross sensation present in the bilateral lower extremities. Psych: Normal affect and mood Discharge Plan Plan Patient Disposition: HOME (Self Care) Patient condition on transfer: Stable Prescriptions/Referrals Prescriptions/Med Rec: New melatonin 5 mg capsule 5 mg PO HS 30 Days Qty: 30 0RF insulin glargine U-300 conc 300 unit/mL (3 mL) insulin pen 15 unit subcut QDAY 30 Days Qty: 1.5 2RF insulin lispro 100 unit/mL insulin pen 1 sliding scale dose subcut USEASDIRECTD 30 Days Qty: 15 2RF Rx Instructions: 150-200 mg/dL use 1 unit 201-250 mg/dL use 2 units 251-300 mg/dL use 3 units Greater than 300 mg/dL use 4 units (DME) pen needle, diabetic 29 gauge x 1/2 needle See Rx Instructions .Route Qty: 100 0RF Rx Instructions: As directed (DME) lancets Mis See Rx Instructions .Route Qty: 200 2RF Rx Instructions: As directed Continued digoxin 125 mcg (0.125 mg) tablet 125 mcg PO DAILY Eliquis 5 mg tablet 5 mg PO BID 30 Days Qty: 60 3RF albuterol sulfate 90 mcg/actuation HFA aerosol inhaler 2 inh inhalation Q4H PRN (Reason: shortness of breath or wheezing) Qty: 8.5 0RF Trelegy Ellipta 100-62.5-25 mcg blister with device 1 inh inhalation Q24H Qty: 28 0RF fluticasone propion-salmeterol [Advair HFA] 45-21 mcg/actuation HFA aerosol inhaler 2 inh inhalation BID PRN (Reason: shortness of breath or wheezing) albuterol sulfate 90 mcg/actuation HFA aerosol inhaler 2 inh inhalation BID PRN (Reason: shortness of breath or wheezing) amiodarone 200 mg tablet 200 mg PO QDAY Qty: 30 1RF baclofen 20 mg tablet 20 mg PO 3XD (DME) FreeStyle Odilon 3 Plus Sensor Device See Rx Instructions .Route Qty: 2 0RF Rx Instructions: As directed (DME) FreeStyle Odilon 3 [place] Misc See Rx Instructions .Route Qty: 1 0RF Rx Instructions: As directed (DME) pen needle, diabetic [1st Tier Unifine Pentips Plus] 29 gauge x 1/2 needle See Rx Instructions .Route Qty: 100 0RF Rx Instructions: Use for administration of insulin only furosemide 20 mg tablet 20 mg PO QAM Qty: 30 0RF pantoprazole 40 mg tablet,delayed release (DR/EC) 40 mg PO QDAY Qty: 30 1RF Discontinued melatonin 10 mg tablet 20 mg PO HS dapagliflozin propanediol 10 mg tablet 10 mg PO QAM Qty: 30 0RF methylprednisolone 4 mg tablets,dose pack See Taper PO QDAY Qty: 21 0RF Taper: Prednisone Taper 20 mg DAILY for 2 Days and 0 Hour 10 mg DAILY for 2 Days and 0 Hour 5 mg DAILY for 7 Days and 0 Hour insulin glargine 100 unit/mL (3 mL) insulin pen 15 unit subcut QDAY insulin glargine 100 unit/mL (3 mL) insulin pen 15 unit subcut QAM Qty: 15 0RF amiodarone 200 mg tablet 200 mg PO QDAY Qty: 30 1RF Referrals: Tavares Carnes MD [Primary Care Provider, Family Practice] Patient/Caregiver Discharge Instructions Other Discharge Activity Instructions:: Change your melatonin dose to 5mg nightly. Change your long acting insulin from 15 to 20 units daily. If you notice your fasting blood glucose is above 150 in the morning, increase your long-acting by 1 unit. Your goal fasting blood glucose is 70-130. Continue sliding scale insulin as directed. Resume previous medications. Continue using your inhalers as needed for COPD management. Weight yourself daily to monitor for fluid retention. Follow up with your PCP in 1-2 weeks Print Language: Yoruba Stand Alone Forms: Cecelia Award Info., Patient Portal Info Letter Discharge Order Discharge Orders: Discharge (Routine); Ordered 07/09/25 Ordered By: Concepcion Vincent Quality Discharge Quality Measures VTE prophylaxis
[2025-07-09] MEDS: DIGOXIN 0.125 MG TABLET PO (08:40)
[2025-07-09] MEDS: cefTRIAXone/D5w 1gm IV premix 1 GM/50 ML BAG IV (08:41)
[2025-07-09] MEDS: APIXABAN 2.5 MG TABLET 5 MG PO (08:41)
[2025-07-09] MEDS: AMIODARONE HCL 200 MG TABLET PO (08:41)
[2025-07-09] MEDS: IBUPROFEN TAB 200 MG TABLET PO (08:41)
--- NOTE | 2025-07-09 11:56 | PC.SS ---
SS update: bedside nurse informed [facility] that patient will need transportation. Bedside nurse informed [facility] that patient is on oxygen and she has her own in the room with her right now. [facility] HOST met with patient at bedside, patient requested [place] [facility], S[facility]OST made phone call to [place] [employer] but they stated they did not have drivers and stated that SPA HOST would need to call again after 1300. SPA HOST notified bedside nurse and patient that she could request uber, SPA HOST informed patient and bedside nurse that [employer] responds quickly and patient would need to be ready and downstairs. SPA HOST scheduled transportation with [employer]. Patient stated she is ambulatory and is able to take [employer]. SPA HOST scheduled transportation with [employer]. [employer] [facility] notified bedside nurse of ETA.
== END 2025-07-09 11:45 | disposition home or self-care (01) | DRG 140 ==
LOC: SERX 18:16 → SERHOLD 20:51 → S2NX 22:26 → S3SX 07-08 23:37
PROVIDERS: Emergency Medicine; Admitting Provider Student in an Organized Health Care Education/Training Program; Emergency Provider Emergency Medicine; PCP Family Medicine; Visit Provider Internal Medicine
DX: J44.1 Chronic obstructive pulmonary disease with (acute) exacerbation (principal); J96.01 Acute respiratory failure with hypoxia; J44.0 Chronic obstructive pulmonary disease with (acute) lower respiratory infection; Z87.891 Personal history of nicotine dependence; E11.65 Type 2 diabetes mellitus with hyperglycemia; I50.22 Chronic systolic (congestive) heart failure; J18.9 Pneumonia, unspecified organism; I48.91 Unspecified atrial fibrillation; F41.9 Anxiety disorder, unspecified; E87.29 Other acidosis; R82.81 Pyuria; Z79.4 Long term (current) use of insulin; Z79.01 Long term (current) use of anticoagulants; Z99.81 Dependence on supplemental oxygen; Z79.899 Other long term (current) drug therapy; Z88.5 Allergy status to narcotic agent
CPT/HCPCS: 36415; 36600; 71045; 80048; 80053; 80307; 82803; 82947; 83036; 83735; 83880; 84100; 84484; 85025; 87502; 87811; 93005; 93225; 94640; 94644; 94660; 96361; 96365; 96374; 96375; 96376; 99285; A9270; J0456; J0696; J1815; J1938; J2470; J2919; J7050; J7120